=== PATIENT | male | born 1965 | race African-American/Black ===

== ENCOUNTER 2017-04-13 13:30 | Inpatient (IN) | payer OTHER ==
[2017-04-13 15:15] VITALS: BMI 25.0
--- NOTE | 2017-04-13 15:46 | HP ---
CIWA Score - CIWA Score Nausea/Vomitin Muscle Tremors: 3 Anxiety: 3 Agitation: 3 Paroxysmal Sweats: 2 Orientation: 0-Oriented Tacttile Disturbances: 2-Mild Itch/Numbness/Burn Auditory Disturbances: 2-Mild Harshness/Frighten Visual Disturbances: 2-Mild Sensitivity Headache: 2-Mild CIWA-Ar Total Score: 22 Admission ROS BHS - HPI Chief Complaint: I NEED HELP TO STOP DRINKING ALCOHOL,MARIJUANA,HEROIN,MMTP 80 MGS/DAY,LAST MEDICATED O04/11/17 HYPERTENSION DEPRESSION,PTSD LONGEST PERIOD OF SOBRIETY 8 YEARS Allergies/Adverse Reactions: Allergies Allergy/AdvReac Type Severity Reaction Status Date / Time pork derived (porcine) Allergy Severe Rash Verified 04/13/17 15:30 No Known Drug Allergies Allergy Verified 04/13/17 15:30 History of Present Illness: THIS 51 YEARS OLD MALE PATIENT WITH ALCOHOL,MARIJUANA,HEROIN DEPENDENCE,MNMTP 80 MGS/DAY FOR DETOX MENTIONED ABOVE Exam Limitations: No Limitations - Ebola screening Have you traveled outside of the country in the last 21 days: No Have you had contact with anyone from an Ebola affected area: No Have you been sick,other than usual withdrawal symptoms: No - Review of Systems Constitutional: Loss of Appetite, Malaise, Night Sweats, Changes in sleep, Weakness, Unintentional Wgt. Loss EENT: reports: No Symptoms Reported, Nose Congestion Respiratory: reports: No Symptoms reported Cardiac: reports: No Symptoms Reported GI: reports: Nausea, Poor Appetite, Vomiting, Abdominal cramping : reports: No Symptoms Reported Musculoskeletal: reports: Back Pain, Muscle Pain Integumentary: reports: Dryness Neuro: reports: Headache, Tremors Endocrine: reports: No Symptoms Reported Hematology: reports: No Symptoms Reported Psychiatric: reports: No Sypmtoms Reported, Mood/Affect Appropiate, Depressed, other (PTSD) Patient History - Patient Medical History Hx Anemia: No Hx Asthma: No Hx Chronic Obstructive Pulmonary Disease (COPD): No Hx Cancer: No Hx Cardiac Disorders: No Hx Congestive Heart Failure: No Hx Hypertension: Yes (non compliance) Hx Hypercholesterolemia: No Hx Pacemaker: No HX Cerebrovascular Accident: No Hx Seizures: No Hx Dementia: No Hx Diabetes: No Hx Gastrointestinal Disorders: No Hx Liver Disease: No Hx Genitourinary Disorders: No Hx Sexually Transmitted Disorders: No Hx Renal Disease (ESRD): No Hx Thyroid Disease: No Hx Human Immunodeficiency Virus (HIV): No (last 09/06 negative) Hx Hepatitis C: No Hx Depression: Yes (SEROQUEL & ZOLOFT) Hx Suicide Attempt: No Hx Bipolar Disorder: No Hx Schizophrenia: No Other Medical History: NO SUICIDAL,NO HOMICIDAL - Patient Surgical History Past Surgical History: No Hx Neurologic Surgery: No Hx Cataract Extraction: No Hx Cardiac Surgery: No Hx Lung Surgery: No Hx Breast Surgery: No Hx Breast Biopsy: No Hx Abdominal Surgery: No Hx Appendectomy: No Hx Cholecystectomy: No Hx Genitourinary Surgery: No Hx Section: No Hx Orthopedic Surgery: No Anesthesia Reaction: No - PPD History Previous Implant?: Yes Documented Results: Positive w/proof Implanted On Prior [facility] Admission?: Yes Date: 10/07/13 Results: 15 mm PPD to be Administered?: No - Smoking Cessation Smoking history: Current every day smoker Have you smoked in the past 12 months: Yes Aproximately how many cigarettes per day: 7 Cigars Per Day: 0 Hx Chewing Tobacco Use: Yes Initiated information on smoking cessation: Yes 'Breaking Loose' booklet given: 04/13/17 - Substance & Tx. History Hx Alcohol Use: Yes Hx Substance Use: Yes Substance Use Type: Alcohol, Cocaine, Heroin Hx Substance Use Treatment: Yes ([facility] 10/13/16 TO 10/18/16) - Substances Abused Alcohol Route: Oral Frequency: Daily Amount used: 2 and 1/2 pints vodka Age of first use: 14 Date of Last Use: 04/13/17 Heroin Route: Inhalation Frequency: Daily Amount used: 4 bags Age of first use: 29 Date of Last Use: 04/12/17 Marijuana/Hashish Route: Smoking Frequency: 1-2 times per week Amount used: 1 joint Age of first use: 15 Date of Last Use: 04/12/17 Family Disease History - Family Disease History Family Disease History: Other: Grandparent (alcohol), Father (ETOH DEPENDENT, ) Admission Physical Exam S - Vital Signs Vital Signs: Vital Signs - 24 hr 04/13/17 15:11 Temperature 96.8 F L Pulse Rate 77 Respiratory 18 Rate Blood Pressure 143/98 - Physical General Appearance: Yes: Moderate Distress, Tremorous, Irritable, Sweating, Anxious HEENTM: Yes: Normal ENT Inspection, GAGE, Pharynx Normal Respiratory: Yes: Lungs Clear, Normal Breath Sounds, No Respiratory Distress Neck: Yes: Within Normal Limits, Supple, Trachea in good position Breast: Yes: Within Normal Limits Cardiology: Yes: Within Normal Limits, Regular Rhythm, Regular Rate, S1, S2 Abdominal: Yes: Within Normal Limits, Normal Bowel Sounds, Non Tender, Flat, Soft Genitourinary: Yes: Within Normal Limits Back: Yes: Normal Inspection, Muscle Spasm Musculoskeletal: Yes: full range of Motion, Back pain, Muscle Pain Extremities: Yes: Tremors Neurological: Yes: geologic technician II-XII NML intact, Fully Oriented, Alert, Motor Strength 5/5 Integumentary: Yes: Dry Lymphatic: Yes: Within Normal Limits - Diagnostic (1) Alcohol dependence with uncomplicated withdrawal Current Visit: No Status: Acute (2) Cannabis dependence Current Visit: No Status: Acute (3) Heroin abuse Current Visit: No Status: Acute (4) Methadone maintenance therapy patient Current Visit: No Status: Acute (5) Nicotine dependence Current Visit: No Status: Acute Qualifiers: Nicotine product type: cigarettes Substance use status: uncomplicated Qualified Code(s): F17.210 - Nicotine dependence, cigarettes, uncomplicated (6) Positive PPD Current Visit: No Status: Acute (7) Weight loss Current Visit: Yes Status: Acute Cleared for Admission [facility] - Detox or Rehab [facility] Level of Care: Medically Managed Detox Regimen/Protocol: Librium [facility] Breath Alcohol Content Breath Alcohol Content: 0.038 Urine Drug Screen - Results Drug Screen Negative: No Urine Drug Screen Results: THC-Marijuana, OPI-Opiates, MTD-Methadone
[2017-04-13] MEDS ORDERED: MAGNESIUM CITRATE 300 ML BOTTLE PO PRN (16:05)
[2017-04-13] MEDS ORDERED: ACETAMINOPHEN 325 MG TABLET (FP) PO PRN (16:05)
[2017-04-13] MEDS ORDERED: chlordiazePOXIDE HCL 25 MG CAPSULE PO PRN (16:05)
[2017-04-13] MEDS ORDERED: guaiFENesin/D-METHORPHAN HB 10 ML UNIT-DOSE CUPS PO PRN (16:05)
[2017-04-13] MEDS ORDERED: IBUPROFEN 400 MG TABLET (FP) PO PRN (16:05)
[2017-04-13] MEDS ORDERED: LOPERAMIDE HCL 2 MG CAPSULE PO PRN (16:05)
[2017-04-13] MEDS ORDERED: MAGNESIUM HYDROX 2400MG/30ML ORAL SUSPENSION 30 ML CUP PO PRN (16:05)
[2017-04-13] MEDS ORDERED: P-EPHED 60MG/TRIPROLIDI 2.5MG TABLET PO PRN (16:05)
[2017-04-13] MEDS ORDERED: MENTHOL/PHENOL 1 EACH UD MM PRN (16:05)
[2017-04-13] MEDS ORDERED: hydrOXYzine PAMOATE 25 MG CAPSULE (FP) PO PRN (16:05)
[2017-04-13] MEDS ORDERED: chlordiazePOXIDE HCL 25 MG CAPSULE PO ONE (17:15)
[2017-04-13 21:28] LABS: URINE APPEARANCE CLEAR; URINE BILIRUBIN NEGATIVE (NEGATIVE); URINE BLOOD NEGATIVE (NEGATIVE); URINE COLOR LTYELLOW; URINE GLUCOSE (UA) NEGATIVE (NEGATIVE); URINE KETONE NEGATIVE (NEGATIVE); URINE LEUK ESTERASE NEGATIVE (NEGATIVE); URINE NITRITE NEGATIVE (NEGATIVE); URINE PROTEIN NEGATIVE (NEGATIVE); URINE UROBILINOGEN NEGATIVE E.U./dl (0.2-1.0)
[2017-04-13] MEDS: chlordiazePOXIDE HCL 25 MG CAPSULE PO SCH (22:28)
[2017-04-13] MEDS: THIAMINE HCL 100 MG TABLET (FP) PO SCH (22:28)
[2017-04-13] MEDS: cloNIDine HCL 0.1 MG TABLET PO SCH (22:28)
[2017-04-13] MEDS: diphenhydrAMINE HCL 50 MG CAPSULE PO PRN (22:28)
[2017-04-13] MEDS: NICOTINE 21 MG/24 HOURS TOPICAL PATCH TD SCH (22:31)
[2017-04-14] MEDS: chlordiazePOXIDE HCL 25 MG CAPSULE PO SCH ×4 (05:38→22:07)
[2017-04-14] MEDS: PRENATAL VITAMINS W/ FOLIC ACID TABLET (FP) PO SCH (09:22)
[2017-04-14] MEDS: HYDROCHLOROTHIAZIDE 12.5 MG CAPSULE (FP) PO SCH (09:22)
[2017-04-14] MEDS: LISINOPRIL 20 MG TABLET (FP) PO SCH (09:22)
[2017-04-14] MEDS: METHADONE HCL 40 MG DISPERSABLE TABLET PO SCH (09:22)
[2017-04-14] MEDS: cloNIDine HCL 0.1 MG TABLET PO SCH ×2 (09:22→22:06)
[2017-04-14] MEDS: NICOTINE 21 MG/24 HOURS TOPICAL PATCH TD SCH (09:23)
[2017-04-14 10:08] LABS: MCH 36.4 pg (25.7-33.7); MCHC 34.3 g/dl (32.0-35.9); MEAN CELL VOLUME 106.1 fl (80-96); MEAN PLT VOLUME 8.6 fl (7.5-11.1); PLATELET COUNT 157 K/MM3 (134-434); RDW 11.8 % (11.9-15.9); WHITE BLOOD COUNT 4.9 K/mm3 (4.0-10.0)
[2017-04-14 10:36] LABS: ALBUMIN 3.7 g/dl (3.4-5.0); ALK PHOS 87 U/L (45-117); ANION GAP 8 (8-16); CO2 31 mmol/L (21-32); COCKROFT - GAULT 75.59; CREATININE 1.2 mg/dL (0.7-1.3); GLUCOSE,RANDOM 121 mg/dL (74-106); SGOT/AST 32 U/L (15-37); SGPT/ALT 46 U/L (12-78); TOT PROT 6.7 g/dl (6.4-8.2)
--- NOTE | 2017-04-14 10:37 | CONSULT ---
[facility] Psychiatric Consult - Data Date of interview: 04/14/17 Admission source: [facility] Identifying data: This ios 51 years old male with history of no psychiatric hospitalizations intoxicated with: Alcohol, Cannabis, Opioids, Xanax Substance Abuse History: - Smoking Cessation. Smoking history: Current every day smoker. Have you smoked in the past 12 months: Yes. Aproximately how many cigarettes per day: 7. Cigars Per Day: 0. Hx Chewing Tobacco Use: Yes. Initiated information on smoking cessation: Yes. 'Breaking Loose' booklet given : 04/13/17. - Substance & Tx. History. Hx Alcohol Use: Yes. Hx Substance Use : Yes. Substance Use Type: Alcohol, Cocaine, Heroin. Hx Substance Use Treatment: Yes ([facility] 10/13/16 TO 10/18/16). - Substances Abused. Alcohol. Route: Oral. Frequency: Daily. Amount used: 2 and 1/2 pints vodka. Age of first use: 14. Date of Last Use: 04/13/17. Heroin. Route: Inhalation. Frequency: Daily. Amount used: 4 bags. Age of first use: 29. Date of Last Use : 04/12/17. Marijuana/Hashish. Route: Smoking. Frequency: 1-2 times per week. Amount used: 1 joint. Age of first use: 15. Date of Last Use: 04/12/17 Medical History: Weight b;oss, PPD+ hisotry, HIV, MMTP history Psychiatric History: Patient denies past psychiatric history Physical/Sexual Abuse/Trauma History: enies Additional Comment: [facility] Mental Status Exam - Mental Status Exam Alert and Oriented to: Person Cognitive Function: Fair Patient Appearance: Unkempt Mood: Sad Affect: Flat Patient Behavior: Sedated Speech Pattern: Delayed Voice Loudness: Mildly Soft/Quiet Thought Process: Circumstantial Thought Disorder: Being Controlled Hallucinations: Denies Suicidal Ideation: Denies Homicidal Ideation: Denies Insight/Judgement: Fair Sleep: Difficulty falling asleep Appetite: Weight loss Muscle strength/Tone: Mild Hypotonicity Gait/Station: Shuffling Additional Comments: Observation. [facility] Psychiatric Findings - Problem List ([place] 1, 2,3) (1) Weight loss Current Visit: Yes Status: Acute (2) Cannabis dependence Current Visit: No Status: Acute (3) Methadone maintenance therapy patient Current Visit: No Status: Acute (4) Nicotine dependence Current Visit: No Status: Acute Qualifiers: Nicotine product type: cigarettes Substance use status: uncomplicated Qualified Code(s): F17.210 - Nicotine dependence, cigarettes, uncomplicated (5) Opioid dependence on agonist therapy Current Visit: No Status: Acute (6) Opioid dependence with withdrawal Current Visit: No Status: Acute (7) Substance-induced sleep disorder Current Visit: No Status: Acute (8) Uncomplicated sedative, hypnotic or anxiolytic withdrawal Current Visit: No Status: Acute (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 Detox Unit Care [facility]
--- NOTE | 2017-04-14 11:43 | PN ---
[facility] CIWA - CIWA Score Nausea/Vomitin Muscle Tremors: 3 Anxiety: 3 Agitation: 3 Paroxysmal Sweats: 3 Orientation: 0-Oriented Tacttile Disturbances: 2-Mild Itch/Numbness/Burn Auditory Disturbances: 0-None Visual Disturbances: 0-None Headache: 0-None Present CIWA-Ar Total Score: 17 S Progress Note (SOAP) Subjective: interrupted sleep, sweats, diarrhea , rt knee pain Objective: 04/14/17 11:41 04/14/17 11:42 Vital Signs Temperature 98.2 F 04/14/17 10:39 Pulse Rate 75 04/14/17 10:39 Respiratory Rate 16 04/14/17 10:39 Blood Pressure 137/88 04/14/17 10:39 O2 Sat by Pulse Oximetry (%) Laboratory Tests 04/13/17 04/14/17 04/14/17 21:00 07:00 07:00 WBC 4.9 RBC 3.68 L Hgb 13.4 Hct 39.0 MCV 106.1 H MCHC 34.3 RDW 11.8 L D Plt Count 157 MPV 8.6 Sodium 139 Potassium 3.3 L Chloride 100 Carbon Dioxide 31 Anion Gap 8 BUN 12 Creatinine 1.2 D Creat Clearance w eGFR > 60 Random Glucose 121 H D Calcium 9.0 Total Bilirubin 1.0 AST 32 ALT 46 Alkaline Phosphatase 87 D Total Protein 6.7 Albumin 3.7 Urine Color Ltyellow Urine Appearance Clear Urine pH 5.0 Ur Specific [place] 1.020 Urine Protein Negative Urine Glucose (UA) Negative Urine Ketones Negative Urine Blood Negative Urine Nitrite Negative Urine Bilirubin Negative Urine Urobilinogen Negative Ur Leukocyte Esterase Negative pt aox3 in nad ambulating 04/14/17 12:01 04/14/17 12:01 Assessment: 04/14/17 11:41 wiythdrawal sx's rt knee pains 04/14/17 12:01 Plan: cont. detox increase fluids motrin prn imodium prn
--- NOTE | 2017-04-14 12:39 | EKG ---
Test Reason : Blood Pressure : / mmHG Vent. Rate : 051 BPM Atrial Rate : 051 BPM P-R Int : 174 ms QRS Dur : 082 ms QT Int : 456 ms P-R-T Axes : 006 044 013 degrees QTc Int : 420 ms SINUS BRADYCARDIA NONSPECIFIC T WAVE ABNORMALITY ABNORMAL ECG NO PREVIOUS ECGS AVAILABLE Confirmed by JULES REED, GERDA ([id number]) on 04/14/2017 12:38:56 PM Referred By: Confirmed By:GERDA VICENTE MD
[2017-04-14] MEDS: MAG HYDROX/AL HYDROX/SIMETH 30 ML UNIT-DOSE CUP PO PRN (20:00)
[2017-04-14] MEDS: THIAMINE HCL 100 MG TABLET (FP) PO SCH (22:06)
[2017-04-14] MEDS: diphenhydrAMINE HCL 50 MG CAPSULE PO PRN (22:07)
[2017-04-15] MEDS: METHADONE HCL 40 MG DISPERSABLE TABLET PO SCH (06:14)
[2017-04-15] MEDS: chlordiazePOXIDE HCL 25 MG CAPSULE PO SCH ×3 (06:15→17:40)
[2017-04-15] MEDS: cloNIDine HCL 0.1 MG TABLET PO SCH ×2 (11:05→22:36)
[2017-04-15] MEDS: LISINOPRIL 20 MG TABLET (FP) PO SCH (11:05)
[2017-04-15] MEDS: HYDROCHLOROTHIAZIDE 12.5 MG CAPSULE (FP) PO SCH (11:05)
[2017-04-15] MEDS: PRENATAL VITAMINS W/ FOLIC ACID TABLET (FP) PO SCH (11:05)
[2017-04-15] MEDS: CLOTRIMAZOLE/BETAMET DIPROP TOPICAL CREAM 45 GM TUBE TP SCH ×2 (11:06→22:45)
[2017-04-15] MEDS: NICOTINE 21 MG/24 HOURS TOPICAL PATCH TD SCH (11:06)
--- NOTE | 2017-04-15 11:55 | PN ---
S CIWA - CIWA Score Nausea/Vomitin-No Nausea/No Vomiting Muscle Tremors: 4-Moderate,w/Arms Extend Anxiety: 3 Agitation: 3 Paroxysmal Sweats: 3 Orientation: 0-Oriented Tacttile Disturbances: 0-None Auditory Disturbances: 0-None Visual Disturbances: 0-None Headache: 0-None Present CIWA-Ar Total Score: 13 S Progress Note (SOAP) Subjective: sweats interrupted sleep I want my libirum reduced so I can leave on Wednesday. Objective: 04/15/17 12:01 Vital Signs Temperature 97.2 F L 04/15/17 09:47 Pulse Rate 78 04/15/17 09:47 Respiratory Rate 16 04/15/17 09:47 Blood Pressure 122/80 04/15/17 09:47 O2 Sat by Pulse Oximetry (%) Laboratory Tests 04/13/17 04/14/17 04/14/17 21:00 07:00 07:00 WBC 4.9 RBC 3.68 L Hgb 13.4 Hct 39.0 MCV 106.1 H MCHC 34.3 RDW 11.8 L D Plt Count 157 MPV 8.6 Sodium 139 Potassium 3.3 L Chloride 100 Carbon Dioxide 31 Anion Gap 8 BUN 12 Creatinine 1.2 D Creat Clearance w eGFR > 60 Random Glucose 121 H D Calcium 9.0 Total Bilirubin 1.0 AST 32 ALT 46 Alkaline Phosphatase 87 D Total Protein 6.7 Albumin 3.7 Urine Color Ltyellow Urine Appearance Clear Urine pH 5.0 Ur Specific [place] 1.020 Urine Protein Negative Urine Glucose (UA) Negative Urine Ketones Negative Urine Blood Negative Urine Nitrite Negative Urine Bilirubin Negative Urine Urobilinogen Negative Ur Leukocyte Esterase Negative RPR Titer 04/14/17 07:00 WBC RBC Hgb Hct MCV MCHC RDW Plt Count MPV Sodium Potassium Chloride Carbon Dioxide Anion Gap BUN Creatinine Creat Clearance w eGFR Random Glucose Calcium Total Bilirubin AST ALT Alkaline Phosphatase Total Protein Albumin Urine Color Urine Appearance Urine pH Ur Specific [place] Urine Protein Urine Glucose (UA) Urine Ketones Urine Blood Urine Nitrite Urine Bilirubin Urine Urobilinogen Ur Leukocyte Esterase RPR Titer Nonreactive k-dur ordered awake/alert ambulating no acute distress Assessment: 04/15/17 12:04 withdrawal sx Plan: continue detox increase fluids librium reduced as per pt request so pt can leave on Wednesday
[2017-04-15] MEDS ORDERED: POTASSIUM CHLORIDE TABS 20 MEQ TABLET.ER (FP) PO ONE (12:03)
[2017-04-15] MEDS: diphenhydrAMINE HCL 50 MG CAPSULE PO PRN (22:36)
[2017-04-15] MEDS: chlordiazePOXIDE 5 MG CAPSULE PO SCH (22:36)
[2017-04-15] MEDS: THIAMINE HCL 100 MG TABLET (FP) PO SCH (22:37)
[2017-04-15] MEDS ORDERED: chlordiazePOXIDE 5 MG CAPSULE PO SCH (23:00)
[2017-04-16] MEDS: chlordiazePOXIDE 5 MG CAPSULE PO SCH (06:33)
[2017-04-16] MEDS: METHADONE HCL 40 MG DISPERSABLE TABLET PO SCH (06:33)
[2017-04-16] MEDS: MAG HYDROX/AL HYDROX/SIMETH 30 ML UNIT-DOSE CUP PO PRN ×2 (06:43→15:22)
[2017-04-16] MEDS: HYDROCHLOROTHIAZIDE 12.5 MG CAPSULE (FP) PO SCH (10:56)
[2017-04-16] MEDS: PRENATAL VITAMINS W/ FOLIC ACID TABLET (FP) PO SCH (10:57)
[2017-04-16] MEDS: cloNIDine HCL 0.1 MG TABLET PO SCH ×2 (10:57→23:05)
[2017-04-16] MEDS: LISINOPRIL 20 MG TABLET (FP) PO SCH (10:57)
[2017-04-16] MEDS: NICOTINE 21 MG/24 HOURS TOPICAL PATCH TD SCH (10:57)
[2017-04-16] MEDS: CLOTRIMAZOLE/BETAMET DIPROP TOPICAL CREAM 45 GM TUBE TP SCH ×2 (10:58→23:05)
[2017-04-16] MEDS: POTASSIUM CHLORIDE TABS 20 MEQ TABLET.ER (FP) PO SCH (10:59)
--- NOTE | 2017-04-16 12:26 | PN ---
BHS Progress Note (SOAP) Subjective: Interrupted sleep, Body aches. Objective: PT. A & O X 3, OBSERVED AMBULATING ON UNIT. 04/16/17 12:24 Vital Signs Temperature 97.7 F 04/16/17 10:00 Pulse Rate 85 04/16/17 10:00 Respiratory Rate 16 04/16/17 10:00 Blood Pressure 139/83 04/16/17 10:00 O2 Sat by Pulse Oximetry (%) Laboratory Tests 04/13/17 04/14/17 04/14/17 21:00 07:00 07:00 WBC 4.9 RBC 3.68 L Hgb 13.4 Hct 39.0 MCV 106.1 H MCHC 34.3 RDW 11.8 L D Plt Count 157 MPV 8.6 Sodium 139 Potassium 3.3 L Chloride 100 Carbon Dioxide 31 Anion Gap 8 BUN 12 Creatinine 1.2 D Creat Clearance w eGFR > 60 Random Glucose 121 H D Calcium 9.0 Total Bilirubin 1.0 AST 32 ALT 46 Alkaline Phosphatase 87 D Total Protein 6.7 Albumin 3.7 Urine Color Ltyellow Urine Appearance Clear Urine pH 5.0 Ur Specific [place] 1.020 Urine Protein Negative Urine Glucose (UA) Negative Urine Ketones Negative Urine Blood Negative Urine Nitrite Negative Urine Bilirubin Negative Urine Urobilinogen Negative Ur Leukocyte Esterase Negative RPR Titer 04/14/17 07:00 WBC RBC Hgb Hct MCV MCHC RDW Plt Count MPV Sodium Potassium Chloride Carbon Dioxide Anion Gap BUN Creatinine Creat Clearance w eGFR Random Glucose Calcium Total Bilirubin AST ALT Alkaline Phosphatase Total Protein Albumin Urine Color Urine Appearance Urine pH Ur Specific [place] Urine Protein Urine Glucose (UA) Urine Ketones Urine Blood Urine Nitrite Urine Bilirubin Urine Urobilinogen Ur Leukocyte Esterase RPR Titer Nonreactive LABS NOTED. Assessment: 04/16/17 12:25 WITHDRAWAL SYMPTOMS. Plan: CONTINUE DETOX.
[2017-04-16] MEDS ORDERED: chlordiazePOXIDE HCL 10 MG CAPSULE PO ONE (22:00)
[2017-04-16] MEDS ORDERED: chlordiazePOXIDE HCL 10 MG CAPSULE PO SCH ×2 (23:00)
[2017-04-16] MEDS: THIAMINE HCL 100 MG TABLET (FP) PO SCH (23:05)
[2017-04-16] MEDS: diphenhydrAMINE HCL 50 MG CAPSULE PO PRN (23:05)
[2017-04-17] MEDS: METHADONE HCL 40 MG DISPERSABLE TABLET PO SCH (06:08)
[2017-04-17 07:32] VITALS: BP 110/65; PULSE 81; TEMP 97.2
[2017-04-17] MEDS: PRENATAL VITAMINS W/ FOLIC ACID TABLET (FP) PO SCH (09:35)
[2017-04-17] MEDS: LISINOPRIL 20 MG TABLET (FP) PO SCH (09:35)
[2017-04-17] MEDS: CLOTRIMAZOLE/BETAMET DIPROP TOPICAL CREAM 45 GM TUBE TP SCH (09:35)
[2017-04-17] MEDS: POTASSIUM CHLORIDE TABS 20 MEQ TABLET.ER (FP) PO SCH (09:35)
[2017-04-17] MEDS: cloNIDine HCL 0.1 MG TABLET PO SCH (09:35)
[2017-04-17] MEDS: HYDROCHLOROTHIAZIDE 12.5 MG CAPSULE (FP) PO SCH (09:35)
[2017-04-17] MEDS: NICOTINE 21 MG/24 HOURS TOPICAL PATCH TD SCH (09:36)
[2017-04-17] MEDS ORDERED: chlordiazePOXIDE HCL 10 MG CAPSULE PO SCH (11:00)
--- NOTE | 2017-04-17 15:33 | DS ---
[facility] Detox Discharge Summary Admission Date: 04/13/17 Discharge Date: 04/17/17 - History Present History: Alcohol Dependence, Cannabis Dependence, Opioid Dependence, MMTP Additional Comments: ADVISED PATIENT TO FOLLOW-UP WITH SALES INSPECTOR AFTER DISCHARGE FROM DETOX FOR GENERAL MEDICAL ASSESSMENT. Pertinent Past History: HTN, MMTP, History of Positive PPD, Depression. - Physical Exam Results Vital Signs: Vital Signs Temperature 97.2 F L 04/17/17 07:31 Pulse Rate 81 04/17/17 07:31 Respiratory Rate 18 04/17/17 07:31 Blood Pressure 110/65 04/17/17 07:31 O2 Sat by Pulse Oximetry (%) Pertinent Admission Physical Exam Findings: WITHDRAWAL SYMPTOMS. Laboratory Tests 04/13/17 04/14/17 04/14/17 21:00 07:00 07:00 WBC 4.9 RBC 3.68 L Hgb 13.4 Hct 39.0 MCV 106.1 H MCHC 34.3 RDW 11.8 L D Plt Count 157 MPV 8.6 Sodium 139 Potassium 3.3 L Chloride 100 Carbon Dioxide 31 Anion Gap 8 BUN 12 Creatinine 1.2 D Creat Clearance w eGFR > 60 Random Glucose 121 H D Calcium 9.0 Total Bilirubin 1.0 AST 32 ALT 46 Alkaline Phosphatase 87 D Total Protein 6.7 Albumin 3.7 Urine Color Ltyellow Urine Appearance Clear Urine pH 5.0 Ur Specific [place] 1.020 Urine Protein Negative Urine Glucose (UA) Negative Urine Ketones Negative Urine Blood Negative Urine Nitrite Negative Urine Bilirubin Negative Urine Urobilinogen Negative Ur Leukocyte Esterase Negative RPR Titer 04/14/17 07:00 WBC RBC Hgb Hct MCV MCHC RDW Plt Count MPV Sodium Potassium Chloride Carbon Dioxide Anion Gap BUN Creatinine Creat Clearance w eGFR Random Glucose Calcium Total Bilirubin AST ALT Alkaline Phosphatase Total Protein Albumin Urine Color Urine Appearance Urine pH Ur Specific [place] Urine Protein Urine Glucose (UA) Urine Ketones Urine Blood Urine Nitrite Urine Bilirubin Urine Urobilinogen Ur Leukocyte Esterase RPR Titer Nonreactive LABS NOTED. - Treatment Hospital Course: Detox Protocol Followed, Detoxed Safely, Responded well, Discharged Condition Good Patient has Accepted a Rehab Referral to: PATIENT TO GO HOME AT THIS TIME; WILL PURSUE REHAB ADMISSION IN A FEW DAYS. - Medication Discharge Medications: Ambulatory Orders Clonidine HCl 0.3 mg PO DAILY PRN 10/13/16 Hydrochlorothiazide [Hctz -] 12.5 mg PO DAILY #30 cap 10/18/16 Lisinopril [Prinivil] 20 mg PO DAILY #30 tablet 10/18/16 - Diagnosis (1) Alcohol dependence with uncomplicated withdrawal Status: Acute (2) Cannabis dependence Status: Acute (3) Heroin abuse Status: Acute (4) Methadone maintenance therapy patient Status: Chronic (5) Nicotine dependence Status: Chronic Qualifiers: Nicotine product type: cigarettes Substance use status: uncomplicated Qualified Code(s): F17.210 - Nicotine dependence, cigarettes, uncomplicated (6) Opioid dependence on agonist therapy Status: Chronic (7) Positive PPD Status: Chronic (8) Substance-induced sleep disorder Status: Acute (9) Weight loss Status: Acute (10) Essential hypertension Status: Chronic (11) Drug-induced mood disorder Status: Suspected - AMA Did Patient Leave Against Medical Advice: No
== END 2017-04-17 09:42 | disposition home or self-care (01) | DRG 773 ==
LOC: YASAS 13:30 → Y6N 16:20
PROVIDERS: ADMIT Internal Medicine Addiction Medicine; ATTEND Internal Medicine Addiction Medicine
PROC: HZ2ZZZZ Detoxification Services for Substance Abuse Treatment (ICD-10-PCS; principal; 2017-04-13)
DX: F10.230 Alcohol dependence with withdrawal, uncomplicated (principal); F11.20 Opioid dependence, uncomplicated; F12.20 Cannabis dependence, uncomplicated; F17.210 Nicotine dependence, cigarettes, uncomplicated; F19.24 Other psychoactive substance dependence with psychoactive substance-induced mood disorder; F19.282 Other psychoactive substance dependence with psychoactive substance-induced sleep disorder; I10 Essential (primary) hypertension; M25.561 Pain in right knee; R76.11 Nonspecific reaction to tuberculin skin test without active tuberculosis; Z91.14 Patient's other noncompliance with medication regimen; Z87.898 Personal history of other specified conditions
CPT/HCPCS: 36415; 80053; 81003; 85027; 86593; 93005; 93010

== ENCOUNTER 2017-06-30 13:19 | Inpatient (IN) | payer OTHER ==
[2017-06-30 15:11] VITALS: BMI 23.5
--- NOTE | 2017-06-30 15:46 | HP ---
CIWA Score - CIWA Score Nausea/Vomitin Muscle Tremors: 3 Anxiety: 3 Agitation: 3 Paroxysmal Sweats: 2 Orientation: 0-Oriented Tacttile Disturbances: 2-Mild Itch/Numbness/Burn Auditory Disturbances: 2-Mild Harshness/Frighten Visual Disturbances: 2-Mild Sensitivity Headache: 2-Mild CIWA-Ar Total Score: 22 Admission ROS [facility] - HPI Chief Complaint: i need help to stop drinking alcohol Allergies/Adverse Reactions: Allergies Allergy/AdvReac Type Severity Reaction Status Date / Time pork derived (porcine) Allergy Severe Rash Verified 06/30/17 15:36 No Known Drug Allergies Allergy Verified 06/30/17 15:36 History of Present Illness: this 52 years old male with alcohol dependence,seeking detox,last treatment to 04/17/17 syncope alcohol related mmtp 80 mgs/day,last medicated today hypertension weight loss multiple admissions in detox longest period of sobriety 8 years Exam Limitations: No Limitations - Ebola screening Have you traveled outside of the country in the last 21 days: No Have you had contact with anyone from an Ebola affected area: No Have you been sick,other than usual withdrawal symptoms: No Do you have a fever: No - Review of Systems Constitutional: Loss of Appetite, Malaise, Night Sweats, Changes in sleep, Weakness, Unintentional Wgt. Loss EENT: reports: Nose Congestion Respiratory: reports: No Symptoms reported Cardiac: reports: Palpitations GI: reports: Diarrhea, Nausea, Indigestion, Abdominal cramping : reports: No Symptoms Reported Musculoskeletal: reports: Back Pain, Muscle Pain Integumentary: reports: Dryness Neuro: reports: Headache, Tremors Endocrine: reports: No Symptoms Reported Hematology: reports: No Symptoms Reported Psychiatric: reports: No Sypmtoms Reported, Judgement Intact, Mood/Affect Appropiate, Orientated x3 Patient History - Patient Medical History Hx Anemia: No Hx Asthma: No Hx Chronic Obstructive Pulmonary Disease (COPD): No Hx Cancer: No Hx Cardiac Disorders: No Hx Congestive Heart Failure: No Hx Hypertension: Yes (non compliance) Hx Hypercholesterolemia: No Hx Pacemaker: No HX Cerebrovascular Accident: No Hx Seizures: No Hx Dementia: No Hx Diabetes: No Hx Gastrointestinal Disorders: No Hx Liver Disease: No Hx Genitourinary Disorders: No Hx Sexually Transmitted Disorders: No Hx Renal Disease (ESRD): No Hx Thyroid Disease: No Hx Human Immunodeficiency Virus (HIV): No (last 04/07 negative) Hx Hepatitis C: No Hx Depression: Yes (SEROQUEL & ZOLOFT) Hx Suicide Attempt: No Hx Bipolar Disorder: No Hx Schizophrenia: No Other Medical History: no suicidal,no homicidal - Patient Surgical History Past Surgical History: No Hx Neurologic Surgery: No Hx Cataract Extraction: No Hx Cardiac Surgery: No Hx Lung Surgery: No Hx Breast Surgery: No Hx Breast Biopsy: No Hx Abdominal Surgery: No Hx Appendectomy: No Hx Cholecystectomy: No Hx Genitourinary Surgery: No Hx Section: No Hx Orthopedic Surgery: No Anesthesia Reaction: No - PPD History Previous Implant?: Yes Documented Results: Positive w/o proof Date: 10/07/13 Results: 15 mm PPD to be Administered?: No - Smoking Cessation Smoking history: Current every day smoker Have you smoked in the past 12 months: Yes Aproximately how many cigarettes per day: 7 Cigars Per Day: 0 Hx Chewing Tobacco Use: Yes Initiated information on smoking cessation: No 'Breaking Loose' booklet given: 06/30/17 - Substance & Tx. History Hx Alcohol Use: Yes Hx Substance Use: No Substance Use Type: Alcohol Hx Substance Use Treatment: Yes ([facility] 04/13/17 to 04/17/17) - Substances Abused Alcohol Route: Oral Frequency: Daily Amount used: vodka(1-2 pints) Age of first use: 15 Date of Last Use: 06/30/17 Family Disease History - Family Disease History Family Disease History: Other: Grandparent (alcohol), Father (ETOH DEPENDENT, ) Admission Physical Exam [facility] - Vital Signs Vital Signs: Vital Signs - 24 hr 06/30/17 15:08 Temperature 96.4 F L Pulse Rate 120 H Respiratory 20 Rate Blood Pressure 150/110 - Physical General Appearance: Yes: Moderate Distress, Alcohol on Breath, Tremorous, Irritable, Sweating, Anxious HEENTM: Yes: Normal ENT Inspection, GAGE, Pharynx Normal Respiratory: Yes: Lungs Clear, Normal Breath Sounds, No Respiratory Distress Neck: Yes: Within Normal Limits, Supple, Trachea in good position Breast: Yes: Within Normal Limits Cardiology: Yes: Tachycardia Abdominal: Yes: Normal Bowel Sounds, Non Tender, Soft Genitourinary: Yes: Within Normal Limits Back: Yes: Muscle Spasm Musculoskeletal: Yes: Back pain, Muscle Pain Extremities: Yes: Tremors Neurological: Yes: senior bioinformatics scientist II-XII NML intact, Fully Oriented, Alert, Motor Strength 5/5 Integumentary: Yes: Dry Lymphatic: Yes: Within Normal Limits - Diagnostic (1) Alcohol dependence with uncomplicated withdrawal Current Visit: Yes Status: Acute (2) Weight loss Current Visit: Yes Status: Acute (3) Essential hypertension Current Visit: No Status: Chronic (4) Methadone maintenance therapy patient Current Visit: Yes Status: Chronic (5) Nicotine dependence Current Visit: Yes Status: Acute Qualifiers: Nicotine product type: cigarettes Substance use status: in withdrawal Qualified Code(s): F17.213 - Nicotine dependence, cigarettes, with withdrawal (6) Positive PPD Current Visit: No Status: Chronic (7) PTSD (post-traumatic stress disorder) Current Visit: Yes Status: Acute Cleared for Admission [facility] - Detox or Rehab [facility] Level of Care: Medically Managed Detox Regimen/Protocol: Librium [facility] Breath Alcohol Content Breath Alcohol Content: 0.265 Urine Drug Screen - Results Drug Screen Negative: No Urine Drug Screen Results: MTD-Methadone
[2017-06-30] MEDS ORDERED: P-EPHED 60MG/TRIPROLIDI 2.5MG TABLET PO PRN (15:58)
[2017-06-30] MEDS ORDERED: MAGNESIUM CITRATE 300 ML BOTTLE PO PRN (15:58)
[2017-06-30] MEDS ORDERED: MENTHOL/PHENOL 1 EACH UD MM PRN (15:58)
[2017-06-30] MEDS ORDERED: ACETAMINOPHEN 325 MG TABLET (FP) PO PRN (15:58)
[2017-06-30] MEDS ORDERED: IBUPROFEN 400 MG TABLET (FP) PO PRN (15:58)
[2017-06-30] MEDS ORDERED: MAGNESIUM HYDROX 2400MG/30ML ORAL SUSPENSION 30 ML CUP PO PRN (15:58)
[2017-06-30] MEDS ORDERED: hydrOXYzine PAMOATE 25 MG CAPSULE (FP) PO PRN (15:58)
[2017-06-30] MEDS ORDERED: chlordiazePOXIDE HCL 25 MG CAPSULE PO ONE (15:58)
[2017-06-30] MEDS ORDERED: guaiFENesin/D-METHORPHAN HB 10 ML UNIT-DOSE CUPS PO PRN (15:58)
[2017-06-30] MEDS ORDERED: chlordiazePOXIDE HCL 25 MG CAPSULE PO PRN (15:58)
[2017-06-30] MEDS ORDERED: LOPERAMIDE HCL 2 MG CAPSULE PO PRN (15:58)
[2017-06-30] MEDS: chlordiazePOXIDE HCL 25 MG CAPSULE PO SCH ×2 (17:41→22:21)
[2017-06-30] MEDS: LISINOPRIL 20 MG TABLET (FP) PO SCH (17:46)
[2017-06-30] MEDS: NICOTINE 14 MG/24 HOURS TOPICAL PATCH TD SCH (17:46)
[2017-06-30] MEDS: HYDROCHLOROTHIAZIDE 12.5 MG CAPSULE (FP) PO SCH (17:46)
[2017-06-30 21:17] LABS: URINE APPEARANCE CLEAR; URINE BILIRUBIN NEGATIVE (NEGATIVE); URINE BLOOD 1+ (NEGATIVE); URINE COLOR DKYELLOW; URINE GLUCOSE (UA) NEGATIVE (NEGATIVE); URINE KETONE NEGATIVE (NEGATIVE); URINE LEUK ESTERASE NEGATIVE (NEGATIVE); URINE NITRITE NEGATIVE (NEGATIVE); URINE PROTEIN 1+ (NEGATIVE); URINE UROBILINOGEN NEGATIVE mg/dL (0.2-1.0)
[2017-06-30 21:42] LABS: URINE MUCUS MANY; URINE RBC 1 /hpf (0-3); URINE WBC 1 /hpf (3-5)
[2017-06-30] MEDS: THIAMINE HCL 100 MG TABLET (FP) PO SCH (22:21)
[2017-06-30] MEDS: diphenhydrAMINE HCL 50 MG CAPSULE PO PRN (22:22)
[2017-07-01] MEDS: chlordiazePOXIDE HCL 25 MG CAPSULE PO SCH ×4 (05:12→22:11)
[2017-07-01] MEDS: METHADONE HCL 40 MG DISPERSABLE TABLET PO SCH (09:17)
[2017-07-01 10:04] LABS: MCH 36.2 pg (25.7-33.7); MCHC 34.4 g/dl (32.0-35.9); MEAN PLT VOLUME 8.5 fl (7.5-11.1); PLATELET COUNT 113 K/MM3 (134-434); RDW 14.2 % (11.9-15.9); WHITE BLOOD COUNT 2.8 K/mm3 (4.0-10.0)
[2017-07-01 10:09] LABS: ALBUMIN 3.3 g/dl (3.4-5.0); ANION GAP 9 (8-16); CALCIUM 8.4 mg/dL (8.5-10.1); CO2 32 mmol/L (21-32); GLUCOSE,RANDOM 84 mg/dL (74-106); SGPT/ALT 198 U/L (12-78)
[2017-07-01 10:12] LABS: ALK PHOS 88 U/L (45-117); BILIRUBIN,TOTAL 0.8 mg/dL (0.2-1.0); CREATININE 1.1 mg/dL (0.7-1.3); TOT PROT 6.1 g/dl (6.4-8.2)
[2017-07-01] MEDS: NICOTINE 14 MG/24 HOURS TOPICAL PATCH TD SCH (10:12)
[2017-07-01] MEDS: PRENATAL VITAMINS W/ FOLIC ACID TABLET (FP) PO SCH (10:12)
[2017-07-01] MEDS: LISINOPRIL 20 MG TABLET (FP) PO SCH (10:12)
[2017-07-01] MEDS: HYDROCHLOROTHIAZIDE 12.5 MG CAPSULE (FP) PO SCH (10:12)
[2017-07-01 10:14] LABS: SGOT/AST 490 U/L (15-37)
--- NOTE | 2017-07-01 10:15 | PN ---
[facility] CIWA - CIWA Score Nausea/Vomitin-No Nausea/No Vomiting Muscle Tremors: 4-Moderate,w/Arms Extend Anxiety: 4-Mod. Anxious/Guarded Agitation: 4-Moderately Restless Paroxysmal Sweats: 1-Minimal Palms Moist Orientation: 0-Oriented Tacttile Disturbances: 3-Moderate Itch/Numb/Burn Auditory Disturbances: 0-None Visual Disturbances: 0-None Headache: 0-None Present CIWA-Ar Total Score: 16 S Progress Note (SOAP) Subjective: ANXIETY,TREMORS,SWEATS,FATIGUE. Objective: 07/01/17 10:14 Vital Signs Temperature 98.3 F 07/01/17 09:22 Pulse Rate 86 07/01/17 09:22 Respiratory Rate 18 07/01/17 09:22 Blood Pressure 134/90 07/01/17 09:22 O2 Sat by Pulse Oximetry (%) Laboratory Last Values WBC 2.8 K/mm3 (4.0-10.0) L D 07/01/17 07:00 RBC 3.57 M/mm3 (4.00-5.60) L 07/01/17 07:00 Hgb 12.9 GM/dL (11.7-16.9) 07/01/17 07:00 Hct 37.5 % (35.4-49) 07/01/17 07:00 MCV 105.0 fl (80-96) H 07/01/17 07:00 MCH 36.2 pg (25.7-33.7) H 07/01/17 07:00 MCHC 34.4 g/dl (32.0-35.9) 07/01/17 07:00 RDW 14.2 % (11.9-15.9) D 07/01/17 07:00 Plt Count 113 K/MM3 (134-434) L D 07/01/17 07:00 MPV 8.5 fl (7.5-11.1) 07/01/17 07:00 Urine Color Dkyellow 06/30/17 16:57 Urine Appearance Clear 06/30/17 16:57 Urine pH 5.0 (5.0-8.0) 06/30/17 16:57 Ur Specific [place] >= 1.030 (1.005-1.025) H 06/30/17 16:57 Urine Protein 1+ (NEGATIVE) H 06/30/17 16:57 Urine Glucose (UA) Negative (NEGATIVE) 06/30/17 16:57 Urine Ketones Negative (NEGATIVE) 06/30/17 16:57 Urine Blood 1+ (NEGATIVE) H 06/30/17 16:57 Urine Nitrite Negative (NEGATIVE) 06/30/17 16:57 Urine Bilirubin Negative (NEGATIVE) 06/30/17 16:57 Urine Urobilinogen Negative mg/dL (0.2-1.0) 06/30/17 16:57 Ur Leukocyte Esterase Negative (NEGATIVE) 06/30/17 16:57 Urine RBC 1 /hpf (0-3) 06/30/17 16:57 Urine WBC 1 /hpf (3-5) 06/30/17 16:57 Ur Epithelial Cells Rare /hpf (FEW) 06/30/17 16:57 Urine Mucus Many 06/30/17 16:57 OTHER LAB RESULTS PENDING Assessment: 07/01/17 10:14 WITHDRAWAL SX Plan: CONTINUE DETOX
--- NOTE | 2017-07-01 10:29 | CONSULT ---
[facility] Psychiatric Consult - Data Date of interview: 07/01/17 Admission source: [facility] Identifying data: This is 52 years old male with psychiatric hospitalization history, intoxicated with: Alcohol, Metrhafone, Nicotine and Cannabis Substance Abuse History: - Smoking Cessation. Smoking history: Current every day smoker. Have you smoked in the past 12 months: Yes. Aproximately how many cigarettes per day: 7. Cigars Per Day: 0. Hx Chewing Tobacco Use: Yes. Initiated information on smoking cessation: No. 'Breaking Loose' booklet given : 06/30/17. - Substance & Tx. History. Hx Alcohol Use: Yes. Hx Substance Use : No. Substance Use Type: Alcohol. Hx Substance Use Treatment: Yes ([facility] 04/13 to 04/17/17) Medical History: Hisotry of weight loss, HTN, PPD + history, Psychiatric History: Patient reportsm history of PTSD, Unclear psychiatric admission on about 4 years ago at [facility], reports no medications taking prior to admission Physical/Sexual Abuse/Trauma History: Denies Additional Comment: Observation. Detox Unit Care Protocol Mental Status Exam - Mental Status Exam Alert and Oriented to: Person Cognitive Function: Fair Patient Appearance: Unkempt Mood: Sad Affect: Flat Patient Behavior: Sedated Speech Pattern: Delayed Voice Loudness: Mildly Soft/Quiet Thought Process: Circumstantial Thought Disorder: Being Controlled Hallucinations: Denies Suicidal Ideation: Denies Homicidal Ideation: Denies Insight/Judgement: Fair Sleep: Difficulty falling asleep Appetite: Weight loss Muscle strength/Tone: Mild Hypotonicity Gait/Station: Shuffling Additional Comments: Observation. Detox Unit Care Protocol Psychiatric Findings - Problem List ([place] 1, 2,3) (1) Alcohol dependence with uncomplicated withdrawal Current Visit: Yes Status: Acute (2) Nicotine dependence Current Visit: Yes Status: Acute Qualifiers: Nicotine product type: cigarettes Substance use status: in withdrawal Qualified Code(s): F17.213 - Nicotine dependence, cigarettes, with withdrawal (3) PTSD (post-traumatic stress disorder) Current Visit: Yes Status: Acute (4) Methadone maintenance therapy patient Current Visit: Yes Status: Chronic (5) Cannabis dependence Current Visit: No Status: Acute (6) Heroin abuse Current Visit: No Status: Acute (7) Opioid dependence with withdrawal Current Visit: No Status: Acute (8) Sedative dependence Current Visit: No Status: Chronic (9) Drug-induced mood disorder Current Visit: No Status: Suspected - Initial Treatment Plan Initial Treatment Plan: Observation. Detox Unit Care Protocol
[2017-07-01] MEDS: MAG HYDROX/AL HYDROX/SIMETH 30 ML UNIT-DOSE CUP PO PRN ×2 (10:37→16:35)
[2017-07-01] MEDS: TOLNAFTATE 1% CREAM 15 GM TUBE TP SCH ×2 (11:15→22:22)
[2017-07-01 12:26] LABS: HIV 1 & 2 AB NEGATIVE; HIV 1 AGp24 NEGATIVE
--- NOTE | 2017-07-01 15:38 | EKG ---
Test Reason : Blood Pressure : / mmHG Vent. Rate : 076 BPM Atrial Rate : 076 BPM P-R Int : 152 ms QRS Dur : 090 ms QT Int : 414 ms P-R-T Axes : 045 033 064 degrees QTc Int : 465 ms NORMAL SINUS RHYTHM NORMAL ECG WHEN COMPARED WITH ECG OF 13-APR-2017 16:41, VENT. RATE HAS INCREASED BY 25 BPM NONSPECIFIC T WAVE ABNORMALITY NO LONGER EVIDENT IN ANTEROLATERAL LEADS Confirmed by GINI REED, NAKIA ([id number]) on 07/01/2017 3:38:04 PM Referred By: Confirmed By:NAKIA RUBALCAVA MD
[2017-07-01] MEDS: diphenhydrAMINE HCL 50 MG CAPSULE PO PRN (22:11)
[2017-07-01] MEDS: THIAMINE HCL 100 MG TABLET (FP) PO SCH (22:11)
[2017-07-02] MEDS: chlordiazePOXIDE HCL 25 MG CAPSULE PO SCH ×2 (05:30→10:15)
[2017-07-02] MEDS: METHADONE HCL 40 MG DISPERSABLE TABLET PO SCH (05:31)
--- NOTE | 2017-07-02 10:08 | PN ---
[facility] CIWA - CIWA Score Nausea/Vomitin-No Nausea/No Vomiting Muscle Tremors: 4-Moderate,w/Arms Extend Anxiety: 4-Mod. Anxious/Guarded Agitation: 4-Moderately Restless Paroxysmal Sweats: 1-Minimal Palms Moist Orientation: 0-Oriented Tacttile Disturbances: 3-Moderate Itch/Numb/Burn Auditory Disturbances: 0-None Visual Disturbances: 0-None Headache: 0-None Present CIWA-Ar Total Score: 16 S Progress Note (SOAP) Subjective: ANXIETY,SLIGHT TREMORS, IRRITABILITY. PT ALSO C/O RIGHT KNEE PAIN ITCHY RIGHT IN GROIN AREAS. Objective: 07/02/17 10:06 Vital Signs Temperature 98.1 F 07/02/17 06:08 Pulse Rate 87 07/02/17 06:08 Respiratory Rate 16 07/02/17 06:08 Blood Pressure 130/94 07/02/17 06:08 O2 Sat by Pulse Oximetry (%) Laboratory Last Values WBC 2.8 K/mm3 (4.0-10.0) L D 07/01/17 07:00 RBC 3.57 M/mm3 (4.00-5.60) L 07/01/17 07:00 Hgb 12.9 GM/dL (11.7-16.9) 07/01/17 07:00 Hct 37.5 % (35.4-49) 07/01/17 07:00 MCV 105.0 fl (80-96) H 07/01/17 07:00 MCH 36.2 pg (25.7-33.7) H 07/01/17 07:00 MCHC 34.4 g/dl (32.0-35.9) 07/01/17 07:00 RDW 14.2 % (11.9-15.9) D 07/01/17 07:00 Plt Count 113 K/MM3 (134-434) L D 07/01/17 07:00 MPV 8.5 fl (7.5-11.1) 07/01/17 07:00 Sodium 141 mmol/L (136-145) 07/01/17 07:00 Potassium 3.3 mmol/L (3.5-5.1) L 07/01/17 07:00 Chloride 100 mmol/L (98-107) 07/01/17 07:00 Carbon Dioxide 32 mmol/L (21-32) 07/01/17 07:00 Anion Gap 9 (8-16) 07/01/17 07:00 BUN 8 mg/dL (7-18) D 07/01/17 07:00 Creatinine 1.1 mg/dL (0.7-1.3) 07/01/17 07:00 Creat Clearance w eGFR > 60 (>60) 07/01/17 07:00 Random Glucose 84 mg/dL (74-106) D 07/01/17 07:00 Calcium 8.4 mg/dL (8.5-10.1) L 07/01/17 07:00 Total Bilirubin 0.8 mg/dL (0.2-1.0) 07/01/17 07:00 AST 490 U/L (15-37) H D 07/01/17 07:00 ALT 198 U/L (12-78) H D 07/01/17 07:00 Alkaline Phosphatase 88 U/L (45-117) 07/01/17 07:00 Total Protein 6.1 g/dl (6.4-8.2) L 07/01/17 07:00 Albumin 3.3 g/dl (3.4-5.0) L 07/01/17 07:00 Urine Color Dkyellow 06/30/17 16:57 Urine Appearance Clear 06/30/17 16:57 Urine pH 5.0 (5.0-8.0) 06/30/17 16:57 Ur Specific [place] >= 1.030 (1.005-1.025) H 06/30/17 16:57 Urine Protein 1+ (NEGATIVE) H 06/30/17 16:57 Urine Glucose (UA) Negative (NEGATIVE) 06/30/17 16:57 Urine Ketones Negative (NEGATIVE) 06/30/17 16:57 Urine Blood 1+ (NEGATIVE) H 06/30/17 16:57 Urine Nitrite Negative (NEGATIVE) 06/30/17 16:57 Urine Bilirubin Negative (NEGATIVE) 06/30/17 16:57 Urine Urobilinogen Negative mg/dL (0.2-1.0) 06/30/17 16:57 Ur Leukocyte Esterase Negative (NEGATIVE) 06/30/17 16:57 Urine RBC 1 /hpf (0-3) 06/30/17 16:57 Urine WBC 1 /hpf (3-5) 06/30/17 16:57 Ur Epithelial Cells Rare /hpf (FEW) 06/30/17 16:57 Urine Mucus Many 06/30/17 16:57 RPR Titer Nonreactive (NONREACTIVE) 07/01/17 07:00 HIV 1&2 Antibody Screen Negative 07/01/17 07:00 HIV P24 Antigen Negative 07/01/17 07:00 RIGHT KNEE EXAM:NO SWELLING OR REDNESS. PAIN ON ACTIVE ROM. Assessment: 07/02/17 10:07 WITHDRAWAL SX Plan: CONTINUE DETOX
[2017-07-02] MEDS: LISINOPRIL 20 MG TABLET (FP) PO SCH (10:14)
[2017-07-02] MEDS: HYDROCHLOROTHIAZIDE 12.5 MG CAPSULE (FP) PO SCH (10:14)
[2017-07-02] MEDS: PRENATAL VITAMINS W/ FOLIC ACID TABLET (FP) PO SCH (10:14)
[2017-07-02] MEDS: TOLNAFTATE 1% CREAM 15 GM TUBE TP SCH ×2 (10:15→22:09)
[2017-07-02] MEDS: NICOTINE 14 MG/24 HOURS TOPICAL PATCH TD SCH (10:15)
[2017-07-02] MEDS: NYSTATIN 100,000 UNIT/GM TOPICAL CREAM 15 GM TUBE TP SCH ×2 (13:07→22:08)
[2017-07-02] MEDS: CYCLOBENZAPRINE HCL 10 MG TABLET (FP) PO SCH ×2 (13:43→22:08)
[2017-07-02] MEDS: chlordiazePOXIDE 5 MG CAPSULE PO SCH ×2 (16:44→22:08)
[2017-07-02] MEDS ORDERED: POTASSIUM CHLORIDE ORAL LIQUID 20 MEQ/15 ML PO ONE (19:05)
[2017-07-02] MEDS: POTASSIUM CHLORIDE ORAL LIQUID 20 MEQ/15 ML PO SCH (22:08)
[2017-07-02] MEDS: THIAMINE HCL 100 MG TABLET (FP) PO SCH (22:08)
[2017-07-03] MEDS: METHADONE HCL 40 MG DISPERSABLE TABLET PO SCH (05:31)
[2017-07-03] MEDS: CYCLOBENZAPRINE HCL 10 MG TABLET (FP) PO SCH ×3 (05:31→22:16)
[2017-07-03] MEDS: chlordiazePOXIDE 5 MG CAPSULE PO SCH ×2 (05:31→10:11)
[2017-07-03] MEDS: POTASSIUM CHLORIDE ORAL LIQUID 20 MEQ/15 ML PO SCH (10:10)
[2017-07-03] MEDS: HYDROCHLOROTHIAZIDE 12.5 MG CAPSULE (FP) PO SCH (10:11)
[2017-07-03] MEDS: NICOTINE 14 MG/24 HOURS TOPICAL PATCH TD SCH (10:11)
[2017-07-03] MEDS: LISINOPRIL 20 MG TABLET (FP) PO SCH (10:11)
[2017-07-03] MEDS: NYSTATIN 100,000 UNIT/GM TOPICAL CREAM 15 GM TUBE TP SCH ×2 (10:11→22:16)
[2017-07-03] MEDS: PRENATAL VITAMINS W/ FOLIC ACID TABLET (FP) PO SCH (10:11)
[2017-07-03] MEDS: TOLNAFTATE 1% CREAM 15 GM TUBE TP SCH ×2 (10:12→22:16)
--- NOTE | 2017-07-03 12:41 | PN ---
[facility] Progress Note (SOAP) Subjective: Interrupted Sleep, Sweating, Body Aches. Objective: PT. A & O X 2 (DISORIENTED ABOUT DAY / DATE). PT. OBSERVED AMBULATING ON UNIT. NO ACUTE DISTRESS. PT. DENIES CHEST PAIN. 07/03/17 12:38 Vital Signs Temperature 97.2 F L 07/03/17 09:06 Pulse Rate 61 07/03/17 09:06 Respiratory Rate 18 07/03/17 09:06 Blood Pressure 146/86 07/03/17 09:06 O2 Sat by Pulse Oximetry (%) Laboratory Tests 06/30/17 07/01/17 07/01/17 16:57 07:00 07:00 WBC 2.8 L D RBC 3.57 L Hgb 12.9 Hct 37.5 MCV 105.0 H MCH 36.2 H MCHC 34.4 RDW 14.2 D Plt Count 113 L D MPV 8.5 Sodium Potassium Chloride Carbon Dioxide Anion Gap BUN Creatinine Creat Clearance w eGFR Random Glucose Calcium Total Bilirubin AST ALT Alkaline Phosphatase Total Protein Albumin Urine Color Dkyellow Urine Appearance Clear Urine pH 5.0 Ur Specific [place] >= 1.030 H Urine Protein 1+ H Urine Glucose (UA) Negative Urine Ketones Negative Urine Blood 1+ H Urine Nitrite Negative Urine Bilirubin Negative Urine Urobilinogen Negative Ur Leukocyte Esterase Negative Urine RBC 1 Urine WBC 1 Ur Epithelial Cells Rare Urine Mucus Many RPR Titer HIV 1&2 Antibody Screen Negative HIV P24 Antigen Negative 07/01/17 07/01/17 07:00 07:00 WBC RBC Hgb Hct MCV MCH MCHC RDW Plt Count MPV Sodium 141 Potassium 3.3 L Chloride 100 Carbon Dioxide 32 Anion Gap 9 BUN 8 D Creatinine 1.1 Creat Clearance w eGFR > 60 Random Glucose 84 D Calcium 8.4 L Total Bilirubin 0.8 AST 490 H D ALT 198 H D Alkaline Phosphatase 88 Total Protein 6.1 L Albumin 3.3 L Urine Color Urine Appearance Urine pH Ur Specific [place] Urine Protein Urine Glucose (UA) Urine Ketones Urine Blood Urine Nitrite Urine Bilirubin Urine Urobilinogen Ur Leukocyte Esterase Urine RBC Urine WBC Ur Epithelial Cells Urine Mucus RPR Titer Nonreactive HIV 1&2 Antibody Screen HIV P24 Antigen LABS NOTED. Assessment: 07/03/17 12:39 WITHDRAWAL SYMPTOMS. Plan: CONTINUE DETOX.
[2017-07-03] MEDS: chlordiazePOXIDE HCL 10 MG CAPSULE PO SCH ×2 (18:20→22:16)
[2017-07-03] MEDS: THIAMINE HCL 100 MG TABLET (FP) PO SCH (22:16)
[2017-07-04] MEDS: chlordiazePOXIDE HCL 10 MG CAPSULE PO SCH (05:51)
[2017-07-04] MEDS: CYCLOBENZAPRINE HCL 10 MG TABLET (FP) PO SCH (05:51)
[2017-07-04] MEDS: METHADONE HCL 40 MG DISPERSABLE TABLET PO SCH (05:51)
[2017-07-04 09:30] VITALS: BP 97/66; PULSE 85; TEMP 98
[2017-07-04] MEDS: LISINOPRIL 20 MG TABLET (FP) PO SCH (10:10)
[2017-07-04] MEDS: HYDROCHLOROTHIAZIDE 12.5 MG CAPSULE (FP) PO SCH (10:10)
[2017-07-04] MEDS: NICOTINE 14 MG/24 HOURS TOPICAL PATCH TD SCH (10:10)
[2017-07-04] MEDS: PRENATAL VITAMINS W/ FOLIC ACID TABLET (FP) PO SCH (10:10)
[2017-07-04] MEDS: NYSTATIN 100,000 UNIT/GM TOPICAL CREAM 15 GM TUBE TP SCH (10:13)
[2017-07-04] MEDS: TOLNAFTATE 1% CREAM 15 GM TUBE TP SCH (10:13)
[2017-07-04 10:45] LABS: ALBUMIN 3.5 g/dl (3.4-5.0); ALK PHOS 87 U/L (45-117); ANION GAP 9 (8-16); BILIRUBIN,TOTAL 0.7 mg/dL (0.2-1.0); CO2 30 mmol/L (21-32); CREATININE 1.1 mg/dL (0.7-1.3); GLUCOSE,RANDOM 113 mg/dL (74-106); SGOT/AST 142 U/L (15-37); TOT PROT 6.6 g/dl (6.4-8.2)
[2017-07-04 10:48] LABS: SGPT/ALT 178 U/L (12-78)
--- NOTE | 2017-07-04 12:08 | DS ---
[facility] Detox Discharge Summary Admission Date: 06/30/17 - History Present History: Alcohol Dependence, MMTP Pertinent Past History: HTN Positive PPD - Physical Exam Results Vital Signs: Vital Signs Temperature 98.0 F 07/04/17 09:29 Pulse Rate 85 07/04/17 09:29 Respiratory Rate 20 07/04/17 09:29 Blood Pressure 97/66 07/04/17 09:29 O2 Sat by Pulse Oximetry (%) Pertinent Admission Physical Exam Findings: Withdrawal symptoms Laboratory Tests 06/30/17 07/01/17 07/01/17 16:57 07:00 07:00 WBC 2.8 L D RBC 3.57 L Hgb 12.9 Hct 37.5 MCV 105.0 H MCH 36.2 H MCHC 34.4 RDW 14.2 D Plt Count 113 L D MPV 8.5 Sodium Potassium Chloride Carbon Dioxide Anion Gap BUN Creatinine Creat Clearance w eGFR Random Glucose Calcium Total Bilirubin AST ALT Alkaline Phosphatase Total Protein Albumin Urine Color Dkyellow Urine Appearance Clear Urine pH 5.0 Ur Specific [place] >= 1.030 H Urine Protein 1+ H Urine Glucose (UA) Negative Urine Ketones Negative Urine Blood 1+ H Urine Nitrite Negative Urine Bilirubin Negative Urine Urobilinogen Negative Ur Leukocyte Esterase Negative Urine RBC 1 Urine WBC 1 Ur Epithelial Cells Rare Urine Mucus Many RPR Titer HIV 1&2 Antibody Screen Negative HIV P24 Antigen Negative 07/01/17 07/01/17 07/04/17 07:00 07:00 09:00 WBC RBC Hgb Hct MCV MCH MCHC RDW Plt Count MPV Sodium 141 139 Potassium 3.3 L 3.8 Chloride 100 100 Carbon Dioxide 32 30 Anion Gap 9 9 BUN 8 D 11 D Creatinine 1.1 1.1 Creat Clearance w eGFR > 60 > 60 Random Glucose 84 D 113 H D Calcium 8.4 L 9.0 Total Bilirubin 0.8 0.7 AST 490 H D 142 H D ALT 198 H D 178 H Alkaline Phosphatase 88 87 Total Protein 6.1 L 6.6 Albumin 3.3 L 3.5 Urine Color Urine Appearance Urine pH Ur Specific [place] Urine Protein Urine Glucose (UA) Urine Ketones Urine Blood Urine Nitrite Urine Bilirubin Urine Urobilinogen Ur Leukocyte Esterase Urine RBC Urine WBC Ur Epithelial Cells Urine Mucus RPR Titer Nonreactive HIV 1&2 Antibody Screen HIV P24 Antigen Labs noted - Treatment Hospital Course: Detox Protocol Followed, Detoxed Safely, Responded well, Discharged Condition Good, Rehab Referral Accepted Patient has Accepted a Rehab Referral to: [facility] - Medication Discharge Medications: Ambulatory Orders Clonidine HCl 0.3 mg PO DAILY PRN 10/13/16 Hydrochlorothiazide [Hctz -] 12.5 mg PO DAILY #30 cap 10/18/16 Lisinopril [Prinivil] 20 mg PO DAILY #30 tablet 10/18/16 - Diagnosis (1) Alcohol dependence with uncomplicated withdrawal Status: Acute (2) Nicotine dependence Status: Chronic Qualifiers: Nicotine product type: cigarettes Substance use status: in withdrawal Qualified Code(s): F17.213 - Nicotine dependence, cigarettes, with withdrawal (3) Essential hypertension Status: Acute (4) Methadone maintenance therapy patient Status: Chronic (5) Positive PPD Status: Chronic (6) Depression Status: Chronic (7) Tinea pedis Status: Acute (8) Hypokalemia Status: Acute - AMA Did Patient Leave Against Medical Advice: No
== END 2017-07-04 10:55 | disposition other institution (70) | DRG 773 ==
LOC: YASAS 13:19 → Y3N 16:20
PROVIDERS: ADMIT Internal Medicine; ATTEND Internal Medicine
PROC: HZ2ZZZZ Detoxification Services for Substance Abuse Treatment (ICD-10-PCS; principal; 2017-06-30)
DX: F10.230 Alcohol dependence with withdrawal, uncomplicated (principal); F11.20 Opioid dependence, uncomplicated; F17.210 Nicotine dependence, cigarettes, uncomplicated; F32.9 Major depressive disorder, single episode, unspecified; F19.24 Other psychoactive substance dependence with psychoactive substance-induced mood disorder; F43.10 Post-traumatic stress disorder, unspecified; I10 Essential (primary) hypertension; R00.0 Tachycardia, unspecified; B35.3 Tinea pedis; E87.6 Hypokalemia; Z91.018 Allergy to other foods; Z87.898 Personal history of other specified conditions; Z91.14 Patient's other noncompliance with medication regimen
CPT/HCPCS: 36415; 71010-TC; 80053; 81003; 81015; 85027; 86593; 87389; 93005; 93010

== ENCOUNTER 2017-07-04 11:04 | Inpatient (IN) | payer OTHER ==
[2017-07-04 11:57] VITALS: BMI 25.7
[2017-07-04] MEDS ORDERED: guaiFENesin/D-METHORPHAN HB 10 ML UNIT-DOSE CUPS PO PRN (13:14)
[2017-07-04] MEDS ORDERED: diphenhydrAMINE HCL 50 MG CAPSULE PO PRN (13:14)
[2017-07-04] MEDS ORDERED: NICOTINE POLACRILEX 2 MG GUM BUC PRN (13:14)
[2017-07-04] MEDS ORDERED: MAG HYDROX/AL HYDROX/SIMETH 30 ML UNIT-DOSE CUP PO PRN (13:14)
[2017-07-04] MEDS ORDERED: ACETAMINOPHEN 325 MG TABLET (FP) PO PRN (13:14)
[2017-07-04] MEDS ORDERED: IBUPROFEN 400 MG TABLET (FP) PO PRN (13:14)
[2017-07-04] MEDS ORDERED: MAGNESIUM HYDROX 2400MG/30ML ORAL SUSPENSION 30 ML CUP PO PRN (13:14)
[2017-07-04] MEDS ORDERED: MENTHOL/PHENOL 1 EACH UD MM PRN (13:14)
[2017-07-04] MEDS ORDERED: P-EPHED 60MG/TRIPROLIDI 2.5MG TABLET PO PRN (13:14)
[2017-07-04] MEDS ORDERED: LOPERAMIDE HCL 2 MG CAPSULE PO PRN (13:14)
[2017-07-04] MEDS ORDERED: MAGNESIUM CITRATE 300 ML BOTTLE PO PRN (13:14)
--- NOTE | 2017-07-04 13:18 | HP ---
[facility] Rehab Assess/Revision - Admission History Ad[facility] to Rehab [facility]: [facility] Date of Admission to Rehab: 07/04/17 - Vital signs Vital Signs: Vital Signs Period Temp Pulse Resp BP Sys/Bee Pulse Ox Last 24 Hr 97.7 F-97.7 F 90-90 18-18 128-128/68-68 - Findings Detox History & Physical reviewed: Yes Concur with findings: Yes
[2017-07-04] MEDS: THIAMINE HCL 100 MG TABLET (FP) PO SCH (21:24)
[2017-07-04] MEDS: LACTULOSE 20 GM/30 ML UDC (FOR ORAL USE ONLY) PO SCH (21:25)
[2017-07-05] MEDS: METHADONE HCL 40 MG DISPERSABLE TABLET PO SCH (06:12)
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
[2017-07-05] MEDS: LACTULOSE 20 GM/30 ML UDC (FOR ORAL USE ONLY) PO SCH ×2 (10:40→21:16)
[2017-07-05] MEDS: LISINOPRIL 10 MG TABLET (FP) PO SCH (10:40)
[2017-07-05] MEDS: HYDROCHLOROTHIAZIDE 12.5 MG CAPSULE (FP) PO SCH (10:40)
[2017-07-05] MEDS: PRENATAL VITAMINS W/ FOLIC ACID TABLET (FP) PO SCH (10:40)
[2017-07-05] MEDS: NICOTINE 14 MG/24 HOURS TOPICAL PATCH TD SCH (10:41)
[2017-07-05 10:48] LABS: SGOT/AST 104 U/L (15-37); SGPT/ALT 155 U/L (12-78)
[2017-07-05] MEDS ORDERED: TRIMETHOBENZAMIDE HCL 200MG/2ML INJ IM PRN (14:46)
--- NOTE | 2017-07-05 14:48 | PN ---
[facility] Progress Note Note: nausea,vomiting,tigan 200 mgs im q 8hrs prn for nausea and vomiting
[2017-07-05] MEDS: traZODone HCL 100 MG TABLET (FP) PO SCH (21:16)
[2017-07-05] MEDS: THIAMINE HCL 100 MG TABLET (FP) PO SCH (21:17)
[2017-07-06] MEDS: METHADONE HCL 40 MG DISPERSABLE TABLET PO SCH (06:03)
[2017-07-06] MEDS: LACTULOSE 20 GM/30 ML UDC (FOR ORAL USE ONLY) PO SCH ×2 (10:29→21:32)
[2017-07-06] MEDS: NICOTINE 14 MG/24 HOURS TOPICAL PATCH TD SCH (10:29)
[2017-07-06] MEDS: PRENATAL VITAMINS W/ FOLIC ACID TABLET (FP) PO SCH (10:30)
[2017-07-06] MEDS: LISINOPRIL 10 MG TABLET (FP) PO SCH (10:30)
[2017-07-06] MEDS: HYDROCHLOROTHIAZIDE 12.5 MG CAPSULE (FP) PO SCH (10:30)
[2017-07-06] MEDS: THIAMINE HCL 100 MG TABLET (FP) PO SCH (21:32)
[2017-07-06] MEDS: traZODone HCL 100 MG TABLET (FP) PO SCH (21:33)
[2017-07-07] MEDS: METHADONE HCL 40 MG DISPERSABLE TABLET PO SCH (06:25)
[2017-07-07 06:59] VITALS: BP 115/87; PULSE 94; TEMP 98.4
--- NOTE | 2017-07-07 08:02 | PN ---
S Progress Note Note: Informed by nursing staff that patient wants to leave against medical advice and he added that he had no explanation to provide to anyone. He however requested script for Trazadone which was electronically transmitted to his pharmacy in [place], [place]
== END 2017-07-07 08:25 | disposition left against medical advice (07) | DRG 770 ==
LOC: YASAS 11:04 → Y3W 11:05
PROVIDERS: ADMIT Psychiatry & Neurology Psychiatry; ATTEND Psychiatry & Neurology Psychiatry
PROC: HZ42ZZZ Group Counseling for Substance Abuse Treatment, Cognitive-Behavioral (ICD-10-PCS; principal; 2017-07-04)
DX: F10.20 Alcohol dependence, uncomplicated (principal); F11.20 Opioid dependence, uncomplicated; F17.213 Nicotine dependence, cigarettes, with withdrawal; F43.10 Post-traumatic stress disorder, unspecified; F19.24 Other psychoactive substance dependence with psychoactive substance-induced mood disorder; F19.282 Other psychoactive substance dependence with psychoactive substance-induced sleep disorder; I10 Essential (primary) hypertension; B35.3 Tinea pedis; R76.11 Nonspecific reaction to tuberculin skin test without active tuberculosis; Z91.018 Allergy to other foods
CPT/HCPCS: 36415; 82140; 84450; 84460

== ENCOUNTER 2017-09-13 12:54 | Inpatient (IN) | payer OTHER ==
[2017-09-13 14:22] VITALS: BMI 22.7
--- NOTE | 2017-09-13 16:56 | HP ---
CIWA Score - CIWA Score Nausea/Vomitin-No Nausea/No Vomiting Muscle Tremors: 5 Anxiety: 5 Agitation: 3 Paroxysmal Sweats: 1-Minimal Palms Moist Orientation: 0-Oriented Tacttile Disturbances: 3-Moderate Itch/Numb/Burn Auditory Disturbances: 0-None Visual Disturbances: 0-None Headache: 0-None Present CIWA-Ar Total Score: 17 Admission ROS S - HPI Chief Complaint: DETOX TX FOR ALCOHOL DEPENDENCE Allergies/Adverse Reactions: Allergies Allergy/AdvReac Type Severity Reaction Status Date / Time pork derived (porcine) Allergy Severe Rash Verified 09/13/17 16:23 No Known Drug Allergies Allergy Verified 09/13/17 16:23 History of Present Illness: 52 Y/O AA/MALE WITH A HX OF ALCOHOL DEPENDENCE SEEKING DETOX TX. PT ON [facility] Exam Limitations: No Limitations - Ebola screening Have you traveled outside of the country in the last 21 days: No Have you had contact with anyone from an Ebola affected area: No Have you been sick,other than usual withdrawal symptoms: No Do you have a fever: No - Review of Systems Constitutional: Chills, Night Sweats, Changes in sleep EENT: reports: Tearing, Nose Congestion Respiratory: reports: No Symptoms reported Cardiac: reports: No Symptoms Reported GI: reports: Constipated, Diarrhea, Abdominal cramping : reports: No Symptoms Reported Musculoskeletal: reports: Back Pain, Joint Pain, Muscle Pain Integumentary: reports: No Symptoms Reported Neuro: reports: Tremors, Unsteady Gait Endocrine: reports: No Symptoms Reported Hematology: reports: No Symptoms Reported Psychiatric: reports: Orientated x3 Other Systems: Reviewed and Negative Patient History - Patient Medical History Hx Anemia: No Hx Asthma: No Hx Chronic Obstructive Pulmonary Disease (COPD): No Hx Cancer: No Hx Cardiac Disorders: No Hx Congestive Heart Failure: No Hx Hypertension: Yes (ON LISINOPRIL 20 MG DAILY AND HCTZ 12.5 MG DAILY) Hx Hypercholesterolemia: No Hx Pacemaker: No HX Cerebrovascular Accident: No Hx Seizures: No Hx Dementia: No Hx Diabetes: No Hx Gastrointestinal Disorders: No Hx Liver Disease: No Hx Genitourinary Disorders: No Hx Sexually Transmitted Disorders: No Hx Renal Disease (ESRD): No Hx Thyroid Disease: No Hx Human Immunodeficiency Virus (HIV): No (NEGATIVE HX) Hx Hepatitis C: No Hx Depression: No Hx Suicide Attempt: No Hx Bipolar Disorder: No Hx Schizophrenia: No - Patient Surgical History Past Surgical History: No Hx Neurologic Surgery: No Hx Cataract Extraction: No Hx Cardiac Surgery: No Hx Lung Surgery: No Hx Breast Surgery: No Hx Breast Biopsy: No Hx Abdominal Surgery: No Hx Appendectomy: No Hx Cholecystectomy: No Hx Genitourinary Surgery: No Hx Orthopedic Surgery: No Anesthesia Reaction: No - PPD History Previous Implant?: Yes Implanted On Prior [facility] Admission?: No Date: 10/07/13 Results: 15 mm PPD to be Administered?: No - Reproductive History Patient is a Female of Child Bearing Age (11 -55 yrs old): No (MALE) Patient : No (N/A) - Smoking Cessation Smoking history: Current every day smoker Have you smoked in the past 12 months: Yes Aproximately how many cigarettes per day: 7 Cigars Per Day: 0 Hx Chewing Tobacco Use: No Initiated information on smoking cessation: Yes 'Breaking Loose' booklet given: 09/13/17 - Substance & Tx. History Hx Alcohol Use: Yes (COGNAC/VODKA) Substance Use Type: Alcohol Hx Substance Use Treatment: Yes (LAST TX AT [facility] DETOX) - Substances Abused Alcohol Route: Oral Frequency: Daily Amount used: 4 pints cognac and vodka Age of first use: 14 Date of Last Use: 09/13/17 Family Disease History - Family Disease History Family Disease History: Other: Grandparent (alcohol), Father (ETOH DEPENDENT, ) Admission Physical Exam [facility] - Vital Signs Vital Signs: Vital Signs - 24 hr 09/13/17 14:20 Temperature 98.7 F Pulse Rate 100 H Respiratory 18 Rate Blood Pressure 150/100 - Physical General Appearance: Yes: Moderate Distress, Alcohol on Breath, Intoxicated, Irritable, Anxious HEENTM: Yes: EOMI, Normocephalic, GAGE, Pharynx Normal Respiratory: Yes: Chest Non-Tender, Lungs Clear, Normal Breath Sounds, No Respiratory Distress Neck: Yes: No masses,lesions,Nodules, Supple, Trachea in good position Breast: Yes: Breast Exam Deferred Cardiology: Yes: Regular Rhythm, Regular Rate, S1, S2 Abdominal: Yes: Normal Bowel Sounds, Non Tender, Flat, Soft Genitourinary: Yes: Other (N/C) Back: Yes: Within Normal Limits Musculoskeletal: Yes: full range of Motion, Gait Steady Extremities: Yes: Normal Range of Motion, Non-Tender Neurological: Yes: airways control specialist II-XII NML intact, Fully Oriented, Alert, Motor Strength 5/5, Normal Mood/Affect Integumentary: Yes: Dry, Warm Lymphatic: Yes: Within Normal Limits - Diagnostic (1) Alcohol dependence with uncomplicated withdrawal Current Visit: Yes Status: Acute (2) Essential hypertension Current Visit: Yes Status: Chronic (3) Methadone maintenance therapy patient Current Visit: Yes Status: Chronic (4) Nicotine dependence Current Visit: Yes Status: Acute Qualifiers: Nicotine product type: cigarettes Substance use status: in withdrawal Qualified Code(s): F17.213 - Nicotine dependence, cigarettes, with withdrawal; F17.213 - Nicotine dependence, cigarettes, with withdrawal Cleared for Admission [facility] - Detox or Rehab [facility] Level of Care: Medically Managed Detox Regimen/Protocol: Librium [facility] Breath Alcohol Content Breath Alcohol Content: 0.115 Urine Drug Screen - Results Drug Screen Negative: No Urine Drug Screen Results: MTD-Methadone
[2017-09-13] MEDS ORDERED: chlordiazePOXIDE HCL 25 MG CAPSULE PO PRN (17:09)
[2017-09-13] MEDS ORDERED: NICOTINE POLACRILEX 2 MG GUM BC PRN (17:09)
[2017-09-13] MEDS ORDERED: LOPERAMIDE HCL 2 MG CAPSULE PO PRN (17:09)
[2017-09-13] MEDS ORDERED: MAGNESIUM HYDROX 2400MG/30ML ORAL SUSPENSION 30 ML CUP PO PRN (17:09)
[2017-09-13] MEDS ORDERED: hydrOXYzine PAMOATE 25 MG CAPSULE (FP) PO PRN (17:09)
[2017-09-13] MEDS ORDERED: guaiFENesin/D-METHORPHAN HB 10 ML UNIT-DOSE CUPS PO PRN (17:09)
[2017-09-13] MEDS ORDERED: P-EPHED 60MG/TRIPROLIDI 2.5MG TABLET PO PRN (17:09)
[2017-09-13] MEDS ORDERED: MENTHOL/PHENOL 1 EACH UD MM PRN (17:09)
[2017-09-13] MEDS ORDERED: ACETAMINOPHEN 325 MG TABLET (FP) PO PRN (17:09)
[2017-09-13] MEDS ORDERED: IBUPROFEN 400 MG TABLET (FP) PO PRN (17:09)
[2017-09-13] MEDS ORDERED: MAG HYDROX/AL HYDROX/SIMETH 30 ML UNIT-DOSE CUP PO PRN (17:09)
[2017-09-13] MEDS ORDERED: MAGNESIUM CITRATE 300 ML BOTTLE PO PRN (17:09)
[2017-09-13] MEDS ORDERED: chlordiazePOXIDE HCL 25 MG CAPSULE PO ONE (19:00)
[2017-09-13] MEDS: NICOTINE 14 MG/24 HOURS TOPICAL PATCH TD SCH (19:39)
[2017-09-13] MEDS: LISINOPRIL 10 MG TABLET (FP) PO SCH (20:26)
[2017-09-13] MEDS: HYDROCHLOROTHIAZIDE 12.5 MG CAPSULE (FP) PO SCH (20:26)
[2017-09-13 22:07] LABS: URINE APPEARANCE SLCLOUDY; URINE BILIRUBIN NEGATIVE (NEGATIVE); URINE BLOOD NEGATIVE (NEGATIVE); URINE COLOR AMBER; URINE GLUCOSE (UA) NEGATIVE (NEGATIVE); URINE KETONE NEGATIVE (NEGATIVE); URINE NITRITE NEGATIVE (NEGATIVE); URINE UROBILINOGEN 4.0 E.U/dl mg/dL (0.2-1.0)
[2017-09-13 22:11] LABS: URINE PROTEIN 2+ (NEGATIVE)
[2017-09-13 22:15] LABS: URINE MUCUS RARE; URINE RBC 2 /hpf (0-3); URINE WBC 1 /hpf (3-5)
[2017-09-13] MEDS: diphenhydrAMINE HCL 50 MG CAPSULE PO PRN (22:16)
[2017-09-13] MEDS: chlordiazePOXIDE HCL 25 MG CAPSULE PO SCH (22:16)
[2017-09-13] MEDS: THIAMINE HCL 100 MG TABLET (FP) PO SCH (22:16)
[2017-09-14] MEDS: chlordiazePOXIDE HCL 25 MG CAPSULE PO SCH ×4 (05:46→23:04)
[2017-09-14] MEDS ORDERED: METHADONE HCL 40 MG DISPERSABLE TABLET PO ONE (09:05)
[2017-09-14 10:02] LABS: MCH 38.2 pg (25.7-33.7); MCHC 34.3 g/dl (32.0-35.9); MEAN CELL VOLUME 111.5 fl (80-96); MEAN PLT VOLUME 8.5 fl (7.5-11.1); PLATELET COUNT 95 K/MM3 (134-434); RDW 19.2 % (11.9-15.9); WHITE BLOOD COUNT 3.1 K/mm3 (4.0-10.0)
--- NOTE | 2017-09-14 10:10 | PN ---
S CIWA - CIWA Score Nausea/Vomitin-No Nausea/No Vomiting Muscle Tremors: 4-Moderate,w/Arms Extend Anxiety: 3 Agitation: 4-Moderately Restless Paroxysmal Sweats: 3 Orientation: 0-Oriented Tacttile Disturbances: 0-None Auditory Disturbances: 0-None Visual Disturbances: 0-None Headache: 0-None Present CIWA-Ar Total Score: 14 [facility] Progress Note (SOAP) Subjective: irritable sweats shakes back pain interrupted sleep Objective: 09/14/17 10:09 Vital Signs Temperature 96.4 F L 09/14/17 06:35 Pulse Rate 85 09/14/17 06:35 Respiratory Rate 18 09/14/17 06:35 Blood Pressure 142/87 09/14/17 06:35 O2 Sat by Pulse Oximetry (%) Laboratory Tests 09/13/17 09/14/17 21:56 07:00 WBC 3.1 L RBC 3.05 L Hgb 11.7 Hct 34.1 L MCV 111.5 H D MCH 38.2 H MCHC 34.3 RDW 19.2 H D Plt Count 95 L MPV 8.5 Urine Color Kori Urine Appearance Slcloudy Urine pH 5.0 Urine Protein 2+ H Urine Glucose (UA) Negative Urine Ketones Negative Urine Blood Negative Urine Nitrite Negative Urine Bilirubin Negative Urine Urobilinogen 4.0 e.u/dl Urine RBC 2 Urine WBC 1 Ur Epithelial Cells Rare Urine Mucus Rare labs pending aaox3 ambulating no acute distress Assessment: 09/14/17 10:09 withdrawal sx Plan: continue detox increase fluids motrin prn lidocaine patch daily labs pending
[2017-09-14] MEDS: LISINOPRIL 10 MG TABLET (FP) PO SCH (10:26)
[2017-09-14] MEDS: HYDROCHLOROTHIAZIDE 12.5 MG CAPSULE (FP) PO SCH (10:26)
[2017-09-14] MEDS: NICOTINE 14 MG/24 HOURS TOPICAL PATCH TD SCH (10:27)
[2017-09-14] MEDS: FLUOCINONIDE 0.05% CREAM (60 GM TUBE) TP SCH ×3 (10:27→23:30)
[2017-09-14 10:28] LABS: ALBUMIN 3.3 g/dl (3.4-5.0); ANION GAP 9 (8-16); CALCIUM 8.7 mg/dL (8.5-10.1); CO2 33 mmol/L (21-32); GLUCOSE,RANDOM 92 mg/dL (74-106)
[2017-09-14] MEDS: LIDOCAINE 5% TOPICAL PATCH TP SCH (10:28)
[2017-09-14] MEDS: PRENATAL VITAMINS W/ FOLIC ACID TABLET (FP) PO SCH (10:28)
[2017-09-14 10:31] LABS: ALK PHOS 80 U/L (45-117); BILIRUBIN,TOTAL 2.6 mg/dL (0.2-1.0); CREATININE 1.1 mg/dL (0.7-1.3); SGOT/AST 190 U/L (15-37); SGPT/ALT 87 U/L (12-78); TOT PROT 6.3 g/dl (6.4-8.2)
[2017-09-14 11:30] LABS: URINE LEUK ESTERASE Negative (NEGATIVE)
[2017-09-14] MEDS ORDERED: FLU VACCINE QUAD 60 MCG/0.5 ML (MDV 17-18) IM ONE (12:00)
[2017-09-14 12:27] LABS: HIV 1 & 2 AB NEGATIVE; HIV 1 AGp24 NEGATIVE
--- NOTE | 2017-09-14 20:30 | EKG ---
Test Reason : Blood Pressure : / mmHG Vent. Rate : 074 BPM Atrial Rate : 074 BPM P-R Int : 148 ms QRS Dur : 084 ms QT Int : 422 ms P-R-T Axes : 033 047 080 degrees QTc Int : 468 ms NORMAL SINUS RHYTHM T WAVE ABNORMALITY, CONSIDER ANTERIOR ISCHEMIA PROLONGED QT ABNORMAL ECG WHEN COMPARED WITH ECG OF 30-JUN-2017 16:43, T WAVE INVERSION NOW EVIDENT IN ANTERIOR LEADS REPEAT EKG IF CLINICALLY INDICATED Confirmed by CLARA KLEIN MD ([id number]) on 09/14/2017 8:30:05 PM Referred By: Confirmed By:CLARA KLEIN MD
[2017-09-14] MEDS: diphenhydrAMINE HCL 50 MG CAPSULE PO PRN (23:04)
[2017-09-14] MEDS: THIAMINE HCL 100 MG TABLET (FP) PO SCH (23:05)
[2017-09-14] MEDS: LIDOCAINE PATCH REMOVAL MC SCH (23:31)
[2017-09-15] MEDS: chlordiazePOXIDE HCL 25 MG CAPSULE PO SCH ×3 (05:48→22:31)
[2017-09-15] MEDS: METHADONE HCL 40 MG DISPERSABLE TABLET PO SCH (05:48)
--- NOTE | 2017-09-15 09:45 | PN ---
S CIWA - CIWA Score Nausea/Vomitin-No Nausea/No Vomiting Muscle Tremors: 4-Moderate,w/Arms Extend Anxiety: 3 Agitation: 4-Moderately Restless Paroxysmal Sweats: 3 Orientation: 0-Oriented Tacttile Disturbances: 0-None Auditory Disturbances: 0-None Visual Disturbances: 0-None Headache: 0-None Present CIWA-Ar Total Score: 14 B[facility] Progress Note (SOAP) Subjective: agitation sweats tired weak interrupted sleep Objective: 09/15/17 09:44 Vital Signs Temperature 97.9 F 09/15/17 06:43 Pulse Rate 92 H 09/15/17 06:43 Respiratory Rate 20 09/15/17 06:43 Blood Pressure 121/84 09/15/17 06:43 O2 Sat by Pulse Oximetry (%) Laboratory Tests 09/13/17 09/13/17 09/14/17 07:00 21:56 07:00 WBC 3.1 L RBC 3.05 L Hgb 11.7 Hct 34.1 L MCV 111.5 H D MCH 38.2 H MCHC 34.3 RDW 19.2 H D Plt Count 95 L MPV 8.5 Sodium Potassium Chloride Carbon Dioxide Anion Gap BUN Creatinine Creat Clearance w eGFR Random Glucose Calcium Total Bilirubin AST ALT Alkaline Phosphatase Total Protein Albumin Urine Color Kori Urine Appearance Slcloudy Urine pH 5.0 Ur Specific [place] 1.020 Urine Protein 2+ H Urine Glucose (UA) Negative Urine Ketones Negative Urine Blood Negative Urine Nitrite Negative Urine Bilirubin Negative Urine Urobilinogen 4.0 e.u/dl Ur Leukocyte Esterase Negative Urine RBC 2 Urine WBC 1 Ur Epithelial Cells Rare Urine Mucus Rare RPR Titer HIV 1&2 Antibody Screen Negative HIV P24 Antigen Negative 09/14/17 09/14/17 07:00 07:00 WBC RBC Hgb Hct MCV MCH MCHC RDW Plt Count MPV Sodium 142 Potassium 3.3 L Chloride 100 Carbon Dioxide 33 H Anion Gap 9 BUN 10 Creatinine 1.1 Creat Clearance w eGFR > 60 Random Glucose 92 Calcium 8.7 Total Bilirubin 2.6 H D AST 190 H D ALT 87 H D Alkaline Phosphatase 80 Total Protein 6.3 L Albumin 3.3 L Urine Color Urine Appearance Urine pH Ur Specific [place] Urine Protein Urine Glucose (UA) Urine Ketones Urine Blood Urine Nitrite Urine Bilirubin Urine Urobilinogen Ur Leukocyte Esterase Urine RBC Urine WBC Ur Epithelial Cells Urine Mucus RPR Titer Nonreactive HIV 1&2 Antibody Screen HIV P24 Antigen cbc,cmp,u/a repeated potassium 3.3; replenish with k-dur 40mcq x 4 days aaox3 ambulating no acute distress Assessment: 09/15/17 09:45 withdrawal sx Plan: continue detox increase fluids f/u pending labs
[2017-09-15] MEDS: PRENATAL VITAMINS W/ FOLIC ACID TABLET (FP) PO SCH (10:28)
[2017-09-15] MEDS: HYDROCHLOROTHIAZIDE 12.5 MG CAPSULE (FP) PO SCH (10:29)
[2017-09-15] MEDS: POTASSIUM CHLORIDE TABS 20 MEQ TABLET.ER (FP) PO SCH (10:29)
[2017-09-15] MEDS: LISINOPRIL 10 MG TABLET (FP) PO SCH (10:29)
[2017-09-15] MEDS: FLUOCINONIDE 0.05% CREAM (60 GM TUBE) TP SCH ×4 (10:30→22:34)
[2017-09-15] MEDS: NICOTINE 14 MG/24 HOURS TOPICAL PATCH TD SCH (10:31)
[2017-09-15] MEDS: LIDOCAINE 5% TOPICAL PATCH TP SCH (10:34)
[2017-09-15 17:33] LABS: URINE APPEARANCE SLCLOUDY; URINE BILIRUBIN NEGATIVE (NEGATIVE); URINE BLOOD NEGATIVE (NEGATIVE); URINE COLOR AMBER; URINE GLUCOSE (UA) NEGATIVE (NEGATIVE); URINE KETONE TRACE (NEGATIVE); URINE NITRITE NEGATIVE (NEGATIVE); URINE PROTEIN NEGATIVE (NEGATIVE)
[2017-09-15 19:52] LABS: URINE LEUK ESTERASE Negative (NEGATIVE)
[2017-09-15] MEDS: THIAMINE HCL 100 MG TABLET (FP) PO SCH (22:31)
[2017-09-15] MEDS: chlordiazePOXIDE 5 MG CAPSULE PO SCH (22:31)
[2017-09-15] MEDS: diphenhydrAMINE HCL 50 MG CAPSULE PO PRN (22:31)
[2017-09-15] MEDS: LIDOCAINE PATCH REMOVAL MC SCH (22:34)
[2017-09-16] MEDS: chlordiazePOXIDE 5 MG CAPSULE PO SCH ×3 (05:31→17:31)
[2017-09-16] MEDS: METHADONE HCL 40 MG DISPERSABLE TABLET PO SCH (05:32)
--- NOTE | 2017-09-16 09:38 | PN ---
BHS Progress Note (SOAP) Subjective: burning when i pee sweats irritable body aches Objective: 09/16/17 09:40 Vital Signs Temperature 97.5 F L 09/16/17 06:45 Pulse Rate 95 H 09/16/17 06:45 Respiratory Rate 20 09/16/17 06:45 Blood Pressure 125/75 09/16/17 06:45 O2 Sat by Pulse Oximetry (%) Laboratory Tests 09/13/17 09/13/17 09/14/17 07:00 21:56 07:00 WBC 3.1 L RBC 3.05 L Hgb 11.7 Hct 34.1 L MCV 111.5 H D MCH 38.2 H MCHC 34.3 RDW 19.2 H D Plt Count 95 L MPV 8.5 Sodium Potassium Chloride Carbon Dioxide Anion Gap BUN Creatinine Creat Clearance w eGFR Random Glucose Calcium Total Bilirubin AST ALT Alkaline Phosphatase Total Protein Albumin Urine Color Kori Urine Appearance Slcloudy Urine pH 5.0 Ur Specific [place] 1.020 Urine Protein 2+ H Urine Glucose (UA) Negative Urine Ketones Negative Urine Blood Negative Urine Nitrite Negative Urine Bilirubin Negative Urine Urobilinogen 4.0 e.u/dl Ur Leukocyte Esterase Negative Urine RBC 2 Urine WBC 1 Ur Epithelial Cells Rare Urine Mucus Rare RPR Titer HIV 1&2 Antibody Screen Negative HIV P24 Antigen Negative 09/14/17 09/14/17 09/15/17 07:00 07:00 13:20 WBC RBC Hgb Hct MCV MCH MCHC RDW Plt Count MPV Sodium 142 Potassium 3.3 L Chloride 100 Carbon Dioxide 33 H Anion Gap 9 BUN 10 Creatinine 1.1 Creat Clearance w eGFR > 60 Random Glucose 92 Calcium 8.7 Total Bilirubin 2.6 H D AST 190 H D ALT 87 H D Alkaline Phosphatase 80 Total Protein 6.3 L Albumin 3.3 L Urine Color Kori Urine Appearance Slcloudy Urine pH 5.0 Ur Specific [place] 1.015 Urine Protein Negative Urine Glucose (UA) Negative Urine Ketones Trace H Urine Blood Negative Urine Nitrite Negative Urine Bilirubin Negative Urine Urobilinogen 2.0 Ur Leukocyte Esterase Negative Urine RBC Urine WBC Ur Epithelial Cells Urine Mucus RPR Titer Nonreactive HIV 1&2 Antibody Screen HIV P24 Antigen repeat u/a cloudy; encourage increase water intake bactrim ds ordered aaox3 no acute distress ambulating Assessment: 09/16/17 09:41 withdrawal sx Plan: continue detox increase fluids abx ordered
[2017-09-16] MEDS: LISINOPRIL 10 MG TABLET (FP) PO SCH (10:10)
[2017-09-16] MEDS: POTASSIUM CHLORIDE TABS 20 MEQ TABLET.ER (FP) PO SCH (10:10)
[2017-09-16] MEDS: PRENATAL VITAMINS W/ FOLIC ACID TABLET (FP) PO SCH (10:11)
[2017-09-16] MEDS: NICOTINE 14 MG/24 HOURS TOPICAL PATCH TD SCH (10:11)
[2017-09-16] MEDS: HYDROCHLOROTHIAZIDE 12.5 MG CAPSULE (FP) PO SCH (10:11)
[2017-09-16] MEDS: LIDOCAINE 5% TOPICAL PATCH TP SCH (10:11)
[2017-09-16] MEDS: FLUOCINONIDE 0.05% CREAM (60 GM TUBE) TP SCH ×4 (10:12→22:35)
[2017-09-16] MEDS: SULFAMETHOXAZOLE/TRIMETHOPRIM 800MG/160MG D.S. TABLET PO SCH ×2 (10:14→22:36)
[2017-09-16] MEDS: chlordiazePOXIDE HCL 10 MG CAPSULE PO SCH (22:36)
[2017-09-16] MEDS: THIAMINE HCL 100 MG TABLET (FP) PO SCH (22:36)
[2017-09-16] MEDS: LIDOCAINE PATCH REMOVAL MC SCH (22:37)
[2017-09-16] MEDS: diphenhydrAMINE HCL 50 MG CAPSULE PO PRN (23:37)
[2017-09-17] MEDS: METHADONE HCL 40 MG DISPERSABLE TABLET PO SCH (05:24)
[2017-09-17] MEDS: chlordiazePOXIDE HCL 10 MG CAPSULE PO SCH (05:24)
[2017-09-17 06:42] VITALS: BP 121/79; PULSE 79; TEMP 97.7
[2017-09-17] MEDS: SULFAMETHOXAZOLE/TRIMETHOPRIM 800MG/160MG D.S. TABLET PO SCH (09:59)
[2017-09-17] MEDS: PRENATAL VITAMINS W/ FOLIC ACID TABLET (FP) PO SCH (09:59)
[2017-09-17] MEDS: HYDROCHLOROTHIAZIDE 12.5 MG CAPSULE (FP) PO SCH (10:00)
[2017-09-17] MEDS: LISINOPRIL 10 MG TABLET (FP) PO SCH (10:00)
[2017-09-17] MEDS: POTASSIUM CHLORIDE TABS 20 MEQ TABLET.ER (FP) PO SCH (10:00)
[2017-09-17 10:02] LABS: BASOPHIL 0.7 % (0-2.0); EOSINOPHIL 2.6 % (0-4.5); MCH 39.9 pg (25.7-33.7); MCHC 35.1 g/dl (32.0-35.9); MEAN CELL VOLUME 113.7 fl (80-96); MEAN PLT VOLUME 8.5 fl (7.5-11.1); NEUTROPHILS 53.1 % (42.8-82.8); PLATELET COUNT 123 K/MM3 (134-434); RDW 20.2 % (11.9-15.9); WHITE BLOOD COUNT 3.2 K/mm3 (4.0-10.0)
[2017-09-17] MEDS: LIDOCAINE 5% TOPICAL PATCH TP SCH (10:04)
[2017-09-17] MEDS: NICOTINE 14 MG/24 HOURS TOPICAL PATCH TD SCH (10:04)
[2017-09-17] MEDS: FLUOCINONIDE 0.05% CREAM (60 GM TUBE) TP SCH (10:04)
[2017-09-17 10:13] LABS: ALK PHOS 69 U/L (45-117); ANION GAP 6 (8-16); BILIRUBIN,TOTAL 0.5 mg/dL (0.2-1.0); CALCIUM 8.7 mg/dL (8.5-10.1); CO2 29 mmol/L (21-32); GLUCOSE,RANDOM 113 mg/dL (74-106); SGOT/AST 70 U/L (15-37); TOT PROT 5.8 g/dl (6.4-8.2)
[2017-09-17 10:18] LABS: SGPT/ALT 66 U/L (12-78)
--- NOTE | 2017-09-17 10:48 | DS ---
[facility] Detox Discharge Summary Admission Date: 09/13/17 - History Present History: Alcohol Dependence, Cannabis Dependence, MMTP - Physical Exam Results Vital Signs: Vital Signs Temperature 97.7 F 09/17/17 06:00 Pulse Rate 79 09/17/17 06:00 Respiratory Rate 18 09/17/17 06:00 Blood Pressure 121/79 09/17/17 06:00 O2 Sat by Pulse Oximetry (%) - Treatment Hospital Course: Detox Protocol Followed, Detoxed Safely, Responded well, Discharged Condition Good - Medication Discharge Medications: Ambulatory Orders Lisinopril [Prinivil] 20 mg PO DAILY #30 tablet 07/07/17 Hydrochlorothiazide [Hctz -] 12.5 mg PO DAILY 09/13/17 - Diagnosis (1) Cannabis dependence Status: Chronic (2) Essential hypertension Status: Chronic (3) Methadone maintenance therapy patient Status: Chronic (4) Nicotine dependence Status: Chronic Qualifiers: Nicotine product type: cigarettes Substance use status: uncomplicated Qualified Code(s): F17.210 - Nicotine dependence, cigarettes, uncomplicated; F17.210 - Nicotine dependence, cigarettes, uncomplicated (5) Anemia Status: Chronic Qualifiers: Anemia type: unspecified type Qualified Code(s): D64.9 - Anemia, unspecified; D64.9 - Anemia, unspecified - AMA Did Patient Leave Against Medical Advice: No
[2017-09-17 13:40] LABS: ANISOCYTOSIS 1+; HYPOCHROMIA 2+; STOMATOCYTE 3+
[2017-09-17 13:41] LABS: MACROCYTOSIS 2+
== END 2017-09-17 10:15 | disposition home or self-care (01) | DRG 773 ==
LOC: YASAS 12:54 → Y6N 18:31
PROVIDERS: ADMIT Internal Medicine; ATTEND Internal Medicine
PROC: HZ2ZZZZ Detoxification Services for Substance Abuse Treatment (ICD-10-PCS; principal; 2017-09-13)
DX: F10.230 Alcohol dependence with withdrawal, uncomplicated (principal); F11.20 Opioid dependence, uncomplicated; F17.210 Nicotine dependence, cigarettes, uncomplicated; I10 Essential (primary) hypertension; D64.9 Anemia, unspecified; Z91.018 Allergy to other foods
CPT/HCPCS: 36415; 80053; 81003; 81015; 85025; 85027; 86593; 87389; 93005; 93010

== ENCOUNTER 2018-02-05 12:58 | Inpatient (IN) | payer OTHER ==
--- NOTE | 2018-02-05 19:18 | HP ---
CIWA Score - CIWA Score Nausea/Vomitin Muscle Tremors: 3 Anxiety: 3 Agitation: 3 Paroxysmal Sweats: 2 Orientation: 0-Oriented Tacttile Disturbances: 2-Mild Itch/Numbness/Burn Auditory Disturbances: 2-Mild Harshness/Frighten Visual Disturbances: 1-Very Mild Sensitivity Headache: 2-Mild CIWA-Ar Total Score: 21 Admission ROS BHS - HPI Chief Complaint: I NEED HELP TO STOP DRINKING ALCOHOL,MMTP 90 MG/DAY Allergies/Adverse Reactions: Allergies Allergy/AdvReac Type Severity Reaction Status Date / Time pork derived (porcine) Allergy Severe Rash Verified 02/05/18 20:46 No Known Drug Allergies Allergy Verified 02/05/18 20:46 History of Present Illness: THIS 52 YEARS OLD BLACK MALE WITH ALCOHOL DEPENDENCE,SEEKING DETOX,WITHDRAWAL SYMPTOM,LAST DETOX 09/13/17 TO 09/17/17 SYNCOPE ALCOHOL RELATED NICOTINE DEPENDENCE PTSD ANXIETY,DEPRESSION LONGEST PERIOD OF SOBRIETY 8 YEARS MMTP 90 MGS/DAY,LAST MEDICATED TODAY,HAS BOTTLE TO TAKE HOME FOR 02/06/18 Exam Limitations: No Limitations - Ebola screening Have you traveled outside of the country in the last 21 days: No (N) Have you had contact with anyone from an Ebola affected area: No Do you have a fever: No - Review of Systems Constitutional: Malaise, Night Sweats, Weakness, Unintentional Wgt. Loss, Unexplained wgt Loss EENT: reports: Nose Congestion Respiratory: reports: No Symptoms reported Cardiac: reports: Palpitations GI: reports: Diarrhea, Nausea, Vomiting, Abdominal cramping : reports: No Symptoms Reported Musculoskeletal: reports: Back Pain, Muscle Pain Integumentary: reports: Dryness Neuro: reports: Headache, Tremors Endocrine: reports: No Symptoms Reported Hematology: reports: No Symptoms Reported Psychiatric: reports: No Sypmtoms Reported, Judgement Intact, Mood/Affect Appropiate, Orientated x3, Anxious, Depressed Patient History - Patient Medical History Hx Anemia: No Hx Asthma: No Hx Chronic Obstructive Pulmonary Disease (COPD): No Hx Cancer: No Hx Cardiac Disorders: No Hx Congestive Heart Failure: No Hx Hypertension: Yes (ON LISINOPRIL 20 MG DAILY AND HCTZ 12.5 MG DAILY) Hx Hypercholesterolemia: No Hx Pacemaker: No HX Cerebrovascular Accident: No Hx Seizures: No Hx Dementia: No Hx Diabetes: No Hx Gastrointestinal Disorders: No Hx Liver Disease: No Hx Genitourinary Disorders: No Hx Sexually Transmitted Disorders: No Hx Renal Disease (ESRD): No Hx Thyroid Disease: No Hx Human Immunodeficiency Virus (HIV): No (NEGATIVE HX LAST 09/07) Hx Hepatitis C: No Hx Depression: Yes (ANXIETY) Hx Suicide Attempt: No Hx Bipolar Disorder: No Hx Schizophrenia: No Other Medical History: NO SUICIDAL,NO HOMICIDAL, - Patient Surgical History Past Surgical History: No Hx Neurologic Surgery: No Hx Cataract Extraction: No Hx Cardiac Surgery: No Hx Lung Surgery: No Hx Breast Surgery: No Hx Breast Biopsy: No Hx Abdominal Surgery: No Hx Appendectomy: No Hx Cholecystectomy: No Hx Genitourinary Surgery: No Hx Section: No Hx Orthopedic Surgery: No Anesthesia Reaction: No - PPD History Documented Results: Positive w/o proof Date: 10/07/13 Results: 15 mm PPD to be Administered?: No - Smoking Cessation Smoking history: Current every day smoker Have you smoked in the past 12 months: Yes Aproximately how many cigarettes per day: 7 Cigars Per Day: 0 Hx Chewing Tobacco Use: No Initiated information on smoking cessation: Yes 'Breaking Loose' booklet given: 02/05/18 - Substance & Tx. History Hx Alcohol Use: Yes Hx Substance Use: No Substance Use Type: Alcohol Hx Substance Use Treatment: Yes ([facility] 09/13/17 TO 09/17/17) - Substances Abused Alcohol Route: Oral Frequency: Daily Amount used: 4 PINTS OF VODKA,COGNAC Age of first use: 14 Date of Last Use: 02/05/18 Family Disease History - Family Disease History Family Disease History: Other: Grandparent (alcohol), Father (ETOH DEPENDENT, ) Admission Physical Exam [facility] - Vital Signs Vital Signs: Vital Signs Temperature 98 F 02/06/18 06:28 Pulse Rate 75 02/06/18 06:28 Respiratory Rate 18 02/06/18 06:28 Blood Pressure 143/86 02/06/18 06:28 O2 Sat by Pulse Oximetry (%) - Physical General Appearance: Yes: Moderate Distress, Tremorous, Irritable, Sweating, Anxious HEENTM: Yes: Normal ENT Inspection, GAGE, Pharynx Normal Respiratory: Yes: Lungs Clear, Normal Breath Sounds, No Respiratory Distress Neck: Yes: Within Normal Limits, Supple, Trachea in good position Breast: Yes: Within Normal Limits Cardiology: Yes: Within Normal Limits, Regular Rhythm, Regular Rate, S1, S2 Abdominal: Yes: Within Normal Limits, Normal Bowel Sounds, Non Tender, Flat, Soft Genitourinary: Yes: Within Normal Limits Back: Yes: Within Normal Limits Musculoskeletal: Yes: full range of Motion, Back pain, Muscle Pain Extremities: Yes: Within Normal Limits, Normal Range of Motion, Tremors Neurological: Yes: carpentry foreman II-XII NML intact, Fully Oriented, Alert, Motor Strength 5/5 Integumentary: Yes: Dry, Other (TINEA PEDIS) Lymphatic: Yes: Within Normal Limits - Diagnostic (1) Alcohol dependence with uncomplicated withdrawal Current Visit: No Status: Chronic (2) PTSD (post-traumatic stress disorder) Current Visit: No Status: Acute (3) Tinea pedis Current Visit: No Status: Acute (4) Weight loss Current Visit: No Status: Acute (5) Essential hypertension Current Visit: No Status: Chronic (6) Nicotine dependence Current Visit: No Status: Chronic Qualifiers: Nicotine product type: cigarettes Substance use status: uncomplicated Qualified Code(s): F17.210 - Nicotine dependence, cigarettes, uncomplicated (7) Positive PPD Current Visit: No Status: Chronic (8) Insomnia secondary to depression with anxiety Current Visit: No Status: Chronic (9) Methadone maintenance therapy patient Current Visit: No Status: Chronic Cleared for Admission [facility] - Detox or Rehab [facility] Level of Care: Medically Managed Detox Regimen/Protocol: Librium S Breath Alcohol Content Breath Alcohol Content: 0.115
[2018-02-05] MEDS ORDERED: LOPERAMIDE HCL 2 MG CAPSULE PO PRN (19:34)
[2018-02-05] MEDS ORDERED: MAGNESIUM HYDROX 2400MG/30ML ORAL SUSPENSION 30 ML CUP PO PRN (19:34)
[2018-02-05] MEDS ORDERED: P-EPHED 60MG/TRIPROLIDI 2.5MG TABLET PO PRN (19:34)
[2018-02-05] MEDS ORDERED: IBUPROFEN 400 MG TABLET (FP) PO PRN (19:34)
[2018-02-05] MEDS ORDERED: guaiFENesin/D-METHORPHAN HB 10 ML UNIT-DOSE CUPS PO PRN (19:34)
[2018-02-05] MEDS ORDERED: MAGNESIUM CITRATE 300 ML BOTTLE PO PRN (19:34)
[2018-02-05] MEDS ORDERED: MAG HYDROX/AL HYDROX/SIMETH 30 ML UNIT-DOSE CUP PO PRN (19:34)
[2018-02-05] MEDS ORDERED: chlordiazePOXIDE HCL 25 MG CAPSULE PO PRN (19:34)
[2018-02-05] MEDS ORDERED: hydrOXYzine PAMOATE 50 MG CAPSULE (FP) PO PRN (19:34)
[2018-02-05] MEDS ORDERED: MENTHOL/PHENOL 1 EACH UD MM PRN (19:34)
[2018-02-05] MEDS ORDERED: ACETAMINOPHEN 325 MG TABLET (FP) PO PRN (19:34)
[2018-02-05] MEDS ORDERED: chlordiazePOXIDE HCL 25 MG CAPSULE PO ONE (19:34)
[2018-02-05] MEDS ORDERED: LISINOPRIL 10 MG TABLET (FP) PO ONE ×2 (20:00→23:45)
[2018-02-05 20:45] VITALS: BMI 24.3
[2018-02-05] MEDS: HYDROCHLOROTHIAZIDE 12.5 MG CAPSULE (FP) PO SCH (23:26)
[2018-02-05] MEDS: THIAMINE HCL 100 MG TABLET (FP) PO SCH (23:26)
[2018-02-05] MEDS: NICOTINE 21 MG/24 HOURS TOPICAL PATCH TD SCH (23:27)
[2018-02-05] MEDS: chlordiazePOXIDE HCL 25 MG CAPSULE PO SCH (23:30)
[2018-02-06] MEDS ORDERED: METHADONE HCL 10 MG TABLET ONE (04:14)
[2018-02-06] MEDS ORDERED: METHADONE HCL 40 MG DISPERSABLE TABLET ONE (04:15)
[2018-02-06] MEDS: chlordiazePOXIDE HCL 25 MG CAPSULE PO SCH ×4 (05:24→22:19)
[2018-02-06] MEDS ORDERED: METHADONE HCL 10 MG TABLET PO ONE (06:00)
[2018-02-06] MEDS ORDERED: METHADONE 80 MG, METHADONE 10 MG PO ONE (06:00)
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
[2018-02-06] MEDS: PRENATAL VITAMINS W/ FOLIC ACID TABLET (FP) PO SCH (10:28)
[2018-02-06] MEDS: LISINOPRIL 10 MG TABLET (FP) PO SCH (10:28)
[2018-02-06] MEDS: HYDROCHLOROTHIAZIDE 12.5 MG CAPSULE (FP) PO SCH (10:28)
[2018-02-06] MEDS: NICOTINE 21 MG/24 HOURS TOPICAL PATCH TD SCH (10:29)
[2018-02-06] MEDS: cloNIDine HCL 0.1 MG TABLET PO SCH (10:41)
[2018-02-06] MEDS: TOLNAFTATE 1% CREAM 15 GM TUBE TP SCH ×2 (10:41→22:19)
[2018-02-06] MEDS: SERTRALINE HCL 50 MG TABLET (FP) PO SCH (10:41)
[2018-02-06 10:48] LABS: HEMATOCRIT 35.2 % (35.4-49); HEMOGLOBIN 12.3 GM/dL (11.7-16.9); MCH 38.5 pg (25.7-33.7); MEAN CELL VOLUME 109.9 fl (80-96); PLATELET COUNT 87 K/MM3 (134-434); RDW 13.6 % (11.9-15.9); WHITE BLOOD COUNT 3.4 K/mm3 (4.0-10.0)
[2018-02-06 10:54] LABS: ADD RBC MORPHOLOGY YES
[2018-02-06 11:00] LABS: MACROCYTOSIS 2+
[2018-02-06 11:36] LABS: ALBUMIN 3.5 g/dl (3.4-5.0); ALK PHOS 84 U/L (45-117); ANION GAP 8 (8-16); BILIRUBIN,TOTAL 1.9 mg/dL (0.2-1.0); BLOOD UREA NITROGEN 17 mg/dL (7-18); CALCIUM 8.1 mg/dL (8.5-10.1); CHLORIDE 99 mmol/L (98-107); CO2 35 mmol/L (21-32); CREATININE 1.1 mg/dL (0.7-1.3); GLUCOSE,RANDOM 106 mg/dL (74-106); SGOT/AST 134 U/L (15-37); SGPT/ALT 49 U/L (12-78); SODIUM 142 mmol/L (136-145); TOT PROT 6.7 g/dl (6.4-8.2)
[2018-02-06 11:52] LABS: POTASSIUM 2.7 mmol/L (3.5-5.1)
[2018-02-06] MEDS ORDERED: FLU VACCINE QUAD 60 MCG/0.5 ML (MDV 17-18) IM ONE (12:00)
--- NOTE | 2018-02-06 13:51 | PN ---
[facility] CIWA - CIWA Score Nausea/Vomitin Muscle Tremors: 3 Anxiety: 3 Agitation: 3 Paroxysmal Sweats: 2 Orientation: 0-Oriented Tacttile Disturbances: 1-Very Mild Itch/Numbness Auditory Disturbances: 0-None Visual Disturbances: 0-None Headache: 0-None Present CIWA-Ar Total Score: 15 [facility] Progress Note (SOAP) Subjective: Tremor, sweating, interrupted sleep Objective: 02/06/18 13:49 Last Vital Signs Temp Pulse Resp BP Pulse Ox 98.7 F 84 20 148/101 02/06/18 09:39 02/06/18 12:30 02/06/18 12:30 02/06/18 09:39 Laboratory Tests 02/06/18 02/06/18 02/06/18 08:00 08:00 08:00 WBC 3.4 L RBC 3.20 L Hgb 12.3 Hct 35.2 L MCV 109.9 H MCH 38.5 H MCHC 35.0 RDW 13.6 D Plt Count 87 L D MPV 8.0 Macrocytosis 2+ Sodium 142 Potassium 2.7 L* D Chloride 99 Carbon Dioxide 35 H D Anion Gap 8 BUN 17 D Creatinine 1.1 Creat Clearance w eGFR > 60 Random Glucose 106 Calcium 8.1 L Total Bilirubin 1.9 H D AST 134 H D ALT 49 D Alkaline Phosphatase 84 D Total Protein 6.7 Albumin 3.5 RPR Titer Nonreactive HIV 1&2 Antibody Screen HIV P24 Antigen 02/06/18 08:00 WBC RBC Hgb Hct MCV MCH MCHC RDW Plt Count MPV Macrocytosis Sodium Potassium Chloride Carbon Dioxide Anion Gap BUN Creatinine Creat Clearance w eGFR Random Glucose Calcium Total Bilirubin AST ALT Alkaline Phosphatase Total Protein Albumin RPR Titer HIV 1&2 Antibody Screen Negative HIV P24 Antigen Negative Labs reviewed: noted with pancytopenia and K 2.7 Assessment: 02/06/18 13:51 Withdrawal symptoms Noted with pancytopenia and hypokalemia Plan: Continue detox Encouraged PO hydration (water) Pancytopenia: follow up with PCP for monitoring Hypokalemia: asymptomatic, start K Dur 40 meq PO x 2 doses (at least 4 hr apart ) then 20mg PO daily starting tomorrow, repeat serum K level on 02/08/18
[2018-02-06] MEDS ORDERED: POTASSIUM CHLORIDE ORAL LIQUID 20 MEQ/15 ML PO ONE ×2 (15:30→17:00)
[2018-02-06] MEDS: traZODone HCL 100 MG TABLET (FP) PO SCH (22:19)
[2018-02-06] MEDS: THIAMINE HCL 100 MG TABLET (FP) PO SCH (22:19)
[2018-02-06 22:51] LABS: URINE APPEARANCE CLEAR; URINE BILIRUBIN NEGATIVE (NEGATIVE); URINE BLOOD NEGATIVE (NEGATIVE); URINE COLOR AMBER; URINE GLUCOSE (UA) NEGATIVE (NEGATIVE); URINE KETONE NEGATIVE (NEGATIVE); URINE LEUK ESTERASE TRACE (NEGATIVE); URINE NITRITE NEGATIVE (NEGATIVE); URINE PROTEIN NEGATIVE (NEGATIVE); URINE UROBILINOGEN 4.0 E.U/dl mg/dL (0.2-1.0)
[2018-02-06 23:05] LABS: EPI CELLS RARE /HPF (FEW); URINE BACTERIA FEW /hpf (NONE SEEN); URINE HYALINE CAST 9 /lpf; URINE MUCUS MANY
--- NOTE | 2018-02-07 00:09 | EKG ---
Test Reason : Blood Pressure : / mmHG Vent. Rate : 082 BPM Atrial Rate : 082 BPM P-R Int : 150 ms QRS Dur : 086 ms QT Int : 404 ms P-R-T Axes : 039 048 063 degrees QTc Int : 472 ms NORMAL SINUS RHYTHM NORMAL ECG WHEN COMPARED WITH ECG OF 13-SEP-2017 18:43, T WAVE INVERSION NO LONGER EVIDENT IN ANTERIOR LEADS Confirmed by BLANCA LITTLEJOHN MD ([id number]) on 02/07/2018 12:08:50 AM Referred By: Confirmed By:BLANCA LITTLEJOHN MD
[2018-02-07] MEDS: chlordiazePOXIDE HCL 25 MG CAPSULE PO SCH ×3 (05:13→17:34)
[2018-02-07] MEDS ORDERED: METHADONE HCL 10 MG TABLET PO ONE (09:08)
[2018-02-07] MEDS ORDERED: METHADONE 80 MG, METHADONE 10 MG PO ONE (09:30)
[2018-02-07] MEDS: PRENATAL VITAMINS W/ FOLIC ACID TABLET (FP) PO SCH (10:35)
[2018-02-07] MEDS: SERTRALINE HCL 50 MG TABLET (FP) PO SCH (10:35)
[2018-02-07] MEDS: TOLNAFTATE 1% CREAM 15 GM TUBE TP SCH ×2 (10:35→22:28)
[2018-02-07] MEDS: LISINOPRIL 10 MG TABLET (FP) PO SCH (10:35)
[2018-02-07] MEDS: cloNIDine HCL 0.1 MG TABLET PO SCH (10:35)
[2018-02-07] MEDS ORDERED: METHADONE HCL 10 MG TABLET ONE (10:36)
[2018-02-07] MEDS ORDERED: METHADONE HCL 40 MG DISPERSABLE TABLET ONE (10:37)
[2018-02-07] MEDS: NICOTINE 21 MG/24 HOURS TOPICAL PATCH TD SCH (10:38)
[2018-02-07] MEDS: POTASSIUM CHLORIDE ORAL LIQUID 20 MEQ/15 ML PO SCH (10:38)
[2018-02-07] MEDS: HYDROCHLOROTHIAZIDE 12.5 MG CAPSULE (FP) PO SCH (10:39)
--- NOTE | 2018-02-07 11:41 | PN ---
[facility] CIWA - CIWA Score Nausea/Vomitin-No Nausea/No Vomiting Muscle Tremors: 4-Moderate,w/Arms Extend Anxiety: 5 Agitation: 4-Moderately Restless Paroxysmal Sweats: 1-Minimal Palms Moist Orientation: 0-Oriented Tacttile Disturbances: 3-Moderate Itch/Numb/Burn Auditory Disturbances: 0-None Visual Disturbances: 0-None Headache: 0-None Present CIWA-Ar Total Score: 17 S Progress Note (SOAP) Subjective: ANXIETY,IRRITABILITY,SLIGHT TREMORS,BACK PAIN. ALERT O X 3. OOB WITH STEADY GAIT. Objective: 02/07/18 11:40 Vital Signs Temperature 98.9 F 02/07/18 09:15 Pulse Rate 112 H 02/07/18 09:15 Respiratory Rate 20 02/07/18 09:15 Blood Pressure 116/77 02/07/18 09:15 O2 Sat by Pulse Oximetry (%) Laboratory Last Values WBC 3.4 K/mm3 (4.0-10.0) L 02/06/18 08:00 RBC 3.20 M/mm3 (4.00-5.60) L 02/06/18 08:00 Hgb 12.3 GM/dL (11.7-16.9) 02/06/18 08:00 Hct 35.2 % (35.4-49) L 02/06/18 08:00 MCV 109.9 fl (80-96) H 02/06/18 08:00 MCH 38.5 pg (25.7-33.7) H 02/06/18 08:00 MCHC 35.0 g/dl (32.0-35.9) 02/06/18 08:00 RDW 13.6 % (11.9-15.9) D 02/06/18 08:00 Plt Count 87 K/MM3 (134-434) L D 02/06/18 08:00 MPV 8.0 fl (7.5-11.1) 02/06/18 08:00 Macrocytosis 2+ 02/06/18 08:00 Sodium 142 mmol/L (136-145) 02/06/18 08:00 Potassium 2.7 mmol/L (3.5-5.1) L* D 02/06/18 08:00 Chloride 99 mmol/L (98-107) 02/06/18 08:00 Carbon Dioxide 35 mmol/L (21-32) H D 02/06/18 08:00 Anion Gap 8 (8-16) 02/06/18 08:00 BUN 17 mg/dL (7-18) D 02/06/18 08:00 Creatinine 1.1 mg/dL (0.7-1.3) 02/06/18 08:00 Creat Clearance w eGFR > 60 (>60) 02/06/18 08:00 Random Glucose 106 mg/dL (74-106) 02/06/18 08:00 Calcium 8.1 mg/dL (8.5-10.1) L 02/06/18 08:00 Total Bilirubin 1.9 mg/dL (0.2-1.0) H D 02/06/18 08:00 AST 134 U/L (15-37) H D 02/06/18 08:00 ALT 49 U/L (12-78) D 02/06/18 08:00 Alkaline Phosphatase 84 U/L (45-117) D 02/06/18 08:00 Total Protein 6.7 g/dl (6.4-8.2) 02/06/18 08:00 Albumin 3.5 g/dl (3.4-5.0) 02/06/18 08:00 Urine Color Kori 02/06/18 18:35 Urine Appearance Clear 02/06/18 18:35 Urine pH 5.0 (5.0-8.0) 02/06/18 18:35 Ur Specific [place] 1.025 (1.001-1.035) 02/06/18 18:35 Urine Protein Negative (NEGATIVE) 02/06/18 18:35 Urine Glucose (UA) Negative (NEGATIVE) 02/06/18 18:35 Urine Ketones Negative (NEGATIVE) 02/06/18 18:35 Urine Blood Negative (NEGATIVE) 02/06/18 18:35 Urine Nitrite Negative (NEGATIVE) 02/06/18 18:35 Urine Bilirubin Negative (NEGATIVE) 02/06/18 18:35 Urine Urobilinogen 4.0 e.u/dl mg/dL (0.2-1.0) 02/06/18 18:35 Ur Leukocyte Esterase Trace (NEGATIVE) 02/06/18 18:35 Urine WBC (Auto) 1 /hpf (3-5) 02/06/18 18:35 Urine RBC (Auto) 4 /hpf (0-3) 02/06/18 18:35 Ur Epithelial Cells Rare /HPF (FEW) 02/06/18 18:35 Urine Bacteria Few /hpf (NONE SEEN) 02/06/18 18:35 Hyaline Casts 9 /lpf 02/06/18 18:35 Urine Mucus Many 02/06/18 18:35 RPR Titer Nonreactive (NONREACTIVE) 02/06/18 08:00 HIV 1&2 Antibody Screen Negative 02/06/18 08:00 HIV P24 Antigen Negative 02/06/18 08:00 Assessment: 02/07/18 11:40 WITHDRAWAL SX Plan: CONTINUE DETOX INCREASE PO FLUIDS
[2018-02-07] MEDS: FERROUS SO4 325 MG TABLET (FP) PO SCH (13:07)
[2018-02-07] MEDS: traZODone HCL 100 MG TABLET (FP) PO SCH (22:28)
[2018-02-07] MEDS: chlordiazePOXIDE 5 MG CAPSULE PO SCH (22:28)
[2018-02-07] MEDS: THIAMINE HCL 100 MG TABLET (FP) PO SCH (22:28)
[2018-02-08] MEDS ORDERED: METHADONE HCL 10 MG TABLET ONE (05:26)
[2018-02-08] MEDS ORDERED: METHADONE HCL 40 MG DISPERSABLE TABLET ONE (05:26)
[2018-02-08] MEDS: chlordiazePOXIDE 5 MG CAPSULE PO SCH (05:46)
[2018-02-08] MEDS ORDERED: METHADONE 80 MG, METHADONE 10 MG PO SCH (06:00)
[2018-02-08] MEDS ORDERED: METHADONE HCL 10 MG TABLET PO SCH (06:00)
[2018-02-08] MEDS: FERROUS SO4 325 MG TABLET (FP) PO SCH (07:52)
[2018-02-08 09:20] VITALS: BP 127/82; PULSE 91; TEMP 97.8
--- NOTE | 2018-02-08 09:22 | PN ---
[facility] Progress Note (SOAP) Subjective: PT IS ALERT O X 3. STATES HE IS READY TO GO TO REHAB TODAY. NO TREMORS NOTED. Objective: 02/08/18 09:18 Laboratory Last Values WBC 3.4 K/mm3 (4.0-10.0) L 02/06/18 08:00 RBC 3.20 M/mm3 (4.00-5.60) L 02/06/18 08:00 Hgb 12.3 GM/dL (11.7-16.9) 02/06/18 08:00 Hct 35.2 % (35.4-49) L 02/06/18 08:00 MCV 109.9 fl (80-96) H 02/06/18 08:00 MCH 38.5 pg (25.7-33.7) H 02/06/18 08:00 MCHC 35.0 g/dl (32.0-35.9) 02/06/18 08:00 RDW 13.6 % (11.9-15.9) D 02/06/18 08:00 Plt Count 87 K/MM3 (134-434) L D 02/06/18 08:00 MPV 8.0 fl (7.5-11.1) 02/06/18 08:00 Macrocytosis 2+ 02/06/18 08:00 Sodium 142 mmol/L (136-145) 02/06/18 08:00 Potassium 2.7 mmol/L (3.5-5.1) L* D 02/06/18 08:00 Chloride 99 mmol/L (98-107) 02/06/18 08:00 Carbon Dioxide 35 mmol/L (21-32) H D 02/06/18 08:00 Anion Gap 8 (8-16) 02/06/18 08:00 BUN 17 mg/dL (7-18) D 02/06/18 08:00 Creatinine 1.1 mg/dL (0.7-1.3) 02/06/18 08:00 Creat Clearance w eGFR > 60 (>60) 02/06/18 08:00 Random Glucose 106 mg/dL (74-106) 02/06/18 08:00 Calcium 8.1 mg/dL (8.5-10.1) L 02/06/18 08:00 Total Bilirubin 1.9 mg/dL (0.2-1.0) H D 02/06/18 08:00 AST 134 U/L (15-37) H D 02/06/18 08:00 ALT 49 U/L (12-78) D 02/06/18 08:00 Alkaline Phosphatase 84 U/L (45-117) D 02/06/18 08:00 Total Protein 6.7 g/dl (6.4-8.2) 02/06/18 08:00 Albumin 3.5 g/dl (3.4-5.0) 02/06/18 08:00 Urine Color [place] 02/06/18 18:35 Urine Appearance Clear 02/06/18 18:35 Urine pH 5.0 (5.0-8.0) 02/06/18 18:35 Ur Specific [place] 1.025 (1.001-1.035) 02/06/18 18:35 Urine Protein Negative (NEGATIVE) 02/06/18 18:35 Urine Glucose (UA) Negative (NEGATIVE) 02/06/18 18:35 Urine Ketones Negative (NEGATIVE) 02/06/18 18:35 Urine Blood Negative (NEGATIVE) 02/06/18 18:35 Urine Nitrite Negative (NEGATIVE) 02/06/18 18:35 Urine Bilirubin Negative (NEGATIVE) 02/06/18 18:35 Urine Urobilinogen 4.0 e.u/dl mg/dL (0.2-1.0) 02/06/18 18:35 Ur Leukocyte Esterase Trace (NEGATIVE) 02/06/18 18:35 Urine WBC (Auto) 1 /hpf (3-5) 02/06/18 18:35 Urine RBC (Auto) 4 /hpf (0-3) 02/06/18 18:35 Ur Epithelial Cells Rare /HPF (FEW) 02/06/18 18:35 Urine Bacteria Few /hpf (NONE SEEN) 02/06/18 18:35 Hyaline Casts 9 /lpf 02/06/18 18:35 Urine Mucus Many 02/06/18 18:35 RPR Titer Nonreactive (NONREACTIVE) 02/06/18 08:00 Hep C Ab Diagnostic <0.1 s/co ratio (0.0-0.9) 02/06/18 08:00 HIV 1&2 Antibody Screen Negative 02/06/18 08:00 HIV P24 Antigen Negative 02/06/18 08:00 REPEAT LABS DONE AND RESULT PENDING. PT IS GOING TO [facility]. Assessment: 02/08/18 09:20 NAD Plan: PT MAY GO TO REHAB TODAY, F/U WITH THE REPEAT RESULTS DONE TODAY
--- NOTE | 2018-02-08 09:23 | DS ---
[facility] Detox Discharge Summary Admission Date: 02/05/18 Discharge Date: 02/08/18 - History Present History: Alcohol Dependence Additional Comments: DETOX COMPLETED. ALERT O X 3. NAD. REFERRED TO REHAB TODAY. Pertinent Past History: SEE DX BELOW - Physical Exam Results Vital Signs: Vital Signs Temperature 97.8 F 02/08/18 09:19 Pulse Rate 91 H 02/08/18 09:19 Respiratory Rate 20 02/08/18 09:19 Blood Pressure 127/82 02/08/18 09:19 O2 Sat by Pulse Oximetry (%) Pertinent Admission Physical Exam Findings: WITHDRAWAL SX Laboratory Last Values WBC 3.5 K/mm3 (4.0-10.0) L 02/08/18 07:00 RBC 3.04 M/mm3 (4.00-5.60) L 02/08/18 07:00 Hgb 11.8 GM/dL (11.7-16.9) 02/08/18 07:00 Hct 34.5 % (35.4-49) L 02/08/18 07:00 MCV 113.7 fl (80-96) H 02/08/18 07:00 MCH 38.8 pg (25.7-33.7) H 02/08/18 07:00 MCHC 34.2 g/dl (32.0-35.9) 02/08/18 07:00 RDW 14.5 % (11.9-15.9) 02/08/18 07:00 Plt Count 88 K/MM3 (134-434) L 02/08/18 07:00 MPV 9.0 fl (7.5-11.1) D 02/08/18 07:00 Macrocytosis 2+ 02/06/18 08:00 Sodium 142 mmol/L (136-145) 02/08/18 07:00 Potassium 3.5 mmol/L (3.5-5.1) D 02/08/18 07:00 Chloride 103 mmol/L (98-107) 02/08/18 07:00 Carbon Dioxide 36 mmol/L (21-32) H 02/08/18 07:00 Anion Gap 3 (8-16) L 02/08/18 07:00 BUN 15 mg/dL (7-18) 02/08/18 07:00 Creatinine 1.1 mg/dL (0.7-1.3) 02/08/18 07:00 Creat Clearance w eGFR > 60 (>60) 02/08/18 07:00 Random Glucose 98 mg/dL (74-106) 02/08/18 07:00 Calcium 8.6 mg/dL (8.5-10.1) 02/08/18 07:00 Total Bilirubin 0.7 mg/dL (0.2-1.0) D 02/08/18 07:00 AST 100 U/L (15-37) H D 02/08/18 07:00 ALT 55 U/L (12-78) 02/08/18 07:00 Alkaline Phosphatase 73 U/L (45-117) 02/08/18 07:00 Total Protein 6.1 g/dl (6.4-8.2) L 02/08/18 07:00 Albumin 3.2 g/dl (3.4-5.0) L 02/08/18 07:00 Urine Color Kori 02/06/18 18:35 Urine Appearance Clear 02/06/18 18:35 Urine pH 5.0 (5.0-8.0) 02/06/18 18:35 Ur Specific [place] 1.025 (1.001-1.035) 02/06/18 18:35 Urine Protein Negative (NEGATIVE) 02/06/18 18:35 Urine Glucose (UA) Negative (NEGATIVE) 02/06/18 18:35 Urine Ketones Negative (NEGATIVE) 02/06/18 18:35 Urine Blood Negative (NEGATIVE) 02/06/18 18:35 Urine Nitrite Negative (NEGATIVE) 02/06/18 18:35 Urine Bilirubin Negative (NEGATIVE) 02/06/18 18:35 Urine Urobilinogen 4.0 e.u/dl mg/dL (0.2-1.0) 02/06/18 18:35 Ur Leukocyte Esterase Trace (NEGATIVE) 02/06/18 18:35 Urine WBC (Auto) 1 /hpf (3-5) 02/06/18 18:35 Urine RBC (Auto) 4 /hpf (0-3) 02/06/18 18:35 Ur Epithelial Cells Rare /HPF (FEW) 02/06/18 18:35 Urine Bacteria Few /hpf (NONE SEEN) 02/06/18 18:35 Hyaline Casts 9 /lpf 02/06/18 18:35 Urine Mucus Many 03/18/18 18:35 RPR Titer Nonreactive (NONREACTIVE) 02/06/18 08:00 Hep C Ab Diagnostic <0.1 s/co ratio (0.0-0.9) 02/06/18 08:00 HIV 1&2 Antibody Screen Negative 02/06/18 08:00 HIV P24 Antigen Negative 02/06/18 08:00 K+ 3.5 IMPROVED FROM 2.7 - Treatment Hospital Course: Detox Protocol Followed, Detoxed Safely, Responded well, Discharged Condition Good, Rehab Referral Accepted Patient has Accepted a Rehab Referral to: [facility] [address] [place] [address] - Medication Discharge Medications: Ambulatory Orders Hydrochlorothiazide [Hctz -] 12.5 mg PO DAILY #30 mg 09/17/17 Clonidine HCl [Clonidine HCl ER] 0.1 mg PO DAILY 02/05/18 Sertraline HCl [Zoloft -] 50 mg PO DAILY #30 tablet 02/06/18 traZODone HCL [Desyrel -] 100 mg PO HS #30 tablet 02/06/18 Lisinopril [Prinivil] 20 mg PO DAILY 02/08/18 - Diagnosis (1) Tinea pedis Status: Acute Qualifiers: Laterality: bilateral Qualified Code(s): B35.3 - Tinea pedis (2) Essential hypertension Status: Chronic (3) Nicotine dependence Status: Acute Qualifiers: Nicotine product type: cigarettes Substance use status: in withdrawal Qualified Code(s): F17.213 - Nicotine dependence, cigarettes, with withdrawal (4) Alcohol dependence with uncomplicated withdrawal Status: Acute (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
[2018-02-08] MEDS: TOLNAFTATE 1% CREAM 15 GM TUBE TP SCH (10:17)
[2018-02-08] MEDS: SERTRALINE HCL 50 MG TABLET (FP) PO SCH (10:17)
[2018-02-08] MEDS: POTASSIUM CHLORIDE ORAL LIQUID 20 MEQ/15 ML PO SCH (10:17)
[2018-02-08] MEDS: HYDROCHLOROTHIAZIDE 12.5 MG CAPSULE (FP) PO SCH (10:17)
[2018-02-08] MEDS: cloNIDine HCL 0.1 MG TABLET PO SCH (10:17)
[2018-02-08] MEDS: PRENATAL VITAMINS W/ FOLIC ACID TABLET (FP) PO SCH (10:17)
[2018-02-08] MEDS: NICOTINE 21 MG/24 HOURS TOPICAL PATCH TD SCH (10:18)
[2018-02-08] MEDS: LISINOPRIL 10 MG TABLET (FP) PO SCH (10:20)
[2018-02-08 10:23] LABS: HEMATOCRIT 34.5 % (35.4-49); HEMOGLOBIN 11.8 GM/dL (11.7-16.9); MCH 38.8 pg (25.7-33.7); MCHC 34.2 g/dl (32.0-35.9); MEAN CELL VOLUME 113.7 fl (80-96); PLATELET COUNT 88 K/MM3 (134-434); RBC 3.04 M/mm3 (4.00-5.60); RDW 14.5 % (11.9-15.9); WHITE BLOOD COUNT 3.5 K/mm3 (4.0-10.0)
[2018-02-08 10:24] LABS: ALBUMIN 3.2 g/dl (3.4-5.0); ANION GAP 3 (8-16); BLOOD UREA NITROGEN 15 mg/dL (7-18); CALCIUM 8.6 mg/dL (8.5-10.1); CHLORIDE 103 mmol/L (98-107); CO2 36 mmol/L (21-32); GLUCOSE,RANDOM 98 mg/dL (74-106); POTASSIUM 3.5 mmol/L (3.5-5.1); SODIUM 142 mmol/L (136-145)
[2018-02-08 10:41] LABS: ALK PHOS 73 U/L (45-117); BILIRUBIN,TOTAL 0.7 mg/dL (0.2-1.0); CREATININE 1.1 mg/dL (0.7-1.3); SGOT/AST 100 U/L (15-37); SGPT/ALT 55 U/L (12-78); TOT PROT 6.1 g/dl (6.4-8.2)
[2018-02-08] MEDS ORDERED: chlordiazePOXIDE HCL 10 MG CAPSULE PO SCH ×2 (11:00→23:00)
== END 2018-02-08 12:33 | disposition home or self-care (01) | DRG 773 ==
LOC: YASAS 12:58 → Y3N 19:21
PROVIDERS: ADMIT Internal Medicine; ATTEND Internal Medicine
PROC: HZ2ZZZZ Detoxification Services for Substance Abuse Treatment (ICD-10-PCS; principal; 2018-02-05)
DX: F11.20 Opioid dependence, uncomplicated (principal); F10.230 Alcohol dependence with withdrawal, uncomplicated; F17.213 Nicotine dependence, cigarettes, with withdrawal; F19.282 Other psychoactive substance dependence with psychoactive substance-induced sleep disorder; F19.24 Other psychoactive substance dependence with psychoactive substance-induced mood disorder; I10 Essential (primary) hypertension; E87.6 Hypokalemia; D61.818 Other pancytopenia; B35.3 Tinea pedis; D64.9 Anemia, unspecified; R63.4 Abnormal weight loss; Z68.24 Body mass index [BMI] 24.0-24.9, adult; R76.11 Nonspecific reaction to tuberculin skin test without active tuberculosis
CPT/HCPCS: 36415; 80053; 81003; 81015; 85027; 86593; 87389; 90688; 93005; 93010; J0735

== ENCOUNTER 2018-02-08 12:40 | Inpatient (IN) | payer OTHER ==
--- NOTE | 2018-02-08 15:00 | HP ---
[facility] Rehab Assess/Revision - Admission History Admitted to Rehab from: [facility] (COMPLETED DETOX TODAY) Date of Admission to Rehab: 02/08/18 - Vital signs Vital Signs: Vital Signs Period Temp Pulse Resp BP Sys/Bee Pulse Ox Last 24 Hr 98.0 F-98.0 F 86-86 18-18 129-129/65-65 - Findings Detox History & Physical reviewed: Yes Concur with findings: Yes Inpatient Rehab Admission - Initial Determination Are CD services needed?: Yes Free of communicable disease: Yes Not in need of hospitalization: Yes - Rehab Admission Criteria Patient is meeting Inpatient Rehab admission criteria:: Yes
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
[2018-02-08] MEDS ORDERED: guaiFENesin/D-METHORPHAN HB 10 ML UNIT-DOSE CUPS PO PRN (15:01)
[2018-02-08] MEDS ORDERED: LOPERAMIDE HCL 2 MG CAPSULE PO PRN (15:01)
[2018-02-08] MEDS ORDERED: P-EPHED 60MG/TRIPROLIDI 2.5MG TABLET PO PRN (15:01)
[2018-02-08] MEDS ORDERED: MENTHOL/PHENOL 1 EACH UD MM PRN (15:01)
[2018-02-08] MEDS ORDERED: hydrOXYzine PAMOATE 50 MG CAPSULE (FP) PO PRN (15:01)
[2018-02-08] MEDS ORDERED: NICOTINE POLACRILEX 2 MG GUM BUC PRN (15:01)
[2018-02-08] MEDS ORDERED: MAG HYDROX/AL HYDROX/SIMETH 30 ML UNIT-DOSE CUP PO PRN (15:01)
[2018-02-08] MEDS ORDERED: ACETAMINOPHEN 325 MG TABLET (FP) PO PRN (15:01)
[2018-02-08] MEDS ORDERED: MAGNESIUM HYDROX 2400MG/30ML ORAL SUSPENSION 30 ML CUP PO PRN (15:01)
[2018-02-08] MEDS ORDERED: MAGNESIUM CITRATE 300 ML BOTTLE PO PRN (15:01)
[2018-02-08] MEDS ORDERED: IBUPROFEN 400 MG TABLET (FP) PO PRN (15:01)
[2018-02-08] MEDS: NICOTINE 14 MG/24 HOURS TOPICAL PATCH TD SCH (18:22)
[2018-02-08] MEDS: MELATONIN 5 MG TABLETS PO SCH (21:32)
[2018-02-08] MEDS: THIAMINE HCL 100 MG TABLET (FP) PO SCH (21:32)
[2018-02-09] MEDS ORDERED: METHADONE HCL 10 MG TABLET ONE (05:59)
[2018-02-09] MEDS ORDERED: METHADONE HCL 40 MG DISPERSABLE TABLET ONE (05:59)
[2018-02-09] MEDS ORDERED: METHADONE HCL 10 MG TABLET PO SCH (06:00)
[2018-02-09] MEDS: METHADONE 80 MG, METHADONE 10 MG PO SCH (06:25)
[2018-02-09] MEDS ORDERED: HYDROCHLOROTHIAZIDE 12.5 MG CAPSULE (FP) PO SCH (10:00)
[2018-02-09] MEDS: PRENATAL VITAMINS W/ FOLIC ACID TABLET (FP) PO SCH (10:56)
[2018-02-09] MEDS: LISINOPRIL 20 MG TABLET (FP) PO SCH (10:56)
[2018-02-09] MEDS: SERTRALINE HCL 50 MG TABLET (FP) PO SCH (10:56)
[2018-02-09] MEDS: HYDROCHLOROTHIAZIDE 12.5 MG CAPSULE (FP) PO SCH (10:57)
[2018-02-09] MEDS: NICOTINE 14 MG/24 HOURS TOPICAL PATCH TD SCH (10:58)
[2018-02-09] MEDS: THIAMINE HCL 100 MG TABLET (FP) PO SCH (21:31)
[2018-02-09] MEDS: MELATONIN 5 MG TABLETS PO SCH (21:31)
[2018-02-09] MEDS ORDERED: traZODone HCL 100 MG TABLET (FP) PO SCH (22:00)
[2018-02-10] MEDS ORDERED: METHADONE HCL 10 MG TABLET ONE (03:23)
[2018-02-10] MEDS ORDERED: METHADONE HCL 40 MG DISPERSABLE TABLET ONE (03:24)
[2018-02-10] MEDS: METHADONE 80 MG, METHADONE 10 MG PO SCH (06:13)
[2018-02-10 06:50] VITALS: BP 144/73; PULSE 77; TEMP 98.3
[2018-02-10] MEDS: LISINOPRIL 20 MG TABLET (FP) PO SCH (10:46)
[2018-02-10] MEDS: PRENATAL VITAMINS W/ FOLIC ACID TABLET (FP) PO SCH (10:46)
[2018-02-10] MEDS: SERTRALINE HCL 50 MG TABLET (FP) PO SCH (10:46)
[2018-02-10] MEDS: NICOTINE 14 MG/24 HOURS TOPICAL PATCH TD SCH (10:46)
[2018-02-10] MEDS: HYDROCHLOROTHIAZIDE 12.5 MG CAPSULE (FP) PO SCH (10:46)
--- NOTE | 2018-02-10 11:54 | PN ---
Psychiatric Progress Note Vital Signs: Vital Signs Period Temp Pulse Resp BP Sys/Bee Pulse Ox Last 24 Hr 98.3 F 77 18-18 144/73 Date of Session: 02/10/18 Chief Complaint:: "Leaving AMA" HPI: Patient is a52 year old male with history of alcohol dependence comorbid PTSD, on [facility]. ROS: WNL Current Medications: Active Medications Generic Name Dose Route Start Last Admin Trade Name Freq PRN Reason Stop Dose Admin Al Hydroxide/Mg Hydroxide 30 ml 02/08/18 15:01 Mylanta Oral Suspension - PO Q6H PRN DYSPEPSIA Eucalyptus/Menthol/Phenol/Sorbitol 1 each 02/08/18 15:01 Cepastat Lozenge - MM Q4H PRN SORE THROAT Guaifenesin 10 ml 02/08/18 15:01 Robitussin Dm - PO Q6H PRN COUGH Hydrochlorothiazide 12.5 mg 02/09/18 10:00 02/10/18 10:46 Hctz - PO 12.5 mg DAILY NALDO Administration Hydroxyzine Pamoate 50 mg 02/08/18 15:01 Vistaril - PO Q4H PRN AGITATION Ibuprofen 400 mg 02/08/18 15:01 Motrin - PO Q6H PRN Pain Level 4-6 Lisinopril 20 mg 02/09/18 10:00 02/10/18 10:46 Prinivil PO 20 mg DAILY NALDO Administration Loperamide HCl 4 mg 02/08/18 15:01 Imodium - PO Q6H PRN DIARRHEA Magnesium Citrate 300 ml 02/08/18 15:01 Citroma - PO Q48H PRN CONSTIPATION Magnesium Hydroxide 30 ml 02/08/18 15:01 Milk Of Magnesia - PO DAILY PRN CONSTIPATION Melatonin 5 mg 02/08/18 22:00 02/09/18 21:31 Melatonin PO 5 mg HS NALDO Administration Methadone HCl 80 mg/ Methadone 90 mg 02/09/18 06:00 02/10/18 06:13 HCl 10 mg PO 90 mg DAILY@0600 NALDO Administration Nicotine 14 mg 02/08/18 16:45 02/10/18 10:46 Nicoderm Patch - TD Not Given DAILY NALDO Nicotine Polacrilex 2 mg 02/08/18 15:01 Nicorette Gum - BUC Q2H PRN NICOTINE REPLACEMENT RX Multivit/Folic Acid/Iron 1 tab 02/09/18 10:00 02/10/18 10:46 Vitamins (Sjr) - PO 1 tab DAILY NALDO Administration Pseudoephedrine/Triprolidine 1 combo 02/08/18 15:01 Actifed - PO TID PRN NASAL CONGESTION Sertraline HCl 50 mg 02/09/18 10:00 02/10/18 10:46 Zoloft - PO 50 mg DAILY NALDO Administration Thiamine HCl 100 mg 02/08/18 22:00 02/09/18 21:31 Vitamin B1 - PO 100 mg HS NALDO Administration Trazodone HCl 100 mg 02/09/18 22:00 02/09/18 21:31 Desyrel - PO 100 mg HS NALDO Administration Current Side Effect: No Lab tests ordered: No Lab tests reviewed: Yes Provider note:: The patient reports that he wants to leave against medical advice, met with the patient to explore reasons for not completing treatment, he reported that he does "not like this place, this people, I am going to the [facility]", patient was encouraged to stay in treatment , but adamant to leave, script for Trazodone and Zoloft wereelectronically transmitted to [facility]. Stable for AMA. Total face to face time:: 15 Mental Status Exam - Mental Status Exam Alert and Oriented to: Time, Place, Person Cognitive Function: Good Patient Appearance: Well Groomed Affect: Appropriate, Mood Congruent Patient Behavior: Appropriate, Cooperative Speech Pattern: Clear, Appropriate Voice Loudness: Normal Thought Process: Intact, Goal Oriented Thought Disorder: Not Present Hallucinations: Denies Suicidal Ideation: Denies Homicidal Ideation: Denies Insight/Judgement: Fair Sleep: Fair Appetite: Fair Muscle strength/Tone: Normal Gait/Station: Normal Psychiatric Treatment Plan - Problem List (1) Nicotine dependence Current Visit: No Qualifiers: Nicotine product type: cigarettes Substance use status: in withdrawal Qualified Code(s): F17.213 - Nicotine dependence, cigarettes, with withdrawal (2) Opioid dependence on agonist therapy Current Visit: No (3) PTSD (post-traumatic stress disorder) Current Visit: No (4) Alcohol dependence Current Visit: No
== END 2018-02-10 11:20 | disposition left against medical advice (07) | DRG 770 ==
LOC: YASAS 12:40 → Y5N 12:41
PROVIDERS: ADMIT Psychiatry & Neurology Psychiatry; ATTEND Psychiatry & Neurology Psychiatry
PROC: HZ42ZZZ Group Counseling for Substance Abuse Treatment, Cognitive-Behavioral (ICD-10-PCS; principal; 2018-02-08)
DX: F11.20 Opioid dependence, uncomplicated (principal); F10.20 Alcohol dependence, uncomplicated; F17.210 Nicotine dependence, cigarettes, uncomplicated; F43.10 Post-traumatic stress disorder, unspecified

== ENCOUNTER 2018-03-15 11:12 | Inpatient (IN) | payer OTHER ==
[2018-03-15 11:36] VITALS: BMI 21.6
--- NOTE | 2018-03-15 13:45 | HP ---
CIWA Score - CIWA Score Nausea/Vomitin Muscle Tremors: 3 Anxiety: 3 Agitation: 3 Paroxysmal Sweats: 1-Minimal Palms Moist Orientation: 0-Oriented Tacttile Disturbances: 2-Mild Itch/Numbness/Burn Auditory Disturbances: 2-Mild Harshness/Frighten Visual Disturbances: 1-Very Mild Sensitivity Headache: 2-Mild CIWA-Ar Total Score: 20 Admission ROS BHS - HPI Chief Complaint: i am for detox from alcohol and klonopin Allergies/Adverse Reactions: Allergies Allergy/AdvReac Type Severity Reaction Status Date / Time No Known Drug Allergies Allergy Verified 03/15/18 12:53 History of Present Illness: this 52 years old male with alcohol and klonopin dependence,seeking detox,on [facility]tp 90 mgs.day,last medicated 03/14/18 hypertension non compliance weight loss nicotine dependence ptsd,anxiety,depression longest period of sobriety 8 years Exam Limitations: No Limitations - Ebola screening Have you traveled outside of the country in the last 21 days: No Have you had contact with anyone from an Ebola affected area: No Have you been sick,other than usual withdrawal symptoms: No Do you have a fever: No - Review of Systems Constitutional: Chills, Loss of Appetite, Malaise, Night Sweats, Changes in sleep, Weakness, Unintentional Wgt. Loss EENT: reports: Nose Congestion Respiratory: reports: No Symptoms reported Cardiac: reports: No Symptoms Reported GI: reports: Diarrhea, Nausea, Vomiting, Abdominal cramping : reports: No Symptoms Reported Musculoskeletal: reports: Back Pain, Muscle Pain Integumentary: reports: Dryness Neuro: reports: Headache, Tremors Endocrine: reports: No Symptoms Reported Hematology: reports: No Symptoms Reported Psychiatric: reports: No Sypmtoms Reported, Judgement Intact, Mood/Affect Appropiate, Orientated x3, Anxious, Depressed Patient History - Patient Medical History Hx Anemia: No Hx Asthma: No Hx Chronic Obstructive Pulmonary Disease (COPD): No Hx Cancer: No Hx Cardiac Disorders: No Hx Congestive Heart Failure: No Hx Hypertension: Yes (ON MED) Hx Hypercholesterolemia: No Hx Pacemaker: No HX Cerebrovascular Accident: No Hx Seizures: No Hx Dementia: No Hx Diabetes: No Hx Gastrointestinal Disorders: No Hx Liver Disease: No Hx Genitourinary Disorders: No Hx Sexually Transmitted Disorders: No Hx Renal Disease (ESRD): No Hx Thyroid Disease: No Hx Human Immunodeficiency Virus (HIV): No (NEGATIVE HX LAST 09/07) Hx Hepatitis C: No Hx Depression: Yes Hx Suicide Attempt: No Hx Bipolar Disorder: No Hx Schizophrenia: No Other Medical History: no suicidal,no homicidal - Patient Surgical History Past Surgical History: No Hx Neurologic Surgery: No Hx Cataract Extraction: No Hx Cardiac Surgery: No Hx Lung Surgery: No Hx Breast Surgery: No Hx Breast Biopsy: No Hx Abdominal Surgery: No Hx Appendectomy: No Hx Cholecystectomy: No Hx Genitourinary Surgery: No Hx Section: No Hx Orthopedic Surgery: No Anesthesia Reaction: No - PPD History Previous Implant?: Yes Documented Results: Positive w/proof Date: 10/07/13 Results: 15MM PPD to be Administered?: No - Reproductive History Patient : No - Smoking Cessation Smoking history: Current every day smoker Have you smoked in the past 12 months: Yes Aproximately how many cigarettes per day: 8 Cigars Per Day: 0 Hx Chewing Tobacco Use: No Initiated information on smoking cessation: Yes 'Breaking Loose' booklet given: 03/16/18 - Substance & Tx. History Hx Alcohol Use: Yes Hx Substance Use: Yes Substance Use Type: Alcohol, Tranquilizers Hx Substance Use Treatment: Yes ([facility] 02/05/18 to 02/08/18,rehab 02/08/18 to ) - Substances Abused Alcohol Route: Oral Frequency: Daily Amount used: 4 [place] Age of first use: 15 Date of Last Use: 03/15/18 Benzodiazepine (Klonopin) Route: Oral Frequency: Daily Amount used: 2 mgs Age of first use: 28 Date of Last Use: 03/13/18 Family Disease History - Family Disease History Family Disease History: Other: Grandparent (alcohol), Father (ETOH DEPENDENT, ) Admission Physical Exam BHS - Vital Signs Vital Signs: Vital Signs - 24 hr 03/15/18 11:34 Temperature 96.4 F L Pulse Rate 91 H Respiratory 18 Rate Blood Pressure 164/121 - Physical General Appearance: Yes: Moderate Distress, Tremorous, Irritable, Sweating, Anxious HEENTM: Yes: GAGE, Pharynx Normal Respiratory: Yes: Lungs Clear, Normal Breath Sounds, No Respiratory Distress Neck: Yes: Within Normal Limits, Supple, Trachea in good position Breast: Yes: Within Normal Limits Cardiology: Yes: Within Normal Limits, Regular Rhythm, Regular Rate, S1, S2 Abdominal: Yes: Normal Bowel Sounds, Non Tender, Flat, Soft, Pulsatile Mass Genitourinary: Yes: Within Normal Limits Back: Yes: Within Normal Limits, Normal Inspection, Muscle Spasm Musculoskeletal: Yes: full range of Motion, Back pain, Muscle Pain Extremities: Yes: Within Normal Limits, Normal Range of Motion, Tremors Neurological: Yes: teachers aide II-XII NML intact, Fully Oriented, Alert, Motor Strength 5/5 Integumentary: Yes: Dry Lymphatic: Yes: Within Normal Limits - Diagnostic (1) Alcohol dependence with uncomplicated withdrawal Current Visit: Yes Status: Acute (2) Uncomplicated sedative, hypnotic or anxiolytic withdrawal Current Visit: Yes Status: Acute (3) Essential hypertension Current Visit: No Status: Chronic (4) Methadone maintenance therapy patient Current Visit: Yes Status: Chronic (5) Weight loss Current Visit: No Status: Acute Cleared for Admission [facility] - Detox or Rehab [facility] Level of Care: Medically Managed Detox Regimen/Protocol: Librium [facility] Breath Alcohol Content Breath Alcohol Content: 0.094 Urine Drug Screen - Results Drug Screen Negative: No Urine Drug Screen Results: BZO-Benzodiazepines, MTD-Methadone
[2018-03-15] MEDS ORDERED: MAG HYDROX/AL HYDROX/SIMETH 30 ML UNIT-DOSE CUP PO PRN (13:55)
[2018-03-15] MEDS ORDERED: MAGNESIUM HYDROX 2400MG/30ML ORAL SUSPENSION 30 ML CUP PO PRN (13:55)
[2018-03-15] MEDS ORDERED: IBUPROFEN 400 MG TABLET (FP) PO PRN (13:55)
[2018-03-15] MEDS ORDERED: hydrOXYzine PAMOATE 50 MG CAPSULE (FP) PO PRN (13:55)
[2018-03-15] MEDS ORDERED: guaiFENesin/D-METHORPHAN HB 10 ML UNIT-DOSE CUPS PO PRN (13:55)
[2018-03-15] MEDS ORDERED: MENTHOL/PHENOL 1 EACH UD MM PRN (13:55)
[2018-03-15] MEDS ORDERED: MAGNESIUM CITRATE 300 ML BOTTLE PO PRN (13:55)
[2018-03-15] MEDS ORDERED: ACETAMINOPHEN 325 MG TABLET (FP) PO PRN (13:55)
[2018-03-15] MEDS ORDERED: LOPERAMIDE HCL 2 MG CAPSULE PO PRN (13:55)
[2018-03-15] MEDS ORDERED: chlordiazePOXIDE HCL 25 MG CAPSULE PO PRN (13:55)
[2018-03-15] MEDS ORDERED: P-EPHED 60MG/TRIPROLIDI 2.5MG TABLET PO PRN (13:55)
[2018-03-15] MEDS ORDERED: METHADONE HCL 10 MG TABLET PO SCH (14:15)
[2018-03-15] MEDS ORDERED: chlordiazePOXIDE HCL 25 MG CAPSULE PO ONE (14:15)
[2018-03-15] MEDS ORDERED: METHADONE HCL 10 MG TABLET ONE ×2 (15:41→16:10)
[2018-03-15] MEDS ORDERED: METHADONE HCL 40 MG DISPERSABLE TABLET ONE ×2 (15:41→16:09)
[2018-03-15] MEDS: LISINOPRIL 20 MG TABLET (FP) PO SCH (16:22)
[2018-03-15] MEDS: HYDROCHLOROTHIAZIDE 12.5 MG CAPSULE (FP) PO SCH (16:22)
[2018-03-15] MEDS: METHADONE 80 MG, METHADONE 10 MG PO SCH (16:23)
[2018-03-15] MEDS: NICOTINE 21 MG/24 HOURS TOPICAL PATCH TD SCH (16:23)
--- NOTE | 2018-03-15 16:24 | EKG ---
Test Reason : Blood Pressure : / mmHG Vent. Rate : 062 BPM Atrial Rate : 062 BPM P-R Int : 154 ms QRS Dur : 084 ms QT Int : 406 ms P-R-T Axes : 061 039 053 degrees QTc Int : 412 ms NORMAL SINUS RHYTHM VOLTAGE CRITERIA FOR LEFT VENTRICULAR HYPERTROPHY ABNORMAL ECG WHEN COMPARED WITH ECG OF 05-FEB-2018 22:41, ST ELEVATION HAS REPLACED ST DEPRESSION IN ANTERIOR LEADS NONSPECIFIC T WAVE ABNORMALITY NO LONGER EVIDENT IN ANTEROLATERAL LEADS QT HAS SHORTENED Confirmed by MD SUZY, LEONID ([id number]) on 03/15/2018 4:24:28 PM Referred By: Confirmed By:LEONID ALMONTE MD
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
[2018-03-15] MEDS: chlordiazePOXIDE HCL 25 MG CAPSULE PO SCH ×2 (18:03→22:57)
[2018-03-15 18:56] LABS: URINE APPEARANCE CLEAR; URINE BILIRUBIN NEGATIVE (<2.0 mg/dL); URINE BLOOD NEGATIVE (NEGATIVE); URINE COLOR YELLOW; URINE GLUCOSE (UA) NEGATIVE (NEGATIVE); URINE KETONE NEGATIVE (NEGATIVE); URINE LEUK ESTERASE NEGATIVE (NEGATIVE); URINE NITRITE NEGATIVE (NEGATIVE); URINE PROTEIN 2+ (NEGATIVE); URINE UROBILINOGEN NEGATIVE mg/dL (0.2-1.0)
[2018-03-15 19:02] LABS: URINE MUCUS RARE
[2018-03-15] MEDS: traZODone HCL 50 MG TABLET (FP) PO SCH (22:56)
[2018-03-15] MEDS: THIAMINE HCL 100 MG TABLET (FP) PO SCH (22:56)
[2018-03-16] MEDS ORDERED: METHADONE HCL 40 MG DISPERSABLE TABLET ONE (05:49)
[2018-03-16] MEDS ORDERED: METHADONE HCL 10 MG TABLET ONE (05:50)
[2018-03-16] MEDS: chlordiazePOXIDE HCL 25 MG CAPSULE PO SCH ×4 (06:04→22:40)
[2018-03-16] MEDS: METHADONE 80 MG, METHADONE 10 MG PO SCH (06:05)
[2018-03-16 10:14] LABS: HEMATOCRIT 38.7 % (35.4-49); HEMOGLOBIN 13.3 GM/dL (11.7-16.9); MCH 38.2 pg (25.7-33.7); MCHC 34.4 g/dl (32.0-35.9); PLATELET COUNT 148 K/MM3 (134-434); RBC 3.49 M/mm3 (4.00-5.60); RDW 15.9 % (11.9-15.9)
[2018-03-16 10:30] LABS: ALBUMIN 4.1 g/dl (3.4-5.0); ANION GAP 9 (8-16); BLOOD UREA NITROGEN 6 mg/dL (7-18); CALCIUM 8.7 mg/dL (8.5-10.1); CHLORIDE 104 mmol/L (98-107); CO2 30 mmol/L (21-32); CREATININE 1.1 mg/dL (0.7-1.3); GLUCOSE,RANDOM 115 mg/dL (74-106); POTASSIUM 3.2 mmol/L (3.5-5.1); SGOT/AST 83 U/L (15-37); SGPT/ALT 44 U/L (12-78); SODIUM 143 mmol/L (136-145)
[2018-03-16 10:32] LABS: ALK PHOS 84 U/L (45-117); BILIRUBIN,TOTAL 1.4 mg/dL (0.2-1.0); TOT PROT 7.7 g/dl (6.4-8.2)
[2018-03-16] MEDS: PRENATAL VITAMINS W/ FOLIC ACID TABLET (FP) PO SCH (10:46)
[2018-03-16] MEDS: HYDROCHLOROTHIAZIDE 12.5 MG CAPSULE (FP) PO SCH (10:46)
[2018-03-16] MEDS: LISINOPRIL 20 MG TABLET (FP) PO SCH (10:46)
[2018-03-16] MEDS: SERTRALINE HCL 50 MG TABLET (FP) PO SCH (10:46)
[2018-03-16] MEDS: NICOTINE 21 MG/24 HOURS TOPICAL PATCH TD SCH (10:48)
--- NOTE | 2018-03-16 13:47 | PN ---
S CIWA - CIWA Score Nausea/Vomitin-Mild Nausea/No Vomiting Muscle Tremors: 4-Moderate,w/Arms Extend Anxiety: 4-Mod. Anxious/Guarded Agitation: 4-Moderately Restless Paroxysmal Sweats: 1-Minimal Palms Moist Orientation: 0-Oriented Tacttile Disturbances: 1-Very Mild Itch/Numbness Auditory Disturbances: 0-None Visual Disturbances: 0-None Headache: 0-None Present CIWA-Ar Total Score: 15 BHS Progress Note (SOAP) Subjective: sweat tremor anxiety restlessness gi distress Objective: 03/16/18 13:45 Vital Signs Temperature 98.2 F 03/16/18 10:27 Pulse Rate 81 03/16/18 10:27 Respiratory Rate 18 03/16/18 10:27 Blood Pressure 142/91 03/16/18 10:27 O2 Sat by Pulse Oximetry (%) Laboratory Last Values WBC 5.0 K/mm3 (4.0-10.0) D 03/16/18 06:00 RBC 3.49 M/mm3 (4.00-5.60) L 03/16/18 06:00 Hgb 13.3 GM/dL (11.7-16.9) D 03/16/18 06:00 Hct 38.7 % (35.4-49) 03/16/18 06:00 MCV 111.0 fl (80-96) H 03/16/18 06:00 MCH 38.2 pg (25.7-33.7) H 03/16/18 06:00 MCHC 34.4 g/dl (32.0-35.9) 03/16/18 06:00 RDW 15.9 % (11.9-15.9) 03/16/18 06:00 Plt Count 148 K/MM3 (134-434) D 03/16/18 06:00 MPV 9.0 fl (7.5-11.1) 03/16/18 06:00 Sodium 143 mmol/L (136-145) 03/16/18 06:00 Potassium 3.2 mmol/L (3.5-5.1) L 03/16/18 06:00 Chloride 104 mmol/L (98-107) 03/16/18 06:00 Carbon Dioxide 30 mmol/L (21-32) 03/16/18 06:00 Anion Gap 9 (8-16) 03/16/18 06:00 BUN 6 mg/dL (7-18) L D 03/16/18 06:00 Creatinine 1.1 mg/dL (0.7-1.3) 03/16/18 06:00 Creat Clearance w eGFR > 60 (>60) 03/16/18 06:00 Random Glucose 115 mg/dL (74-106) H 03/16/18 06:00 Calcium 8.7 mg/dL (8.5-10.1) 03/16/18 06:00 Total Bilirubin 1.4 mg/dL (0.2-1.0) H D 03/16/18 06:00 AST 83 U/L (15-37) H 03/16/18 06:00 ALT 44 U/L (12-78) 03/16/18 06:00 Alkaline Phosphatase 84 U/L (45-117) 03/16/18 06:00 Total Protein 7.7 g/dl (6.4-8.2) D 03/16/18 06:00 Albumin 4.1 g/dl (3.4-5.0) D 03/16/18 06:00 Urine Color Yellow 03/15/18 18:00 Urine Appearance Clear 03/15/18 18:00 Urine pH 8.0 (5.0-8.0) D 03/15/18 18:00 Ur Specific [place] 1.015 (1.001-1.035) 03/15/18 18:00 Urine Protein 2+ (NEGATIVE) H 03/15/18 18:00 Urine Glucose (UA) Negative (NEGATIVE) 03/15/18 18:00 Urine Ketones Negative (NEGATIVE) 03/15/18 18:00 Urine Blood Negative (NEGATIVE) 03/15/18 18:00 Urine Nitrite Negative (NEGATIVE) 03/15/18 18:00 Urine Bilirubin Negative (<2.0 mg/dL) 03/15/18 18:00 Urine Urobilinogen Negative mg/dL (0.2-1.0) 03/15/18 18:00 Ur Leukocyte Esterase Negative (NEGATIVE) 03/15/18 18:00 Urine WBC (Auto) <1 /hpf (3-5) 03/15/18 18:00 Urine RBC (Auto) 2 /hpf (0-3) 03/15/18 18:00 Urine Mucus Rare 03/15/18 18:00 RPR Titer Nonreactive (NONREACTIVE) 03/16/18 06:00 lab noted K+ supplement Assessment: 03/16/18 13:46 withdrawal sx low K+ Plan: continue detox K+ 20meq bid
[2018-03-16] MEDS: POTASSIUM CHLORIDE ORAL LIQUID 20 MEQ/15 ML PO SCH ×2 (14:49→22:39)
[2018-03-16] MEDS ORDERED: chlordiazePOXIDE HCL 25 MG CAPSULE PO ONE (15:00)
[2018-03-16] MEDS: traZODone HCL 50 MG TABLET (FP) PO SCH (22:40)
[2018-03-16] MEDS: THIAMINE HCL 100 MG TABLET (FP) PO SCH (22:40)
[2018-03-16] MEDS: MELATONIN 5 MG TABLETS PO PRN (22:40)
[2018-03-17] MEDS ORDERED: METHADONE HCL 10 MG TABLET ONE (05:19)
[2018-03-17] MEDS ORDERED: METHADONE HCL 40 MG DISPERSABLE TABLET ONE (05:19)
[2018-03-17] MEDS: METHADONE 80 MG, METHADONE 10 MG PO SCH (05:49)
[2018-03-17] MEDS: chlordiazePOXIDE HCL 25 MG CAPSULE PO SCH ×2 (05:49→10:24)
[2018-03-17] MEDS: POTASSIUM CHLORIDE ORAL LIQUID 20 MEQ/15 ML PO SCH ×2 (10:24→22:32)
[2018-03-17] MEDS: NICOTINE 21 MG/24 HOURS TOPICAL PATCH TD SCH (10:24)
[2018-03-17] MEDS: SERTRALINE HCL 50 MG TABLET (FP) PO SCH (10:24)
[2018-03-17] MEDS: LISINOPRIL 20 MG TABLET (FP) PO SCH (10:24)
[2018-03-17] MEDS: HYDROCHLOROTHIAZIDE 12.5 MG CAPSULE (FP) PO SCH (10:24)
[2018-03-17] MEDS: PRENATAL VITAMINS W/ FOLIC ACID TABLET (FP) PO SCH (10:24)
--- NOTE | 2018-03-17 10:45 | PN ---
S CIWA - CIWA Score Nausea/Vomitin-Mild Nausea/No Vomiting Muscle Tremors: 3 Anxiety: 4-Mod. Anxious/Guarded Agitation: 3 Paroxysmal Sweats: 1-Minimal Palms Moist Orientation: 0-Oriented Tacttile Disturbances: 1-Very Mild Itch/Numbness Auditory Disturbances: 0-None Visual Disturbances: 0-None Headache: 0-None Present CIWA-Ar Total Score: 13 BHS Progress Note (SOAP) Subjective: tremor sweat hot and cold anxiety restlessness trouble sleeping at night Objective: 03/17/18 10:44 Vital Signs Temperature 97.7 F 03/17/18 10:10 Pulse Rate 80 03/17/18 10:10 Respiratory Rate 16 03/17/18 10:10 Blood Pressure 138/102 03/17/18 10:10 O2 Sat by Pulse Oximetry (%) Laboratory Last Values WBC 5.0 K/mm3 (4.0-10.0) D 03/16/18 06:00 RBC 3.49 M/mm3 (4.00-5.60) L 03/16/18 06:00 Hgb 13.3 GM/dL (11.7-16.9) D 03/16/18 06:00 Hct 38.7 % (35.4-49) 03/16/18 06:00 MCV 111.0 fl (80-96) H 03/16/18 06:00 MCH 38.2 pg (25.7-33.7) H 03/16/18 06:00 MCHC 34.4 g/dl (32.0-35.9) 03/16/18 06:00 RDW 15.9 % (11.9-15.9) 03/16/18 06:00 Plt Count 148 K/MM3 (134-434) D 03/16/18 06:00 MPV 9.0 fl (7.5-11.1) 03/16/18 06:00 Sodium 143 mmol/L (136-145) 03/16/18 06:00 Potassium 3.2 mmol/L (3.5-5.1) L 03/16/18 06:00 Chloride 104 mmol/L (98-107) 03/16/18 06:00 Carbon Dioxide 30 mmol/L (21-32) 03/16/18 06:00 Anion Gap 9 (8-16) 03/16/18 06:00 BUN 6 mg/dL (7-18) L D 03/16/18 06:00 Creatinine 1.1 mg/dL (0.7-1.3) 03/16/18 06:00 Creat Clearance w eGFR > 60 (>60) 03/16/18 06:00 Random Glucose 115 mg/dL (74-106) H 03/16/18 06:00 Calcium 8.7 mg/dL (8.5-10.1) 03/16/18 06:00 Total Bilirubin 1.4 mg/dL (0.2-1.0) H D 03/16/18 06:00 AST 83 U/L (15-37) H 03/16/18 06:00 ALT 44 U/L (12-78) 03/16/18 06:00 Alkaline Phosphatase 84 U/L (45-117) 03/16/18 06:00 Total Protein 7.7 g/dl (6.4-8.2) D 03/16/18 06:00 Albumin 4.1 g/dl (3.4-5.0) D 03/16/18 06:00 Urine Color Yellow 03/15/18 18:00 Urine Appearance Clear 03/15/18 18:00 Urine pH 8.0 (5.0-8.0) D 03/15/18 18:00 Ur Specific [place] 1.015 (1.001-1.035) 03/15/18 18:00 Urine Protein 2+ (NEGATIVE) H 03/15/18 18:00 Urine Glucose (UA) Negative (NEGATIVE) 03/15/18 18:00 Urine Ketones Negative (NEGATIVE) 03/15/18 18:00 Urine Blood Negative (NEGATIVE) 03/15/18 18:00 Urine Nitrite Negative (NEGATIVE) 03/15/18 18:00 Urine Bilirubin Negative (<2.0 mg/dL) 03/15/18 18:00 Urine Urobilinogen Negative mg/dL (0.2-1.0) 03/15/18 18:00 Ur Leukocyte Esterase Negative (NEGATIVE) 03/15/18 18:00 Urine WBC (Auto) <1 /hpf (3-5) 03/15/18 18:00 Urine RBC (Auto) 2 /hpf (0-3) 03/15/18 18:00 Urine Mucus Rare 03/15/18 18:00 RPR Titer Nonreactive (NONREACTIVE) 03/16/18 06:00 lab noted 03/17/18 10:45 continue K+ Assessment: 03/17/18 10:45 withdrawal sx Plan: continue detox repeat K+
[2018-03-17] MEDS: chlordiazePOXIDE 5 MG CAPSULE PO SCH ×2 (17:26→22:32)
[2018-03-17] MEDS: THIAMINE HCL 100 MG TABLET (FP) PO SCH (22:33)
[2018-03-17] MEDS: MELATONIN 5 MG TABLETS PO PRN (22:33)
[2018-03-17] MEDS: traZODone HCL 50 MG TABLET (FP) PO SCH (22:33)
[2018-03-18] MEDS ORDERED: METHADONE HCL 10 MG TABLET ONE (04:10)
[2018-03-18] MEDS ORDERED: METHADONE HCL 40 MG DISPERSABLE TABLET ONE (04:10)
[2018-03-18] MEDS: METHADONE 80 MG, METHADONE 10 MG PO SCH (05:21)
[2018-03-18] MEDS: chlordiazePOXIDE 5 MG CAPSULE PO SCH ×2 (05:21→10:49)
--- NOTE | 2018-03-18 10:06 | PN ---
BHS Progress Note (SOAP) Subjective: nausea, sweaats, interrupetd sleep, c/o severe r sided chest pain after a fall 2 weeks ago, no SOB, pain when breathing Objective: 03/18/18 10:04 Vital Signs - 8 hr 03/18/18 03/18/18 03:30 06:00 Temperature 97.9 F Pulse Rate 78 Respiratory 18 18 Rate Blood Pressure 137/79 Laboratory Tests 03/15/18 03/16/18 03/16/18 18:00 06:00 06:00 WBC 5.0 D RBC 3.49 L Hgb 13.3 D Hct 38.7 MCV 111.0 H MCH 38.2 H MCHC 34.4 RDW 15.9 Plt Count 148 D MPV 9.0 Sodium 143 Potassium 3.2 L Chloride 104 Carbon Dioxide 30 Anion Gap 9 BUN 6 L D Creatinine 1.1 Creat Clearance w eGFR > 60 Random Glucose 115 H Calcium 8.7 Total Bilirubin 1.4 H D AST 83 H ALT 44 Alkaline Phosphatase 84 Total Protein 7.7 D Albumin 4.1 D Urine Color Yellow Urine Appearance Clear Urine pH 8.0 D Ur Specific [place] 1.015 Urine Protein 2+ H Urine Glucose (UA) Negative Urine Ketones Negative Urine Blood Negative Urine Nitrite Negative Urine Bilirubin Negative Urine Urobilinogen Negative Ur Leukocyte Esterase Negative Urine WBC (Auto) <1 Urine RBC (Auto) 2 Urine Mucus Rare RPR Titer 03/16/18 06:00 WBC RBC Hgb Hct MCV MCH MCHC RDW Plt Count MPV Sodium Potassium Chloride Carbon Dioxide Anion Gap BUN Creatinine Creat Clearance w eGFR Random Glucose Calcium Total Bilirubin AST ALT Alkaline Phosphatase Total Protein Albumin Urine Color Urine Appearance Urine pH Ur Specific [place] Urine Protein Urine Glucose (UA) Urine Ketones Urine Blood Urine Nitrite Urine Bilirubin Urine Urobilinogen Ur Leukocyte Esterase Urine WBC (Auto) Urine RBC (Auto) Urine Mucus RPR Titer Nonreactive 03/18/18 10:05 tender palpation right anterior chest wall, chest clear, all areas Assessment: 03/18/18 10:05 withdrawal sx - cont detoc, hypokalemia, k supplemented, antiinflammotry medications for traumatic pin of chest wal s/p fall
[2018-03-18] MEDS ORDERED: PANTOPRAZOLE 40 MG TABLET (FP) PO SCH (10:15)
[2018-03-18] MEDS: PRENATAL VITAMINS W/ FOLIC ACID TABLET (FP) PO SCH (10:49)
[2018-03-18] MEDS: HYDROCHLOROTHIAZIDE 12.5 MG CAPSULE (FP) PO SCH (10:49)
[2018-03-18] MEDS: POTASSIUM CHLORIDE ORAL LIQUID 20 MEQ/15 ML PO SCH ×2 (10:49→22:21)
[2018-03-18] MEDS: LISINOPRIL 20 MG TABLET (FP) PO SCH (10:50)
[2018-03-18] MEDS: NICOTINE 21 MG/24 HOURS TOPICAL PATCH TD SCH (10:50)
[2018-03-18] MEDS: SERTRALINE HCL 50 MG TABLET (FP) PO SCH (10:50)
[2018-03-18] MEDS: NAPROXEN 500 MG TABLET (FP) PO SCH ×2 (12:23→22:21)
[2018-03-18] MEDS: CYCLOBENZAPRINE HCL 5 MG TABLET PO SCH ×2 (15:18→22:21)
[2018-03-18] MEDS: chlordiazePOXIDE HCL 10 MG CAPSULE PO SCH ×2 (16:32→22:21)
[2018-03-18] MEDS: THIAMINE HCL 100 MG TABLET (FP) PO SCH (22:21)
[2018-03-18] MEDS: traZODone HCL 50 MG TABLET (FP) PO SCH (22:21)
[2018-03-19] MEDS ORDERED: METHADONE HCL 40 MG DISPERSABLE TABLET ONE (05:20)
[2018-03-19] MEDS ORDERED: METHADONE HCL 10 MG TABLET ONE (05:20)
[2018-03-19] MEDS: chlordiazePOXIDE HCL 10 MG CAPSULE PO SCH (05:34)
[2018-03-19] MEDS ORDERED: METHADONE HCL 10 MG TABLET PO SCH (06:00)
[2018-03-19] MEDS ORDERED: METHADONE 80 MG, METHADONE 10 MG PO SCH (06:00)
[2018-03-19 06:25] VITALS: BP 136/91; PULSE 78; TEMP 97.4
[2018-03-19] MEDS: CYCLOBENZAPRINE HCL 5 MG TABLET PO SCH (07:37)
--- NOTE | 2018-03-19 08:24 | PN ---
S Progress Note (SOAP) Subjective: ALERT,NO COMPLAINT Objective: 03/19/18 08:23 Vital Signs Temperature 97.4 F L 03/19/18 06:24 Pulse Rate 78 03/19/18 06:24 Respiratory Rate 18 03/19/18 06:24 Blood Pressure 136/91 03/19/18 06:24 O2 Sat by Pulse Oximetry (%) Assessment: 03/19/18 08:23 DETOX COMPLETED.NO WITHDRAWAL SYMPTOM Plan: DISCHARGE TODAY,FOLLOW UP WITH AFTER CARE PROGRAM ARRANGEMENT
--- NOTE | 2018-03-19 08:34 | DS ---
[facility] Detox Discharge Summary Admission Date: 03/15/18 Discharge Date: 03/19/18 - History Present History: Alcohol Dependence, [facility] Additional Comments: FOLLOW UP WITH AFTER CARE PROGRAM ARRANGEMENT Pertinent Past History: HYPERTENSION - Physical Exam Results Vital Signs: Vital Signs Temperature 97.4 F L 03/19/18 06:24 Pulse Rate 78 03/19/18 06:24 Respiratory Rate 18 03/19/18 06:24 Blood Pressure 136/91 03/19/18 06:24 O2 Sat by Pulse Oximetry (%) Pertinent Admission Physical Exam Findings: WITHDRAWAL SIGNS AND SYMPTOM Vital Signs Temperature 97.4 F L 03/19/18 06:24 Pulse Rate 78 03/19/18 06:24 Respiratory Rate 18 03/19/18 06:24 Blood Pressure 136/91 03/19/18 06:24 O2 Sat by Pulse Oximetry (%) Laboratory Last Values WBC 5.0 K/mm3 (4.0-10.0) D 03/16/18 06:00 RBC 3.49 M/mm3 (4.00-5.60) L 03/16/18 06:00 Hgb 13.3 GM/dL (11.7-16.9) D 03/16/18 06:00 Hct 38.7 % (35.4-49) 03/16/18 06:00 MCV 111.0 fl (80-96) H 03/16/18 06:00 MCH 38.2 pg (25.7-33.7) H 03/16/18 06:00 MCHC 34.4 g/dl (32.0-35.9) 03/16/18 06:00 RDW 15.9 % (11.9-15.9) 03/16/18 06:00 Plt Count 148 K/MM3 (134-434) D 03/16/18 06:00 MPV 9.0 fl (7.5-11.1) 03/16/18 06:00 Sodium 143 mmol/L (136-145) 03/16/18 06:00 Potassium 3.4 mmol/L (3.5-5.1) L 03/18/18 07:30 Chloride 104 mmol/L (98-107) 03/16/18 06:00 Carbon Dioxide 30 mmol/L (21-32) 03/16/18 06:00 Anion Gap 9 (8-16) 03/16/18 06:00 BUN 6 mg/dL (7-18) L D 03/16/18 06:00 Creatinine 1.1 mg/dL (0.7-1.3) 03/16/18 06:00 Creat Clearance w eGFR > 60 (>60) 03/16/18 06:00 Random Glucose 115 mg/dL (74-106) H 03/16/18 06:00 Calcium 8.7 mg/dL (8.5-10.1) 03/16/18 06:00 Total Bilirubin 1.4 mg/dL (0.2-1.0) H D 03/16/18 06:00 AST 83 U/L (15-37) H 03/16/18 06:00 ALT 44 U/L (12-78) 03/16/18 06:00 Alkaline Phosphatase 84 U/L (45-117) 03/16/18 06:00 Total Protein 7.7 g/dl (6.4-8.2) D 03/16/18 06:00 Albumin 4.1 g/dl (3.4-5.0) D 03/16/18 06:00 Urine Color Yellow 03/15/18 18:00 Urine Appearance Clear 03/15/18 18:00 Urine pH 8.0 (5.0-8.0) D 03/15/18 18:00 Ur Specific [place] 1.015 (1.001-1.035) 03/15/18 18:00 Urine Protein 2+ (NEGATIVE) H 03/15/18 18:00 Urine Glucose (UA) Negative (NEGATIVE) 03/15/18 18:00 Urine Ketones Negative (NEGATIVE) 03/15/18 18:00 Urine Blood Negative (NEGATIVE) 03/15/18 18:00 Urine Nitrite Negative (NEGATIVE) 03/15/18 18:00 Urine Bilirubin Negative (<2.0 mg/dL) 03/15/18 18:00 Urine Urobilinogen Negative mg/dL (0.2-1.0) 03/15/18 18:00 Ur Leukocyte Esterase Negative (NEGATIVE) 03/15/18 18:00 Urine WBC (Auto) <1 /hpf (3-5) 03/15/18 18:00 Urine RBC (Auto) 2 /hpf (0-3) 03/15/18 18:00 Urine Mucus Rare 03/15/18 18:00 RPR Titer Nonreactive (NONREACTIVE) 03/16/18 06:00 - Treatment Hospital Course: Detox Protocol Followed, Detoxed Safely, Responded well, Discharged Condition Good Patient has Accepted a Rehab Referral to: DECLINED - Medication Discharge Medications: Ambulatory Orders Methadone [Dolophine -] 90 mg PO DAILY@0600 tablet MDD 90 02/10/18 Sertraline HCl [Zoloft -] 50 mg PO DAILY #30 tablet 02/10/18 Hydrochlorothiazide [Hctz -] 12.5 mg PO DAILY #30 mg 03/18/18 Lisinopril [Prinivil] 20 mg PO DAILY #30 tablet 03/18/18 Sertraline HCl [Zoloft -] 50 mg PO DAILY #30 tablet 03/18/18 traZODone HCL [Desyrel -] 50 mg PO HS #30 tablet 03/18/18 Pantoprazole Sodium [Protonix -] 40 mg PO DAILY #15 tablet.ec 03/19/18 Potassium Chloride [Potassium Chloride Oral Liquid] 20 meq PO BID 5 Days #10 cup 03/19/18 - Diagnosis (1) Alcohol dependence with uncomplicated withdrawal Current Visit: Yes Status: Acute (2) Uncomplicated sedative, hypnotic or anxiolytic withdrawal Current Visit: Yes Status: Acute (3) Essential hypertension Current Visit: No Status: Chronic (4) Methadone maintenance therapy patient Current Visit: Yes Status: Deleted (5) Weight loss Current Visit: No Status: Acute (6) Hypokalemia Current Visit: Yes Status: Acute - AMA Did Patient Leave Against Medical Advice: No
== END 2018-03-19 08:27 | disposition home or self-care (01) | DRG 773 ==
LOC: YASAS 11:12 → Y6N 13:53
PROVIDERS: ADMIT Internal Medicine; ATTEND Internal Medicine
PROC: HZ2ZZZZ Detoxification Services for Substance Abuse Treatment (ICD-10-PCS; principal; 2018-03-15)
DX: F10.230 Alcohol dependence with withdrawal, uncomplicated (principal); F11.20 Opioid dependence, uncomplicated; F13.230 Sedative, hypnotic or anxiolytic dependence with withdrawal, uncomplicated; F17.213 Nicotine dependence, cigarettes, with withdrawal; F43.10 Post-traumatic stress disorder, unspecified; F19.24 Other psychoactive substance dependence with psychoactive substance-induced mood disorder; I10 Essential (primary) hypertension; E87.6 Hypokalemia; R76.11 Nonspecific reaction to tuberculin skin test without active tuberculosis; Z87.898 Personal history of other specified conditions
CPT/HCPCS: 36415; 80053; 81003; 81015; 84132; 85027; 86593; 93005; 93010

== ENCOUNTER 2018-04-29 12:05 | Inpatient (IN) | payer OTHER ==
[2018-04-29 12:49] VITALS: BMI 21.7
--- NOTE | 2018-04-29 14:11 | HP ---
CIWA Score - CIWA Score Nausea/Vomitin Muscle Tremors: 2 Anxiety: 4-Mod. Anxious/Guarded Agitation: 2 Paroxysmal Sweats: 3 Orientation: 0-Oriented Tacttile Disturbances: 3-Moderate Itch/Numb/Burn Auditory Disturbances: 0-None Visual Disturbances: 0-None Headache: 0-None Present CIWA-Ar Total Score: 19 Admission ROS BHS - HPI Chief Complaint: "I need to get my life together and to stop drinking." Patient is here to Detox form Alcohol. Allergies/Adverse Reactions: Allergies Allergy/AdvReac Type Severity Reaction Status Date / Time No Known Drug Allergies Allergy Verified 04/29/18 13:27 History of Present Illness: Patient is a 52 YO male here to Detox from Alcohol. Patient has had several previous Detox admissions at [facility] (Last: 08/2017). Longest period of sobriety in recent years: approx. 8 years 1999 - 2007. Patient is a client at [facility] (Daily dose 90 mg; Last Day medicated: 04/28/2018, Verified. Exam Limitations: No Limitations - Ebola screening Have you traveled outside of the country in the last 21 days: No (N) Have you had contact with anyone from an Ebola affected area: No Have you been sick,other than usual withdrawal symptoms: No Do you have a fever: No - Review of Systems Constitutional: Chills, Diaphoresis, Fever, Loss of Appetite, Malaise, Night Sweats, Changes in sleep, Unintentional Wgt. Loss (Lost approx. 60 lbs. over last 3 months.) EENT: reports: No Symptoms Reported Respiratory: reports: No Symptoms reported Cardiac: reports: Palpitations GI: reports: Constipated, Nausea, Poor Appetite, Vomiting : reports: Frequency Musculoskeletal: reports: No Symptoms Reported Integumentary: reports: No Symptoms Reported Neuro: reports: Tremors Endocrine: reports: No Symptoms Reported Hematology: reports: No Symptoms Reported Psychiatric: reports: Judgement Intact, Mood/Affect Appropiate, Orientated x3, Anxious, Depressed (Takes Zoloft (has not taken for last approx. 2 months).) Other Systems: Reviewed and Negative Patient History - Patient Medical History Hx Anemia: No Hx Asthma: No Hx Chronic Obstructive Pulmonary Disease (COPD): No Hx Cancer: No Hx Cardiac Disorders: No Hx Congestive Heart Failure: No Hx Hypertension: Yes (ON MED NON COMPLIANT (last tooks meds. sapprox. 2 months ago).) Hx Hypercholesterolemia: No Hx Pacemaker: No HX Cerebrovascular Accident: No Hx Seizures: No Hx Dementia: No Hx Diabetes: No Hx Gastrointestinal Disorders: No Hx Liver Disease: No Hx Genitourinary Disorders: No Hx Sexually Transmitted Disorders: No Hx Renal Disease (ESRD): No Hx Thyroid Disease: No Hx Human Immunodeficiency Virus (HIV): No (NEGATIVE HX LAST 09/07) Hx Hepatitis C: No (NEGATIVE HX LAST 09/07) Hx Depression: Yes (Takes Zoloft (has not taken for last 2 months).) Hx Suicide Attempt: No (PATIENT DENIES CURRENT SI / HI.) Hx Bipolar Disorder: No Hx Schizophrenia: Yes Other Medical History: PTSD. - Patient Surgical History Past Surgical History: No Hx Neurologic Surgery: No Hx Cataract Extraction: No Hx Cardiac Surgery: No Hx Lung Surgery: No Hx Breast Surgery: No Hx Breast Biopsy: No Hx Abdominal Surgery: No Hx Appendectomy: No Hx Cholecystectomy: No Hx Genitourinary Surgery: No Hx Section: No Hx Orthopedic Surgery: No Other Surgical History: DENIES. Anesthesia Reaction: No - PPD History Previous Implant?: Yes Documented Results: Positive w/proof Implanted On Prior [facility] Admission?: Yes Date: 10/07/13 (CXR (06/2017): NEGATIVE FOR ACUTE PATHOLOGY.) Results: 15MM PPD to be Administered?: No - Reproductive History Patient is a Female of Child Bearing Age (11 -55 yrs old): No (PATIENT IS MALE.) Patient : No - Smoking Cessation Smoking history: Current every day smoker Have you smoked in the past 12 months: Yes Aproximately how many cigarettes per day: 8 Cigars Per Day: 0 Hx Chewing Tobacco Use: No Initiated information on smoking cessation: Yes 'Breaking Loose' booklet given: 04/29/18 (GIVEN ON PATCH.) - Substance & Tx. History Hx Alcohol Use: Yes Hx Substance Use: Yes Substance Use Type: Alcohol Hx Substance Use Treatment: Yes (Previous dEtox admissions at [facility] (Last: 2016).) - Substances Abused Alcohol Frequency: Daily Amount used: 2 PINT- Juan Carlos Age of first use: 14 Date of Last Use: 04/29/18 Family Disease History - Family Disease History Family Disease History: Heart Disease: Grandparent (alcohol; HTN.), Mother (HTN. ), Other: Grandparent, Father (ETOH DEPENDENT,) Admission Physical Exam [facility] - Vital Signs Vital Signs: Vital Signs - 24 hr 04/29/18 12:47 Temperature 99.1 F Pulse Rate 73 Respiratory 18 Rate Blood Pressure 168/106 - Physical General Appearance: Yes: No Apparent Distress, Nourished, Appropriately Dressed , Tremorous, Anxious HEENTM: Yes: Hearing grossly Normal, Normocephalic, Normal Voice, GAGE, Pharynx Normal Respiratory: Yes: Chest Non-Tender, Lungs Clear, No Respiratory Distress, No Accessory Muscle Use Neck: Yes: No masses,lesions,Nodules, Supple, Trachea in good position Breast: Yes: Breast Exam Deferred Cardiology: Yes: Regular Rhythm, Regular Rate, S1, S2 Abdominal: Yes: Normal Bowel Sounds, Non Tender, Flat, Soft Genitourinary: Yes: Within Normal Limits Back: Yes: Normal Inspection Musculoskeletal: Yes: full range of Motion, Gait Steady Extremities: Yes: Normal Capillary Refill, Normal Range of Motion, Non-Tender, Tremors Neurological: Yes: Fully Oriented, Alert, Normal Mood/Affect, Normal Response Integumentary: Yes: Normal Color, Dry, Warm Lymphatic: Yes: Within Normal Limits - Diagnostic (1) History of positive PPD Current Visit: Yes Status: Chronic (2) Alcohol dependence with uncomplicated withdrawal Current Visit: Yes Status: Acute (3) Nicotine dependence Current Visit: Yes Status: Chronic Qualifiers: Nicotine product type: cigarettes Substance use status: uncomplicated Qualified Code(s): F17.210 - Nicotine dependence, cigarettes, uncomplicated (4) Weight loss Current Visit: Yes Status: Acute (5) Essential hypertension Current Visit: Yes Status: Chronic (6) History of depression Current Visit: Yes Status: Suspected (7) History of posttraumatic stress disorder (PTSD) Current Visit: Yes Status: Suspected (8) Methadone maintenance therapy patient Current Visit: Yes Status: Chronic (9) Opioid dependence on agonist therapy Current Visit: Yes Status: Chronic Cleared for Admission [facility] - Detox or Rehab [facility] Level of Care: Medically Managed Detox Regimen/Protocol: Valium (PATIENT REQUESTS.) [facility] Breath Alcohol Content Breath Alcohol Content: 0.182 Urine Drug Screen - Results Drug Screen Negative: No Urine Drug Screen Results: BZO-Benzodiazepines, MTD-Methadone
[2018-04-29] MEDS ORDERED: NICOTINE POLACRILEX 2 MG GUM BUC PRN (14:30)
[2018-04-29] MEDS ORDERED: LOPERAMIDE HCL 2 MG CAPSULE PO PRN (14:30)
[2018-04-29] MEDS ORDERED: MAG HYDROX/AL HYDROX/SIMETH 30 ML UNIT-DOSE CUP PO PRN (14:30)
[2018-04-29] MEDS ORDERED: guaiFENesin/D-METHORPHAN HB 10 ML UNIT-DOSE CUPS PO PRN (14:30)
[2018-04-29] MEDS ORDERED: ACETAMINOPHEN 325 MG TABLET (FP) PO PRN (14:30)
[2018-04-29] MEDS ORDERED: MENTHOL/PHENOL 1 EACH UD MM PRN (14:30)
[2018-04-29] MEDS ORDERED: P-EPHED 60MG/TRIPROLIDI 2.5MG TABLET PO PRN (14:30)
[2018-04-29] MEDS ORDERED: IBUPROFEN 400 MG TABLET (FP) PO PRN (14:30)
[2018-04-29] MEDS ORDERED: MAGNESIUM CITRATE 300 ML BOTTLE PO PRN (14:30)
[2018-04-29] MEDS ORDERED: MAGNESIUM HYDROX 2400MG/30ML ORAL SUSPENSION 30 ML CUP PO PRN (14:30)
[2018-04-29] MEDS ORDERED: COLLOIDAL OATMEAL 1 BAR EACH TP PRN (14:50)
[2018-04-29] MEDS ORDERED: diazePAM 5 MG TABLET PO ONE (15:00)
[2018-04-29] MEDS ORDERED: METHADONE HCL 10 MG TABLET PO SCH (15:00)
[2018-04-29] MEDS: LISINOPRIL 10 MG TABLET (FP) PO SCH (16:35)
[2018-04-29] MEDS: HYDROCHLOROTHIAZIDE 12.5 MG CAPSULE (FP) PO SCH (16:35)
[2018-04-29] MEDS: NICOTINE 14 MG/24 HOURS TOPICAL PATCH TD SCH (16:35)
[2018-04-29] MEDS ORDERED: METHADONE HCL 40 MG DISPERSABLE TABLET ONE (16:38)
[2018-04-29] MEDS: METHADONE 80 MG, METHADONE 10 MG PO SCH (16:38)
[2018-04-29] MEDS ORDERED: METHADONE HCL 10 MG TABLET ONE (16:38)
[2018-04-29 17:49] LABS: URINE APPEARANCE CLEAR; URINE BILIRUBIN NEGATIVE (<2.0 mg/dL); URINE BLOOD NEGATIVE (NEGATIVE); URINE COLOR LTYELLOW; URINE GLUCOSE (UA) NEGATIVE (NEGATIVE); URINE KETONE NEGATIVE (NEGATIVE); URINE LEUK ESTERASE NEGATIVE (NEGATIVE); URINE NITRITE NEGATIVE (NEGATIVE); URINE PROTEIN NEGATIVE (NEGATIVE); URINE UROBILINOGEN NEGATIVE mg/dL (0.2-1.0)
[2018-04-29] MEDS: THIAMINE HCL 100 MG TABLET (FP) PO SCH (22:15)
[2018-04-29] MEDS: diazePAM 5 MG TABLET PO SCH (22:15)
[2018-04-29] MEDS: MELATONIN 5 MG TABLETS PO PRN (22:15)
[2018-04-29] MEDS: AMMONIUM LACTATE 12% LOTION 225 GM BOTTLE TP SCH (22:15)
[2018-04-30] MEDS: diazePAM 5 MG TABLET PO PRN ×2 (03:38→17:35)
[2018-04-30] MEDS ORDERED: METHADONE HCL 10 MG TABLET ONE (04:27)
[2018-04-30] MEDS ORDERED: METHADONE HCL 40 MG DISPERSABLE TABLET ONE (04:28)
[2018-04-30] MEDS: METHADONE 80 MG, METHADONE 10 MG PO SCH (05:40)
[2018-04-30] MEDS: diazePAM 5 MG TABLET PO SCH ×3 (05:40→22:13)
[2018-04-30] MEDS: AMMONIUM LACTATE 12% LOTION 225 GM BOTTLE TP SCH ×2 (09:12→22:14)
[2018-04-30] MEDS: NICOTINE 14 MG/24 HOURS TOPICAL PATCH TD SCH (09:12)
[2018-04-30] MEDS: HYDROCHLOROTHIAZIDE 12.5 MG CAPSULE (FP) PO SCH (09:12)
[2018-04-30] MEDS: PRENATAL VITAMINS W/ FOLIC ACID TABLET (FP) PO SCH (09:12)
[2018-04-30] MEDS: LISINOPRIL 10 MG TABLET (FP) PO SCH (09:12)
[2018-04-30 10:52] LABS: HEMATOCRIT 36.3 % (35.4-49); HEMOGLOBIN 12.7 GM/dL (11.7-16.9); MCH 37.6 pg (25.7-33.7); MCHC 34.9 g/dl (32.0-35.9); MEAN CELL VOLUME 107.8 fl (80-96); MEAN PLT VOLUME 8.2 fl (7.5-11.1); PLATELET COUNT 138 K/MM3 (134-434); RBC 3.36 M/mm3 (4.00-5.60); RDW 16.4 % (11.9-15.9); WHITE BLOOD COUNT 3.4 K/mm3 (4.0-10.0)
[2018-04-30 11:14] LABS: CHLORIDE 100 mmol/L (98-107); POTASSIUM 3.4 mmol/L (3.5-5.1); SODIUM 142 mmol/L (136-145)
[2018-04-30 11:30] LABS: ALBUMIN 3.8 g/dl (3.4-5.0); ALK PHOS 71 U/L (45-117); ANION GAP 7 (8-16); BILIRUBIN,TOTAL 1.1 mg/dL (0.2-1.0); BLOOD UREA NITROGEN 13 mg/dL (7-18); CALCIUM 9.2 mg/dL (8.5-10.1); CO2 35 mmol/L (21-32); GLUCOSE,RANDOM 116 mg/dL (74-106); SGOT/AST 89 U/L (15-37); SGPT/ALT 44 U/L (12-78)
[2018-04-30] MEDS ORDERED: cloNIDine HCL 0.1 MG TABLET PO ONE (12:00)
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
--- NOTE | 2018-04-30 14:50 | EKG ---
Test Reason : Blood Pressure : / mmHG Vent. Rate : 071 BPM Atrial Rate : 071 BPM P-R Int : 162 ms QRS Dur : 082 ms QT Int : 404 ms P-R-T Axes : 049 032 055 degrees QTc Int : 439 ms NORMAL SINUS RHYTHM POSSIBLE LEFT ATRIAL ENLARGEMENT NONSPECIFIC T WAVE ABNORMALITY ABNORMAL ECG WHEN COMPARED WITH ECG OF 15-MAR-2018 15:40, NON-SPECIFIC CHANGE IN ST SEGMENT IN INFERIOR LEADS ST NO LONGER ELEVATED IN ANTERIOR LEADS T WAVE INVERSION NOW EVIDENT IN ANTERIOR LEADS Confirmed by MD Guevara, Nir ([id number]) on 04/30/2018 2:50:34 PM Referred By: Confirmed By:Nir Waterman MD
--- NOTE | 2018-04-30 16:58 | PN ---
[facility] CIWA - CIWA Score Nausea/Vomitin-No Nausea/No Vomiting Muscle Tremors: 3 Anxiety: 4-Mod. Anxious/Guarded Agitation: 2 Paroxysmal Sweats: 3 Orientation: 0-Oriented Tacttile Disturbances: 2-Mild Itch/Numbness/Burn Auditory Disturbances: 0-None Visual Disturbances: 2-Mild Sensitivity Headache: 0-None Present CIWA-Ar Total Score: 16 S Progress Note (SOAP) Subjective: Interrupted Sleep, Tremors, Fatigue, Sweating. Objective: PATIENT A & O X 3, OBSERVED AMBULATING ON UNIT. NO ACUTE DISTRESS. PATIENT DENIES CHEST PAIN. 04/30/18 16:54 Vital Signs Temperature 97.4 F L 04/30/18 13:58 Pulse Rate 76 04/30/18 16:00 Respiratory Rate 20 04/30/18 16:00 Blood Pressure 147/100 04/30/18 13:58 O2 Sat by Pulse Oximetry (%) Laboratory Tests 04/29/18 04/30/18 04/30/18 17:20 07:55 07:55 WBC 3.4 L D RBC 3.36 L Hgb 12.7 Hct 36.3 MCV 107.8 H MCH 37.6 H MCHC 34.9 RDW 16.4 H Plt Count 138 MPV 8.2 Sodium Potassium Chloride Carbon Dioxide Anion Gap BUN Creatinine Creat Clearance w eGFR Random Glucose Calcium Total Bilirubin AST ALT Alkaline Phosphatase Total Protein Albumin Urine Color Ltyellow Urine Appearance Clear Urine pH 7.0 Ur Specific [place] 1.010 Urine Protein Negative Urine Glucose (UA) Negative Urine Ketones Negative Urine Blood Negative Urine Nitrite Negative Urine Bilirubin Negative Urine Urobilinogen Negative Ur Leukocyte Esterase Negative RPR Titer HIV 1&2 Antibody Screen Negative HIV P24 Antigen Negative 04/30/18 04/30/18 07:55 07:55 WBC RBC Hgb Hct MCV MCH MCHC RDW Plt Count MPV Sodium 142 Potassium 3.4 L Chloride 100 Carbon Dioxide 35 H Anion Gap 7 L BUN 13 D Creatinine 1.0 Creat Clearance w eGFR > 60 Random Glucose 116 H Calcium 9.2 Total Bilirubin 1.1 H D AST 89 H ALT 44 Alkaline Phosphatase 71 Total Protein 7.0 Albumin 3.8 Urine Color Urine Appearance Urine pH Ur Specific [place] Urine Protein Urine Glucose (UA) Urine Ketones Urine Blood Urine Nitrite Urine Bilirubin Urine Urobilinogen Ur Leukocyte Esterase RPR Titer Nonreactive HIV 1&2 Antibody Screen HIV P24 Antigen LABS NOTED. HCV AB RESULT PENDING. 04/30/18 16:58 Assessment: 04/30/18 16:55 WITHDRAWAL SYMPTOMS. HYPERTENSION. HYPOKALEMIA. 04/30/18 16:56 Plan: CONTINUE DETOX. CLONIDINE, 0.2 MG X 1, FOLLOWED BY 0.1 MG PO BID FOR PERSISTENTLY ELEVATED BP. K-DUR, 20 MEQ PO BID.
[2018-04-30] MEDS: POTASSIUM CHLORIDE TABS 20 MEQ TABLET.ER (FP) PO SCH (17:34)
[2018-04-30] MEDS: THIAMINE HCL 100 MG TABLET (FP) PO SCH (22:13)
[2018-04-30] MEDS: cloNIDine HCL 0.1 MG TABLET PO SCH (22:14)
[2018-04-30] MEDS: MELATONIN 5 MG TABLETS PO PRN (22:15)
[2018-05-01] MEDS ORDERED: METHADONE HCL 10 MG TABLET ONE (04:47)
[2018-05-01] MEDS ORDERED: METHADONE HCL 40 MG DISPERSABLE TABLET ONE (04:47)
[2018-05-01] MEDS: METHADONE 80 MG, METHADONE 10 MG PO SCH (05:19)
[2018-05-01] MEDS: cloNIDine HCL 0.1 MG TABLET PO SCH ×2 (09:50→22:23)
[2018-05-01] MEDS: HYDROCHLOROTHIAZIDE 12.5 MG CAPSULE (FP) PO SCH (09:50)
[2018-05-01] MEDS: LISINOPRIL 10 MG TABLET (FP) PO SCH (09:50)
[2018-05-01] MEDS: POTASSIUM CHLORIDE TABS 20 MEQ TABLET.ER (FP) PO SCH (09:50)
[2018-05-01] MEDS: diazePAM 5 MG TABLET PO SCH ×2 (09:50→22:24)
[2018-05-01] MEDS: NICOTINE 14 MG/24 HOURS TOPICAL PATCH TD SCH (09:51)
[2018-05-01] MEDS: PRENATAL VITAMINS W/ FOLIC ACID TABLET (FP) PO SCH (09:51)
--- NOTE | 2018-05-01 09:56 | PN ---
[facility] Progress Note Note: NURSE KAREN REPORTS TO MAMMOGRAPHY TECHNICIAN THAT PT C/O BLOOD IN TOILET BOWL WITH CLOTS EARLY THIS MORNING. ON SPEAKING TO PATIENT HE STATES THAT HE HAD TWO EPISODES OF BLOODY URINE LAST NIGHT AND THIS MORNING. PT DENIES CHILLS,FEVER BUT REPORTS TINGLING AND PAIN ON URINATION. HE STATES HE DID NOT BRING ATTENTION TO STAFF ABOUT THE EARLIER EPISODE LAST NIGHT TILL IT HAPPENED AGAIN LATER. PT REPORTS HE HAD SIMILAR EPISODE A LONG SARABJIT AGO ONCE AND NEVER EXPLORED IT FURTHER WITH HIS PRIMARY CARE DOCTOR. PT HAS PRIMARY CARE AT [facility] [place], [place]. Vital Signs 05/01/18 05/01/18 06:15 09:53 Temperature 96.8 F L 98.2 F Pulse Rate 59 L 82 Respiratory 18 20 Rate Blood Pressure 152/92 128/93 Laboratory Tests 04/29/18 04/30/18 04/30/18 17:20 07:55 07:55 WBC RBC Hgb Hct MCV MCH MCHC RDW Plt Count MPV Sodium Potassium Chloride Carbon Dioxide Anion Gap BUN Creatinine Creat Clearance w eGFR Random Glucose Calcium Total Bilirubin AST ALT Alkaline Phosphatase Total Protein Albumin Urine Color Ltyellow Urine Appearance Clear Urine pH 7.0 Ur Specific [place] 1.010 Urine Protein Negative Urine Glucose (UA) Negative Urine Ketones Negative Urine Blood Negative Urine Nitrite Negative Urine Bilirubin Negative Urine Urobilinogen Negative Ur Leukocyte Esterase Negative RPR Titer Hep C Ab Diagnostic 0.2 Liver Fibrosis Interp HIV 1&2 Antibody Screen Negative HIV P24 Antigen Negative 04/30/18 04/30/18 04/30/18 07:55 07:55 07:55 WBC 3.4 L D RBC 3.36 L Hgb 12.7 Hct 36.3 MCV 107.8 H MCH 37.6 H MCHC 34.9 RDW 16.4 H Plt Count 138 MPV 8.2 Sodium 142 Potassium 3.4 L Chloride 100 Carbon Dioxide 35 H Anion Gap 7 L BUN 13 D Creatinine 1.0 Creat Clearance w eGFR > 60 Random Glucose 116 H Calcium 9.2 Total Bilirubin 1.1 H D AST 89 H ALT 44 Alkaline Phosphatase 71 Total Protein 7.0 Albumin 3.8 Urine Color Urine Appearance Urine pH Ur Specific [place] Urine Protein Urine Glucose (UA) Urine Ketones Urine Blood Urine Nitrite Urine Bilirubin Urine Urobilinogen Ur Leukocyte Esterase RPR Titer Nonreactive Hep C Ab Diagnostic Liver Fibrosis Interp HIV 1&2 Antibody Screen HIV P24 Antigen PLAN:TRANSFER TO [facility] FOR FURTHER EVALUATION AND POSSIBLE TREATMENT. SPOKE TO DR. RAYGOZA AT THE [facility]. PT MAY RETURN TO [facility] TO CONTINUE DETOX AFTER MEDICALLY CLEARED.
[2018-05-01] MEDS: AMMONIUM LACTATE 12% LOTION 225 GM BOTTLE TP SCH ×2 (10:20→22:24)
--- NOTE | 2018-05-01 13:13 | PN ---
[facility] CIWA - CIWA Score Nausea/Vomitin-No Nausea/No Vomiting Muscle Tremors: 4-Moderate,w/Arms Extend Anxiety: 4-Mod. Anxious/Guarded Agitation: 4-Moderately Restless Paroxysmal Sweats: 2 Orientation: 0-Oriented Tacttile Disturbances: 3-Moderate Itch/Numb/Burn Auditory Disturbances: 0-None Visual Disturbances: 0-None Headache: 0-None Present CIWA-Ar Total Score: 17 S Progress Note (SOAP) Subjective: ANXIETY,SWEATS,TREMORS. TRANSFERRED TO ER THIS MORNING DUE TO RENEE HEMATUREA, PAIN AND TINGLING ON URINATION. ALERT O X 3. Objective: 05/01/18 13:09 Vital Signs 05/01/18 05/01/18 06:15 09:53 Temperature 96.8 F L 98.2 F Pulse Rate 59 L 82 Respiratory 18 20 Rate Blood Pressure 152/92 128/93 Laboratory Tests 04/29/18 04/30/18 04/30/18 17:20 07:55 07:55 WBC RBC Hgb Hct MCV MCH MCHC RDW Plt Count MPV Sodium Potassium Chloride Carbon Dioxide Anion Gap BUN Creatinine Creat Clearance w eGFR Random Glucose Calcium Total Bilirubin AST ALT Alkaline Phosphatase Total Protein Albumin Urine Color Ltyellow Urine Appearance Clear Urine pH 7.0 Ur Specific [place] 1.010 Urine Protein Negative Urine Glucose (UA) Negative Urine Ketones Negative Urine Blood Negative Urine Nitrite Negative Urine Bilirubin Negative Urine Urobilinogen Negative Ur Leukocyte Esterase Negative RPR Titer Hep C Ab Diagnostic 0.2 Liver Fibrosis Interp HIV 1&2 Antibody Screen Negative HIV P24 Antigen Negative 04/30/18 04/30/18 04/30/18 07:55 07:55 07:55 WBC 3.4 L D RBC 3.36 L Hgb 12.7 Hct 36.3 MCV 107.8 H MCH 37.6 H MCHC 34.9 RDW 16.4 H Plt Count 138 MPV 8.2 Sodium 142 Potassium 3.4 L Chloride 100 Carbon Dioxide 35 H Anion Gap 7 L BUN 13 D Creatinine 1.0 Creat Clearance w eGFR > 60 Random Glucose 116 H Calcium 9.2 Total Bilirubin 1.1 H D AST 89 H ALT 44 Alkaline Phosphatase 71 Total Protein 7.0 Albumin 3.8 Urine Color Urine Appearance Urine pH Ur Specific [place] Urine Protein Urine Glucose (UA) Urine Ketones Urine Blood Urine Nitrite Urine Bilirubin Urine Urobilinogen Ur Leukocyte Esterase RPR Titer Nonreactive Hep C Ab Diagnostic Liver Fibrosis Interp HIV 1&2 Antibody Screen HIV P24 Antigen ADMISSION UA ABOVE WAS WNL. NO REPEAT UA PRIOR TO ER VISIT. Assessment: 05/01/18 13:10 WITHDRAWAL SX HEMATURIA R/O UTI OR OTHER PATHOLOGY Plan: CONTINUE DETOX TRANSFERRED TO [facility] MAY RETURN TO [facility] IF CLEARED OTHERWISE PT WILL COMPLETE DETOX PER CONSULT WHILE ON MEDICAL STABILIZATION AT [facility].
--- NOTE | 2018-05-01 17:04 | PN ---
[facility] Progress Note Note: patient medically clear from er at [facility] to return for detox,advise bactrim ds 1 tab po bid for 14 days,flomax 0.mg po daily, to d/c k supplement while on bactrim,ofloxacin 300 mgs po bod for 10 days not formularity close monitoring levaquin 500 mgs po daily for 10 days
[2018-05-01] MEDS: diazePAM 5 MG TABLET PO PRN (17:51)
[2018-05-01] MEDS: SULFAMETHOXAZOLE/TRIMETHOPRIM 800MG/160MG D.S. TABLET PO SCH (22:23)
[2018-05-01] MEDS: THIAMINE HCL 100 MG TABLET (FP) PO SCH (22:23)
[2018-05-01] MEDS: MELATONIN 5 MG TABLETS PO PRN (22:24)
[2018-05-02] MEDS ORDERED: METHADONE HCL 10 MG TABLET ONE (04:56)
[2018-05-02] MEDS ORDERED: METHADONE HCL 40 MG DISPERSABLE TABLET ONE (04:56)
[2018-05-02] MEDS: METHADONE 80 MG, METHADONE 10 MG PO SCH (05:20)
[2018-05-02] MEDS ORDERED: TAMSULOSIN HCL 0.4 MG CAP.ER.24H (FP) PO SCH (08:30)
--- NOTE | 2018-05-02 09:06 | EKG ---
Test Reason : Blood Pressure : / mmHG Vent. Rate : 068 BPM Atrial Rate : 068 BPM P-R Int : 156 ms QRS Dur : 084 ms QT Int : 458 ms P-R-T Axes : 044 023 057 degrees QTc Int : 487 ms NORMAL SINUS RHYTHM POSSIBLE LEFT ATRIAL ENLARGEMENT ABNORMAL ECG WHEN COMPARED WITH ECG OF 29-APR-2018 15:57, QT HAS LENGTHENED Confirmed by BYRON HARMON MD ([id number]) on 05/02/2018 9:06:06 AM Referred By: Confirmed By:BYRON HARMON MD
[2018-05-02] MEDS: LISINOPRIL 10 MG TABLET (FP) PO SCH (10:40)
[2018-05-02] MEDS: diazePAM 5 MG TABLET PO SCH ×2 (10:41→22:13)
[2018-05-02] MEDS: SULFAMETHOXAZOLE/TRIMETHOPRIM 800MG/160MG D.S. TABLET PO SCH ×2 (10:41→22:12)
[2018-05-02] MEDS: cloNIDine HCL 0.1 MG TABLET PO SCH ×2 (10:42→22:13)
[2018-05-02] MEDS: PRENATAL VITAMINS W/ FOLIC ACID TABLET (FP) PO SCH (10:42)
[2018-05-02] MEDS: NICOTINE 14 MG/24 HOURS TOPICAL PATCH TD SCH (10:45)
[2018-05-02] MEDS: HYDROCHLOROTHIAZIDE 12.5 MG CAPSULE (FP) PO SCH (10:45)
[2018-05-02] MEDS: AMMONIUM LACTATE 12% LOTION 225 GM BOTTLE TP SCH ×2 (10:45→22:13)
--- NOTE | 2018-05-02 11:16 | PN ---
[facility] Progress Note (SOAP) Subjective: SLIGHT ANXIETY.DECREASED TREMORS. REPORTS SLIGHT TINGED URINE DURING THE NIGHT BUT SAYS HE DID NOT SHOW STAFF LAST NIGHT. DENIES ANY PAIN. PT WAS STATED ON OFLOXACIN, BACTRIM,FROM THE ER YESTERDAY. Objective: 05/02/18 11:15 Vital Signs 05/02/18 05/02/18 03:30 06:18 Temperature 98.7 F Pulse Rate 68 Respiratory 18 18 Rate Blood Pressure 113/75 Laboratory Tests 04/29/18 04/30/18 04/30/18 17:20 07:55 07:55 WBC RBC Hgb Hct MCV MCH MCHC RDW Plt Count MPV Sodium Potassium Chloride Carbon Dioxide Anion Gap BUN Creatinine Creat Clearance w eGFR Random Glucose Calcium Total Bilirubin AST ALT Alkaline Phosphatase Total Protein Albumin Urine Color Ltyellow Urine Appearance Clear Urine pH 7.0 Ur Specific [place] 1.010 Urine Protein Negative Urine Glucose (UA) Negative Urine Ketones Negative Urine Blood Negative Urine Nitrite Negative Urine Bilirubin Negative Urine Urobilinogen Negative Ur Leukocyte Esterase Negative RPR Titer Hep C Ab Diagnostic 0.2 Liver Fibrosis Interp HIV 1&2 Antibody Screen Negative HIV P24 Antigen Negative 04/30/18 04/30/18 04/30/18 07:55 07:55 07:55 WBC 3.4 L D RBC 3.36 L Hgb 12.7 Hct 36.3 MCV 107.8 H MCH 37.6 H MCHC 34.9 RDW 16.4 H Plt Count 138 MPV 8.2 Sodium 142 Potassium 3.4 L Chloride 100 Carbon Dioxide 35 H Anion Gap 7 L BUN 13 D Creatinine 1.0 Creat Clearance w eGFR > 60 Random Glucose 116 H Calcium 9.2 Total Bilirubin 1.1 H D AST 89 H ALT 44 Alkaline Phosphatase 71 Total Protein 7.0 Albumin 3.8 Urine Color Urine Appearance Urine pH Ur Specific [place] Urine Protein Urine Glucose (UA) Urine Ketones Urine Blood Urine Nitrite Urine Bilirubin Urine Urobilinogen Ur Leukocyte Esterase RPR Titer Nonreactive Hep C Ab Diagnostic Liver Fibrosis Interp HIV 1&2 Antibody Screen HIV P24 Antigen Assessment: 05/02/18 11:15 WITHDRAWAL SX Plan: CONTINUE DETOX
[2018-05-02 11:47] LABS: ANION GAP 8 (8-16); BLOOD UREA NITROGEN 15 mg/dL (7-18); CALCIUM 9.1 mg/dL (8.5-10.1); CHLORIDE 102 mmol/L (98-107); CO2 29 mmol/L (21-32); CREATININE 1.2 mg/dL (0.7-1.3); GLUCOSE,RANDOM 88 mg/dL (74-106); SODIUM 139 mmol/L (136-145)
[2018-05-02] MEDS ORDERED: traZODone HCL 50 MG TABLET (FP) PO SCH (22:00)
[2018-05-02] MEDS: THIAMINE HCL 100 MG TABLET (FP) PO SCH (22:13)
[2018-05-03] MEDS ORDERED: METHADONE HCL 40 MG DISPERSABLE TABLET ONE (03:46)
[2018-05-03] MEDS ORDERED: METHADONE HCL 10 MG TABLET ONE (03:46)
[2018-05-03] MEDS: METHADONE 80 MG, METHADONE 10 MG PO SCH (05:52)
[2018-05-03 09:18] VITALS: BP 131/87; PULSE 89; TEMP 97.3
[2018-05-03] MEDS ORDERED: SERTRALINE HCL 50 MG TABLET (FP) PO SCH (10:00)
[2018-05-03] MEDS ORDERED: diazePAM 5 MG TABLET PO SCH (10:00)
--- NOTE | 2018-05-03 10:33 | PN ---
[facility] Progress Note (SOAP) Subjective: DETOX COMPLETED. REPORTS URINE WITH LITTLE TING OF BLOOD BUT RESOLVING. ALERT O X 3. AMBULATING WITH STEADY GAIT NO TIREDNESS,DIZZINESS OR SOB. ENERGETIC AND READY FOR DISCHARGE. PT WAS REFERRED TO [facility] TODAY BUT HE DECLINED GOING TODAY STATING THAT HE HAS A COURT DATE ON Wednesday05/05/18 AND WILL FOLLOW UP ON HIS OWN THEREAFTER. PT HAS BEEN INSTRUCTED TO FOLLOW UP WITH HIS PRIMARY CARE AT [facility] ON [address] [place] [address] WITH THE DISCHARGE PACKET INFORMATION GIVEN TO HIM AT [facility] ER RE:HEMATURIA VISIT. PT STATES HE HAS ALL SPECIALTY CARE UNDER [address] AT [facility] PT WAS REMINDED TO GO THERE TODAY. PT WAS WENT HOME WITH FILLED RX MEDICATIONS-LEVAQUIN, BACTRIM AND FLOMAX TO CONTINUE AT HOME UNTIL FINISH COURSE OF TREATMENT. Objective: 05/03/18 10:33 Vital Signs 05/03/18 05/03/18 05/03/18 03:30 06:17 09:18 Temperature 97 F L 97.3 F L Pulse Rate 69 89 Respiratory 18 18 20 Rate Blood Pressure 113/71 131/87 Laboratory Tests 04/29/18 04/30/18 04/30/18 17:20 07:55 07:55 WBC RBC Hgb Hct MCV MCH MCHC RDW Plt Count MPV Sodium Potassium Chloride Carbon Dioxide Anion Gap BUN Creatinine Creat Clearance w eGFR Random Glucose Calcium Total Bilirubin AST ALT Alkaline Phosphatase Total Protein Albumin Urine Color Ltyellow Urine Appearance Clear Urine pH 7.0 Ur Specific [place] 1.010 Urine Protein Negative Urine Glucose (UA) Negative Urine Ketones Negative Urine Blood Negative Urine Nitrite Negative Urine Bilirubin Negative Urine Urobilinogen Negative Ur Leukocyte Esterase Negative RPR Titer Hep C Ab Diagnostic 0.2 Liver Fibrosis Interp HIV 1&2 Antibody Screen Negative HIV P24 Antigen Negative 04/30/18 04/30/18 04/30/18 07:55 07:55 07:55 WBC 3.4 L D RBC 3.36 L Hgb 12.7 Hct 36.3 MCV 107.8 H MCH 37.6 H MCHC 34.9 RDW 16.4 H Plt Count 138 MPV 8.2 Sodium 142 Potassium 3.4 L Chloride 100 Carbon Dioxide 35 H Anion Gap 7 L BUN 13 D Creatinine 1.0 Creat Clearance w eGFR > 60 Random Glucose 116 H Calcium 9.2 Total Bilirubin 1.1 H D AST 89 H ALT 44 Alkaline Phosphatase 71 Total Protein 7.0 Albumin 3.8 Urine Color Urine Appearance Urine pH Ur Specific [place] Urine Protein Urine Glucose (UA) Urine Ketones Urine Blood Urine Nitrite Urine Bilirubin Urine Urobilinogen Ur Leukocyte Esterase RPR Titer Nonreactive Hep C Ab Diagnostic Liver Fibrosis Interp HIV 1&2 Antibody Screen HIV P24 Antigen 05/02/18 07:00 WBC RBC Hgb Hct MCV MCH MCHC RDW Plt Count MPV Sodium 139 Potassium 4.0 Chloride 102 Carbon Dioxide 29 Anion Gap 8 BUN 15 Creatinine 1.2 Creat Clearance w eGFR Random Glucose 88 Calcium 9.1 Total Bilirubin AST ALT Alkaline Phosphatase Total Protein Albumin Urine Color Urine Appearance Urine pH Ur Specific [place] Urine Protein Urine Glucose (UA) Urine Ketones Urine Blood Urine Nitrite Urine Bilirubin Urine Urobilinogen Ur Leukocyte Esterase RPR Titer Hep C Ab Diagnostic Liver Fibrosis Interp HIV 1&2 Antibody Screen HIV P24 Antigen K+ CORRECTED TO 4.5 ON 05/01/18 Assessment: 05/03/18 10:35 MEDICALLY STABLE Plan: D/C PT TODAY F/U WITH PMD TODAY RE: MEDICAL MANAGEMENT F/U WITH [facility]
--- NOTE | 2018-05-03 10:43 | DS ---
[facility] Detox Discharge Summary Admission Date: 04/29/18 Discharge Date: 05/03/18 - History Present History: Alcohol Dependence Additional Comments: DETOX COMPLETED. ALERT O X 3. NAD. PT WANTS TO GO HOME TODAY STATING REASON TO ATTEND COURT APPOINTMENT ON 05/05/18 INSTEAD OF GOING TO [facility] TODAY. PT STATES HE WILL FOLLOW UP BY HIMSELF AFTER COURT DATE. PT HAS BEEN REMINDED TO FOLLOW UP WITH HIS PMD AT [facility] AT [address] [place] [address] FOR MEDICAL MANAGEMENT OF COMORBID CONDITIONS. RX FOR LEVAQUIN 500 MG PO DAILY #10, BACTRIM DS I TAB PO BID #28 AND TAMSULOSIN (FLOMAX)0.4 MG PO DAILY #10 FILLED AT [facility] AND GIVEN TO PATIENT ON DISCHARGE. Pertinent Past History: PLEASE SEE DX BELOW - Physical Exam Results Vital Signs: Vital Signs Temperature 97.3 F L 05/03/18 09:18 Pulse Rate 89 05/03/18 09:18 Respiratory Rate 20 05/03/18 09:18 Blood Pressure 131/87 05/03/18 09:18 O2 Sat by Pulse Oximetry (%) Pertinent Admission Physical Exam Findings: WITHDRAWAL SX Laboratory Tests 04/29/18 04/30/18 04/30/18 17:20 07:55 07:55 WBC RBC Hgb Hct MCV MCH MCHC RDW Plt Count MPV Sodium Potassium Chloride Carbon Dioxide Anion Gap BUN Creatinine Creat Clearance w eGFR Random Glucose Calcium Total Bilirubin AST ALT Alkaline Phosphatase Total Protein Albumin Urine Color Ltyellow Urine Appearance Clear Urine pH 7.0 Ur Specific [place] 1.010 Urine Protein Negative Urine Glucose (UA) Negative Urine Ketones Negative Urine Blood Negative Urine Nitrite Negative Urine Bilirubin Negative Urine Urobilinogen Negative Ur Leukocyte Esterase Negative RPR Titer Hep C Ab Diagnostic 0.2 Liver Fibrosis Interp HIV 1&2 Antibody Screen Negative HIV P24 Antigen Negative 04/30/18 04/30/18 04/30/18 07:55 07:55 07:55 WBC 3.4 L D RBC 3.36 L Hgb 12.7 Hct 36.3 MCV 107.8 H MCH 37.6 H MCHC 34.9 RDW 16.4 H Plt Count 138 MPV 8.2 Sodium 142 Potassium 3.4 L Chloride 100 Carbon Dioxide 35 H Anion Gap 7 L BUN 13 D Creatinine 1.0 Creat Clearance w eGFR > 60 Random Glucose 116 H Calcium 9.2 Total Bilirubin 1.1 H D AST 89 H ALT 44 Alkaline Phosphatase 71 Total Protein 7.0 Albumin 3.8 Urine Color Urine Appearance Urine pH Ur Specific [place] Urine Protein Urine Glucose (UA) Urine Ketones Urine Blood Urine Nitrite Urine Bilirubin Urine Urobilinogen Ur Leukocyte Esterase RPR Titer Nonreactive Hep C Ab Diagnostic Liver Fibrosis Interp HIV 1&2 Antibody Screen HIV P24 Antigen 05/02/18 07:00 WBC RBC Hgb Hct MCV MCH MCHC RDW Plt Count MPV Sodium 139 Potassium 4.0 Chloride 102 Carbon Dioxide 29 Anion Gap 8 BUN 15 Creatinine 1.2 Creat Clearance w eGFR Random Glucose 88 Calcium 9.1 Total Bilirubin AST ALT Alkaline Phosphatase Total Protein Albumin Urine Color Urine Appearance Urine pH Ur Specific [place] Urine Protein Urine Glucose (UA) Urine Ketones Urine Blood Urine Nitrite Urine Bilirubin Urine Urobilinogen Ur Leukocyte Esterase RPR Titer Hep C Ab Diagnostic Liver Fibrosis Interp HIV 1&2 Antibody Screen HIV P24 Antigen - Treatment Hospital Course: Detox Protocol Followed, Detoxed Safely, Responded well, Discharged Condition Good, Rehab Referral Accepted Patient has Accepted a Rehab Referral to: [facility] - Medication Discharge Medications: Ambulatory Orders Methadone [Dolophine -] 90 mg PO DAILY@0600 tablet MDD 90 02/10/18 Hydrochlorothiazide [Hctz -] 12.5 mg PO DAILY #30 mg 03/18/18 Clonidine HCl 0.1 mg PO BID 04/29/18 Lisinopril [Prinivil] 30 mg PO DAILY 04/29/18 Diazepam [Valium] 0 mg PO ASDIR 05/01/18 Multivitamins [Tab-A-Vit -] 1 tab PO DAILY 05/01/18 Sulfamethoxazole/Trimethoprim [Bactrim DS -] 1 tab PO BID #28 tablet 05/01/18 Tamsulosin HCl [Flomax -] 0.4 mg PO DAILY #10 capsule 05/01/18 Thiamine Mononitrate [Vitamin B-1] 100 mg PO DAILY 05/01/18 levoFLOXacin [Levaquin -] 500 mg PO DAILY #10 tablet 05/02/18 - Diagnosis (1) Alcohol dependence with uncomplicated withdrawal Current Visit: Yes Status: Acute (2) Hypokalemia Current Visit: Yes Status: Acute (3) Nicotine dependence Current Visit: Yes Status: Acute Qualifiers: Nicotine product type: cigarettes Substance use status: uncomplicated Qualified Code(s): F17.210 - Nicotine dependence, cigarettes, uncomplicated (4) Weight loss Current Visit: Yes Status: Acute (5) Essential hypertension Current Visit: Yes Status: Chronic (6) Methadone maintenance therapy patient Current Visit: Yes Status: Chronic (7) Hematuria Current Visit: Yes Status: Acute Qualifiers: (8) UTI (urinary tract infection) Current Visit: Yes Status: Acute Qualifiers: Urinary tract infection type: acute cystitis - AMA Did Patient Leave Against Medical Advice: No
== END 2018-05-03 09:39 | disposition home or self-care (01) | DRG 773 ==
LOC: YASAS 12:05 → Y3N 14:57
PROVIDERS: ADMIT Surgery; ATTEND Surgery
PROC: HZ2ZZZZ Detoxification Services for Substance Abuse Treatment (ICD-10-PCS; principal; 2018-04-29)
DX: F10.230 Alcohol dependence with withdrawal, uncomplicated (principal); F11.20 Opioid dependence, uncomplicated; F17.210 Nicotine dependence, cigarettes, uncomplicated; F19.24 Other psychoactive substance dependence with psychoactive substance-induced mood disorder; F43.10 Post-traumatic stress disorder, unspecified; E87.6 Hypokalemia; I10 Essential (primary) hypertension; N39.0 Urinary tract infection, site not specified; R31.9 Hematuria, unspecified; R76.11 Nonspecific reaction to tuberculin skin test without active tuberculosis; Z91.14 Patient's other noncompliance with medication regimen; Z87.898 Personal history of other specified conditions
CPT/HCPCS: 36415; 80048; 80053; 81003; 85027; 86593; 87389; 93005; 93010; J0735

== ENCOUNTER 2018-06-04 15:03 | Inpatient (IN) | payer OTHER ==
[2018-06-04 15:20] VITALS: BMI 21.6
--- NOTE | 2018-06-04 18:36 | HP ---
CIWA Score - CIWA Score Nausea/Vomitin Muscle Tremors: 3 Anxiety: 3 Agitation: 0-Normal Activity Paroxysmal Sweats: 3 Orientation: 1-Uncertain about Date Tacttile Disturbances: 0-None Auditory Disturbances: 0-None Visual Disturbances: 0-None Headache: 1-Very Mild CIWA-Ar Total Score: 14 Admission ROS BHS - HPI Chief Complaint: "I need help bad" Allergies/Adverse Reactions: Allergies Allergy/AdvReac Type Severity Reaction Status Date / Time No Known Drug Allergies Allergy Verified 06/04/18 15:55 History of Present Illness: Pt is a 53 y/o male who presents here requesting detox from alcohol. States his last drink was this morning. Pt is well known to this program, last visit was in April 2017, endorses an eight month period of sobriety s/p being in [facility]. Denies any hospital visit prior to coming today, states he is self -referred. Pt is [facility], is on 90mg methadone daily, states he got his dose today and has the bottle for tomorrow with him. Dose pending verification. Pt's urine is + for benzo's, he denies taking benzos nor being in the hosp, states "it might be from the last time I was here" (last visit was 04/29/18, and was sent to the ED 05/01/18) Pt is intoxicated, takes a long time to answer questions asked and is not a good historian often contradicting his answers. Denies previous nor current SI/HI. Hx - HTN, Alcoholism, PTSD, MMTP Exam Limitations: Intoxication - Ebola screening Have you traveled outside of the country in the last 21 days: No Have you had contact with anyone from an Ebola affected area: No Have you been sick,other than usual withdrawal symptoms: No Do you have a fever: No - Review of Systems Constitutional: Night Sweats, Changes in sleep, Unintentional Wgt. Loss EENT: reports: No Symptoms Reported Respiratory: reports: Shortness of Breath (sometimes) Cardiac: reports: Palpitations GI: reports: Constipated, Diarrhea, Vomiting : reports: Other (Prostate issues) Integumentary: reports: No Symptoms Reported Neuro: reports: No Symptoms reported Endocrine: reports: No Symptoms Reported Hematology: reports: No Symptoms Reported Psychiatric: reports: Depressed Other Systems: Reviewed and Negative Patient History - Patient Medical History Hx Anemia: No Hx Asthma: No Hx Chronic Obstructive Pulmonary Disease (COPD): No Hx Cancer: No Hx Cardiac Disorders: No Hx Congestive Heart Failure: No Hx Hypertension: Yes ( On lisinopril) Hx Hypercholesterolemia: No Hx Pacemaker: No HX Cerebrovascular Accident: No Hx Seizures: No Hx Dementia: No Hx Diabetes: No Hx Gastrointestinal Disorders: No Hx Liver Disease: No Hx Genitourinary Disorders: No Hx Sexually Transmitted Disorders: No Hx Renal Disease (ESRD): No Hx Thyroid Disease: No Hx Human Immunodeficiency Virus (HIV): No (NEGATIVE HX LAST 09/07) Hx Hepatitis C: No (NEGATIVE HX LAST 09/07) Hx Depression: Yes Hx Suicide Attempt: No (PATIENT DENIES CURRENT SI / HI.) Hx Bipolar Disorder: No Hx Schizophrenia: Yes - Patient Surgical History Past Surgical History: No Hx Neurologic Surgery: No Hx Cataract Extraction: No Hx Cardiac Surgery: No Hx Lung Surgery: No Hx Breast Surgery: No Hx Breast Biopsy: No Hx Abdominal Surgery: No Hx Appendectomy: No Hx Cholecystectomy: No Hx Genitourinary Surgery: No Hx Section: No Hx Orthopedic Surgery: No Other Surgical History: DENIES. Anesthesia Reaction: No - PPD History Previous Implant?: Yes Documented Results: Positive w/proof Date: 10/07/13 Results: 15MM PPD to be Administered?: No - Reproductive History Patient is a Female of Child Bearing Age (11 -55 yrs old): No - Smoking Cessation Smoking history: Current every day smoker Have you smoked in the past 12 months: Yes Aproximately how many cigarettes per day: 5 Cigars Per Day: 0 Hx Chewing Tobacco Use: No Initiated information on smoking cessation: Yes 'Breaking Loose' booklet given: 06/04/18 - Substance & Tx. History Hx Alcohol Use: Yes Substance Use Type: Alcohol Hx Substance Use Treatment: Yes ([facility]) - Substances Abused Alcohol Route: Oral Frequency: Daily Amount used: 2 PINTS of liquor Age of first use: 16 Date of Last Use: 06/04/18 Family Disease History - Family Disease History Family Disease History: Heart Disease: Grandparent (alcohol; HTN.), Mother (HTN. ), Other: Grandparent, Father (ETOH DEPENDENT,) Admission Physical Exam BHS - Vital Signs Vital Signs: Vital Signs - 24 hr 06/04/18 15:17 Temperature 96.4 F L Pulse Rate 110 H Respiratory 19 Rate Blood Pressure 152/112 - Physical General Appearance: Yes: Intoxicated HEENTM: Yes: Within Normal Limits Respiratory: Yes: Within Normal Limits, Lungs Clear, Normal Breath Sounds, No Accessory Muscle Use. No: Chest Non-Tender Neck: Yes: Within Normal Limits, Trachea in good position Breast: Yes: Breast Exam Deferred Cardiology: Yes: Regular Rhythm, Regular Rate Abdominal: Yes: Normal Bowel Sounds, Non Tender, Distended Genitourinary: Yes: Within Normal Limits Back: Yes: Normal Inspection Musculoskeletal: Yes: full range of Motion Extremities: Yes: Normal Capillary Refill Neurological: Yes: Alert Integumentary: Yes: Dry Lymphatic: Yes: Within Normal Limits - Diagnostic (1) Alcohol dependence with uncomplicated withdrawal Current Visit: No Status: Acute (2) Nicotine dependence Current Visit: No Status: Acute Qualifiers: Nicotine product type: cigarettes Substance use status: uncomplicated Qualified Code(s): F17.210 - Nicotine dependence, cigarettes, uncomplicated (3) Weight loss Current Visit: Yes Status: Chronic (4) Essential hypertension Current Visit: Yes Status: Chronic (5) History of positive PPD Current Visit: Yes Status: Chronic (6) Methadone maintenance therapy patient Current Visit: Yes Status: Chronic (7) History of depression Current Visit: Yes Status: Chronic (8) History of posttraumatic stress disorder (PTSD) Current Visit: Yes Status: Chronic Cleared for Admission [facility] - Detox or Rehab [facility] Level of Care: Medically Managed Detox Regimen/Protocol: Librium [facility] Breath Alcohol Content Breath Alcohol Content: 0.300 Urine Drug Screen - Results Drug Screen Negative: No Urine Drug Screen Results: BZO-Benzodiazepines, MTD-Methadone
[2018-06-04] MEDS ORDERED: NICOTINE POLACRILEX 2 MG GUM BC PRN (19:14)
[2018-06-04] MEDS ORDERED: MAG HYDROX/AL HYDROX/SIMETH 30 ML UNIT-DOSE CUP PO PRN (19:14)
[2018-06-04] MEDS ORDERED: MAGNESIUM CITRATE 300 ML BOTTLE PO PRN (19:14)
[2018-06-04] MEDS ORDERED: P-EPHED 60MG/TRIPROLIDI 2.5MG TABLET PO PRN (19:14)
[2018-06-04] MEDS ORDERED: guaiFENesin/D-METHORPHAN HB 10 ML UNIT-DOSE CUPS PO PRN (19:14)
[2018-06-04] MEDS ORDERED: hydrOXYzine PAMOATE 50 MG CAPSULE (FP) PO PRN (19:14)
[2018-06-04] MEDS ORDERED: MAGNESIUM HYDROX 2400MG/30ML ORAL SUSPENSION 30 ML CUP PO PRN (19:14)
[2018-06-04] MEDS ORDERED: MENTHOL/PHENOL 1 EACH UD MM PRN (19:14)
[2018-06-04] MEDS ORDERED: LOPERAMIDE HCL 2 MG CAPSULE PO PRN (19:14)
[2018-06-04] MEDS ORDERED: chlordiazePOXIDE HCL 25 MG CAPSULE PO PRN (19:14)
[2018-06-04] MEDS ORDERED: chlordiazePOXIDE HCL 25 MG CAPSULE PO ONE (19:45)
[2018-06-04] MEDS: TAMSULOSIN HCL 0.4 MG CAP.ER.24H (FP) PO SCH (19:48)
[2018-06-04] MEDS: NICOTINE 14 MG/24 HOURS TOPICAL PATCH TD SCH (19:49)
[2018-06-04] MEDS: ACETAMINOPHEN 325 MG TABLET (FP) PO PRN (19:50)
[2018-06-04] MEDS ORDERED: MELATONIN 5 MG TABLETS PO PRN (22:00)
[2018-06-04] MEDS: THIAMINE HCL 100 MG TABLET (FP) PO SCH (22:06)
[2018-06-04] MEDS: chlordiazePOXIDE HCL 25 MG CAPSULE PO SCH (22:06)
[2018-06-05] MEDS ORDERED: METHADONE HCL 40 MG DISPERSABLE TABLET ONE (04:08)
[2018-06-05] MEDS ORDERED: METHADONE HCL 10 MG TABLET ONE (04:08)
[2018-06-05] MEDS: chlordiazePOXIDE HCL 25 MG CAPSULE PO SCH ×4 (05:53→22:10)
[2018-06-05] MEDS ORDERED: METHADONE 80 MG, METHADONE 10 MG PO ONE (06:00)
[2018-06-05] MEDS ORDERED: METHADONE HCL 10 MG TABLET PO ONE (06:00)
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
[2018-06-05] MEDS: TAMSULOSIN HCL 0.4 MG CAP.ER.24H (FP) PO SCH (07:52)
[2018-06-05] MEDS ORDERED: cloNIDine HCL 0.1 MG TABLET PO ONE ×2 (09:31→10:00)
[2018-06-05 10:17] LABS: HEMATOCRIT 32.5 % (35.4-49); HEMOGLOBIN 11.4 GM/dL (11.7-16.9); MCH 37.2 pg (25.7-33.7); MCHC 35.3 g/dl (32.0-35.9); MEAN CELL VOLUME 105.5 fl (80-96); MEAN PLT VOLUME 7.7 fl (7.5-11.1); PLATELET COUNT 115 K/MM3 (134-434); RBC 3.08 M/mm3 (4.00-5.60); RDW 16.4 % (11.9-15.9); WHITE BLOOD COUNT 2.9 K/mm3 (4.0-10.0)
[2018-06-05 10:30] LABS: ALBUMIN 3.7 g/dl (3.4-5.0); ALK PHOS 92 U/L (45-117); ANION GAP 10 (8-16); BILIRUBIN,TOTAL 2.7 mg/dL (0.2-1.0); BLOOD UREA NITROGEN 11 mg/dL (7-18); CALCIUM 8.4 mg/dL (8.5-10.1); CHLORIDE 101 mmol/L (98-107); CO2 31 mmol/L (21-32); CREATININE 1.1 mg/dL (0.7-1.3); GLUCOSE,RANDOM 119 mg/dL (74-106); POTASSIUM 3.1 mmol/L (3.5-5.1); SGOT/AST 217 U/L (15-37); SGPT/ALT 73 U/L (12-78); SODIUM 142 mmol/L (136-145)
[2018-06-05] MEDS: HYDROCHLOROTHIAZIDE 12.5 MG CAPSULE (FP) PO SCH (10:34)
[2018-06-05] MEDS: LISINOPRIL 20 MG TABLET (FP) PO SCH (10:34)
[2018-06-05] MEDS: PRENATAL VITAMINS W/ FOLIC ACID TABLET (FP) PO SCH (10:35)
[2018-06-05] MEDS: NICOTINE 14 MG/24 HOURS TOPICAL PATCH TD SCH (10:35)
[2018-06-05] MEDS: ACETAMINOPHEN 325 MG TABLET (FP) PO PRN (10:59)
--- NOTE | 2018-06-05 12:07 | PN ---
[facility] CIWA - CIWA Score Nausea/Vomitin-Mild Nausea/No Vomiting Muscle Tremors: 2 Anxiety: 2 Agitation: 3 Paroxysmal Sweats: 3 Orientation: 0-Oriented Tacttile Disturbances: 1-Very Mild Itch/Numbness Auditory Disturbances: 0-None Visual Disturbances: 1-Very Mild Sensitivity Headache: 0-None Present CIWA-Ar Total Score: 13 S Progress Note (SOAP) Subjective: chills, sweats, interrupted sleep Objective: 06/05/18 12:06 Vital Signs Temperature 97.2 F L 06/05/18 09:21 Pulse Rate 102 H 06/05/18 11:30 Respiratory Rate 18 06/05/18 11:30 Blood Pressure 162/103 06/05/18 09:21 O2 Sat by Pulse Oximetry (%) Laboratory Last Values WBC 2.9 K/mm3 (4.0-10.0) L 06/05/18 07:20 RBC 3.08 M/mm3 (4.00-5.60) L 06/05/18 07:20 Hgb 11.4 GM/dL (11.7-16.9) L 06/05/18 07:20 Hct 32.5 % (35.4-49) L D 06/05/18 07:20 MCV 105.5 fl (80-96) H 06/05/18 07:20 MCH 37.2 pg (25.7-33.7) H 06/05/18 07:20 MCHC 35.3 g/dl (32.0-35.9) 06/05/18 07:20 RDW 16.4 % (11.9-15.9) H 06/05/18 07:20 Plt Count 115 K/MM3 (134-434) L 06/05/18 07:20 MPV 7.7 fl (7.5-11.1) 06/05/18 07:20 Sodium 142 mmol/L (136-145) 06/05/18 07:20 Potassium 3.1 mmol/L (3.5-5.1) L D 06/05/18 07:20 Chloride 101 mmol/L (98-107) 06/05/18 07:20 Carbon Dioxide 31 mmol/L (21-32) 06/05/18 07:20 Anion Gap 10 (8-16) 06/05/18 07:20 BUN 11 mg/dL (7-18) 06/05/18 07:20 Creatinine 1.1 mg/dL (0.7-1.3) 06/05/18 07:20 Creat Clearance w eGFR > 60 (>60) 06/05/18 07:20 Random Glucose 119 mg/dL (74-106) H D 06/05/18 07:20 Calcium 8.4 mg/dL (8.5-10.1) L 06/05/18 07:20 Total Bilirubin 2.7 mg/dL (0.2-1.0) H 06/05/18 07:20 AST 217 U/L (15-37) H D 06/05/18 07:20 ALT 73 U/L (12-78) 06/05/18 07:20 Alkaline Phosphatase 92 U/L (45-117) 06/05/18 07:20 Total Protein 7.0 g/dl (6.4-8.2) 06/05/18 07:20 Albumin 3.7 g/dl (3.4-5.0) 06/05/18 07:20 RPR Titer Nonreactive (NONREACTIVE) 06/05/18 07:20 Assessment: 06/05/18 12:07 withdrawal sx Plan: elevated BP : one time dose clonidine 0.1mg repeat CBC increase fluids continue to monitor
[2018-06-05] MEDS: POTASSIUM CHLORIDE TABS 20 MEQ TABLET.ER (FP) PO SCH (14:18)
--- NOTE | 2018-06-05 14:18 | EKG ---
Test Reason : Blood Pressure : / mmHG Vent. Rate : 094 BPM Atrial Rate : 094 BPM P-R Int : 150 ms QRS Dur : 088 ms QT Int : 382 ms P-R-T Axes : 069 052 052 degrees QTc Int : 477 ms NORMAL SINUS RHYTHM POSSIBLE LEFT ATRIAL ENLARGEMENT LEFT VENTRICULAR HYPERTROPHY ABNORMAL ECG WHEN COMPARED WITH ECG OF 30-APR-2018 09:00, T WAVE INVERSION NO LONGER EVIDENT IN ANTERIOR LEADS Confirmed by Elan Johnson ([id number]) on 06/05/2018 2:18:38 PM Referred By: Kira Zaldivar Confirmed By:Elan Johnson
[2018-06-05] MEDS: IBUPROFEN 400 MG TABLET (FP) PO PRN (14:53)
[2018-06-05] MEDS: traZODone HCL 50 MG TABLET (FP) PO SCH (22:10)
[2018-06-05] MEDS: THIAMINE HCL 100 MG TABLET (FP) PO SCH (22:10)
[2018-06-06] MEDS: chlordiazePOXIDE HCL 25 MG CAPSULE PO SCH ×3 (05:37→17:25)
[2018-06-06] MEDS: IBUPROFEN 400 MG TABLET (FP) PO PRN ×2 (08:52→14:51)
[2018-06-06] MEDS: TAMSULOSIN HCL 0.4 MG CAP.ER.24H (FP) PO SCH (08:52)
--- NOTE | 2018-06-06 10:07 | PN ---
S CIWA - CIWA Score Nausea/Vomitin Muscle Tremors: 3 Anxiety: 3 Agitation: 3 Paroxysmal Sweats: 3 Orientation: 0-Oriented Tacttile Disturbances: 0-None Auditory Disturbances: 0-None Visual Disturbances: 0-None Headache: 0-None Present CIWA-Ar Total Score: 14 S Progress Note (SOAP) Subjective: Palpitations Sweats shakes Objective: 06/06/18 10:03 A & O x 3 Ambulating steadily on unit No SOB, no guarding Vital Signs Temperature 99.9 F H 06/06/18 06:00 Pulse Rate 85 06/06/18 06:00 Respiratory Rate 18 06/06/18 06:26 Blood Pressure 111/73 06/06/18 06:00 O2 Sat by Pulse Oximetry (%) Laboratory Last Values WBC 2.9 K/mm3 (4.0-10.0) L 06/05/18 07:20 RBC 3.08 M/mm3 (4.00-5.60) L 06/05/18 07:20 Hgb 11.4 GM/dL (11.7-16.9) L 06/05/18 07:20 Hct 32.5 % (35.4-49) L D 06/05/18 07:20 MCV 105.5 fl (80-96) H 06/05/18 07:20 MCH 37.2 pg (25.7-33.7) H 06/05/18 07:20 MCHC 35.3 g/dl (32.0-35.9) 06/05/18 07:20 RDW 16.4 % (11.9-15.9) H 06/05/18 07:20 Plt Count 115 K/MM3 (134-434) L 06/05/18 07:20 MPV 7.7 fl (7.5-11.1) 06/05/18 07:20 Sodium 142 mmol/L (136-145) 06/05/18 07:20 Potassium 3.1 mmol/L (3.5-5.1) L D 06/05/18 07:20 Chloride 101 mmol/L (98-107) 06/05/18 07:20 Carbon Dioxide 31 mmol/L (21-32) 06/05/18 07:20 Anion Gap 10 (8-16) 06/05/18 07:20 BUN 11 mg/dL (7-18) 06/05/18 07:20 Creatinine 1.1 mg/dL (0.7-1.3) 06/05/18 07:20 Creat Clearance w eGFR > 60 (>60) 06/05/18 07:20 Random Glucose 119 mg/dL (74-106) H D 06/05/18 07:20 Calcium 8.4 mg/dL (8.5-10.1) L 06/05/18 07:20 Total Bilirubin 2.7 mg/dL (0.2-1.0) H 06/05/18 07:20 AST 217 U/L (15-37) H D 06/05/18 07:20 ALT 73 U/L (12-78) 06/05/18 07:20 Alkaline Phosphatase 92 U/L (45-117) 06/05/18 07:20 Total Protein 7.0 g/dl (6.4-8.2) 06/05/18 07:20 Albumin 3.7 g/dl (3.4-5.0) 06/05/18 07:20 RPR Titer Nonreactive (NONREACTIVE) 06/05/18 07:20 labs noted. Low K+ Assessment: 06/06/18 10:06 withdrawal sx Plan: continue detox Repeat EKG ASA ordered increase hydration
[2018-06-06] MEDS ORDERED: ASPIRIN 81 MG CHEWABLE TABLETS PO ONE (10:15)
[2018-06-06] MEDS ORDERED: METHADONE HCL 10 MG TABLET PO SCH (10:15)
[2018-06-06] MEDS ORDERED: METHADONE HCL 10 MG TABLET ONE (10:30)
[2018-06-06] MEDS ORDERED: METHADONE HCL 40 MG DISPERSABLE TABLET ONE (10:30)
[2018-06-06] MEDS: LISINOPRIL 20 MG TABLET (FP) PO SCH (10:38)
[2018-06-06] MEDS: HYDROCHLOROTHIAZIDE 12.5 MG CAPSULE (FP) PO SCH (10:38)
[2018-06-06] MEDS: METHADONE 80 MG, METHADONE 10 MG PO SCH (10:39)
[2018-06-06] MEDS: PRENATAL VITAMINS W/ FOLIC ACID TABLET (FP) PO SCH (10:39)
[2018-06-06] MEDS: POTASSIUM CHLORIDE TABS 20 MEQ TABLET.ER (FP) PO SCH (10:39)
[2018-06-06] MEDS: NICOTINE 14 MG/24 HOURS TOPICAL PATCH TD SCH (10:52)
[2018-06-06 15:06] LABS: URINE APPEARANCE CLEAR; URINE COLOR AMBER; URINE GLUCOSE (UA) NEGATIVE (NEGATIVE); URINE KETONE NEGATIVE (NEGATIVE); URINE LEUK ESTERASE NEGATIVE (NEGATIVE); URINE NITRITE NEGATIVE (NEGATIVE); URINE UROBILINOGEN 4.0 E.U/dl mg/dL (0.2-1.0)
[2018-06-06 15:08] LABS: URINE PROTEIN 1+ (NEGATIVE)
[2018-06-06 15:20] LABS: EPI CELLS RARE /HPF (FEW); URINE MUCUS MODERATE
--- NOTE | 2018-06-06 20:00 | PN ---
[facility] Progress Note Note: Called by nurse, earlier, regarding patients' B/P of 141/95 and HR: 101. patient Denies chest pain, SOB or neuro changes. Patient has an order for Lisionpril and HCTZ for am dosing. Nurse instructed to give present dose of Librium and recheck B/P and to notify provider for any increase. B/P and HR are now WNL. Vital Signs - 24 hr 06/05/18 06/05/18 06/06/18 20:00 21:06 00:30 Temperature 97.8 F Pulse Rate 83 93 H Respiratory 16 16 18 Rate Blood Pressure 130/90 06/06/18 06/06/18 06/06/18 03:30 06:00 06:26 Temperature 99.9 F H Pulse Rate 85 Respiratory 18 18 18 Rate Blood Pressure 111/73 06/06/18 06/06/18 06/06/18 10:45 14:23 17:24 Temperature 98.6 F 98.7 F 98.6 F Pulse Rate 112 H 100 H 101 H Respiratory 20 20 20 Rate Blood Pressure 120/82 136/87 141/95 06/06/18 18:42 Temperature Pulse Rate 84 Respiratory Rate Blood Pressure 119/80
[2018-06-06] MEDS: traZODone HCL 50 MG TABLET (FP) PO SCH (23:33)
[2018-06-06] MEDS: THIAMINE HCL 100 MG TABLET (FP) PO SCH (23:33)
[2018-06-06] MEDS: chlordiazePOXIDE 5 MG CAPSULE PO SCH (23:34)
[2018-06-07] MEDS ORDERED: METHADONE HCL 10 MG TABLET ONE (04:46)
[2018-06-07] MEDS ORDERED: METHADONE HCL 40 MG DISPERSABLE TABLET ONE (04:46)
[2018-06-07] MEDS: chlordiazePOXIDE 5 MG CAPSULE PO SCH ×3 (05:32→17:34)
[2018-06-07] MEDS: METHADONE 80 MG, METHADONE 10 MG PO SCH (05:32)
[2018-06-07] MEDS ORDERED: METHADONE HCL 10 MG TABLET PO SCH (06:00)
[2018-06-07] MEDS: TAMSULOSIN HCL 0.4 MG CAP.ER.24H (FP) PO SCH (09:10)
[2018-06-07] MEDS: PRENATAL VITAMINS W/ FOLIC ACID TABLET (FP) PO SCH (10:09)
[2018-06-07] MEDS: POTASSIUM CHLORIDE TABS 20 MEQ TABLET.ER (FP) PO SCH (10:10)
[2018-06-07] MEDS: LISINOPRIL 20 MG TABLET (FP) PO SCH (10:10)
[2018-06-07] MEDS: HYDROCHLOROTHIAZIDE 12.5 MG CAPSULE (FP) PO SCH (10:10)
[2018-06-07] MEDS: NICOTINE 14 MG/24 HOURS TOPICAL PATCH TD SCH (10:11)
[2018-06-07] MEDS: IBUPROFEN 400 MG TABLET (FP) PO PRN (10:56)
--- NOTE | 2018-06-07 11:32 | EKG ---
Test Reason : Blood Pressure : / mmHG Vent. Rate : 088 BPM Atrial Rate : 088 BPM P-R Int : 134 ms QRS Dur : 082 ms QT Int : 402 ms P-R-T Axes : 062 023 054 degrees QTc Int : 486 ms NORMAL SINUS RHYTHM POSSIBLE LEFT ATRIAL ENLARGEMENT T WAVE ABNORMALITY, CONSIDER ANTERIOR ISCHEMIA PROLONGED QT ABNORMAL ECG Confirmed by MD JOANN, SANTOS ([id number]) on 06/07/2018 11:32:41 AM Referred By: Kira Zaldivar Confirmed By:SANTOS DAVID MD
--- NOTE | 2018-06-07 13:41 | PN ---
[facility] Progress Note (SOAP) Subjective: Anxious, Interrupted Sleep. Objective: PATIENT REFUSED TO ANSWER QUESTIONS RELATING ORIENTATION STATUS (, DAY/DATE, AND CURRENT LOCATION). PATIENT OBSERVED AMBULATING ON UNIT UNASSISTED. NO ACUTE DISTRESS NOTED. 06/07/18 13:38 Vital Signs Temperature 97.7 F 06/07/18 13:29 Pulse Rate 94 H 06/07/18 13:29 Respiratory Rate 18 06/07/18 13:29 Blood Pressure 140/77 06/07/18 13:29 O2 Sat by Pulse Oximetry (%) Laboratory Tests 06/05/18 06/05/18 06/05/18 07:20 07:20 07:20 WBC 2.9 L RBC 3.08 L Hgb 11.4 L Hct 32.5 L D MCV 105.5 H MCH 37.2 H MCHC 35.3 RDW 16.4 H Plt Count 115 L MPV 7.7 Sodium 142 Potassium 3.1 L D Chloride 101 Carbon Dioxide 31 Anion Gap 10 BUN 11 Creatinine 1.1 Creat Clearance w eGFR > 60 Random Glucose 119 H D Calcium 8.4 L Total Bilirubin 2.7 H AST 217 H D ALT 73 Alkaline Phosphatase 92 Total Protein 7.0 Albumin 3.7 Urine Color Urine Appearance Urine pH Ur Specific [place] Urine Protein Urine Glucose (UA) Urine Ketones Urine Blood Urine Nitrite Urine Bilirubin Urine Urobilinogen Ur Leukocyte Esterase Urine WBC (Auto) Urine RBC (Auto) Ur Epithelial Cells Urine Mucus RPR Titer Nonreactive 06/06/18 08:40 WBC RBC Hgb Hct MCV MCH MCHC RDW Plt Count MPV Sodium Potassium Chloride Carbon Dioxide Anion Gap BUN Creatinine Creat Clearance w eGFR Random Glucose Calcium Total Bilirubin AST ALT Alkaline Phosphatase Total Protein Albumin Urine Color K[place] Urine Appearance Clear Urine pH 6.0 Ur Specific [place] 1.026 Urine Protein 1+ H Urine Glucose (UA) Negative Urine Ketones Negative Urine Blood Negative Urine Nitrite Negative Urine Bilirubin 2.0 Urine Urobilinogen 4.0 e.u/dl Ur Leukocyte Esterase Negative Urine WBC (Auto) 1 Urine RBC (Auto) <1 Ur Epithelial Cells Rare Urine Mucus Moderate RPR Titer LABS NOTED. Assessment: 06/07/18 13:39 WITHDRAWAL SYMPTOMS. LEUKOPENIA. MACROCYTIC ANEMIA. THROMBOCYTOPENIA. HYPOKALEMIA. 06/07/18 13:41 Plan: CONTINUE DETOX. INCREASE DAILY PO FLUID INTAKE. PATIENT REPORTS THAT HE FOUND BLOOD IN TOILET AFTER URINATING EARLIER TODAY. PATIENT REPORTS THAT A SIMILAR OCCURRENCE HAPPENED ONE TIME APPROX. FOUR MONTHS AGO BUT THAT IT HAS NOT HAPPENED SINCE THAT TIME UP UNTIL TODAY. PATIENT DENIES ANY UNUSUAL URINARY SYMPTOMS (BURNING, PAIN, FREQUENCY, URGENCY). PATIENT DENIES ANY DISCOMFORT IN GENITAL/SCROTAL AREA. PATIENT ADVISED TO FOLLOW-UP WITH GRADUATE INTERN AT .I. MEDICAL PRACTICE ([facility]) AFTER DISCHARGE FROM DETOX FOR FURTHER EVALUATION OF THIS MATTER. PATIENT ALSO ADVISED TO IMMEDIATELY NOTIFY MEDICAL/NURSING STAFF SHOULD SIMILAR OCCURRENCE HAPPEN AGAIN IN REMAINDER OF TIME WHILE ADMITTED FOR DETOX.
[2018-06-07] MEDS: chlordiazePOXIDE HCL 10 MG CAPSULE PO SCH (22:19)
[2018-06-07] MEDS: traZODone HCL 50 MG TABLET (FP) PO SCH (22:20)
[2018-06-07] MEDS: THIAMINE HCL 100 MG TABLET (FP) PO SCH (22:21)
[2018-06-08] MEDS ORDERED: METHADONE HCL 40 MG DISPERSABLE TABLET ONE ×2 (04:41→09:44)
[2018-06-08] MEDS ORDERED: METHADONE HCL 10 MG TABLET ONE ×2 (04:41→09:44)
[2018-06-08] MEDS: chlordiazePOXIDE HCL 10 MG CAPSULE PO SCH ×2 (06:52→10:53)
[2018-06-08] MEDS ORDERED: LISINOPRIL 10 MG TABLET (FP) PO SCH (08:35)
[2018-06-08] MEDS: POTASSIUM CHLORIDE TABS 20 MEQ TABLET.ER (FP) PO SCH (10:42)
[2018-06-08] MEDS: HYDROCHLOROTHIAZIDE 12.5 MG CAPSULE (FP) PO SCH (10:42)
[2018-06-08] MEDS: PRENATAL VITAMINS W/ FOLIC ACID TABLET (FP) PO SCH (10:42)
[2018-06-08] MEDS: METHADONE 80 MG, METHADONE 10 MG PO SCH (10:42)
[2018-06-08] MEDS: TAMSULOSIN HCL 0.4 MG CAP.ER.24H (FP) PO SCH (10:43)
[2018-06-08] MEDS: NICOTINE 14 MG/24 HOURS TOPICAL PATCH TD SCH (10:43)
[2018-06-08] MEDS: IBUPROFEN 400 MG TABLET (FP) PO PRN (10:45)
--- NOTE | 2018-06-08 12:07 | PN ---
[facility] Progress Note (SOAP) Subjective: Patient denies current Detox symptoms and reports that he feels well overall. Objective: PATIENT A & O X 3, OBSERVED AMBULATING ON UNIT. NO ACUTE DISTRESS. 06/08/18 12:04 Vital Signs Temperature 99.2 F 06/08/18 09:27 Pulse Rate 94 H 06/08/18 09:31 Respiratory Rate 20 06/08/18 09:31 Blood Pressure 160/105 06/08/18 09:31 O2 Sat by Pulse Oximetry (%) Laboratory Tests 06/05/18 06/05/18 06/05/18 07:20 07:20 07:20 WBC 2.9 L RBC 3.08 L Hgb 11.4 L Hct 32.5 L D MCV 105.5 H MCH 37.2 H MCHC 35.3 RDW 16.4 H Plt Count 115 L MPV 7.7 Sodium 142 Potassium 3.1 L D Chloride 101 Carbon Dioxide 31 Anion Gap 10 BUN 11 Creatinine 1.1 Creat Clearance w eGFR > 60 Random Glucose 119 H D Calcium 8.4 L Total Bilirubin 2.7 H AST 217 H D ALT 73 Alkaline Phosphatase 92 Total Protein 7.0 Albumin 3.7 Urine Color Urine Appearance Urine pH Ur Specific [place] Urine Protein Urine Glucose (UA) Urine Ketones Urine Blood Urine Nitrite Urine Bilirubin Urine Urobilinogen Ur Leukocyte Esterase Urine WBC (Auto) Urine RBC (Auto) Ur Epithelial Cells Urine Mucus RPR Titer Nonreactive 06/06/18 08:40 WBC RBC Hgb Hct MCV MCH MCHC RDW Plt Count MPV Sodium Potassium Chloride Carbon Dioxide Anion Gap BUN Creatinine Creat Clearance w eGFR Random Glucose Calcium Total Bilirubin AST ALT Alkaline Phosphatase Total Protein Albumin Urine Color [place]ori Urine Appearance Clear Urine pH 6.0 Ur Specific [place] 1.026 Urine Protein 1+ H Urine Glucose (UA) Negative Urine Ketones Negative Urine Blood Negative Urine Nitrite Negative Urine Bilirubin 2.0 Urine Urobilinogen 4.0 e.u/dl Ur Leukocyte Esterase Negative Urine WBC (Auto) 1 Urine RBC (Auto) <1 Ur Epithelial Cells Rare Urine Mucus Moderate RPR Titer LABS NOTED. Assessment: 06/08/18 12:05 COMPLETION OF DETOX REGIMEN. 06/08/18 12:05 Plan: PATIENT SCHEDULED FOR DISCHARGE FROM DETOX UNIT TODAY.
--- NOTE | 2018-06-08 12:12 | DS ---
[facility] Detox Discharge Summary Admission Date: 06/04/18 Discharge Date: 06/08/18 - History Present History: Alcohol Dependence, Opioid Dependence, MMTP Additional Comments: PATIENT GOING TO [facility] (Garrett GIORDANO) FOR AFTERCARE. PATIENT WAS DISCHARGED FROM DETOX UNIT TO BE TAKEN TO REHAB UNIT IN STABLE MEDICAL CONDITION. Pertinent Past History: HTN, MMTP, History of Depression, History of PTSD, Nicotine Dependence, Weight Loss, Pancytopenia, Hypokalemia, History of Positive PPD. - Physical Exam Results Vital Signs: Vital Signs Temperature 99.2 F 06/08/18 09:27 Pulse Rate 94 H 06/08/18 09:31 Respiratory Rate 20 06/08/18 09:31 Blood Pressure 160/105 06/08/18 09:31 O2 Sat by Pulse Oximetry (%) Pertinent Admission Physical Exam Findings: WITHDRAWAL SYMPTOMS. Laboratory Tests 06/05/18 06/05/18 06/05/18 07:20 07:20 07:20 WBC 2.9 L RBC 3.08 L Hgb 11.4 L Hct 32.5 L D MCV 105.5 H MCH 37.2 H MCHC 35.3 RDW 16.4 H Plt Count 115 L MPV 7.7 Sodium 142 Potassium 3.1 L D Chloride 101 Carbon Dioxide 31 Anion Gap 10 BUN 11 Creatinine 1.1 Creat Clearance w eGFR > 60 Random Glucose 119 H D Calcium 8.4 L Total Bilirubin 2.7 H AST 217 H D ALT 73 Alkaline Phosphatase 92 Total Protein 7.0 Albumin 3.7 Urine Color Urine Appearance Urine pH Ur Specific Jackson Urine Protein Urine Glucose (UA) Urine Ketones Urine Blood Urine Nitrite Urine Bilirubin Urine Urobilinogen Ur Leukocyte Esterase Urine WBC (Auto) Urine RBC (Auto) Ur Epithelial Cells Urine Mucus RPR Titer Nonreactive 06/06/18 08:40 WBC RBC Hgb Hct MCV MCH MCHC RDW Plt Count MPV Sodium Potassium Chloride Carbon Dioxide Anion Gap BUN Creatinine Creat Clearance w eGFR Random Glucose Calcium Total Bilirubin AST ALT Alkaline Phosphatase Total Protein Albumin Urine Color Kori Urine Appearance Clear Urine pH 6.0 Ur Specific Jackson 1.026 Urine Protein 1+ H Urine Glucose (UA) Negative Urine Ketones Negative Urine Blood Negative Urine Nitrite Negative Urine Bilirubin 2.0 Urine Urobilinogen 4.0 e.u/dl Ur Leukocyte Esterase Negative Urine WBC (Auto) 1 Urine RBC (Auto) <1 Ur Epithelial Cells Rare Urine Mucus Moderate RPR Titer LABS NOTED. - Treatment Hospital Course: Detox Protocol Followed, Detoxed Safely, Responded well, Discharged Condition Good, Rehab Referral Accepted Patient has Accepted a Rehab Referral to: [facility] (GIULIANA, N.Nathaniel.) . - Medication Discharge Medications: Ambulatory Orders Hydrochlorothiazide [Hctz -] 12.5 mg PO DAILY #30 mg 03/18/18 Lisinopril [Prinivil] 30 mg PO DAILY 04/29/18 Multivitamins [Tab-A-Vit -] 1 tab PO DAILY 05/01/18 Tamsulosin HCl [Flomax -] 0.4 mg PO DAILY #10 capsule 05/01/18 Thiamine Mononitrate [Vitamin B-1] 100 mg PO DAILY 05/01/18 traZODone HCL [Desyrel -] 50 mg PO HS #30 tablet 06/05/18 - Diagnosis (1) History of positive PPD Current Visit: Yes Status: Chronic (2) Methadone maintenance therapy patient Current Visit: Yes Status: Chronic (3) Weight loss Current Visit: Yes Status: Chronic (4) Alcohol dependence with uncomplicated withdrawal Current Visit: Yes Status: Acute (5) Nicotine dependence Current Visit: Yes Status: Chronic Qualifiers: Nicotine product type: cigarettes Substance use status: uncomplicated Qualified Code(s): F17.210 - Nicotine dependence, cigarettes, uncomplicated (6) History of posttraumatic stress disorder (PTSD) Current Visit: Yes Status: Chronic (7) History of depression Current Visit: Yes Status: Chronic (8) Essential hypertension Current Visit: Yes Status: Chronic (9) Hypokalemia Current Visit: Yes Status: Acute (10) MDD (major depressive disorder), recurrent episode, moderate Current Visit: Yes Status: Chronic (11) Substance induced mood disorder Current Visit: Yes Status: Acute (12) Substance-induced sleep disorder Current Visit: Yes Status: Acute (13) Opioid dependence on agonist therapy Current Visit: Yes Status: Chronic (14) PTSD (post-traumatic stress disorder) Current Visit: No Status: Chronic - AMA Did Patient Leave Against Medical Advice: No
[2018-06-08 13:54] VITALS: BP 141/97; PULSE 103; TEMP 98.7
== END 2018-06-08 15:06 | disposition other institution (70) | DRG 773 ==
LOC: YASAS 15:03 → Y3N 19:13
PROVIDERS: ADMIT Surgery; ATTEND Surgery
PROC: HZ2ZZZZ Detoxification Services for Substance Abuse Treatment (ICD-10-PCS; principal; 2018-06-04)
DX: F10.230 Alcohol dependence with withdrawal, uncomplicated (principal); F11.20 Opioid dependence, uncomplicated; F17.210 Nicotine dependence, cigarettes, uncomplicated; F33.1 Major depressive disorder, recurrent, moderate; F19.24 Other psychoactive substance dependence with psychoactive substance-induced mood disorder; F19.282 Other psychoactive substance dependence with psychoactive substance-induced sleep disorder; F43.10 Post-traumatic stress disorder, unspecified; D61.818 Other pancytopenia; I10 Essential (primary) hypertension; E87.6 Hypokalemia; R76.11 Nonspecific reaction to tuberculin skin test without active tuberculosis; R31.9 Hematuria, unspecified; R63.4 Abnormal weight loss; Z68.21 Body mass index [BMI] 21.0-21.9, adult
CPT/HCPCS: 36415; 80053; 81003; 81015; 85027; 86593; 93005; 93010; J0735

== ENCOUNTER 2019-01-28 11:44 | Inpatient (IN) | payer OTHER ==
[2019-01-28 13:37] VITALS: BMI 25.0
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
[2019-01-28] MEDS ORDERED: MAGNESIUM HYDROX 2400MG/30ML ORAL SUSPENSION 30 ML CUP PO PRN (14:19)
[2019-01-28] MEDS ORDERED: MAGNESIUM CITRATE 300 ML BOTTLE PO PRN (14:19)
[2019-01-28] MEDS ORDERED: ACETAMINOPHEN 325 MG TABLET (FP) PO PRN (14:19)
[2019-01-28] MEDS ORDERED: hydrOXYzine PAMOATE 25 MG CAPSULE (FP) PO PRN (14:19)
[2019-01-28] MEDS ORDERED: METHOCARBAMOL 500 MG TABLET PO PRN (14:19)
[2019-01-28] MEDS ORDERED: MELATONIN 5 MG TABLETS PO PRN (14:19)
[2019-01-28] MEDS ORDERED: chlordiazePOXIDE HCL 25 MG CAPSULE PO PRN (14:19)
[2019-01-28] MEDS ORDERED: MENTHOL/PHENOL 1 EACH UD MM PRN (14:19)
[2019-01-28] MEDS ORDERED: IBUPROFEN 400 MG TABLET (FP) PO PRN (14:19)
[2019-01-28] MEDS ORDERED: NICOTINE POLACRILEX 2 MG GUM BUC PRN (14:19)
[2019-01-28] MEDS ORDERED: MAG HYDROX/AL HYDROX/SIMETH 30 ML UNIT-DOSE CUP PO PRN (14:19)
[2019-01-28] MEDS ORDERED: BISMUTH SUBSALICYLATE 524 MG/30 ML UD PO PRN (14:19)
[2019-01-28] MEDS ORDERED: chlordiazePOXIDE HCL 25 MG CAPSULE PO ONE (16:30)
[2019-01-28] MEDS: TAMSULOSIN HCL 0.4 MG CAP PO SCH (17:29)
[2019-01-28] MEDS: chlordiazePOXIDE HCL 25 MG CAPSULE PO SCH ×2 (17:29→22:45)
[2019-01-28] MEDS: HYDROCHLOROTHIAZIDE 12.5 MG CAPSULE (FP) PO SCH (17:29)
[2019-01-28] MEDS: LISINOPRIL 10 MG TABLET (FP) PO SCH (17:29)
[2019-01-28] MEDS: THIAMINE HCL 100 MG TABLET (FP) PO SCH (22:45)
[2019-01-28] MEDS: TOLNAFTATE 1% CREAM 15 GM TUBE TP SCH (23:34)
[2019-01-29] MEDS ORDERED: METHADONE HCL 10 MG TABLET ONE (04:28)
[2019-01-29] MEDS ORDERED: METHADONE HCL 40 MG DISPERSABLE TABLET ONE (04:28)
[2019-01-29] MEDS: chlordiazePOXIDE HCL 25 MG CAPSULE PO SCH ×4 (05:57→22:02)
[2019-01-29] MEDS ORDERED: METHADONE 40 MG, METHADONE 10 MG PO ONE (06:00)
[2019-01-29] MEDS ORDERED: METHADONE HCL 10 MG TABLET (FOR DETOX USE ONLY) PO ONE (06:00)
[2019-01-29] MEDS: PRENATAL VITAMINS W/ FOLIC ACID TABLET (FP) PO SCH (10:25)
[2019-01-29] MEDS: HYDROCHLOROTHIAZIDE 12.5 MG CAPSULE (FP) PO SCH (10:25)
[2019-01-29] MEDS: TAMSULOSIN HCL 0.4 MG CAP PO SCH (10:25)
[2019-01-29] MEDS: TOLNAFTATE 1% CREAM 15 GM TUBE TP SCH ×2 (10:26→22:03)
[2019-01-29] MEDS: LISINOPRIL 10 MG TABLET (FP) PO SCH (10:26)
[2019-01-29 10:53] LABS: ALBUMIN 3.7 g/dl (3.4-5.0); ALK PHOS 80 U/L (45-117); ANION GAP 8 MMOL/L (8-16); BLOOD UREA NITROGEN 10 mg/dL (7-18); CALCIUM 8.8 mg/dL (8.5-10.1); CHLORIDE 108 mmol/L (98-107); CO2 27 mmol/L (21-32); CREATININE 1.2 mg/dL (0.55-1.3); GLUCOSE,RANDOM 110 mg/dL (74-106); SGOT/AST 284 U/L (15-37); SGPT/ALT 182 U/L (13-61); SODIUM 143 mmol/L (136-145)
[2019-01-29] MEDS ORDERED: diphenhydrAMINE HCL 25 MG CAPSULE (FP) PO ONE (11:31)
[2019-01-29 11:32] LABS: HEMATOCRIT 37.5 % (35.4-49); HEMOGLOBIN 13.3 GM/dL (11.7-16.9); MCH 36.9 pg (25.7-33.7); MCHC 35.5 g/dl (32.0-35.9); MEAN CELL VOLUME 104.1 fl (80-96); MEAN PLT VOLUME 9.4 fl (7.5-11.1); PLATELET COUNT 114 K/MM3 (134-434); RBC 3.61 M/mm3 (4.00-5.60); RDW 14.1 % (11.9-15.9); WHITE BLOOD COUNT 3.4 K/mm3 (4.0-10.0)
[2019-01-29] MEDS ORDERED: COLLOIDAL OATMEAL 1 BAR EACH TP PRN (11:34)
[2019-01-29] MEDS: NICOTINE 21 MG/24 HOURS TOPICAL PATCH TD SCH (13:14)
[2019-01-29] MEDS: HYDROCORTISONE 1% TOPICAL CREAM 30 GM TUBE TP SCH ×2 (13:14→22:02)
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
[2019-01-29] MEDS: SERTRALINE HCL 50 MG TABLET (FP) PO SCH (15:19)
[2019-01-29] MEDS ORDERED: LISINOPRIL 10 MG TABLET (FP) PO ONE (16:38)
--- NOTE | 2019-01-29 16:38 | PN ---
[facility] CIWA - CIWA Score Nausea/Vomitin Muscle Tremors: 4-Moderate,w/Arms Extend Anxiety: 4-Mod. Anxious/Guarded Agitation: 4-Moderately Restless Paroxysmal Sweats: 3 Orientation: 0-Oriented Tacttile Disturbances: 0-None Auditory Disturbances: 0-None Visual Disturbances: 0-None Headache: 0-None Present CIWA-Ar Total Score: 17 [facility] Progress Note (SOAP) Subjective: Back pain, headache (8/10), interrupted sleep; c/o itchy rash to lateral side of buttocks since last night and requesting benadryl for itching. Objective: 01/29/19 16:39 Last Vital Signs Temp Pulse Resp BP Pulse Ox 98.3 F 98 H 18 145/85 01/29/19 14:12 01/29/19 14:12 01/29/19 14:12 01/29/19 14:12 Elevated b/p 145/85 (has htn, on meds) PE: Skin: turgor good, no rash/redness noted on buttocks Laboratory Tests 01/29/19 01/29/19 08:00 08:00 WBC 3.4 L RBC 3.61 L Hgb 13.3 Hct 37.5 MCV 104.1 H MCH 36.9 H MCHC 35.5 RDW 14.1 D Plt Count 114 L MPV 9.4 Sodium 143 Potassium 3.0 L Chloride 108 H Carbon Dioxide 27 Anion Gap 8 BUN 10 Creatinine 1.2 Creat Clearance w eGFR > 60 Random Glucose 110 H Calcium 8.8 Total Bilirubin 1.0 AST 284 H ALT 182 H Alkaline Phosphatase 80 Total Protein 7.0 Albumin 3.7 Labs reviewed: plt 114, K 3.0, AST/ALT 284/182 Assessment: 01/29/19 16:41 Withdrawal symptoms Noted with thrombocytopenia, elevated LFTs (AST/ALT) and hypokalemia C/O itchy rash to buttocks Plan: Continue detox Encourage PO water intake Thrombocytopenia: most likely due to alcoholism, follow up with PCP for monitoring Elevated LFTs (AST/ALT): repeat AST/ALT Hypokalemia: K Dur 40 Meq PO x 2 doses then 10mg PO daily, repeat K level Pruritus: benadryl 50mg PO x 1 dose, hydrocortisone cream 1% bid to affected areas on buttocks
[2019-01-29] MEDS ORDERED: POTASSIUM CHLORIDE TABS 20 MEQ TABLET.ER (FP) PO ONE ×2 (16:48→22:00)
[2019-01-29] MEDS ORDERED: traZODone HCL 100 MG TABLET (FP) PO SCH (22:00)
[2019-01-29] MEDS ORDERED: traZODone HCL 50 MG TABLET (FP) PO SCH (22:00)
[2019-01-29] MEDS: THIAMINE HCL 100 MG TABLET (FP) PO SCH (22:03)
[2019-01-30] MEDS: chlordiazePOXIDE HCL 25 MG CAPSULE PO SCH ×2 (05:43→10:28)
[2019-01-30] MEDS ORDERED: METHADONE HCL 10 MG TABLET PO ONE (09:33)
[2019-01-30 09:36] VITALS: BP 138/91; PULSE 108; TEMP 98.4
[2019-01-30] MEDS ORDERED: POTASSIUM CHLORIDE TABS 20 MEQ TABLET.ER (FP) PO SCH (10:00)
[2019-01-30] MEDS ORDERED: METHADONE 40 MG, METHADONE 10 MG PO ONE (10:00)
[2019-01-30] MEDS ORDERED: LISINOPRIL 20 MG TABLET (FP) PO SCH (10:00)
[2019-01-30] MEDS ORDERED: POTASSIUM CHLORIDE TABS 10 MEQ TABLET.ER (FP) PO SCH (10:00)
[2019-01-30] MEDS ORDERED: METHADONE HCL 10 MG TABLET ONE (10:20)
[2019-01-30] MEDS ORDERED: METHADONE HCL 40 MG DISPERSABLE TABLET ONE (10:20)
[2019-01-30] MEDS: TAMSULOSIN HCL 0.4 MG CAP PO SCH (10:27)
[2019-01-30] MEDS: PRENATAL VITAMINS W/ FOLIC ACID TABLET (FP) PO SCH (10:28)
[2019-01-30] MEDS: HYDROCHLOROTHIAZIDE 12.5 MG CAPSULE (FP) PO SCH (10:28)
[2019-01-30] MEDS: SERTRALINE HCL 50 MG TABLET (FP) PO SCH (10:28)
[2019-01-30] MEDS: HYDROCORTISONE 1% TOPICAL CREAM 30 GM TUBE TP SCH (10:29)
[2019-01-30] MEDS: TOLNAFTATE 1% CREAM 15 GM TUBE TP SCH (10:29)
[2019-01-30] MEDS: NICOTINE 21 MG/24 HOURS TOPICAL PATCH TD SCH (10:30)
[2019-01-30 10:49] LABS: POTASSIUM 3.8 mmol/L (3.5-5.1)
--- NOTE | 2019-01-30 13:39 | PN ---
[facility] CIWA - CIWA Score Nausea/Vomitin-No Nausea/No Vomiting Muscle Tremors: None Anxiety: 4-Mod. Anxious/Guarded Agitation: 4-Moderately Restless Paroxysmal Sweats: No Perspiration Orientation: 0-Oriented Tacttile Disturbances: 2-Mild Itch/Numbness/Burn Auditory Disturbances: 2-Mild Harshness/Frighten Visual Disturbances: 0-None Headache: 0-None Present CIWA-Ar Total Score: 12 [facility] Progress Note (SOAP) Subjective: Body Aches, Anxious, Interrupted Sleep. Objective: PATIENT A & O X 3, OBSERVED AMBULATING ON UNIT. 01/30/19 13:34 Vital Signs Temperature 98.4 F 01/30/19 09:35 Pulse Rate 108 H 01/30/19 09:35 Respiratory Rate 18 01/30/19 09:35 Blood Pressure 138/91 01/30/19 09:35 O2 Sat by Pulse Oximetry (%) Laboratory Tests 01/29/19 01/29/19 01/29/19 08:00 08:00 08:00 WBC 3.4 L RBC 3.61 L Hgb 13.3 Hct 37.5 MCV 104.1 H MCH 36.9 H MCHC 35.5 RDW 14.1 D Plt Count 114 L MPV 9.4 Sodium 143 Potassium 3.0 L Chloride 108 H Carbon Dioxide 27 Anion Gap 8 BUN 10 Creatinine 1.2 Creat Clearance w eGFR > 60 Random Glucose 110 H Calcium 8.8 Total Bilirubin 1.0 AST 284 H ALT 182 H Alkaline Phosphatase 80 Total Protein 7.0 Albumin 3.7 RPR Titer Nonreactive 01/30/19 08:00 WBC RBC Hgb Hct MCV MCH MCHC RDW Plt Count MPV Sodium Potassium 3.8 Chloride Carbon Dioxide Anion Gap BUN Creatinine Creat Clearance w eGFR Random Glucose Calcium Total Bilirubin AST 114 H ALT 119 H Alkaline Phosphatase Total Protein Albumin RPR Titer LABS NOTED. PATIENT HAS HAD LOW WBC LEVELS AND ELEAVTED AST AND ALT LEVELS ON PREVIOUS ADMISSIONS. NOTE: PATIENT LEFT DETOX UNIT AGAINST MEDICAL ADVICE SHORTLY AFTER DAILY ROUNDS MEDICAL ASSESSMENT. RESULTS OF REPEAT K, AST, AND ALT LEVELS WERE NOT AVAILABLE AT TIME IN WHICH PATIENT LEFT DETOX UNIT AGAINST MEDICAL ADVICE. SEE FOLLOWING [facility] DETOX DISCHARGE SUMMARY. 01/30/19 13:36 Assessment: 01/30/19 13:35 WITHDRAWAL SYMPTOMS. LEUKOENIA. THROMBOCYTOPENIA. ELEVATED LIVER ENZYMES. 01/30/19 13:35 Plan: CONTINUE DETOX. INCREASE DAILY PO FLUID INTAKE.
--- NOTE | 2019-01-30 13:44 | DS ---
[facility] Detox Discharge Summary Admission Date: 01/28/19 Discharge Date: 01/30/19 - History Present History: Alcohol Dependence, Cocaine Dependence, Opioid Dependence, MMTP Additional Comments: PATIENT HAS PERSONAL ISSUE TO ATTEND TO AND DOES NOT WISH TO REMAIN TO COMPLETE DETOX REGIMEN. RISKS OF LEAVING DETOX UNIT AGAINST MEDICAL ADVICE AND PRIOR TO COMPLETION OF DETOX REGIMEN EXPLAINED TO PATIENT. PATIENT ADVISED TO GO IMMEDIATELY TO NEAREST ER SHOULD ANY INTOLERABLE DETOX SYMPTOMS DEVELOP AT ANY TIME. NOTE: PATIENT LEFT DETOX UNIT AGAINST MEDICAL ADVICE SHORTLY AFTER DAILY ROUNDS MEDICAL ASSESSMENT. RESULTS OF REPEAT K, AST, AND ALT LEVELS WERE NOT AVAILABLE AT TIME IN WHICH PATIENT LEFT DETOX UNIT AGAINST MEDICAL ADVICE. HOWEVER, PATIENT ADVISED TO FOLLOW-UP WITH [facility] WHEN POSSIBLE FOR GENERAL MEDICAL ASSESSMENT AND FOR ELEVATED LIVER ENZYMES AND FOR LOW WBC LEVEL NOTED WHILE ADMITTED DETOX. PATIENT VERBALIZED UNDERSTANDING OF ALL INFORMATION / RECOMMENDATIONS PRESENTED TO HIM PRIOR TO DEPARTURE FROM DETOX UNIT. COPIES OF ALL LAB RESULTS AVAILABLE AT TIME IN WHICH PATIENT ELECTED TO LEAVE DETOX UNIT AGAINST MEDICAL ADVICE GIVEN TO HIM AT THAT TIME. RESULT OF REPEAT K LEVEL LATER NOTED TO BE WITHIN NORMAL RANGE. PATIENT DECLINED OFFER OF MEDICATION PRESCRIPTION FOR HOME MEDICATION AT TIME OF LEAVING DETOX UNIT. PATIENT WAS AGITATED AT TIME IN WHICH HE LEFT DETOX UNIT, THUS MAKING COMMUNICATION WITH HIM PRIOR TO LEAVING DETOX UNIT SOMEWHAT DIFFICULT. Pertinent Past History: HTN, History Of Major Depressive Disorder, History Of P.T.S.D., M.M.T.P., Fungal Dermatitis, History Of Positive PPD, Nicotine Dependence, B.P.H., Hypokalemia, Elevated Liver Enzymes, Leukopenia. - Physical Exam Results Vital Signs: Vital Signs Temperature 98.4 F 01/30/19 09:35 Pulse Rate 108 H 01/30/19 09:35 Respiratory Rate 18 01/30/19 09:35 Blood Pressure 138/91 01/30/19 09:35 O2 Sat by Pulse Oximetry (%) Pertinent Admission Physical Exam Findings: WITHDRAWAL SYMPTOMS. Laboratory Tests 01/29/19 01/29/19 01/29/19 08:00 08:00 08:00 WBC 3.4 L RBC 3.61 L Hgb 13.3 Hct 37.5 MCV 104.1 H MCH 36.9 H MCHC 35.5 RDW 14.1 D Plt Count 114 L MPV 9.4 Sodium 143 Potassium 3.0 L Chloride 108 H Carbon Dioxide 27 Anion Gap 8 BUN 10 Creatinine 1.2 Creat Clearance w eGFR > 60 Random Glucose 110 H Calcium 8.8 Total Bilirubin 1.0 AST 284 H ALT 182 H Alkaline Phosphatase 80 Total Protein 7.0 Albumin 3.7 RPR Titer Nonreactive 01/30/19 08:00 WBC RBC Hgb Hct MCV MCH MCHC RDW Plt Count MPV Sodium Potassium 3.8 Chloride Carbon Dioxide Anion Gap BUN Creatinine Creat Clearance w eGFR Random Glucose Calcium Total Bilirubin AST 114 H ALT 119 H Alkaline Phosphatase Total Protein Albumin RPR Titer LABS NOTED. - Treatment Hospital Course: Detox Protocol Followed, Detoxed Safely - Medication Discharge Medications: Ambulatory Orders Multivitamins [Tab-A-Vit -] 1 tab PO DAILY 05/01/18 Sertraline HCl [Zoloft -] 50 mg PO DAILY 06/08/18 Hydrochlorothiazide [Hctz -] 12.5 mg PO DAILY 30 Days #30 mg 06/21/18 Lisinopril [Prinivil] 30 mg PO DAILY #30 tablet 06/21/18 Tamsulosin HCl [Flomax -] 0.4 mg PO DAILY 30 Days #10 capsule 06/21/18 traZODone HCL [Trazodone HCl] 100 mg PO HS #30 tablet 06/21/18 Clonidine HCl [Catapres] 0.3 mg PO DAILY 01/28/19 Methadone (Detox) [Dolophine -] 50 mg PO DAILY 01/28/19 - Diagnosis (1) Alcohol dependence with uncomplicated withdrawal Status: Acute (2) Cocaine dependence Status: Acute Qualifiers: Substance use status: uncomplicated Qualified Code(s): F14.20 - Cocaine dependence, uncomplicated (3) Elevated liver enzymes Status: Acute (4) Hypokalemia Status: Acute (5) Substance-induced sleep disorder Status: Acute (6) Tinea pedis Status: Acute Qualifiers: Laterality: bilateral Qualified Code(s): B35.3 - Tinea pedis (7) BPH (benign prostatic hyperplasia) Status: Chronic Qualifiers: Lower urinary tract symptom presence: unspecified whether lower urinary tract symptoms present Qualified Code(s): N40.0 - Benign prostatic hyperplasia without lower urinary tract symptoms (8) Essential hypertension Status: Chronic (9) Fungal dermatitis Status: Chronic (10) History of positive PPD Status: Chronic (11) History of posttraumatic stress disorder (PTSD) Status: Chronic (12) MDD (major depressive disorder), recurrent episode, moderate Status: Chronic (13) Methadone maintenance therapy patient Status: Chronic (14) Nicotine dependence Status: Chronic Qualifiers: Nicotine product type: cigarettes Substance use status: uncomplicated Qualified Code(s): F17.210 - Nicotine dependence, cigarettes, uncomplicated - AMA Did Patient Leave Against Medical Advice: Yes (PT. HAS PERSONAL ISSUE AND DOES NOT WISH TO COMPLETE DETOX REGIMEN.)
[2019-01-30] MEDS ORDERED: chlordiazePOXIDE HCL 10 MG CAPSULE PO SCH (17:00)
[2019-01-30] MEDS ORDERED: chlordiazePOXIDE HCL 10 MG CAPSULE PO PRN (17:00)
[2019-01-31] MEDS ORDERED: METHADONE HCL 40 MG DISPERSABLE TABLET PO SCH (06:00)
[2019-01-31] MEDS ORDERED: METHADONE 40 MG, METHADONE 10 MG PO SCH (06:00)
[2019-01-31] MEDS ORDERED: chlordiazePOXIDE HCL 10 MG CAPSULE PO SCH (17:00)
== END 2019-01-30 11:37 | disposition left against medical advice (07) | DRG 770 ==
LOC: YASAS 11:44 → Y6N 16:23
PROVIDERS: ADMIT Surgery; ATTEND Surgery
PROC: HZ2ZZZZ Detoxification Services for Substance Abuse Treatment (ICD-10-PCS; principal; 2019-01-28)
DX: F10.230 Alcohol dependence with withdrawal, uncomplicated (principal); F11.20 Opioid dependence, uncomplicated; F14.20 Cocaine dependence, uncomplicated; F17.210 Nicotine dependence, cigarettes, uncomplicated; F19.282 Other psychoactive substance dependence with psychoactive substance-induced sleep disorder; F33.1 Major depressive disorder, recurrent, moderate; I10 Essential (primary) hypertension; E87.6 Hypokalemia; R94.5 Abnormal results of liver function studies; N40.0 Benign prostatic hyperplasia without lower urinary tract symptoms; B36.9 Superficial mycosis, unspecified; D69.6 Thrombocytopenia, unspecified
CPT/HCPCS: 36415; 80053; 84132; 84450; 84460; 85027; 86593

== ENCOUNTER 2019-04-05 12:28 | Inpatient (IN) | payer OTHER ==
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
[2019-04-05] MEDS ORDERED: MENTHOL/PHENOL 1 EACH UD MM PRN (17:36)
[2019-04-05] MEDS ORDERED: MAGNESIUM HYDROX 2400MG/30ML ORAL SUSPENSION 30 ML CUP PO PRN (17:36)
[2019-04-05] MEDS ORDERED: DICYCLOMINE HCL 10 MG CAPSULE PO PRN (17:36)
[2019-04-05] MEDS ORDERED: guaiFENesin 200 MG/10 ML 10 ML UNIT-DOSE CUPS PO PRN (17:36)
[2019-04-05] MEDS ORDERED: ONDANSETRON *ODT* 4 MG TABLET SL PRN (17:36)
[2019-04-05] MEDS ORDERED: chlordiazePOXIDE HCL 25 MG CAPSULE PO PRN (17:36)
[2019-04-05] MEDS ORDERED: NICOTINE POLACRILEX 2 MG GUM BUC PRN (17:36)
[2019-04-05] MEDS ORDERED: METHOCARBAMOL 500 MG TABLET PO PRN (17:36)
[2019-04-05] MEDS ORDERED: MAGNESIUM CITRATE 300 ML BOTTLE PO PRN (17:36)
[2019-04-05] MEDS ORDERED: MAG HYDROX/AL HYDROX/SIMETH 30 ML UNIT-DOSE CUP PO PRN (17:36)
[2019-04-05] MEDS ORDERED: MELATONIN 5 MG TABLETS PO PRN (17:36)
[2019-04-05] MEDS ORDERED: P-EPHED 60MG/TRIPROLIDI 2.5MG TABLET PO PRN (17:36)
[2019-04-05] MEDS ORDERED: ACETAMINOPHEN 325 MG TABLET (FP) PO PRN ×2 (17:36)
[2019-04-05] MEDS ORDERED: IBUPROFEN 400 MG TABLET (FP) PO PRN ×2 (17:36)
[2019-04-05 18:09] VITALS: BMI 25.8
[2019-04-05] MEDS ORDERED: cloNIDine HCL 0.1 MG TABLET PO ONE (18:57)
[2019-04-05] MEDS: chlordiazePOXIDE HCL 25 MG CAPSULE PO SCH ×2 (19:23→22:22)
[2019-04-05] MEDS: THIAMINE HCL 100 MG TABLET (FP) PO SCH (22:22)
[2019-04-06] MEDS: BISMUTH SUBSALICYLATE 524 MG/30 ML UD PO PRN ×4 (00:32→22:18)
[2019-04-06] MEDS: chlordiazePOXIDE HCL 25 MG CAPSULE PO SCH ×4 (05:18→22:17)
[2019-04-06] MEDS ORDERED: METHADONE HCL 10 MG TABLET ONE (09:25)
[2019-04-06] MEDS ORDERED: METHADONE HCL 40 MG DISPERSABLE TABLET ONE (09:25)
[2019-04-06] MEDS: PRENATAL VITAMINS W/ FOLIC ACID TABLET (FP) PO SCH (09:39)
[2019-04-06] MEDS: HYDROCHLOROTHIAZIDE 12.5 MG CAPSULE (FP) PO SCH (09:39)
[2019-04-06] MEDS: LISINOPRIL 10 MG TABLET (FP) PO SCH (09:39)
[2019-04-06] MEDS: NICOTINE 14 MG/24 HOURS TOPICAL PATCH TD SCH (09:39)
--- NOTE | 2019-04-06 09:52 | PN ---
[facility] CIWA - CIWA Score Nausea/Vomitin-Mild Nausea/No Vomiting Muscle Tremors: 3 Anxiety: 3 Agitation: 2 Paroxysmal Sweats: 1-Minimal Palms Moist Orientation: 2-Disoriented Date<2 days Tacttile Disturbances: 0-None Auditory Disturbances: 0-None Visual Disturbances: 0-None Headache: 1-Very Mild CIWA-Ar Total Score: 13 [facility] Progress Note (SOAP) Subjective: feeling better today had methadone 60 mg and librium alcohol detox regimen ambulating on hallway social with peers long history of hypertension additional amlodipine 5 mg po bid clonidine 0.1 mg po prn Objective: 04/06/19 09:52 Vital Signs Temperature 98.1 F 04/06/19 09:40 Pulse Rate 103 H 04/06/19 09:40 Respiratory Rate 18 04/06/19 09:40 Blood Pressure 141/97 04/06/19 09:40 O2 Sat by Pulse Oximetry (%) Assessment: 04/06/19 09:56 alcohol withdrawal sx Plan: continue detox
[2019-04-06] MEDS ORDERED: cloNIDine HCL 0.1 MG TABLET PO PRN (09:55)
[2019-04-06] MEDS ORDERED: METHADONE HCL 10 MG TABLET PO ONE (10:00)
[2019-04-06] MEDS ORDERED: METHADONE 40 MG, METHADONE 20 MG PO ONE (10:00)
[2019-04-06 10:04] LABS: HEMOGLOBIN 11.2 GM/dL (11.7-16.9); MCH 39.4 pg (25.7-33.7); MCHC 35.1 g/dl (32.0-35.9); MEAN CELL VOLUME 112.1 fl (80-96); MEAN PLT VOLUME 8.3 fl (7.5-11.1); PLATELET COUNT 94 K/MM3 (134-434); RBC 2.86 M/mm3 (4.00-5.60); RDW 16.8 % (11.9-15.9); WHITE BLOOD COUNT 4.3 K/mm3 (4.0-10.0)
[2019-04-06 10:33] LABS: ALBUMIN 3.5 g/dl (3.4-5.0); BILIRUBIN,TOTAL 1.2 mg/dL (0.2-1); CALCIUM 8.5 mg/dL (8.5-10.1); CREATININE 1.3 mg/dL (0.55-1.3); TOT PROT 6.2 g/dl (6.4-8.2)
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
[2019-04-06] MEDS: SERTRALINE HCL 50 MG TABLET (FP) PO SCH (10:56)
[2019-04-06] MEDS: amLODIPine BESYLATE 5 MG TABLET (FP) PO SCH ×2 (10:56→22:15)
[2019-04-06] MEDS: BACITRACIN 0.9 GM PACKET TP SCH ×2 (10:57→22:14)
[2019-04-06 12:55] LABS: URINE APPEARANCE CLEAR; URINE BILIRUBIN NEGATIVE (NEGATIVE); URINE COLOR YELLOW; URINE GLUCOSE (UA) NEGATIVE (NEGATIVE); URINE KETONE TRACE (NEGATIVE); URINE LEUK ESTERASE NEGATIVE (NEGATIVE); URINE NITRITE NEGATIVE (NEGATIVE); URINE PROTEIN TRACE (NEGATIVE)
--- NOTE | 2019-04-06 14:31 | EKG ---
Test Reason : Blood Pressure : / mmHG Vent. Rate : 087 BPM Atrial Rate : 087 BPM P-R Int : 144 ms QRS Dur : 084 ms QT Int : 392 ms P-R-T Axes : 051 019 059 degrees QTc Int : 471 ms NORMAL SINUS RHYTHM POSSIBLE LEFT ATRIAL ENLARGEMENT NONSPECIFIC T WAVE ABNORMALITY PROLONGED QT ABNORMAL ECG WHEN COMPARED WITH ECG OF 06-JUN-2018 11:00, NO SIGNIFICANT CHANGE WAS FOUND Confirmed by GINI REED, NAKIA ([id number]) on 04/06/2019 2:30:50 PM Referred By: Confirmed By:NAKIA RUBALCAVA MD
[2019-04-06] MEDS: POTASSIUM CHLORIDE ORAL LIQUID 20 MEQ/15 ML PO SCH ×2 (17:03→20:00)
[2019-04-06] MEDS ORDERED: traZODone HCL 50 MG TABLET (FP) PO SCH (22:00)
[2019-04-06] MEDS: THIAMINE HCL 100 MG TABLET (FP) PO SCH (22:14)
[2019-04-06] MEDS: hydrOXYzine PAMOATE 25 MG CAPSULE (FP) PO PRN (22:48)
[2019-04-07] MEDS ORDERED: METHADONE HCL 10 MG TABLET ONE (04:07)
[2019-04-07] MEDS ORDERED: METHADONE HCL 40 MG DISPERSABLE TABLET ONE (04:08)
[2019-04-07] MEDS: chlordiazePOXIDE HCL 25 MG CAPSULE PO SCH ×2 (05:19→10:21)
[2019-04-07] MEDS ORDERED: METHADONE 40 MG, METHADONE 20 MG PO SCH (06:00)
[2019-04-07] MEDS ORDERED: METHADONE HCL 10 MG TABLET PO SCH (06:00)
[2019-04-07] MEDS: hydrOXYzine PAMOATE 25 MG CAPSULE (FP) PO PRN (09:41)
[2019-04-07] MEDS ORDERED: FOLIC ACID 1 MG TABLET (FP) PO SCH (10:00)
[2019-04-07] MEDS: SERTRALINE HCL 50 MG TABLET (FP) PO SCH (10:09)
[2019-04-07] MEDS: PRENATAL VITAMINS W/ FOLIC ACID TABLET (FP) PO SCH (10:09)
[2019-04-07] MEDS: BACITRACIN 0.9 GM PACKET TP SCH (10:09)
[2019-04-07] MEDS: NICOTINE 14 MG/24 HOURS TOPICAL PATCH TD SCH (10:09)
[2019-04-07] MEDS: amLODIPine BESYLATE 5 MG TABLET (FP) PO SCH (10:09)
[2019-04-07] MEDS: HYDROCHLOROTHIAZIDE 12.5 MG CAPSULE (FP) PO SCH (10:09)
[2019-04-07] MEDS: LISINOPRIL 10 MG TABLET (FP) PO SCH (10:09)
[2019-04-07] MEDS ORDERED: chlordiazePOXIDE HCL 10 MG CAPSULE PO ONE (15:00)
[2019-04-07] MEDS: BISMUTH SUBSALICYLATE 524 MG/30 ML UD PO PRN (16:57)
[2019-04-07] MEDS ORDERED: chlordiazePOXIDE HCL 10 MG CAPSULE PO PRN (17:00)
[2019-04-07] MEDS ORDERED: chlordiazePOXIDE HCL 10 MG CAPSULE PO SCH (17:00)
--- NOTE | 2019-04-07 17:03 | PN ---
S CIWA - CIWA Score Nausea/Vomitin-No Nausea/No Vomiting Muscle Tremors: None Anxiety: 2 Agitation: 1-Slight > Activity Paroxysmal Sweats: 2 Orientation: 0-Oriented Tacttile Disturbances: 2-Mild Itch/Numbness/Burn Auditory Disturbances: 0-None Visual Disturbances: 1-Very Mild Sensitivity Headache: 0-None Present CIWA-Ar Total Score: 8 [facility] Progress Note (SOAP) Subjective: Sweating, Itching, Interrupted sleep. Patient reports that Withdrawal / Detox symptoms have subsided considerably from the time in which he was admitted for Detox. Objective: PATIENT A & O X 3, OBSERVED AMBULATING ON UNIT UNASSISTED. IN NO ACUTE DISTRESS. 04/07/19 16:58 Vital Signs Temperature 97.7 F 04/07/19 09:25 Pulse Rate 101 H 04/07/19 09:25 Respiratory Rate 18 04/07/19 09:25 Blood Pressure 138/84 04/07/19 09:25 O2 Sat by Pulse Oximetry (%) Laboratory Tests 04/05/19 04/06/19 04/06/19 10:00 07:00 07:00 WBC 4.3 RBC 2.86 L Hgb 11.2 L Hct 32.0 L MCV 112.1 H D MCH 39.4 H MCHC 35.1 RDW 16.8 H Plt Count 94 L MPV 8.3 D Sodium 140 Potassium 3.0 L Chloride 101 Carbon Dioxide 30 Anion Gap 9 BUN 14 Creatinine 1.3 Est GFR (CKD-EPI)AfAm 72.71 Est GFR (CKD-EPI)NonAf 62.73 Random Glucose 93 Calcium 8.5 Total Bilirubin 1.2 H AST 91 H ALT 41 Alkaline Phosphatase 77 Total Protein 6.2 L Albumin 3.5 Urine Color Yellow Urine Appearance Clear Urine pH 6.0 Ur Specific [place] 1.031 Urine Protein Trace Urine Glucose (UA) Negative Urine Ketones Trace H Urine Blood Negative Urine Nitrite Negative Urine Bilirubin Negative Urine Urobilinogen 1.0 Ur Leukocyte Esterase Negative RPR Titer 04/06/19 04/07/19 07:00 07:00 WBC RBC Hgb Hct MCV MCH MCHC RDW Plt Count MPV Sodium Potassium 3.2 L Chloride Carbon Dioxide Anion Gap BUN Creatinine Est GFR (CKD-EPI)AfAm Est GFR (CKD-EPI)NonAf Random Glucose Calcium Total Bilirubin AST ALT Alkaline Phosphatase Total Protein Albumin Urine Color Urine Appearance Urine pH Ur Specific [place] Urine Protein Urine Glucose (UA) Urine Ketones Urine Blood Urine Nitrite Urine Bilirubin Urine Urobilinogen Ur Leukocyte Esterase RPR Titer Nonreactive LABS NOTED. RESULT OF REPEAT POTASSIUM LEVEL NOTED. PATIENT HAS BEEN ANEMIC AND HAS HAD LOW PLATELET AND POTASSIUM LEVELS ON PREVIOUS ADMISSIONS. 04/07/19 17:00 Assessment: 04/07/19 16:59 HYPOKALEMIA. ANEMIA. THROMBOCYTOPENIA. 04/07/19 17:01 Plan: SINCE PATIENT REPORTS THAT CURRENT WITHDRAWAL / DETOX SYMPTOMS ARE TOLERABLE AT THIS TIME AND THAT HE FEELS WELL OVERALL, AT PATIENTS REQUEST, HE WAS GRANTED AN EARLY DISCHARGE FROM DETOX UNIT TODAY SO THAT HE MAY PROCEED ON TO AFTERCARE PLAN OF [facility] ([place], [place]), BED IS CURRENTLY AVAILABLE FOR ADMISSION THERE. TREATMENT FOR HYPOKALEMIA WILL CONTINUE THERE.
--- NOTE | 2019-04-07 17:10 | DS ---
[facility] Detox Discharge Summary Admission Date: 04/05/19 Discharge Date: 04/07/19 - History Present History: Alcohol Dependence, Opioid Dependence, MMTP Additional Comments: PATIENT REPORTS THAT CURRENT WITHDRAWAL / DETOX SYMPTOMS ARE TOLERABLE AND THAT HE FEELS WELL OVERALL AT TIME OF DISCHARGE FROM DETOX UNIT. PATIENT GOING TO [facility] ([place] [facility]) FOR AFTERCARE. RESULTS OF CXR (DONE FOR HISTORY OF POSITIVE PPD) NOTED PRIOR TO TIME IN WHICH PATIENT LEFT DETOX UNIT: NO ACUTE PATHOLOGY NOTED). TREATMENT FOR HYPOAKLEMIA (NOTED WHILE PATIENT WAS ADMITTED FOR DETOX) WILL CONTINUE AT START OF ADMISSION FOR REHAB. PATIENT WILL RECEIVE MVI CONTAINNIG B VITAMINS AND IRON WHILE ADMITTED FOR REHAB. PATIENT WAS DISCHARGED FROM DETOX UNIT TO BE TAKEN OVER TO REHAB UNIT IN STABLE MEDICAL CONDITION Pertinent Past History: HTN, Depression, Anxiety, P.T.S.D., Anemia, Thrombocytopenia, M.M.T.P., Hypokalemia, Weight Loss,, Nicotine Dependence, History Of Positive PPD. - Physical Exam Results Vital Signs: Vital Signs Temperature 97.7 F 04/07/19 09:25 Pulse Rate 101 H 04/07/19 09:25 Respiratory Rate 18 04/07/19 09:25 Blood Pressure 138/84 04/07/19 09:25 O2 Sat by Pulse Oximetry (%) Pertinent Admission Physical Exam Findings: WITHDRAWAL SYMPTOMS. Laboratory Tests 04/05/19 04/06/19 04/06/19 10:00 07:00 07:00 WBC 4.3 RBC 2.86 L Hgb 11.2 L Hct 32.0 L MCV 112.1 H D MCH 39.4 H MCHC 35.1 RDW 16.8 H Plt Count 94 L MPV 8.3 D Sodium 140 Potassium 3.0 L Chloride 101 Carbon Dioxide 30 Anion Gap 9 BUN 14 Creatinine 1.3 Est GFR (CKD-EPI)AfAm 72.71 Est GFR (CKD-EPI)NonAf 62.73 Random Glucose 93 Calcium 8.5 Total Bilirubin 1.2 H AST 91 H ALT 41 Alkaline Phosphatase 77 Total Protein 6.2 L Albumin 3.5 Urine Color Yellow Urine Appearance Clear Urine pH 6.0 Ur Specific [place] 1.031 Urine Protein Trace Urine Glucose (UA) Negative Urine Ketones Trace H Urine Blood Negative Urine Nitrite Negative Urine Bilirubin Negative Urine Urobilinogen 1.0 Ur Leukocyte Esterase Negative RPR Titer 04/06/19 04/07/19 07:00 07:00 WBC RBC Hgb Hct MCV MCH MCHC RDW Plt Count MPV Sodium Potassium 3.2 L Chloride Carbon Dioxide Anion Gap BUN Creatinine Est GFR (CKD-EPI)AfAm Est GFR (CKD-EPI)NonAf Random Glucose Calcium Total Bilirubin AST ALT Alkaline Phosphatase Total Protein Albumin Urine Color Urine Appearance Urine pH Ur Specific [place] Urine Protein Urine Glucose (UA) Urine Ketones Urine Blood Urine Nitrite Urine Bilirubin Urine Urobilinogen Ur Leukocyte Esterase RPR Titer Nonreactive LABS NOTED. - Treatment Hospital Course: Detox Protocol Followed, Detoxed Safely, Responded well, Discharged Condition Good, Rehab Referral Accepted Patient has Accepted a Rehab Referral to: [facility] ([place], [place]). - Medication Discharge Medications: Ambulatory Orders Multivitamins [Tab-A-Vit -] 1 tab PO DAILY 05/01/18 Sertraline HCl [Zoloft -] 50 mg PO DAILY 06/08/18 Hydrochlorothiazide [Hctz -] 12.5 mg PO DAILY 30 Days #30 mg 06/21/18 Lisinopril [Prinivil] 30 mg PO DAILY #30 tablet 06/21/18 traZODone HCL [Trazodone HCl] 100 mg PO HS #30 tablet 06/21/18 Clonidine HCl [Catapres] 0.3 mg PO DAILY 01/28/19 Methadone (Detox) [Dolophine -] 60 mg PO DAILY 01/28/19 Folic Acid - 1 mg PO DAILY 04/05/19 - Diagnosis (1) Alcohol dependence with uncomplicated withdrawal Current Visit: Yes Status: Acute (2) Essential hypertension Current Visit: Yes Status: Chronic (3) History of positive PPD Current Visit: Yes Status: Chronic (4) History of posttraumatic stress disorder (PTSD) Current Visit: Yes Status: Chronic (5) Nicotine dependence Current Visit: Yes Status: Chronic Qualifiers: Nicotine product type: cigarettes Substance use status: uncomplicated Qualified Code(s): F17.210 - Nicotine dependence, cigarettes, uncomplicated (6) Opioid dependence on agonist therapy Current Visit: Yes Status: Chronic (7) Weight loss Current Visit: Yes Status: Chronic (8) Drug-induced mood disorder Current Visit: Yes Status: Suspected - AMA Did Patient Leave Against Medical Advice: No
[2019-04-08 07:32] VITALS: BP 183/118; PULSE 94; TEMP 98.5
[2019-04-08] MEDS ORDERED: chlordiazePOXIDE HCL 10 MG CAPSULE PO SCH (17:00)
== END 2019-04-07 17:20 | disposition other institution (70) | DRG 773 ==
LOC: YASAS 12:28 → Y3N 18:54
PROVIDERS: ADMIT Surgery; ATTEND Surgery
PROC: HZ2ZZZZ Detoxification Services for Substance Abuse Treatment (ICD-10-PCS; principal; 2019-04-05)
DX: F10.230 Alcohol dependence with withdrawal, uncomplicated (principal); F11.20 Opioid dependence, uncomplicated; F17.210 Nicotine dependence, cigarettes, uncomplicated; F19.24 Other psychoactive substance dependence with psychoactive substance-induced mood disorder; I10 Essential (primary) hypertension; R76.11 Nonspecific reaction to tuberculin skin test without active tuberculosis; R63.4 Abnormal weight loss; D64.9 Anemia, unspecified; D69.6 Thrombocytopenia, unspecified; E87.6 Hypokalemia; Z91.012 Allergy to eggs
CPT/HCPCS: 36415; 71046-TC-FY; 80053; 81003; 84132; 85027; 86593; 93005; 93010; J0735

== ENCOUNTER 2019-04-07 17:30 | Inpatient (IN) | payer OTHER ==
--- NOTE | 2019-04-07 17:16 | HP ---
[facility] Rehab Assess/Revision - Admission History Admitted to Rehab from: [facility] Date of Admission to Rehab: 04/07/2019 - Vital signs Vital Signs: NOTED; STABLE. - Findings Detox History & Physical reviewed: Yes Concur with findings: Yes Comments/Additional Findings: PATIENT'S MEDICAL / MEDICATION HISTORY REVIEWED PRIOR TO DISCHARGE FROM DETOX UNIT. TREATMENT FOR HYPOKALEMIA NOTED WHILE PATIENT WAS ADMITTED FOR DETOX WILL CONTINUE AT START OF REHAB ADMISSION, POTASSIUM KLEVEL TO BE RE-ASSESSED ON 04/10/2019. PATIENT WILL BE PRESCRIBED AN MVI CONTAINING B VITAMINS AND IRON WHILE HE IS ADMITTED FOR REHAB. PATIENT WAS DISCHARGED FROM DETOX UNIT TO BE TAKEN OVER TO REHAB UNIT IN STABLE MEDICAL CONDITION. Inpatient Rehab Admission - Rehab Decision to Admit Inpatient rehab admission?: Yes - Initial Determination Are CD services needed?: Yes Free of communicable disease: Yes Not in need of hospitalization: Yes - Rehab Admission Criteria Previous failed treatment: Yes Poor recovery environment: Yes Comorbidities: Yes Lacks judgement: Yes Patient is meeting Inpatient Rehab admission criteria:: Yes
[~2019-04-07 17:30] MED LIST: ACETAMINOPHEN 325 MG TABLET (FP) PO PRN; MAGNESIUM CITRATE 300 ML BOTTLE PO PRN; MAGNESIUM HYDROX 2400MG/30ML ORAL SUSPENSION 30 ML CUP PO PRN; MENTHOL/PHENOL 1 EACH UD MM PRN; NICOTINE POLACRILEX 2 MG GUM BUC PRN; P-EPHED 60MG/TRIPROLIDI 2.5MG TABLET PO PRN; guaiFENesin 200 MG/10 ML 10 ML UNIT-DOSE CUPS PO PRN
[2019-04-07] MEDS: POTASSIUM CHLORIDE TABS 20 MEQ TABLET.ER (FP) PO SCH (18:11)
[2019-04-07] MEDS: BACITRACIN 0.9 GM PACKET TP SCH (21:10)
[2019-04-07] MEDS: THIAMINE HCL 100 MG TABLET (FP) PO SCH (21:10)
[2019-04-07] MEDS: traZODone HCL 50 MG TABLET (FP) PO SCH (21:10)
[2019-04-07] MEDS: hydrOXYzine PAMOATE 25 MG CAPSULE (FP) PO PRN (21:12)
[2019-04-07] MEDS: MELATONIN 5 MG TABLETS PO PRN (21:12)
[2019-04-08] MEDS ORDERED: METHADONE HCL 10 MG TABLET ONE (05:31)
[2019-04-08] MEDS ORDERED: METHADONE HCL 40 MG DISPERSABLE TABLET ONE (05:31)
[2019-04-08] MEDS: METHADONE 40 MG, METHADONE 20 MG PO SCH (05:53)
[2019-04-08] MEDS ORDERED: METHADONE HCL 10 MG TABLET PO SCH (06:00)
[2019-04-08] MEDS: MAG HYDROX/AL HYDROX/SIMETH 30 ML UNIT-DOSE CUP PO PRN ×2 (08:45→16:34)
[2019-04-08] MEDS: POTASSIUM CHLORIDE TABS 20 MEQ TABLET.ER (FP) PO SCH ×2 (09:51→18:27)
[2019-04-08] MEDS: HYDROCHLOROTHIAZIDE 12.5 MG CAPSULE (FP) PO SCH (09:51)
[2019-04-08] MEDS: LISINOPRIL 10 MG TABLET (FP) PO SCH (09:51)
[2019-04-08] MEDS: NICOTINE 14 MG/24 HOURS TOPICAL PATCH TD SCH (09:51)
[2019-04-08] MEDS: PRENATAL VITAMINS W/ FOLIC ACID TABLET (FP) PO SCH (09:51)
[2019-04-08] MEDS: SERTRALINE HCL 50 MG TABLET (FP) PO SCH (09:51)
[2019-04-08] MEDS ORDERED: PT OWN MED DRAWER 7, Y5N ONE (09:53)
[2019-04-08] MEDS: BACITRACIN 0.9 GM PACKET TP SCH ×2 (09:54→21:49)
[2019-04-08] MEDS ORDERED: METHADONE HCL 10 MG TABLET (FOR DETOX USE ONLY) PO SCH (10:00)
[2019-04-08] MEDS ORDERED: FOLIC ACID 1 MG TABLET (FP) PO SCH (10:00)
[2019-04-08] MEDS ORDERED: LISINOPRIL 10 MG TABLET (FP) PO SCH (10:00)
[2019-04-08] MEDS: hydrOXYzine PAMOATE 25 MG CAPSULE (FP) PO PRN ×3 (10:15→21:48)
[2019-04-08] MEDS: THIAMINE HCL 100 MG TABLET (FP) PO SCH (21:48)
[2019-04-08] MEDS: traZODone HCL 50 MG TABLET (FP) PO SCH (21:48)
[2019-04-08] MEDS: MELATONIN 5 MG TABLETS PO PRN (21:48)
[2019-04-09] MEDS ORDERED: METHADONE HCL 40 MG DISPERSABLE TABLET ONE (03:20)
[2019-04-09] MEDS ORDERED: METHADONE HCL 10 MG TABLET ONE (03:20)
[2019-04-09] MEDS: METHADONE 40 MG, METHADONE 20 MG PO SCH (06:21)
[2019-04-09] MEDS: MAG HYDROX/AL HYDROX/SIMETH 30 ML UNIT-DOSE CUP PO PRN ×2 (06:23→15:54)
[2019-04-09] MEDS: BACITRACIN 0.9 GM PACKET TP SCH ×2 (09:51→22:03)
[2019-04-09] MEDS: HYDROCHLOROTHIAZIDE 12.5 MG CAPSULE (FP) PO SCH (09:51)
[2019-04-09] MEDS: SERTRALINE HCL 50 MG TABLET (FP) PO SCH (09:51)
[2019-04-09] MEDS: PRENATAL VITAMINS W/ FOLIC ACID TABLET (FP) PO SCH (09:51)
[2019-04-09] MEDS: LISINOPRIL 10 MG TABLET (FP) PO SCH (09:51)
[2019-04-09] MEDS: NICOTINE 14 MG/24 HOURS TOPICAL PATCH TD SCH (09:52)
[2019-04-09] MEDS: POTASSIUM CHLORIDE TABS 20 MEQ TABLET.ER (FP) PO SCH ×2 (09:52→22:02)
[2019-04-09] MEDS: hydrOXYzine PAMOATE 25 MG CAPSULE (FP) PO PRN (09:55)
[2019-04-09] MEDS: traZODone HCL 50 MG TABLET (FP) PO SCH (22:03)
[2019-04-09] MEDS: LOPERAMIDE HCL 2 MG CAPSULE PO PRN (22:05)
[2019-04-09] MEDS: TRIMETHOBENZAMIDE HCL 200MG/2ML INJ IM PRN (22:07)
[2019-04-09] MEDS: THIAMINE HCL 100 MG TABLET (FP) PO SCH (22:21)
[2019-04-10] MEDS ORDERED: METHADONE HCL 10 MG TABLET ONE (03:58)
[2019-04-10] MEDS ORDERED: METHADONE HCL 40 MG DISPERSABLE TABLET ONE (03:59)
[2019-04-10] MEDS: METHADONE 40 MG, METHADONE 20 MG PO SCH (06:07)
[2019-04-10] MEDS: LOPERAMIDE HCL 2 MG CAPSULE PO PRN ×3 (06:09→22:09)
[2019-04-10] MEDS ORDERED: PT OWN MED DRAWER 7, Y5N ONE (08:45)
[2019-04-10] MEDS: BACITRACIN 0.9 GM PACKET TP SCH (10:00)
[2019-04-10] MEDS: LISINOPRIL 10 MG TABLET (FP) PO SCH (10:00)
[2019-04-10] MEDS: SERTRALINE HCL 50 MG TABLET (FP) PO SCH (10:00)
[2019-04-10] MEDS: NICOTINE 14 MG/24 HOURS TOPICAL PATCH TD SCH (10:00)
[2019-04-10] MEDS: HYDROCHLOROTHIAZIDE 12.5 MG CAPSULE (FP) PO SCH (10:00)
[2019-04-10] MEDS: PRENATAL VITAMINS W/ FOLIC ACID TABLET (FP) PO SCH (10:00)
[2019-04-10] MEDS: hydrOXYzine PAMOATE 25 MG CAPSULE (FP) PO PRN (10:02)
[2019-04-10] MEDS ORDERED: SIMETHICONE 80 MG TAB.CHEW (FP) PO PRN (10:06)
[2019-04-10] MEDS: TRIMETHOBENZAMIDE HCL 200MG/2ML INJ IM PRN (12:10)
[2019-04-10 12:43] LABS: BASO % 0.2 % (0-2.0); EOS % 1.8 % (0-4.5); HEMATOCRIT 32.9 % (35.4-49); HEMOGLOBIN 11.1 GM/dL (11.7-16.9); LYMPH % 23.8 % (8-40); MCH 39.5 pg (25.7-33.7); MCHC 33.8 g/dl (32.0-35.9); MEAN CELL VOLUME 116.9 fl (80-96); MEAN PLT VOLUME 8.8 fl (7.5-11.1); MONO % 9.8 % (3.8-10.2); NEUT % 64.4 % (42.8-82.8); PLATELET COUNT 91 K/MM3 (134-434); RBC 2.82 M/mm3 (4.00-5.60); RDW 18.1 % (11.9-15.9); WHITE BLOOD COUNT 4.8 K/mm3 (4.0-10.0)
--- NOTE | 2019-04-10 13:00 | PN ---
[facility] Progress Note Note: PATIENT SEEN FOR C/O NAUSEA, INDIGESTION, AND VOMITING. PATIENT DENIES COUGH, CHEST PAIN, FEVER, DIARRHEA AND SOB. Laboratory Tests 04/10/19 04/10/19 08:20 08:20 WBC 4.8 RBC 2.82 L Hgb 11.1 L Hct 32.9 L MCV 116.9 H MCH 39.5 H MCHC 33.8 RDW 18.1 H Plt Count 91 L MPV 8.8 Absolute Neuts (auto) 3.1 Neutrophils % 64.4 Lymphocytes % 23.8 D Monocytes % 9.8 Eosinophils % 1.8 Basophils % 0.2 Nucleated RBC % 0 Potassium 4.3 Vital Signs Temperature 98.8 F 04/10/19 07:21 Pulse Rate 101 H 04/10/19 09:30 Respiratory Rate 18 04/10/19 09:30 Blood Pressure 123/69 04/10/19 09:30 O2 Sat by Pulse Oximetry (%) PE: ALERT AND ORIENTED X 3 SKIN WARM AND DRY +PERRLA, EOMS INTACT BL GI SOFT, BS+, NT, ND EXT FULL ROM, AMB AD SHEILA A/P: N/V INDIGESTION WILL START SIMETHICONE 80MG QID PRN CONTINUE TIGAN ORDERED AND IMMODIUM WILL REPEAT CBC ENCOURAGE ORAL FLUIDS CONTINUE TO MONITOR CLINICALLY
[2019-04-10 13:18] LABS: ANISOCYTOSIS 2+; MACROCYTOSIS 2+; OVALOCYTE 1+
[2019-04-10] MEDS: cloNIDine HCL 0.1 MG TABLET PO PRN (21:25)
[2019-04-10] MEDS: traZODone HCL 50 MG TABLET (FP) PO SCH (21:26)
[2019-04-10] MEDS: THIAMINE HCL 100 MG TABLET (FP) PO SCH (21:26)
[2019-04-11] MEDS ORDERED: METHADONE HCL 40 MG DISPERSABLE TABLET ONE (04:07)
[2019-04-11] MEDS ORDERED: METHADONE HCL 10 MG TABLET ONE (04:07)
[2019-04-11] MEDS ORDERED: BISMUTH SUBSALICYLATE 262 MG/15 ML BTL PO ONE (06:04)
[2019-04-11] MEDS: METHADONE 40 MG, METHADONE 20 MG PO SCH (06:15)
[2019-04-11] MEDS ORDERED: BISMUTH SUBSALICYLATE 262 MG/15 ML BTL PO SCH (10:00)
[2019-04-11] MEDS: PRENATAL VITAMINS W/ FOLIC ACID TABLET (FP) PO SCH (10:29)
[2019-04-11] MEDS: NICOTINE 14 MG/24 HOURS TOPICAL PATCH TD SCH (10:29)
[2019-04-11] MEDS: LISINOPRIL 10 MG TABLET (FP) PO SCH (10:29)
[2019-04-11] MEDS: HYDROCHLOROTHIAZIDE 12.5 MG CAPSULE (FP) PO SCH (10:29)
[2019-04-11] MEDS: SERTRALINE HCL 50 MG TABLET (FP) PO SCH (10:29)
[2019-04-11] MEDS: hydrOXYzine PAMOATE 25 MG CAPSULE (FP) PO PRN ×2 (10:33→21:25)
[2019-04-11 12:32] LABS: BASO % 0.1 % (0-2.0); EOS % 2.4 % (0-4.5); HEMATOCRIT 32.9 % (35.4-49); HEMOGLOBIN 11.2 GM/dL (11.7-16.9); MCH 39.7 pg (25.7-33.7); MCHC 34.1 g/dl (32.0-35.9); MEAN CELL VOLUME 116.2 fl (80-96); MEAN PLT VOLUME 8.3 fl (7.5-11.1); MONO % 10.5 % (3.8-10.2); PLATELET COUNT 101 K/MM3 (134-434); RBC 2.83 M/mm3 (4.00-5.60); RDW 17.9 % (11.9-15.9); WHITE BLOOD COUNT 3.7 K/mm3 (4.0-10.0)
[2019-04-11] MEDS: BISMUTH SUBSALICYLATE 262 MG/15 ML BTL PO PRN (17:18)
[2019-04-11] MEDS: MELATONIN 5 MG TABLETS PO PRN (21:21)
[2019-04-11] MEDS: THIAMINE HCL 100 MG TABLET (FP) PO SCH (21:21)
[2019-04-11] MEDS: traZODone HCL 50 MG TABLET (FP) PO SCH (21:22)
[2019-04-11] MEDS: cloNIDine HCL 0.1 MG TABLET PO PRN (21:24)
[2019-04-12] MEDS ORDERED: METHADONE HCL 40 MG DISPERSABLE TABLET ONE (05:10)
[2019-04-12] MEDS ORDERED: METHADONE HCL 10 MG TABLET ONE (05:10)
[2019-04-12] MEDS: METHADONE 40 MG, METHADONE 20 MG PO SCH (06:26)
[2019-04-12] MEDS: HYDROCHLOROTHIAZIDE 12.5 MG CAPSULE (FP) PO SCH (10:07)
[2019-04-12] MEDS: PRENATAL VITAMINS W/ FOLIC ACID TABLET (FP) PO SCH (10:07)
[2019-04-12] MEDS: LISINOPRIL 10 MG TABLET (FP) PO SCH (10:07)
[2019-04-12] MEDS: SERTRALINE HCL 50 MG TABLET (FP) PO SCH (10:07)
[2019-04-12] MEDS: NICOTINE 14 MG/24 HOURS TOPICAL PATCH TD SCH (10:07)
[2019-04-12] MEDS: BISMUTH SUBSALICYLATE 262 MG/15 ML BTL PO PRN ×2 (10:08→21:18)
[2019-04-12] MEDS: hydrOXYzine PAMOATE 25 MG CAPSULE (FP) PO PRN ×2 (10:08→21:17)
[2019-04-12] MEDS: traZODone HCL 50 MG TABLET (FP) PO SCH (21:17)
[2019-04-12] MEDS: THIAMINE HCL 100 MG TABLET (FP) PO SCH (21:17)
[2019-04-12] MEDS: MELATONIN 5 MG TABLETS PO PRN (21:17)
[2019-04-13] MEDS ORDERED: METHADONE HCL 10 MG TABLET ONE (03:04)
[2019-04-13] MEDS ORDERED: METHADONE HCL 40 MG DISPERSABLE TABLET ONE (03:04)
[2019-04-13] MEDS: METHADONE 40 MG, METHADONE 20 MG PO SCH (06:01)
[2019-04-13 07:02] VITALS: TEMP 98.4
[2019-04-13 10:03] VITALS: BP 133/84; PULSE 87
[2019-04-13] MEDS: LISINOPRIL 10 MG TABLET (FP) PO SCH (10:28)
[2019-04-13] MEDS: PRENATAL VITAMINS W/ FOLIC ACID TABLET (FP) PO SCH (10:28)
[2019-04-13] MEDS: HYDROCHLOROTHIAZIDE 12.5 MG CAPSULE (FP) PO SCH (10:28)
[2019-04-13] MEDS: NICOTINE 14 MG/24 HOURS TOPICAL PATCH TD SCH (10:29)
[2019-04-13] MEDS: SERTRALINE HCL 50 MG TABLET (FP) PO SCH (10:29)
[2019-04-13] MEDS: BISMUTH SUBSALICYLATE 262 MG/15 ML BTL PO PRN (10:31)
--- NOTE | 2019-04-13 11:29 | PN ---
[facility] Progress Note (SOAP) Subjective: PT DECLINED TO CONTINUE WITH REHAB FOR PERSONAL REASONS. PT REPORTS HE IS GOING BACK TO [facility] FOR CD AFTERCARE. PT WAS SEEN BY COUNSELOR, JESSE GUSMAN BEFORE EXITING. PT REPORTS HE GOES TO A CLINIC [address] IN [place], [place] FOR MEDICAL MANAGEMENT. REPORTS HE HAS OWN MEDS IN [employer] ROOM DOWNSTAIRS. ALERT O X 3. DENIES S/H/I. Objective: 04/13/19 11:28 Vital Signs 04/13/19 04/13/19 04/13/19 03:30 07:01 09:30 Temperature 98.4 F Pulse Rate 84 87 Respiratory 18 18 18 Rate Blood Pressure 127/79 133/84 Laboratory Tests 04/10/19 04/10/19 04/11/19 08:20 08:20 08:40 WBC 4.8 3.7 L RBC 2.82 L 2.83 L Hgb 11.1 L 11.2 L Hct 32.9 L 32.9 L MCV 116.9 H 116.2 H MCH 39.5 H 39.7 H MCHC 33.8 34.1 RDW 18.1 H 17.9 H Plt Count 91 L 101 L MPV 8.8 8.3 Absolute Neuts (auto) 3.1 2.2 Neutrophils % 64.4 60.0 Lymphocytes % 23.8 D 27.0 Monocytes % 9.8 10.5 H Eosinophils % 1.8 2.4 Basophils % 0.2 0.1 Nucleated RBC % 0 0 Anisocytosis 2+ Macrocytosis 2+ Ovalocytes 1+ Potassium 4.3 Assessment: 04/13/19 11:29 NAD Plan: PLAN:PT SIGNED OUT AMA PT INSTRUCTED TO FOLLOW UP WITH CD AFTERCARE RECOMMENDED AND MEDICAL MANAGEMENT WITHIN 1-2 WEEKS AFTER DISCHARGE.
[2019-04-14] MEDS ORDERED: METHADONE 40 MG, METHADONE 20 MG PO SCH (06:00)
== END 2019-04-13 11:00 | disposition left against medical advice (07) | DRG 770 ==
LOC: YASAS 17:30 → Y3W 17:31
PROVIDERS: ADMIT Neuromusculoskeletal Medicine & OMM; ATTEND Neuromusculoskeletal Medicine & OMM
PROC: HZ42ZZZ Group Counseling for Substance Abuse Treatment, Cognitive-Behavioral (ICD-10-PCS; principal; 2019-04-07)
DX: F10.230 Alcohol dependence with withdrawal, uncomplicated (principal); F11.20 Opioid dependence, uncomplicated; F17.210 Nicotine dependence, cigarettes, uncomplicated; F19.24 Other psychoactive substance dependence with psychoactive substance-induced mood disorder; I10 Essential (primary) hypertension; D69.6 Thrombocytopenia, unspecified; D64.9 Anemia, unspecified; R76.11 Nonspecific reaction to tuberculin skin test without active tuberculosis; Z91.012 Allergy to eggs
CPT/HCPCS: 36415; 84132; 85025; J0735

== ENCOUNTER 2019-05-14 10:47 | Inpatient (IN) | payer OTHER ==
[2019-05-14 12:38] VITALS: BMI 25.8
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
[2019-05-14] MEDS ORDERED: hydrOXYzine PAMOATE 25 MG CAPSULE (FP) PO PRN (14:48)
[2019-05-14] MEDS ORDERED: ACETAMINOPHEN 325 MG TABLET (FP) PO PRN ×2 (14:48)
[2019-05-14] MEDS ORDERED: MAG HYDROX/AL HYDROX/SIMETH 30 ML UNIT-DOSE CUP PO PRN (14:48)
[2019-05-14] MEDS ORDERED: MENTHOL/PHENOL 1 EACH UD MM PRN (14:48)
[2019-05-14] MEDS ORDERED: MELATONIN 5 MG TABLETS PO PRN (14:48)
[2019-05-14] MEDS ORDERED: chlordiazePOXIDE HCL 25 MG CAPSULE PO PRN (14:48)
[2019-05-14] MEDS ORDERED: IBUPROFEN 400 MG TABLET (FP) PO PRN (14:48)
[2019-05-14] MEDS ORDERED: METHOCARBAMOL 500 MG TABLET PO PRN (14:48)
[2019-05-14] MEDS ORDERED: MAGNESIUM HYDROX 2400MG/30ML ORAL SUSPENSION 30 ML CUP PO PRN (14:48)
[2019-05-14] MEDS ORDERED: MAGNESIUM CITRATE 300 ML BOTTLE PO PRN (14:48)
[2019-05-14] MEDS: chlordiazePOXIDE HCL 25 MG CAPSULE PO SCH ×2 (17:12→22:07)
[2019-05-14] MEDS: THIAMINE HCL 100 MG TABLET (FP) PO SCH (22:07)
[2019-05-14] MEDS: cloNIDine HCL 0.1 MG TABLET PO SCH (22:07)
[2019-05-15] MEDS: chlordiazePOXIDE HCL 25 MG CAPSULE PO SCH ×4 (05:41→22:02)
[2019-05-15] MEDS: BISMUTH SUBSALICYLATE 524 MG/30 ML UD PO PRN ×6 (07:20→20:42)
[2019-05-15] MEDS ORDERED: METHADONE HCL 10 MG TABLET PO SCH (07:30)
[2019-05-15] MEDS ORDERED: cloNIDine HCL 0.1 MG TABLET PO ONE (07:33)
--- NOTE | 2019-05-15 07:37 | PN ---
S Progress Note Note: Patient's blood pressure this morning was B/P 157/105 and B/P 157/97 respectively Vital Signs 05/15/19 05/15/19 05/15/19 00:30 06:08 06:30 Temperature 97.5 F L Pulse Rate 81 Respiratory 16 18 18 Rate Blood Pressure 157/105 H 05/15/19 07:24 Temperature Pulse Rate 85 Respiratory Rate Blood Pressure 157/97 Action: Clonidine 0.1mg tablet oral ordered
[2019-05-15] MEDS ORDERED: METHADONE HCL 10 MG TABLET ONE (07:59)
[2019-05-15] MEDS ORDERED: METHADONE HCL 40 MG DISPERSABLE TABLET ONE (07:59)
[2019-05-15] MEDS: METHADONE 40 MG, METHADONE 20 MG PO SCH (08:02)
[2019-05-15] MEDS ORDERED: LISINOPRIL 10 MG TABLET (FP) PO SCH (10:00)
[2019-05-15 10:18] LABS: HEMATOCRIT 30.6 % (35.4-49); HEMOGLOBIN 10.4 GM/dL (11.7-16.9); MCH 38.5 pg (25.7-33.7); MEAN CELL VOLUME 113.3 fl (80-96); MEAN PLT VOLUME 8.9 fl (7.5-11.1); PLATELET COUNT 191 K/MM3 (134-434); WHITE BLOOD COUNT 3.3 K/mm3 (4.0-10.0)
[2019-05-15] MEDS: PRENATAL VITAMINS W/ FOLIC ACID TABLET (FP) PO SCH (10:30)
[2019-05-15 10:31] LABS: ALBUMIN 3.5 g/dl (3.4-5.0); BILIRUBIN,TOTAL 1.7 mg/dL (0.2-1); BLOOD UREA NITROGEN 6.9 mg/dL (7-18); CALCIUM 8.6 mg/dL (8.5-10.1); POTASSIUM 3.7 mmol/L (3.5-5.1); TOT PROT 6.6 g/dl (6.4-8.2)
[2019-05-15] MEDS: HYDROCHLOROTHIAZIDE 12.5 MG CAPSULE (FP) PO SCH (10:31)
[2019-05-15] MEDS: cloNIDine HCL 0.1 MG TABLET PO SCH ×2 (10:34→22:03)
[2019-05-15] MEDS ORDERED: PROCHLORPERAZINE MALEATE 5 MG TABLET PO PRN (11:40)
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
[2019-05-15] MEDS: NICOTINE 21 MG/24 HOURS TOPICAL PATCH TD SCH (12:33)
--- NOTE | 2019-05-15 14:38 | PN ---
[facility] CIWA - CIWA Score Nausea/Vomitin Muscle Tremors: None Anxiety: 3 Agitation: 2 Paroxysmal Sweats: 2 Orientation: 0-Oriented Tacttile Disturbances: 2-Mild Itch/Numbness/Burn Auditory Disturbances: 0-None Visual Disturbances: 2-Mild Sensitivity Headache: 0-None Present CIWA-Ar Total Score: 14 [facility] Progress Note (SOAP) Subjective: Nausea, Anxious, Diarrhea. Objective: PATIENT A & O X 3, OBSERVED AMBULATING ON UNIT UNASSISTED. IN NO ACUTE DISTRESS. 05/15/19 14:35 Vital Signs Temperature 98.7 F 05/15/19 13:17 Pulse Rate 100 H 05/15/19 13:17 Respiratory Rate 18 05/15/19 13:17 Blood Pressure 132/93 05/15/19 13:17 O2 Sat by Pulse Oximetry (%) Laboratory Tests 05/15/19 05/15/19 05/15/19 07:00 07:00 07:00 WBC 3.3 L RBC 2.70 L Hgb 10.4 L Hct 30.6 L MCV 113.3 H MCH 38.5 H MCHC 34.0 RDW 18.0 H Plt Count 191 D MPV 8.9 Sodium 142 Potassium 3.7 Chloride 106 Carbon Dioxide 29 Anion Gap 7 L BUN 6.9 L Creatinine 1.0 Est GFR (CKD-EPI)AfAm 99.85 Est GFR (CKD-EPI)NonAf 86.15 Random Glucose 83 Calcium 8.6 Total Bilirubin 1.7 H AST 101 H ALT 78 H Alkaline Phosphatase 86 Total Protein 6.6 Albumin 3.5 RPR Titer Nonreactive HIV 1&2 Antibody Screen HIV P24 Antigen 05/15/19 07:00 WBC RBC Hgb Hct MCV MCH MCHC RDW Plt Count MPV Sodium Potassium Chloride Carbon Dioxide Anion Gap BUN Creatinine Est GFR (CKD-EPI)AfAm Est GFR (CKD-EPI)NonAf Random Glucose Calcium Total Bilirubin AST ALT Alkaline Phosphatase Total Protein Albumin RPR Titer HIV 1&2 Antibody Screen Negative HIV P24 Antigen Negative LABS NOTED. Assessment: 05/15/19 14:35 WITHDRAWAL SYMPTOMS. HYPERTENSION. ELEVATED AST LEVEL. 05/15/19 14:36 Plan: CONTINUE DETOX. INCREASE DAILY PO WATER INTAKE. PRN COMPAZINE PO FOR NAUSEA. PRN PEPTO-BISMOL PO FOR DIARRHEA. REPEAT AST LEVEL ON 03/19/2019 FOR ELEVATED ADMISSION LEVEL. INCREASE DAILY DOSE OF LISINOPRIL TO 40 MG PO DAILY FOR ELEVATED BLOOD PRESSURE DESPITE TREATMENT.
[2019-05-15] MEDS ORDERED: LISINOPRIL 10 MG TABLET (FP) PO ONE (14:55)
[2019-05-15 15:29] LABS: PH,URINE 6.5 (5.0-8.0); URINE APPEARANCE CLEAR; URINE BILIRUBIN NEGATIVE (NEGATIVE); URINE COLOR YELLOW; URINE GLUCOSE (UA) NEGATIVE (NEGATIVE); URINE KETONE NEGATIVE (NEGATIVE); URINE LEUK ESTERASE NEGATIVE (NEGATIVE); URINE NITRITE NEGATIVE (NEGATIVE); URINE PROTEIN NEGATIVE (NEGATIVE)
[2019-05-15] MEDS ORDERED: traZODone HCL 100 MG TABLET (FP) PO SCH (22:00)
[2019-05-15] MEDS: THIAMINE HCL 100 MG TABLET (FP) PO SCH (22:03)
[2019-05-16] MEDS ORDERED: METHADONE HCL 10 MG TABLET ONE (04:02)
[2019-05-16] MEDS ORDERED: METHADONE HCL 40 MG DISPERSABLE TABLET ONE (04:02)
[2019-05-16] MEDS: chlordiazePOXIDE HCL 25 MG CAPSULE PO SCH ×2 (05:35→10:19)
[2019-05-16] MEDS: METHADONE 40 MG, METHADONE 20 MG PO SCH (05:35)
[2019-05-16] MEDS: BISMUTH SUBSALICYLATE 524 MG/30 ML UD PO PRN (06:46)
[2019-05-16] MEDS ORDERED: LISINOPRIL 20 MG TABLET (FP) PO SCH (10:00)
[2019-05-16] MEDS ORDERED: FOLIC ACID 1 MG TABLET (FP) PO SCH (10:00)
[2019-05-16] MEDS ORDERED: SERTRALINE HCL 50 MG TABLET (FP) PO SCH (10:00)
[2019-05-16] MEDS: cloNIDine HCL 0.1 MG TABLET PO SCH (10:19)
[2019-05-16] MEDS: HYDROCHLOROTHIAZIDE 12.5 MG CAPSULE (FP) PO SCH (10:19)
[2019-05-16] MEDS: PRENATAL VITAMINS W/ FOLIC ACID TABLET (FP) PO SCH (10:19)
[2019-05-16] MEDS: NICOTINE 21 MG/24 HOURS TOPICAL PATCH TD SCH (10:19)
[2019-05-16 13:13] VITALS: BP 121/86; PULSE 86; TEMP 98.5
--- NOTE | 2019-05-16 14:30 | PN ---
S CIWA - CIWA Score Nausea/Vomitin Muscle Tremors: None Anxiety: 3 Agitation: 2 Paroxysmal Sweats: 2 Orientation: 0-Oriented Tacttile Disturbances: 1-Very Mild Itch/Numbness Auditory Disturbances: 1-Very Mild Visual Disturbances: 0-None Headache: 0-None Present CIWA-Ar Total Score: 11 S Progress Note (SOAP) Subjective: Nausea, Anxious, Restless. Objective: PATIENT A & O X 3, OBSERVED AMBULATING ON UNIT UNASSISTED. IN NO ACUTE DISTRESS. 05/16/19 14:31 Vital Signs Temperature 98.5 F 05/16/19 13:12 Pulse Rate 86 05/16/19 13:12 Respiratory Rate 18 05/16/19 13:12 Blood Pressure 121/86 05/16/19 13:12 O2 Sat by Pulse Oximetry (%) Laboratory Tests 05/15/19 05/15/19 05/15/19 07:00 07:00 07:00 WBC 3.3 L RBC 2.70 L Hgb 10.4 L Hct 30.6 L MCV 113.3 H MCH 38.5 H MCHC 34.0 RDW 18.0 H Plt Count 191 D MPV 8.9 Sodium 142 Potassium 3.7 Chloride 106 Carbon Dioxide 29 Anion Gap 7 L BUN 6.9 L Creatinine 1.0 Est GFR (CKD-EPI)AfAm 99.85 Est GFR (CKD-EPI)NonAf 86.15 Random Glucose 83 Calcium 8.6 Total Bilirubin 1.7 H AST 101 H ALT 78 H Alkaline Phosphatase 86 Total Protein 6.6 Albumin 3.5 Urine Color Urine Appearance Urine pH Ur Specific [place] Urine Protein Urine Glucose (UA) Urine Ketones Urine Blood Urine Nitrite Urine Bilirubin Urine Urobilinogen Ur Leukocyte Esterase RPR Titer Nonreactive HIV 1&2 Antibody Screen HIV P24 Antigen 05/15/19 05/15/19 07:00 13:25 WBC RBC Hgb Hct MCV MCH MCHC RDW Plt Count MPV Sodium Potassium Chloride Carbon Dioxide Anion Gap BUN Creatinine Est GFR (CKD-EPI)AfAm Est GFR (CKD-EPI)NonAf Random Glucose Calcium Total Bilirubin AST ALT Alkaline Phosphatase Total Protein Albumin Urine Color Yellow Urine Appearance Clear Urine pH 6.5 Ur Specific [place] 1.018 Urine Protein Negative Urine Glucose (UA) Negative Urine Ketones Negative Urine Blood Negative Urine Nitrite Negative Urine Bilirubin Negative Urine Urobilinogen 1.0 Ur Leukocyte Esterase Negative RPR Titer HIV 1&2 Antibody Screen Negative HIV P24 Antigen Negative LABS NOTED. Assessment: 05/16/19 14:32 WITHDRAWAL SYMPTOMS. LEUKOPENIA. ANEMIA. Plan: CONTINUE DETOX.
--- NOTE | 2019-05-16 14:37 | DS ---
[facility] Detox Discharge Summary Admission Date: 05/14/19 Discharge Date: 05/16/19 - History Present History: Alcohol Dependence, Opioid Dependence, MMTP Additional Comments: DESPITE EFFORTS BY ASSISTANT ACCOUNTING MANAGER AND BY NURSING STAFF TO ADDRESS PATIENT'S MEDICAL NEEDS / CONCERNS, PATIENT DOES NOT WISH TO REMAIN TO COMPLETE DETOX REGIMEN. RISKS OF LEAVING DETOX UNIT AGAINST MEDICAL ADVICE AND PRIOR TO COMPLETION OF DETOX REGIMEN EXPLAINED TO PATIENT. PATIENT ADVISED TO GO IMMEDIATELY TO NEAREST ER SHOULD ANY INTOLERABLE WITHDRAWAL / DETOX SYMPTOMS DEVELOP AT ANY TIME. PATIENT ALSO ADVISED TO FOLLOW-UP WITH FOREST FIREFIGHTER SOON POSSIBLE FOR GENERAL MEDICAL ASSESSMENT AND FOR ELEVATED LIVER ENZYMES AND BILIRUBIN LEVEL AND FOR ANEMIA AND LEUKOPENIA NOTED ON DETOX ADMISSION LABORATORY ASSESSMENT. PATIENT VERBALIZED UNDERSTANDING OF ALL INFORMATION / RECOMMENDATIONS PRESENTED TO HIM PRIOR TO DEPARTURE FROM DETOX UNIT. COPIES OF RESULTS OF ALL LABS DRAWN WHILE ADMITTED FOR DETOX GIVEN TO PATIENT AT TIME OF DISCHARGE FROM DETOX UNIT. PATIENT LEFT DETOX UNIT IN STABLE MEDICAL CONDITION. Pertinent Past History: HTN, Nicotine Dependence, Depression, M.M.T.P., Anemia, Leukopenia, Hyperbilirubinemia, Elevated Liver Enzymes (AST, ALT). - Physical Exam Results Vital Signs: Vital Signs Temperature 98.5 F 05/16/19 13:12 Pulse Rate 86 05/16/19 13:12 Respiratory Rate 18 05/16/19 13:12 Blood Pressure 121/86 05/16/19 13:12 O2 Sat by Pulse Oximetry (%) Pertinent Admission Physical Exam Findings: WITHDRAWAL SYMPTOMS. Laboratory Tests 05/15/19 05/15/19 05/15/19 07:00 07:00 07:00 WBC 3.3 L RBC 2.70 L Hgb 10.4 L Hct 30.6 L MCV 113.3 H MCH 38.5 H MCHC 34.0 RDW 18.0 H Plt Count 191 D MPV 8.9 Sodium 142 Potassium 3.7 Chloride 106 Carbon Dioxide 29 Anion Gap 7 L BUN 6.9 L Creatinine 1.0 Est GFR (CKD-EPI)AfAm 99.85 Est GFR (CKD-EPI)NonAf 86.15 Random Glucose 83 Calcium 8.6 Total Bilirubin 1.7 H AST 101 H ALT 78 H Alkaline Phosphatase 86 Total Protein 6.6 Albumin 3.5 Urine Color Urine Appearance Urine pH Ur Specific [place] Urine Protein Urine Glucose (UA) Urine Ketones Urine Blood Urine Nitrite Urine Bilirubin Urine Urobilinogen Ur Leukocyte Esterase RPR Titer Nonreactive HIV 1&2 Antibody Screen HIV P24 Antigen 05/15/19 05/15/19 07:00 13:25 WBC RBC Hgb Hct MCV MCH MCHC RDW Plt Count MPV Sodium Potassium Chloride Carbon Dioxide Anion Gap BUN Creatinine Est GFR (CKD-EPI)AfAm Est GFR (CKD-EPI)NonAf Random Glucose Calcium Total Bilirubin AST ALT Alkaline Phosphatase Total Protein Albumin Urine Color Yellow Urine Appearance Clear Urine pH 6.5 Ur Specific [place] 1.018 Urine Protein Negative Urine Glucose (UA) Negative Urine Ketones Negative Urine Blood Negative Urine Nitrite Negative Urine Bilirubin Negative Urine Urobilinogen 1.0 Ur Leukocyte Esterase Negative RPR Titer HIV 1&2 Antibody Screen Negative HIV P24 Antigen Negative LABS NOTED. - Treatment Hospital Course: Detox Protocol Followed, Detoxed Safely - Medication Discharge Medications: Ambulatory Orders Multivitamins [Tab-A-Vit -] 1 tab PO DAILY 05/01/18 Sertraline HCl [Zoloft -] 50 mg PO DAILY 06/08/18 Hydrochlorothiazide [Hctz -] 12.5 mg PO DAILY 30 Days #30 mg 06/21/18 Lisinopril [Prinivil] 30 mg PO DAILY #30 tablet 06/21/18 traZODone HCL [Trazodone HCl] 100 mg PO HS #30 tablet 06/21/18 Folic Acid - 1 mg PO DAILY 04/05/19 - Diagnosis (1) Alcohol dependence with uncomplicated withdrawal Status: Acute (2) Hypertension Status: Acute Qualifiers: Hypertension type: unspecified Qualified Code(s): I10 - Essential (primary ) hypertension (3) Methadone maintenance therapy patient Status: Acute (4) Anemia Status: Chronic Qualifiers: Anemia type: unspecified type Qualified Code(s): D64.9 - Anemia, unspecified (5) Nicotine dependence Status: Chronic Qualifiers: Nicotine product type: cigarettes Substance use status: uncomplicated Qualified Code(s): F17.210 - Nicotine dependence, cigarettes, uncomplicated (6) Hyperbilirubinemia Status: Acute (7) Elevated liver enzymes Status: Acute (8) Leukopenia Status: Acute Qualifiers: Leukopenia type: unspecified Qualified Code(s): D72.819 - Decreased white blood cell count, unspecified - AMA Did Patient Leave Against Medical Advice: Yes (PATIENT DID NOT WISH TO REMAIN TO COMPLETE DETOX REGIMEN.)
[2019-05-16] MEDS ORDERED: chlordiazePOXIDE HCL 10 MG CAPSULE PO PRN (17:00)
[2019-05-16] MEDS ORDERED: chlordiazePOXIDE HCL 10 MG CAPSULE PO SCH (17:00)
[2019-05-17] MEDS ORDERED: chlordiazePOXIDE HCL 10 MG CAPSULE PO SCH (17:00)
== END 2019-05-16 14:15 | disposition left against medical advice (07) | DRG 770 ==
LOC: YASAS 10:47 → Y3N 15:01
PROVIDERS: ADMIT Surgery; ATTEND Surgery
PROC: HZ2ZZZZ Detoxification Services for Substance Abuse Treatment (ICD-10-PCS; principal; 2019-05-14)
DX: F10.230 Alcohol dependence with withdrawal, uncomplicated (principal); F11.20 Opioid dependence, uncomplicated; F17.210 Nicotine dependence, cigarettes, uncomplicated; F33.1 Major depressive disorder, recurrent, moderate; F19.24 Other psychoactive substance dependence with psychoactive substance-induced mood disorder; I10 Essential (primary) hypertension; D72.819 Decreased white blood cell count, unspecified; E80.6 Other disorders of bilirubin metabolism; D64.9 Anemia, unspecified; R94.5 Abnormal results of liver function studies
CPT/HCPCS: 36415; 80053; 81003; 85027; 86593; 87389; J0735

== ENCOUNTER 2019-07-11 12:14 | Inpatient (IN) | payer OTHER ==
[2019-07-11 15:22] VITALS: BMI 25.8
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
[2019-07-11] MEDS ORDERED: MAGNESIUM CITRATE 300 ML BOTTLE PO PRN (16:35)
[2019-07-11] MEDS ORDERED: MAGNESIUM HYDROX 2400MG/30ML ORAL SUSPENSION 30 ML CUP PO PRN (16:35)
[2019-07-11] MEDS ORDERED: MAG HYDROX/AL HYDROX/SIMETH 30 ML UNIT-DOSE CUP PO PRN (16:35)
[2019-07-11] MEDS ORDERED: BISMUTH SUBSALICYLATE 524 MG/30 ML UD PO PRN (16:35)
[2019-07-11] MEDS ORDERED: ONDANSETRON *ODT* 4 MG TABLET SL PRN (16:35)
[2019-07-11] MEDS ORDERED: MENTHOL/PHENOL 1 EACH UD MM PRN (16:35)
[2019-07-11] MEDS ORDERED: MELATONIN 5 MG TABLETS PO PRN (16:35)
[2019-07-11] MEDS ORDERED: chlordiazePOXIDE HCL 25 MG CAPSULE PO PRN (16:35)
[2019-07-11] MEDS ORDERED: IBUPROFEN 400 MG TABLET (FP) PO PRN (16:35)
[2019-07-11] MEDS ORDERED: chlordiazePOXIDE HCL 25 MG CAPSULE PO ONE (16:35)
[2019-07-11] MEDS ORDERED: NICOTINE POLACRILEX 2 MG GUM BUC PRN (16:35)
[2019-07-11] MEDS ORDERED: METHOCARBAMOL 500 MG TABLET PO PRN (16:35)
[2019-07-11] MEDS ORDERED: ACETAMINOPHEN 325 MG TABLET (FP) PO PRN ×2 (16:35)
[2019-07-11] MEDS: chlordiazePOXIDE HCL 25 MG CAPSULE PO SCH ×2 (18:05→22:15)
[2019-07-11] MEDS: traZODone HCL 100 MG TABLET (FP) PO SCH (22:14)
[2019-07-11] MEDS: CYANOCOBALAMIN 1,000 MCG TABLET (FP) PO SCH (22:15)
[2019-07-11] MEDS: THIAMINE HCL 100 MG TABLET (FP) PO SCH (22:15)
[2019-07-12] MEDS: chlordiazePOXIDE HCL 25 MG CAPSULE PO SCH ×4 (05:25→22:12)
[2019-07-12] MEDS ORDERED: METHADONE 40 MG, METHADONE 30 MG PO ONE (09:30)
[2019-07-12] MEDS ORDERED: METHADONE HCL 10 MG TABLET ONE (09:51)
[2019-07-12] MEDS ORDERED: METHADONE HCL 40 MG DISPERSABLE TABLET ONE (09:52)
[2019-07-12] MEDS ORDERED: METHADONE HCL 10 MG TABLET PO ONE (10:00)
[2019-07-12] MEDS ORDERED: FOLIC ACID 1 MG TABLET (FP) PO SCH (10:00)
--- NOTE | 2019-07-12 10:09 | PN ---
[facility] CIWA - CIWA Score Nausea/Vomitin-Mild Nausea/No Vomiting Muscle Tremors: 4-Moderate,w/Arms Extend Anxiety: 2 Agitation: 3 Paroxysmal Sweats: 2 Orientation: 0-Oriented Tacttile Disturbances: 0-None Auditory Disturbances: 0-None Visual Disturbances: 0-None Headache: 0-None Present CIWA-Ar Total Score: 12 S Progress Note (SOAP) Subjective: 54 years old male admitted on 07/11/19 for acute alcohol withdrawal sx management received methadone 70 mg po today feeling better tolerate food and fluid well discuss aftercare with staff prefers [facility] Objective: 07/12/19 10:08 Vital Signs Temperature 98.3 F 07/12/19 09:32 Pulse Rate 81 07/12/19 09:32 Respiratory Rate 18 07/12/19 09:32 Blood Pressure 131/82 07/12/19 09:32 O2 Sat by Pulse Oximetry (%) 07/12/19 10:09 admission lab ordered on 07/12/19 Assessment: 07/12/19 10:09 alcohol withdrawal sx alert oriented x 3 07/12/19 10:10 S1S2 Regular Plan: continue libirum detox regimen
[2019-07-12] MEDS: HYDROCHLOROTHIAZIDE 12.5 MG CAPSULE (FP) PO SCH (10:23)
[2019-07-12] MEDS: LISINOPRIL 10 MG TABLET (FP) PO SCH (10:23)
[2019-07-12] MEDS: PRENATAL VITAMINS W/ FOLIC ACID TABLET (FP) PO SCH (10:23)
[2019-07-12] MEDS: CYANOCOBALAMIN 1,000 MCG TABLET (FP) PO SCH ×2 (10:23→22:12)
[2019-07-12] MEDS: NICOTINE 21 MG/24 HOURS TOPICAL PATCH TD SCH (10:23)
[2019-07-12] MEDS: hydrOXYzine PAMOATE 25 MG CAPSULE (FP) PO PRN ×2 (10:26→17:39)
[2019-07-12] MEDS: MINERAL OIL/PETROLAT/WATER TOPICAL CREAM 113 GM JAR TP SCH ×2 (13:49→22:12)
[2019-07-12 14:35] LABS: HEMATOCRIT 36.6 % (35.4-49); HEMOGLOBIN 12.5 GM/dL (11.7-16.9); MCH 37.7 pg (25.7-33.7); MCHC 34.3 g/dl (32.0-35.9); MEAN CELL VOLUME 110.1 fl (80-96); MEAN PLT VOLUME 9.1 fl (7.5-11.1); PLATELET COUNT 126 K/MM3 (134-434); RBC 3.32 M/mm3 (4.00-5.60); RDW 21.5 % (11.9-15.9); WHITE BLOOD COUNT 4.6 K/mm3 (4.0-10.0)
[2019-07-12 15:24] LABS: ALBUMIN 4.2 g/dl (3.4-5.0); BILIRUBIN,TOTAL 1.7 mg/dL (0.2-1); BLOOD UREA NITROGEN 4.7 mg/dL (7-18); CALCIUM 9.6 mg/dL (8.5-10.1); CREATININE 1.1 mg/dL (0.55-1.3); POTASSIUM 3.3 mmol/L (3.5-5.1); TOT PROT 7.6 g/dl (6.4-8.2)
[2019-07-12] MEDS: traZODone HCL 100 MG TABLET (FP) PO SCH (22:11)
[2019-07-12] MEDS: THIAMINE HCL 100 MG TABLET (FP) PO SCH (22:11)
[2019-07-13] MEDS ORDERED: METHADONE HCL 10 MG TABLET ONE (04:41)
[2019-07-13] MEDS ORDERED: METHADONE HCL 40 MG DISPERSABLE TABLET ONE (04:41)
[2019-07-13] MEDS: chlordiazePOXIDE HCL 25 MG CAPSULE PO SCH ×4 (05:42→22:29)
[2019-07-13] MEDS ORDERED: METHADONE HCL 40 MG DISPERSABLE TABLET PO SCH (06:00)
[2019-07-13] MEDS: MINERAL OIL/PETROLAT/WATER TOPICAL CREAM 113 GM JAR TP SCH ×3 (06:18→22:30)
[2019-07-13] MEDS: METHADONE 40 MG, METHADONE 30 MG PO SCH (06:43)
[2019-07-13] MEDS: HYDROCHLOROTHIAZIDE 12.5 MG CAPSULE (FP) PO SCH (10:36)
[2019-07-13] MEDS: CYANOCOBALAMIN 1,000 MCG TABLET (FP) PO SCH ×2 (10:36→22:29)
[2019-07-13] MEDS: PRENATAL VITAMINS W/ FOLIC ACID TABLET (FP) PO SCH (10:36)
[2019-07-13] MEDS: LISINOPRIL 10 MG TABLET (FP) PO SCH (10:36)
[2019-07-13] MEDS: NICOTINE 21 MG/24 HOURS TOPICAL PATCH TD SCH (10:37)
--- NOTE | 2019-07-13 10:57 | PN ---
[facility] CIWA - CIWA Score Nausea/Vomitin-Mild Nausea/No Vomiting Muscle Tremors: 2 Anxiety: 3 Agitation: 2 Paroxysmal Sweats: 2 Orientation: 0-Oriented Tacttile Disturbances: 1-Very Mild Itch/Numbness Auditory Disturbances: 0-None Visual Disturbances: 0-None Headache: 0-None Present CIWA-Ar Total Score: 11 S Progress Note (SOAP) Subjective: 54 years old male admitted on 07/11/19 for acute alcohol withdrawal sx management doing well with libirum detox regimen reporting long history of ventral hernia had regular bowel movement early today denies vomiting denies pain tolerate food and fluid well ambulating on hallway steady gait alert oriented x 3 social with peers in day room skin color mild protrude mid abdomen breathe ease and even + bowel sound x 4 soft non tender patient requests surgical intervention to fix the hernia encourage the patient follow up with surgeon upon discharged from detox Objective: 07/13/19 11:01 Vital Signs Temperature 97.9 F 07/13/19 09:32 Pulse Rate 83 07/13/19 09:32 Respiratory Rate 18 07/13/19 09:32 Blood Pressure 142/98 07/13/19 09:32 O2 Sat by Pulse Oximetry (%) Laboratory Last Values WBC 4.6 K/mm3 (4.0-10.0) 07/12/19 10:40 RBC 3.32 M/mm3 (4.00-5.60) L 07/12/19 10:40 Hgb 12.5 GM/dL (11.7-16.9) 07/12/19 10:40 Hct 36.6 % (35.4-49) D 07/12/19 10:40 MCV 110.1 fl (80-96) H 07/12/19 10:40 MCH 37.7 pg (25.7-33.7) H 07/12/19 10:40 MCHC 34.3 g/dl (32.0-35.9) 07/12/19 10:40 RDW 21.5 % (11.9-15.9) H 07/12/19 10:40 Plt Count 126 K/MM3 (134-434) L D 07/12/19 10:40 MPV 9.1 fl (7.5-11.1) 07/12/19 10:40 Sodium 144 mmol/L (136-145) 07/12/19 10:40 Potassium 3.3 mmol/L (3.5-5.1) L 07/12/19 10:40 Chloride 104 mmol/L (98-107) 07/12/19 10:40 Carbon Dioxide 31 mmol/L (21-32) 07/12/19 10:40 Anion Gap 8 MMOL/L (8-16) 07/12/19 10:40 BUN 4.7 mg/dL (7-18) L 07/12/19 10:40 Creatinine 1.1 mg/dL (0.55-1.3) 07/12/19 10:40 Est GFR (CKD-EPI)AfAm 88.36 07/12/19 10:40 Est GFR (CKD-EPI)NonAf 76.24 07/12/19 10:40 Random Glucose 119 mg/dL (74-106) H 07/12/19 10:40 Calcium 9.6 mg/dL (8.5-10.1) 07/12/19 10:40 Total Bilirubin 1.7 mg/dL (0.2-1) H 07/12/19 10:40 AST 149 U/L (15-37) H 07/12/19 10:40 ALT 86 U/L (13-61) H 07/12/19 10:40 Alkaline Phosphatase 90 U/L (45-117) 07/12/19 10:40 Total Protein 7.6 g/dl (6.4-8.2) 07/12/19 10:40 Albumin 4.2 g/dl (3.4-5.0) 07/12/19 10:40 lab noted low K+ ast elevation 07/13/19 11:15 fasting glucose Assessment: 07/13/19 11:15 alcohol withdrawal sx alert oriented x 3 steady gait coherent speech, tolerated food and fluid well no nausea 07/13/19 11:17 Plan: continue libirum detox regimen
[2019-07-13] MEDS: RANITIDINE HCL 150 MG TABLET (FP) PO SCH ×2 (12:56→22:29)
[2019-07-13] MEDS: POTASSIUM CHLORIDE TABS 20 MEQ TABLET.ER (FP) PO SCH ×2 (12:57→22:29)
[2019-07-13] MEDS: THIAMINE HCL 100 MG TABLET (FP) PO SCH (22:29)
[2019-07-13] MEDS: traZODone HCL 100 MG TABLET (FP) PO SCH (22:29)
[2019-07-13] MEDS: hydrOXYzine PAMOATE 25 MG CAPSULE (FP) PO PRN (22:33)
[2019-07-14] MEDS ORDERED: chlordiazePOXIDE HCL 10 MG CAPSULE PO PRN
[2019-07-14] MEDS ORDERED: METHADONE HCL 40 MG DISPERSABLE TABLET ONE (04:37)
[2019-07-14] MEDS ORDERED: METHADONE HCL 10 MG TABLET ONE (04:37)
[2019-07-14] MEDS: chlordiazePOXIDE HCL 10 MG CAPSULE PO SCH ×4 (05:44→22:43)
[2019-07-14] MEDS: METHADONE 40 MG, METHADONE 30 MG PO SCH (05:44)
[2019-07-14] MEDS: MINERAL OIL/PETROLAT/WATER TOPICAL CREAM 113 GM JAR TP SCH ×3 (06:23→22:44)
[2019-07-14] MEDS: POTASSIUM CHLORIDE TABS 20 MEQ TABLET.ER (FP) PO SCH ×2 (10:23→22:44)
[2019-07-14] MEDS: CYANOCOBALAMIN 1,000 MCG TABLET (FP) PO SCH ×2 (10:23→22:44)
[2019-07-14] MEDS: LISINOPRIL 10 MG TABLET (FP) PO SCH (10:23)
[2019-07-14] MEDS: HYDROCHLOROTHIAZIDE 12.5 MG CAPSULE (FP) PO SCH (10:23)
[2019-07-14] MEDS: RANITIDINE HCL 150 MG TABLET (FP) PO SCH ×2 (10:23→22:44)
[2019-07-14] MEDS: PRENATAL VITAMINS W/ FOLIC ACID TABLET (FP) PO SCH (10:23)
[2019-07-14] MEDS: NICOTINE 21 MG/24 HOURS TOPICAL PATCH TD SCH (10:24)
--- NOTE | 2019-07-14 17:12 | PN ---
[facility] CIWA - CIWA Score Nausea/Vomitin-No Nausea/No Vomiting Muscle Tremors: 3 Anxiety: 4-Mod. Anxious/Guarded Agitation: 3 Paroxysmal Sweats: 2 Orientation: 0-Oriented Tacttile Disturbances: 0-None Auditory Disturbances: 0-None Visual Disturbances: 0-None Headache: 0-None Present CIWA-Ar Total Score: 12 S Progress Note (SOAP) Subjective: Anxious, Tremors, Sweating. Objective: PATIENT PATIENT A & O X 3, OBSERVED AMBULATING ON UNIT UNASSISTED. IN NO ACUTE DISTRESS. 07/14/19 17:06 Vital Signs Temperature 98 F 07/14/19 13:15 Pulse Rate 92 H 07/14/19 13:15 Respiratory Rate 20 07/14/19 13:15 Blood Pressure 122/82 07/14/19 13:15 O2 Sat by Pulse Oximetry (%) Laboratory Tests 07/12/19 07/12/19 10:40 10:40 WBC 4.6 RBC 3.32 L Hgb 12.5 Hct 36.6 D MCV 110.1 H MCH 37.7 H MCHC 34.3 RDW 21.5 H Plt Count 126 L D MPV 9.1 Sodium 144 Potassium 3.3 L Chloride 104 Carbon Dioxide 31 Anion Gap 8 BUN 4.7 L Creatinine 1.1 Est GFR (CKD-EPI)AfAm 88.36 Est GFR (CKD-EPI)NonAf 76.24 Random Glucose 119 H Calcium 9.6 Total Bilirubin 1.7 H AST 149 H ALT 86 H Alkaline Phosphatase 90 Total Protein 7.6 Albumin 4.2 LABS NOTED. PATIENT HAS HAD ELEVATED AST, ALT, AND TOTAL BILIRUBIN LEVELS AND LOW PLATELET LEVELS ON PREVIOUS ADMISSIONS. 07/14/19 17:08 Assessment: 07/14/19 17:07 WITHDRAWAL SYMPTOMS. HYPOKALEMIA. EELVATED AST LEVEL. ELEVATED ALT LEVEL HYPERBILIRUBINEMIA. THREOMBOCYTOPENIA. 07/14/19 17:08 Plan: CONTINUE DETOX. INCREASE DAILY PO WATER INTAKE. CONTINUE K-DUR FOR LOW K LEVEL NOTED ON DETOX ADMISSION LABORATORY ASSESSMENT. REPEAT K LEVEL AND REPEAT AST LEVEL TO BE DRAWN TOMORROW AM. PATIENT AGAIN REQUESTS TREATMENT FOR ABDOMINAL HERNIA. 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 PATIENT AGAIN ADVISED TO CONSULT ACCOUNTANT MACHINE PROCESSING AFTER DISCHARGE FROM DETOX UNIT FOR FURTHER MEDICAL EVALUATION OF THIS CONDITION. PATIENT VERBALIZED UNDERSTANDING OF RECOMMENDATION.
[2019-07-14] MEDS: THIAMINE HCL 100 MG TABLET (FP) PO SCH (22:43)
[2019-07-14] MEDS: traZODone HCL 100 MG TABLET (FP) PO SCH (22:43)
[2019-07-15] MEDS ORDERED: METHADONE HCL 10 MG TABLET ONE (05:00)
[2019-07-15] MEDS ORDERED: METHADONE HCL 40 MG DISPERSABLE TABLET ONE (05:00)
[2019-07-15] MEDS ORDERED: chlordiazePOXIDE HCL 10 MG CAPSULE PO SCH (05:00)
[2019-07-15] MEDS: METHADONE 40 MG, METHADONE 30 MG PO SCH (05:27)
[2019-07-15] MEDS: MINERAL OIL/PETROLAT/WATER TOPICAL CREAM 113 GM JAR TP SCH (06:40)
[2019-07-15 09:27] VITALS: BP 147/97; PULSE 92; TEMP 97.3
[2019-07-15] MEDS: PRENATAL VITAMINS W/ FOLIC ACID TABLET (FP) PO SCH (11:06)
[2019-07-15] MEDS: RANITIDINE HCL 150 MG TABLET (FP) PO SCH (11:06)
[2019-07-15] MEDS: NICOTINE 21 MG/24 HOURS TOPICAL PATCH TD SCH (11:06)
[2019-07-15] MEDS: LISINOPRIL 10 MG TABLET (FP) PO SCH (11:06)
[2019-07-15] MEDS: POTASSIUM CHLORIDE TABS 20 MEQ TABLET.ER (FP) PO SCH (11:06)
[2019-07-15] MEDS: CYANOCOBALAMIN 1,000 MCG TABLET (FP) PO SCH (11:06)
[2019-07-15] MEDS: HYDROCHLOROTHIAZIDE 12.5 MG CAPSULE (FP) PO SCH (11:06)
[2019-07-15 11:08] LABS: POTASSIUM 3.6 mmol/L (3.5-5.1)
--- NOTE | 2019-07-15 16:24 | DS ---
[facility] Detox Discharge Summary Admission Date: 07/11/19 Discharge Date: 07/15/19 - History Present History: Alcohol Dependence, Cannabis Dependence, Opioid Dependence, MMTP Additional Comments: DESPITE EFFORTS BY ENGINE EMISSION TECHNICIAN AND BY NURSING STAFF TO ADDRESS PATIENT'S MEDICAL NEEDS / CONCERNS, PATIENT DOES NOT WISH TO REMAIN TO COMPLETE DETOX REGIMEN. RISKS OF LEAVING DETOX UNIT AGAINST MEDICAL ADVICE AND PRIOR TO COMPLETION OF DETOX REGIMEN EXPLAINED TO PATIENT. PATIENT ADVISED TO GO IMMEDIATELY TO NEAREST ER SHOULD ANY INTOLERABLE WITHDRAWAL / DETOX SYMPTOMS DEVELOP AT ANY TIME. PATIENT AGAIN ADVISED TO FOLLOW-UP SOON POSSIBLE WITH SHERIFFS OFFICER FOR FURTHER MEDICAL EVALUATION OF REPORTED ABDOMINAL HERNIA. PATIENT VERBALIZED UNDERSTANDING OF ALL INFORMATION / RECOMMENDATIONS PRESENTED TO HIM PRIOR TO DEPARTURE FROM DETOX UNIT. PATIENT DECLINED OFFER OF MEDICATION PRESCRIPTION FOR HOME MEDICATION AT TIME IN WHICH HE LEFT DETOX UNIT, NOTING THAT HE CURRENTLY HAS ADEQUATE SUPPLIES OF ALL PRESCRIBED HOME MEDICATIONS AT HOME. RESULTS OF REEPAT POTASSIUM AND AST LEVELS DRAWN EARLIER TODAY NOTED. ON REEPAT ASSESSMENT, POTASSIUM LEVEL NOTED TO BE WITHIN NORMAL RANGE AND SIGNIFICANT REDUCTION NOTED IN AST LEVEL. Pertinent Past History: HTN, History of Pancreatitis, Depression, M.M.T.P., Thrombocytopenia, Hypokalemia, Elevated AST Level, Elevated Alt Level, History Of Positive PPD, Hyperbilirubinemia. - Physical Exam Results Vital Signs: Vital Signs Temperature 97.3 F L 07/15/19 09:26 Pulse Rate 92 H 07/15/19 09:26 Respiratory Rate 20 07/15/19 09:26 Blood Pressure 147/97 07/15/19 09:26 O2 Sat by Pulse Oximetry (%) Pertinent Admission Physical Exam Findings: WITHDRAWAL SYMPTOMS. Laboratory Tests 07/12/19 07/12/19 07/15/19 10:40 10:40 08:00 WBC 4.6 RBC 3.32 L Hgb 12.5 Hct 36.6 D MCV 110.1 H MCH 37.7 H MCHC 34.3 RDW 21.5 H Plt Count 126 L D MPV 9.1 Sodium 144 Potassium 3.3 L 3.6 Chloride 104 Carbon Dioxide 31 Anion Gap 8 BUN 4.7 L Creatinine 1.1 Est GFR (CKD-EPI)AfAm 88.36 Est GFR (CKD-EPI)NonAf 76.24 Random Glucose 119 H Fasting Glucose Calcium 9.6 Total Bilirubin 1.7 H AST 149 H 69 H ALT 86 H Alkaline Phosphatase 90 Total Protein 7.6 Albumin 4.2 07/15/19 07/15/19 08:00 08:00 WBC RBC Hgb Hct MCV MCH MCHC RDW Plt Count MPV Sodium Potassium Chloride Carbon Dioxide Anion Gap BUN Creatinine Est GFR (CKD-EPI)AfAm Est GFR (CKD-EPI)NonAf Random Glucose Fasting Glucose 117 H Calcium Total Bilirubin AST Cancelled ALT Alkaline Phosphatase Total Protein Albumin LABS NOTED. - Medication Discharge Medications: Ambulatory Orders Multivitamins [Tab-A-Vit -] 1 tab PO DAILY 05/01/18 Sertraline HCl [Zoloft -] 50 mg PO BID 06/08/18 Hydrochlorothiazide [Hctz -] 12.5 mg PO DAILY 30 Days #30 mg 06/21/18 Lisinopril [Prinivil] 30 mg PO DAILY #30 tablet 06/21/18 traZODone HCL [Trazodone HCl] 100 mg PO HS #30 tablet 06/21/18 Folic Acid - 1 mg PO DAILY 04/05/19 Cyanocobalamin [Vitamin B12 -] 1,000 mcg PO BID 07/11/19 - Diagnosis (1) Hypertension Status: Acute Qualifiers: Hypertension type: unspecified Qualified Code(s): I10 - Essential (primary ) hypertension (2) Hypokalemia Status: Acute (3) Methadone maintenance therapy patient Status: Acute (4) History of positive PPD Status: Chronic (5) Methadone maintenance therapy patient Status: Chronic (6) Elevated liver enzymes Status: Acute (7) Hyperbilirubinemia Status: Acute (8) Cannabis dependence Status: Chronic (9) Alcohol dependence with uncomplicated withdrawal Status: Acute - AMA Did Patient Leave Against Medical Advice: Yes (PATIENT DID NOT WISH TO REMAIN TO COMPLETE DETOX REGIMEN.) [facility] CIWA - CIWA Score Nausea/Vomitin (Stomach Cramping.) Muscle Tremors: None Anxiety: 4-Mod. Anxious/Guarded Agitation: 4-Moderately Restless Paroxysmal Sweats: 2 Orientation: 0-Oriented Tacttile Disturbances: 0-None Auditory Disturbances: 0-None Visual Disturbances: 0-None Headache: 0-None Present CIWA-Ar Total Score: 12
[2019-07-16] MEDS ORDERED: chlordiazePOXIDE HCL 10 MG CAPSULE PO ONE (05:00)
== END 2019-07-15 12:31 | disposition left against medical advice (07) | DRG 770 ==
LOC: YASAS 12:14 → Y3N 16:59
PROVIDERS: ADMIT Surgery; ATTEND Surgery
PROC: HZ2ZZZZ Detoxification Services for Substance Abuse Treatment (ICD-10-PCS; principal; 2019-07-11)
DX: F10.230 Alcohol dependence with withdrawal, uncomplicated (principal); F11.20 Opioid dependence, uncomplicated; F12.10 Cannabis abuse, uncomplicated; F32.9 Major depressive disorder, single episode, unspecified; I10 Essential (primary) hypertension; E80.6 Other disorders of bilirubin metabolism; E87.6 Hypokalemia; D69.6 Thrombocytopenia, unspecified; R94.5 Abnormal results of liver function studies; R76.11 Nonspecific reaction to tuberculin skin test without active tuberculosis; Z87.19 Personal history of other diseases of the digestive system
CPT/HCPCS: 36415; 80053; 82947; 84132; 84450; 85027

== ENCOUNTER 2019-08-15 10:48 | Inpatient (IN) | payer OTHER ==
[2019-08-15 12:56] VITALS: BMI 26.2
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
[2019-08-15] MEDS ORDERED: METHOCARBAMOL 500 MG TABLET PO PRN (14:12)
[2019-08-15] MEDS ORDERED: MAGNESIUM HYDROX 2400MG/30ML ORAL SUSPENSION 30 ML CUP PO PRN (14:12)
[2019-08-15] MEDS ORDERED: BISMUTH SUBSALICYLATE 262 MG/15 ML BTL PO PRN (14:12)
[2019-08-15] MEDS ORDERED: MENTHOL/PHENOL 1 EACH UD MM PRN (14:12)
[2019-08-15] MEDS ORDERED: MAGNESIUM CITRATE 300 ML BOTTLE PO PRN (14:12)
[2019-08-15] MEDS ORDERED: ACETAMINOPHEN 325 MG TABLET (FP) PO PRN ×2 (14:12)
[2019-08-15] MEDS ORDERED: IBUPROFEN 400 MG TABLET (FP) PO PRN (14:12)
[2019-08-15] MEDS ORDERED: MAG HYDROX/AL HYDROX/SIMETH 30 ML UNIT-DOSE CUP PO PRN (14:12)
[2019-08-15] MEDS ORDERED: chlordiazePOXIDE HCL 25 MG CAPSULE PO PRN (14:12)
[2019-08-15] MEDS ORDERED: hydrOXYzine PAMOATE 25 MG CAPSULE (FP) PO PRN (14:12)
--- NOTE | 2019-08-15 14:24 | PN ---
Teaching Attending Note Name of Resident: Jesus Laurent ATTENDING PHYSICIAN STATEMENT I saw and evaluated the patient. I reviewed the resident's note and discussed the case with the resident. I agree with the resident's findings and plan as documented. SUBJECTIVE: this 54 years old male with alcohol dependence,withdrawal aymptom,seeking detox, mmtp 70/day,last medicated today OBJECTIVE: withdrwal signs and symptom ASSESSMENT AND PLAN: this patient need inpatient detox from alcohol,medically managed librium regimen ,advise rehab after detox
[2019-08-15] MEDS: chlordiazePOXIDE HCL 25 MG CAPSULE PO SCH ×2 (16:51→22:08)
[2019-08-15] MEDS ORDERED: LISINOPRIL 10 MG TABLET (FP) PO ONE (17:00)
[2019-08-15 17:05] LABS: HEMATOCRIT 38.4 % (35.4-49); MCH 36.6 pg (25.7-33.7); MEAN CELL VOLUME 107.7 fl (80-96); MEAN PLT VOLUME 8.7 fl (7.5-11.1); PLATELET COUNT 213 K/MM3 (134-434); RBC 3.56 M/mm3 (4.00-5.60); RDW 19.6 % (11.9-15.9); WHITE BLOOD COUNT 5.8 K/mm3 (4.0-10.0)
[2019-08-15 17:35] LABS: ALBUMIN 4.7 g/dl (3.4-5.0); BILIRUBIN,TOTAL 2.1 mg/dL (0.2-1); BLOOD UREA NITROGEN 5.8 mg/dL (7-18); CALCIUM 9.4 mg/dL (8.5-10.1); CREATININE 1.2 mg/dL (0.55-1.3); POTASSIUM 4.2 mmol/L (3.5-5.1); TOT PROT 8.2 g/dl (6.4-8.2)
[2019-08-15] MEDS: MELATONIN 5 MG TABLETS PO PRN (22:08)
[2019-08-15] MEDS: THIAMINE HCL 100 MG TABLET (FP) PO SCH (22:08)
[2019-08-16] MEDS ORDERED: METHADONE HCL 10 MG TABLET ONE (05:19)
[2019-08-16] MEDS ORDERED: METHADONE HCL 40 MG DISPERSABLE TABLET ONE (05:21)
[2019-08-16] MEDS ORDERED: METHADONE HCL 10 MG TABLET PO SCH (06:00)
[2019-08-16] MEDS: METHADONE 40 MG, METHADONE 30 MG PO SCH (06:03)
[2019-08-16] MEDS: chlordiazePOXIDE HCL 25 MG CAPSULE PO SCH ×2 (06:04→10:17)
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
[2019-08-16] MEDS: PRENATAL VITAMINS W/ FOLIC ACID TABLET (FP) PO SCH (09:40)
[2019-08-16] MEDS: LISINOPRIL 10 MG TABLET (FP) PO SCH (09:40)
[2019-08-16] MEDS: HYDROCHLOROTHIAZIDE 12.5 MG CAPSULE (FP) PO SCH (09:41)
[2019-08-16] MEDS: SERTRALINE HCL 50 MG TABLET (FP) PO SCH (09:41)
[2019-08-16] MEDS ORDERED: LISINOPRIL 10 MG TABLET (FP) PO SCH (10:00)
[2019-08-16] MEDS: NICOTINE 14 MG/24 HOURS TOPICAL PATCH TD SCH (10:17)
[2019-08-16] MEDS ORDERED: LORazepam 1 MG TABLET PO PRN (11:00)
--- NOTE | 2019-08-16 11:09 | PN ---
S CIWA - CIWA Score Nausea/Vomitin-Mild Nausea/No Vomiting Muscle Tremors: 2 Anxiety: 2 Agitation: 2 Paroxysmal Sweats: 1-Minimal Palms Moist Orientation: 0-Oriented Tacttile Disturbances: 1-Very Mild Itch/Numbness Auditory Disturbances: 0-None Visual Disturbances: 0-None Headache: 2-Mild CIWA-Ar Total Score: 11 S Progress Note (SOAP) Subjective: alert,irritable,anxious,interrupted sleep,tremor Objective: 08/16/19 11:05 Vital Signs Temperature 98.2 F 08/16/19 08:47 Pulse Rate 107 H 08/16/19 08:47 Respiratory Rate 18 08/16/19 08:47 Blood Pressure 160/101 H 08/16/19 08:47 O2 Sat by Pulse Oximetry (%) Laboratory Last Values WBC 5.8 K/mm3 (4.0-10.0) 08/15/19 14:40 RBC 3.56 M/mm3 (4.00-5.60) L 08/15/19 14:40 Hgb 13.0 GM/dL (11.7-16.9) 08/15/19 14:40 Hct 38.4 % (35.4-49) 08/15/19 14:40 MCV 107.7 fl (80-96) H 08/15/19 14:40 MCH 36.6 pg (25.7-33.7) H 08/15/19 14:40 MCHC 34.0 g/dl (32.0-35.9) 08/15/19 14:40 RDW 19.6 % (11.9-15.9) H 08/15/19 14:40 Plt Count 213 K/MM3 (134-434) D 08/15/19 14:40 MPV 8.7 fl (7.5-11.1) 08/15/19 14:40 Sodium 140 mmol/L (136-145) 08/15/19 14:40 Potassium 4.2 mmol/L (3.5-5.1) 08/15/19 14:40 Chloride 98 mmol/L (98-107) 08/15/19 14:40 Carbon Dioxide 29 mmol/L (21-32) 08/15/19 14:40 Anion Gap 13 MMOL/L (8-16) 08/15/19 14:40 BUN 5.8 mg/dL (7-18) L 08/15/19 14:40 Creatinine 1.2 mg/dL (0.55-1.3) 08/15/19 14:40 Est GFR (CKD-EPI)AfAm 79.53 08/15/19 14:40 Est GFR (CKD-EPI)NonAf 68.62 08/15/19 14:40 Random Glucose 99 mg/dL (74-106) 08/15/19 14:40 Calcium 9.4 mg/dL (8.5-10.1) 08/15/19 14:40 Total Bilirubin 2.1 mg/dL (0.2-1) H 08/15/19 14:40 AST 133 U/L (15-37) H 08/15/19 14:40 ALT 101 U/L (13-61) H 08/15/19 14:40 Alkaline Phosphatase 89 U/L (45-117) 08/15/19 14:40 Total Protein 8.2 g/dl (6.4-8.2) 08/15/19 14:40 Albumin 4.7 g/dl (3.4-5.0) 08/15/19 14:40 Assessment: 08/16/19 11:06 withdrawal symptom Plan: regimen changed to ativan instead of librium due to elevation of ast,alt, bilirubin,d/c tylenol,repeat cmp,inr in am
[2019-08-16] MEDS ORDERED: cloNIDine HCL 0.1 MG TABLET PO ONE (11:13)
[2019-08-16] MEDS: LORazepam 2 MG TABLET PO SCH ×2 (17:18→22:03)
[2019-08-16] MEDS: THIAMINE HCL 100 MG TABLET (FP) PO SCH (22:03)
[2019-08-16] MEDS: traZODone HCL 100 MG TABLET (FP) PO SCH (22:03)
[2019-08-17] MEDS ORDERED: chlordiazePOXIDE HCL 25 MG CAPSULE PO SCH (05:00)
[2019-08-17] MEDS ORDERED: METHADONE HCL 10 MG TABLET ONE (05:25)
[2019-08-17] MEDS ORDERED: METHADONE HCL 40 MG DISPERSABLE TABLET ONE (05:26)
[2019-08-17] MEDS: METHADONE 40 MG, METHADONE 30 MG PO SCH (06:13)
[2019-08-17] MEDS: LORazepam 2 MG TABLET PO SCH ×4 (06:13→22:28)
[2019-08-17 09:50] LABS: INR 1.22 (0.83-1.09); PROTHROMBIN TIME (PATIENT) 14.4 SEC (9.7-13.0)
[2019-08-17 10:02] LABS: ALBUMIN 3.9 g/dl (3.4-5.0); BILIRUBIN,TOTAL 0.9 mg/dL (0.2-1); CALCIUM 9.5 mg/dL (8.5-10.1); CREATININE 1.1 mg/dL (0.55-1.3); POTASSIUM 3.6 mmol/L (3.5-5.1); TOT PROT 7.3 g/dl (6.4-8.2)
[2019-08-17] MEDS: LISINOPRIL 10 MG TABLET (FP) PO SCH (10:03)
[2019-08-17] MEDS: SERTRALINE HCL 50 MG TABLET (FP) PO SCH (10:03)
[2019-08-17] MEDS: PRENATAL VITAMINS W/ FOLIC ACID TABLET (FP) PO SCH (10:04)
[2019-08-17] MEDS: NICOTINE 14 MG/24 HOURS TOPICAL PATCH TD SCH (10:04)
[2019-08-17] MEDS: HYDROCHLOROTHIAZIDE 12.5 MG CAPSULE (FP) PO SCH (10:04)
--- NOTE | 2019-08-17 12:38 | PN ---
S CIWA - CIWA Score Nausea/Vomitin-No Nausea/No Vomiting Muscle Tremors: 2 Anxiety: 2 Agitation: 2 Paroxysmal Sweats: No Perspiration Orientation: 0-Oriented Tacttile Disturbances: 1-Very Mild Itch/Numbness Auditory Disturbances: 0-None Visual Disturbances: 0-None Headache: 1-Very Mild CIWA-Ar Total Score: 8 [facility] Progress Note (SOAP) Subjective: alert,irritable,anxious,interrupted sleep,tremor Objective: 08/17/19 12:37 Vital Signs Temperature 97.7 F 08/17/19 09:28 Pulse Rate 99 H 08/17/19 09:28 Respiratory Rate 18 08/17/19 09:28 Blood Pressure 160/96 08/17/19 09:28 O2 Sat by Pulse Oximetry (%) 08/17/19 12:37 Laboratory Results - last 24 hr 08/15/19 08/15/19 08/17/19 14:40 14:40 08:00 PT with INR INR Sodium 144 Potassium 3.6 Chloride 103 Carbon Dioxide 32 Anion Gap 9 BUN 12.0 Creatinine 1.1 Est GFR (CKD-EPI)AfAm 88.36 Est GFR (CKD-EPI)NonAf 76.24 Random Glucose 128 H Calcium 9.5 Total Bilirubin 0.9 AST 97 H ALT 78 H Alkaline Phosphatase 87 Total Protein 7.3 Albumin 3.9 RPR Titer Nonreactive HIV 1&2 Antibody Screen Negative HIV P24 Antigen Negative 08/17/19 08:00 PT with INR 14.40 H INR 1.22 H Sodium Potassium Chloride Carbon Dioxide Anion Gap BUN Creatinine Est GFR (CKD-EPI)AfAm Est GFR (CKD-EPI)NonAf Random Glucose Calcium Total Bilirubin AST ALT Alkaline Phosphatase Total Protein Albumin RPR Titer HIV 1&2 Antibody Screen HIV P24 Antigen Assessment: 08/17/19 12:38 withdrawal symptom Plan: continue detox,ativan regimen
[2019-08-17] MEDS: THIAMINE HCL 100 MG TABLET (FP) PO SCH (22:28)
[2019-08-17] MEDS: traZODone HCL 100 MG TABLET (FP) PO SCH (22:28)
[2019-08-17] MEDS: MELATONIN 5 MG TABLETS PO PRN (22:28)
[2019-08-18] MEDS ORDERED: chlordiazePOXIDE HCL 10 MG CAPSULE PO PRN
[2019-08-18] MEDS ORDERED: METHADONE HCL 10 MG TABLET ONE (04:52)
[2019-08-18] MEDS ORDERED: METHADONE HCL 40 MG DISPERSABLE TABLET ONE (04:53)
[2019-08-18] MEDS ORDERED: chlordiazePOXIDE HCL 10 MG CAPSULE PO SCH (05:00)
[2019-08-18] MEDS: METHADONE 40 MG, METHADONE 30 MG PO SCH (07:04)
[2019-08-18] MEDS: LORazepam 1 MG TABLET PO SCH ×4 (07:04→21:59)
--- NOTE | 2019-08-18 09:46 | PN ---
[facility] CIWA - CIWA Score Nausea/Vomitin Muscle Tremors: 1-None Visible, but [place] Anxiety: 2 Agitation: 1-Slight > Activity Paroxysmal Sweats: 1-Minimal Palms Moist Orientation: 0-Oriented Tacttile Disturbances: 0-None Auditory Disturbances: 0-None Visual Disturbances: 1-Very Mild Sensitivity Headache: 1-Very Mild CIWA-Ar Total Score: 9 [facility] COWS - Scale Anxiety or Irritability: 1=Feels Anxious/Irritable [facility] Progress Note (SOAP) Subjective: c/o insomnia, chills, and diarrhea Objective: 08/18/19 11:47 Vital Signs Temperature 98.8 F 08/18/19 09:19 Pulse Rate 111 H 08/18/19 09:19 Respiratory Rate 20 08/18/19 09:19 Blood Pressure 136/85 08/18/19 09: O2 Sat by Pulse Oximetry (%) Laboratory Last Values WBC 5.8 K/mm3 (4.0-10.0) 08/15/19 14:40 RBC 3.56 M/mm3 (4.00-5.60) L 08/15/19 14:40 Hgb 13.0 GM/dL (11.7-16.9) 08/15/19 14:40 Hct 38.4 % (35.4-49) 08/15/19 14:40 MCV 107.7 fl (80-96) H 08/15/19 14:40 MCH 36.6 pg (25.7-33.7) H 08/15/19 14:40 MCHC 34.0 g/dl (32.0-35.9) 08/15/19 14:40 RDW 19.6 % (11.9-15.9) H 08/15/19 14:40 Plt Count 213 K/MM3 (134-434) D 08/15/19 14:40 MPV 8.7 fl (7.5-11.1) 08/15/19 14:40 PT with INR 14.40 SEC (9.7-13.0) H 08/17/19 08:00 INR 1.22 (0.83-1.09) H 08/17/19 08:00 Sodium 144 mmol/L (136-145) 08/17/19 08:00 Potassium 3.6 mmol/L (3.5-5.1) 08/17/19 08:00 Chloride 103 mmol/L (98-107) 08/17/19 08:00 Carbon Dioxide 32 mmol/L (21-32) 08/17/19 08:00 Anion Gap 9 MMOL/L (8-16) 08/17/19 08:00 BUN 12.0 mg/dL (7-18) 08/17/19 08:00 Creatinine 1.1 mg/dL (0.55-1.3) 08/17/19 08:00 Est GFR (CKD-EPI)AfAm 88.36 08/17/19 08:00 Est GFR (CKD-EPI)NonAf 76.24 08/17/19 08:00 Random Glucose 128 mg/dL (74-106) H 08/17/19 08:00 Calcium 9.5 mg/dL (8.5-10.1) 08/17/19 08:00 Total Bilirubin 0.9 mg/dL (0.2-1) 08/17/19 08:00 AST 97 U/L (15-37) H 08/17/19 08:00 ALT 78 U/L (13-61) H 08/17/19 08:00 Alkaline Phosphatase 87 U/L (45-117) 08/17/19 08:00 Total Protein 7.3 g/dl (6.4-8.2) 08/17/19 08:00 Albumin 3.9 g/dl (3.4-5.0) 08/17/19 08:00 RPR Titer Nonreactive (NONREACTIVE) 08/15/19 14:40 HIV 1&2 Antibody Screen Negative 08/15/19 14:40 HIV P24 Antigen Negative 08/15/19 14:40 Assessment: AOx3 no acute distress EENT WNL no adventitious breath sounds full ROM no gait abnormality Plan: repeat PT/INR continue detox wishes to go rehab after completing detox continue to monitor
[2019-08-18] MEDS: SERTRALINE HCL 50 MG TABLET (FP) PO SCH (10:30)
[2019-08-18] MEDS: LISINOPRIL 10 MG TABLET (FP) PO SCH (10:30)
[2019-08-18] MEDS: HYDROCHLOROTHIAZIDE 12.5 MG CAPSULE (FP) PO SCH (10:30)
[2019-08-18] MEDS: PRENATAL VITAMINS W/ FOLIC ACID TABLET (FP) PO SCH (10:30)
[2019-08-18] MEDS: NICOTINE 14 MG/24 HOURS TOPICAL PATCH TD SCH (10:31)
[2019-08-18] MEDS: THIAMINE HCL 100 MG TABLET (FP) PO SCH (21:52)
[2019-08-18] MEDS: traZODone HCL 100 MG TABLET (FP) PO SCH (21:52)
[2019-08-18] MEDS: MELATONIN 5 MG TABLETS PO PRN (21:59)
[2019-08-19] MEDS ORDERED: LORazepam 0.5 MG TABLET PO PRN
[2019-08-19] MEDS ORDERED: chlordiazePOXIDE HCL 10 MG CAPSULE PO SCH (05:00)
[2019-08-19] MEDS ORDERED: METHADONE HCL 10 MG TABLET ONE (05:03)
[2019-08-19] MEDS ORDERED: METHADONE HCL 40 MG DISPERSABLE TABLET ONE (05:05)
[2019-08-19] MEDS: METHADONE 40 MG, METHADONE 30 MG PO SCH (05:35)
[2019-08-19] MEDS: LORazepam 0.5 MG TABLET PO SCH ×4 (05:35→22:06)
[2019-08-19] MEDS: NICOTINE 14 MG/24 HOURS TOPICAL PATCH TD SCH (10:27)
[2019-08-19] MEDS: HYDROCHLOROTHIAZIDE 12.5 MG CAPSULE (FP) PO SCH (10:27)
[2019-08-19] MEDS: LISINOPRIL 10 MG TABLET (FP) PO SCH (10:27)
[2019-08-19] MEDS: PRENATAL VITAMINS W/ FOLIC ACID TABLET (FP) PO SCH (10:28)
[2019-08-19] MEDS: SERTRALINE HCL 50 MG TABLET (FP) PO SCH (10:28)
[2019-08-19 10:32] LABS: INR 1.12 (0.83-1.09); PROTHROMBIN TIME (PATIENT) 13.2 SEC (9.7-13.0)
--- NOTE | 2019-08-19 10:45 | PN ---
S CIWA - CIWA Score Nausea/Vomitin-No Nausea/No Vomiting Muscle Tremors: None Anxiety: 2 Agitation: 0-Normal Activity Paroxysmal Sweats: 2 Orientation: 0-Oriented Tacttile Disturbances: 0-None Auditory Disturbances: 0-None Visual Disturbances: 0-None Headache: 1-Very Mild CIWA-Ar Total Score: 5 [facility] Progress Note (SOAP) Subjective: c/o anxiety, mild headache, and sweats. Denies any history of easily bruising, bleeding disorder or clotting disorder. Objective: 08/19/19 10:41 Vital Signs 08/19/19 08/19/19 07:04 09:42 Temperature 97.7 F 98.4 F Pulse Rate 95 H 99 H Respiratory 18 18 Rate Blood Pressure 147/93 146/92 Lab Results WBC 5.8 K/mm3 (4.0-10.0) 08/15/19 14:40 RBC 3.56 M/mm3 (4.00-5.60) L 08/15/19 14:40 Hgb 13.0 GM/dL (11.7-16.9) 08/15/19 14:40 Hct 38.4 % (35.4-49) 08/15/19 14:40 MCV 107.7 fl (80-96) H 08/15/19 14:40 MCHC 34.0 g/dl (32.0-35.9) 08/15/19 14:40 RDW 19.6 % (11.9-15.9) H 08/15/19 14:40 Plt Count 213 K/MM3 (134-434) D 08/15/19 14:40 Sodium 144 mmol/L (136-145) 08/17/19 08:00 Potassium 3.6 mmol/L (3.5-5.1) 08/17/19 08:00 Chloride 103 mmol/L (98-107) 08/17/19 08:00 Carbon Dioxide 32 mmol/L (21-32) 08/17/19 08:00 Anion Gap 9 MMOL/L (8-16) 08/17/19 08:00 BUN 12.0 mg/dL (7-18) 08/17/19 08:00 Creatinine 1.1 mg/dL (0.55-1.3) 08/17/19 08:00 Random Glucose 128 mg/dL (74-106) H 08/17/19 08:00 Calcium 9.5 mg/dL (8.5-10.1) 08/17/19 08:00 INR 1.12 (0.83-1.09) H 08/19/19 07:40 Labs noted. INR is 1.12 and it is trending down. Assessment: 08/19/19 10:45 AOX3, in no acute respiratory distress. Full ROM, ambulating in the unit. Withdrawal symptoms. INR is trending down. Plan: continue detox. Repeat INR in AM.
[2019-08-19] MEDS: MELATONIN 5 MG TABLETS PO PRN (21:49)
[2019-08-19] MEDS: THIAMINE HCL 100 MG TABLET (FP) PO SCH (21:49)
[2019-08-19] MEDS: traZODone HCL 100 MG TABLET (FP) PO SCH (21:49)
[2019-08-20] MEDS ORDERED: METHADONE HCL 10 MG TABLET ONE (04:33)
[2019-08-20] MEDS ORDERED: METHADONE HCL 40 MG DISPERSABLE TABLET ONE (04:34)
[2019-08-20] MEDS ORDERED: LORazepam 0.5 MG TABLET PO ONE (05:00)
[2019-08-20] MEDS ORDERED: chlordiazePOXIDE HCL 10 MG CAPSULE PO ONE (05:00)
[2019-08-20] MEDS: METHADONE 40 MG, METHADONE 30 MG PO SCH (06:12)
[2019-08-20 10:02] VITALS: BP 141/85; PULSE 97; TEMP 97.3
[2019-08-20] MEDS: SERTRALINE HCL 50 MG TABLET (FP) PO SCH (10:10)
[2019-08-20] MEDS: PRENATAL VITAMINS W/ FOLIC ACID TABLET (FP) PO SCH (10:10)
[2019-08-20] MEDS: HYDROCHLOROTHIAZIDE 12.5 MG CAPSULE (FP) PO SCH (10:10)
[2019-08-20] MEDS: LISINOPRIL 10 MG TABLET (FP) PO SCH (10:10)
[2019-08-20] MEDS: NICOTINE 14 MG/24 HOURS TOPICAL PATCH TD SCH (10:12)
[2019-08-20 11:00] LABS: INR 1.16 (0.83-1.09); PROTHROMBIN TIME (PATIENT) 13.7 SEC (9.7-13.0)
--- NOTE | 2019-08-20 13:45 | DS ---
[facility] Detox Discharge Summary Admission Date: 08/15/19 Discharge Date: 08/20/19 - History Present History: Alcohol Dependence, Opioid Dependence, MMTP Additional Comments: Patient completed detox successfully and transferred to [facility]. Pertinent Past History: Opioid dependence on agonist Alcohol dependence HTN PTSD Nicotine dependence Depression - Physical Exam Results Vital Signs: Vital Signs Temperature 97.3 F L 08/20/19 10:01 Pulse Rate 97 H 08/20/19 10:01 Respiratory Rate 18 08/20/19 10:01 Blood Pressure 141/85 08/20/19 10:01 O2 Sat by Pulse Oximetry (%) Pertinent Admission Physical Exam Findings: Withdrawal sxs Laboratory Tests 08/15/19 08/15/19 08/15/19 14:40 14:40 14:40 WBC 5.8 RBC 3.56 L Hgb 13.0 Hct 38.4 MCV 107.7 H MCH 36.6 H MCHC 34.0 RDW 19.6 H Plt Count 213 D MPV 8.7 PT with INR INR Sodium 140 Potassium 4.2 Chloride 98 Carbon Dioxide 29 Anion Gap 13 BUN 5.8 L Creatinine 1.2 Est GFR (CKD-EPI)AfAm 79.53 Est GFR (CKD-EPI)NonAf 68.62 Random Glucose 99 Calcium 9.4 Total Bilirubin 2.1 H AST 133 H ALT 101 H Alkaline Phosphatase 89 Total Protein 8.2 Albumin 4.7 RPR Titer Nonreactive HIV 1&2 Antibody Screen HIV P24 Antigen 08/15/19 08/17/19 08/17/19 14:40 08:00 08:00 WBC RBC Hgb Hct MCV MCH MCHC RDW Plt Count MPV PT with INR 14.40 H INR 1.22 H Sodium 144 Potassium 3.6 Chloride 103 Carbon Dioxide 32 Anion Gap 9 BUN 12.0 Creatinine 1.1 Est GFR (CKD-EPI)AfAm 88.36 Est GFR (CKD-EPI)NonAf 76.24 Random Glucose 128 H Calcium 9.5 Total Bilirubin 0.9 AST 97 H ALT 78 H Alkaline Phosphatase 87 Total Protein 7.3 Albumin 3.9 RPR Titer HIV 1&2 Antibody Screen Negative HIV P24 Antigen Negative 08/19/19 08/20/19 07:40 07:30 WBC RBC Hgb Hct MCV MCH MCHC RDW Plt Count MPV PT with INR 13.20 H 13.70 H INR 1.12 H 1.16 H Sodium Potassium Chloride Carbon Dioxide Anion Gap BUN Creatinine Est GFR (CKD-EPI)AfAm Est GFR (CKD-EPI)NonAf Random Glucose Calcium Total Bilirubin AST ALT Alkaline Phosphatase Total Protein Albumin RPR Titer HIV 1&2 Antibody Screen HIV P24 Antigen Labs reviewed - Treatment Hospital Course: Detox Protocol Followed, Detoxed Safely, Responded well, Discharged Condition Good, Rehab Referral Accepted - Medication Discharge Medications: Ambulatory Orders Multivitamins [Tab-A-Vit -] 1 tab PO DAILY 05/01/18 Sertraline HCl [Zoloft -] 50 mg PO BID 06/08/18 Hydrochlorothiazide [Hctz -] 12.5 mg PO DAILY 30 Days #30 mg 06/21/18 Lisinopril [Prinivil] 30 mg PO DAILY #30 tablet 06/21/18 traZODone HCL [Trazodone HCl] 100 mg PO HS #30 tablet 06/21/18 Folic Acid - 1 mg PO DAILY 04/05/19 Cyanocobalamin [Vitamin B12 -] 1,000 mcg PO BID 07/11/19 - Diagnosis (1) Alcohol dependence with uncomplicated withdrawal Status: Acute (2) HTN (hypertension) Status: Chronic (3) History of depression Status: Chronic (4) History of posttraumatic stress disorder (PTSD) Status: Chronic (5) Nicotine dependence Status: Chronic (6) Opioid dependence on agonist therapy Status: Acute - AMA Did Patient Leave Against Medical Advice: No (Patient accepted admittance to [facility])
== END 2019-08-20 12:18 | disposition other institution (70) | DRG 773 ==
LOC: YASAS 10:48 → Y6N 14:41
PROVIDERS: ADMIT Surgery; ATTEND Surgery
PROC: HZ2ZZZZ Detoxification Services for Substance Abuse Treatment (ICD-10-PCS; principal; 2019-08-15)
DX: F10.230 Alcohol dependence with withdrawal, uncomplicated (principal); F10.282 Alcohol dependence with alcohol-induced sleep disorder; F11.23 Opioid dependence with withdrawal; F17.210 Nicotine dependence, cigarettes, uncomplicated; F33.1 Major depressive disorder, recurrent, moderate; F43.10 Post-traumatic stress disorder, unspecified; I10 Essential (primary) hypertension; Z91.011 Allergy to milk products; Z91.012 Allergy to eggs
CPT/HCPCS: 36415; 80053; 85027; 85610; 86593; 87389; J0735

== ENCOUNTER 2019-08-20 12:28 | Inpatient (IN) | payer OTHER ==
--- NOTE | 2019-08-20 13:27 | HP ---
[facility] Rehab Assess/Revision - Admission History Admitted to Rehab from: [facility] Date of Admission to Rehab: 08/20/19 - Vital signs Vital Signs: Vital Signs Period Temp Pulse Resp BP Sys/Bee Pulse Ox Last 24 Hr 98.1 F 89 18 131/85 - Findings Detox History & Physical reviewed: Yes Concur with findings: Yes Inpatient Rehab Admission - Rehab Decision to Admit Inpatient rehab admission?: Yes - Initial Determination Are CD services needed?: No Free of communicable disease: Yes Not in need of hospitalization: Yes - Rehab Admission Criteria Previous failed treatment: Yes Poor recovery environment: Yes Comorbidities: Yes Lacks judgement: Yes Patient is meeting Inpatient Rehab admission criteria:: Yes
[2019-08-20] MEDS ORDERED: LOPERAMIDE HCL 2 MG CAPSULE PO PRN (13:28)
[2019-08-20] MEDS ORDERED: MENTHOL/PHENOL 1 EACH UD MM PRN (13:28)
[2019-08-20] MEDS ORDERED: guaiFENesin 200 MG/10 ML 10 ML UNIT-DOSE CUPS PO PRN (13:28)
[2019-08-20] MEDS ORDERED: IBUPROFEN 400 MG TABLET (FP) PO PRN (13:28)
[2019-08-20] MEDS ORDERED: MAG HYDROX/AL HYDROX/SIMETH 30 ML UNIT-DOSE CUP PO PRN (13:28)
[2019-08-20] MEDS ORDERED: ACETAMINOPHEN 325 MG TABLET (FP) PO PRN (13:28)
[2019-08-20] MEDS ORDERED: P-EPHED 60MG/TRIPROLIDI 2.5MG TABLET PO PRN (13:28)
[2019-08-20] MEDS ORDERED: MAGNESIUM HYDROX 2400MG/30ML ORAL SUSPENSION 30 ML CUP PO PRN (13:28)
[2019-08-20] MEDS ORDERED: MAGNESIUM CITRATE 300 ML BOTTLE PO PRN (13:28)
[2019-08-20] MEDS ORDERED: FLU VACCINE QUAD 60 MCG/0.5 ML (MDV 19-20) IM ONE (14:10)
[2019-08-20] MEDS: THIAMINE HCL 100 MG TABLET (FP) PO SCH (21:20)
[2019-08-20] MEDS: traZODone HCL 100 MG TABLET (FP) PO SCH (21:21)
[2019-08-21] MEDS ORDERED: METHADONE HCL 10 MG TABLET PO SCH (06:00)
[2019-08-21] MEDS ORDERED: METHADONE HCL 10 MG TABLET ONE (06:11)
[2019-08-21] MEDS ORDERED: METHADONE HCL 40 MG DISPERSABLE TABLET ONE (06:11)
[2019-08-21] MEDS: METHADONE 40 MG, METHADONE 30 MG PO SCH (06:19)
[2019-08-21] MEDS: SERTRALINE HCL 50 MG TABLET (FP) PO SCH (09:52)
[2019-08-21] MEDS: PRENATAL VITAMINS W/ FOLIC ACID TABLET (FP) PO SCH (09:52)
[2019-08-21] MEDS: LISINOPRIL 10 MG TABLET (FP) PO SCH (09:52)
[2019-08-21] MEDS: HYDROCHLOROTHIAZIDE 12.5 MG CAPSULE (FP) PO SCH (09:52)
[2019-08-21] MEDS ORDERED: NICOTINE 14 MG/24 HOURS TOPICAL PATCH TD SCH (10:00)
[2019-08-21] MEDS: hydrOXYzine PAMOATE 25 MG CAPSULE (FP) PO PRN ×2 (15:51→21:30)
[2019-08-21] MEDS: THIAMINE HCL 100 MG TABLET (FP) PO SCH (21:29)
[2019-08-21] MEDS: traZODone HCL 100 MG TABLET (FP) PO SCH (21:29)
[2019-08-22] MEDS ORDERED: METHADONE HCL 10 MG TABLET ONE (05:57)
[2019-08-22] MEDS ORDERED: METHADONE HCL 40 MG DISPERSABLE TABLET ONE (05:57)
[2019-08-22] MEDS: METHADONE 40 MG, METHADONE 30 MG PO SCH (06:28)
[2019-08-22] MEDS: HYDROCHLOROTHIAZIDE 12.5 MG CAPSULE (FP) PO SCH (10:06)
[2019-08-22] MEDS: SERTRALINE HCL 50 MG TABLET (FP) PO SCH (10:06)
[2019-08-22] MEDS: PRENATAL VITAMINS W/ FOLIC ACID TABLET (FP) PO SCH (10:06)
[2019-08-22] MEDS: NICOTINE 21 MG/24 HOURS TOPICAL PATCH TD SCH (10:06)
[2019-08-22] MEDS: LISINOPRIL 10 MG TABLET (FP) PO SCH (10:06)
[2019-08-22] MEDS: hydrOXYzine PAMOATE 25 MG CAPSULE (FP) PO PRN (12:02)
[2019-08-22] MEDS ORDERED: PT OWN MED DRAWER 7, Y5N ONE (12:11)
[2019-08-22] MEDS: THIAMINE HCL 100 MG TABLET (FP) PO SCH (21:18)
[2019-08-22] MEDS: traZODone HCL 100 MG TABLET (FP) PO SCH (21:18)
[2019-08-23] MEDS ORDERED: METHADONE HCL 40 MG DISPERSABLE TABLET ONE (06:05)
[2019-08-23] MEDS ORDERED: METHADONE HCL 10 MG TABLET ONE (06:05)
[2019-08-23] MEDS: METHADONE 40 MG, METHADONE 30 MG PO SCH (06:23)
[2019-08-23] MEDS: HYDROCHLOROTHIAZIDE 12.5 MG CAPSULE (FP) PO SCH (10:00)
[2019-08-23] MEDS: PRENATAL VITAMINS W/ FOLIC ACID TABLET (FP) PO SCH (10:00)
[2019-08-23] MEDS: NICOTINE 21 MG/24 HOURS TOPICAL PATCH TD SCH (10:00)
[2019-08-23] MEDS: SERTRALINE HCL 50 MG TABLET (FP) PO SCH (10:00)
[2019-08-23] MEDS: LISINOPRIL 10 MG TABLET (FP) PO SCH (10:00)
--- NOTE | 2019-08-23 10:16 | PN ---
[facility] Progress Note Note: Pt requesting folic acid- pt states he takes this every day- ordered
[2019-08-23] MEDS: FOLIC ACID 1 MG TABLET (FP) PO SCH (10:46)
[2019-08-23] MEDS: hydrOXYzine PAMOATE 25 MG CAPSULE (FP) PO PRN (17:23)
[2019-08-23] MEDS: THIAMINE HCL 100 MG TABLET (FP) PO SCH (21:23)
[2019-08-23] MEDS: traZODone HCL 100 MG TABLET (FP) PO SCH (21:23)
[2019-08-24] MEDS ORDERED: METHADONE HCL 10 MG TABLET ONE (04:39)
[2019-08-24] MEDS ORDERED: METHADONE HCL 40 MG DISPERSABLE TABLET ONE (04:39)
[2019-08-24] MEDS: METHADONE 40 MG, METHADONE 30 MG PO SCH (07:00)
[2019-08-24] MEDS: NICOTINE 21 MG/24 HOURS TOPICAL PATCH TD SCH (09:58)
[2019-08-24] MEDS: FOLIC ACID 1 MG TABLET (FP) PO SCH (09:58)
[2019-08-24] MEDS: PRENATAL VITAMINS W/ FOLIC ACID TABLET (FP) PO SCH (09:58)
[2019-08-24] MEDS: HYDROCHLOROTHIAZIDE 12.5 MG CAPSULE (FP) PO SCH (09:58)
[2019-08-24] MEDS: SERTRALINE HCL 50 MG TABLET (FP) PO SCH (09:58)
[2019-08-24] MEDS: LISINOPRIL 10 MG TABLET (FP) PO SCH (09:58)
[2019-08-24] MEDS: hydrOXYzine PAMOATE 25 MG CAPSULE (FP) PO PRN (16:47)
[2019-08-24] MEDS: THIAMINE HCL 100 MG TABLET (FP) PO SCH (21:16)
[2019-08-24] MEDS: traZODone HCL 100 MG TABLET (FP) PO SCH (21:16)
[2019-08-24] MEDS: DOCUSATE SODIUM 100 MG CAPSULE (FP) PO PRN (21:18)
[2019-08-25] MEDS ORDERED: METHADONE HCL 10 MG TABLET ONE (05:59)
[2019-08-25] MEDS ORDERED: METHADONE HCL 40 MG DISPERSABLE TABLET ONE (06:00)
[2019-08-25] MEDS: METHADONE 40 MG, METHADONE 30 MG PO SCH (06:24)
[2019-08-25] MEDS: NICOTINE 21 MG/24 HOURS TOPICAL PATCH TD SCH (10:25)
[2019-08-25] MEDS: PRENATAL VITAMINS W/ FOLIC ACID TABLET (FP) PO SCH (10:25)
[2019-08-25] MEDS: LISINOPRIL 10 MG TABLET (FP) PO SCH (10:25)
[2019-08-25] MEDS: SERTRALINE HCL 50 MG TABLET (FP) PO SCH (10:25)
[2019-08-25] MEDS: HYDROCHLOROTHIAZIDE 12.5 MG CAPSULE (FP) PO SCH (10:25)
[2019-08-25] MEDS: FOLIC ACID 1 MG TABLET (FP) PO SCH (10:26)
[2019-08-25] MEDS: DOCUSATE SODIUM 100 MG CAPSULE (FP) PO PRN ×2 (10:27→21:25)
[2019-08-25] MEDS: traZODone HCL 100 MG TABLET (FP) PO SCH (21:24)
[2019-08-25] MEDS: THIAMINE HCL 100 MG TABLET (FP) PO SCH (21:24)
[2019-08-26] MEDS ORDERED: METHADONE HCL 40 MG DISPERSABLE TABLET ONE (02:48)
[2019-08-26] MEDS ORDERED: METHADONE HCL 10 MG TABLET ONE (02:48)
[2019-08-26] MEDS: METHADONE 40 MG, METHADONE 30 MG PO SCH (05:58)
[2019-08-26] MEDS ORDERED: PT OWN MED DRAWER 7, Y5N ONE (08:34)
[2019-08-26] MEDS: NICOTINE 21 MG/24 HOURS TOPICAL PATCH TD SCH (09:50)
[2019-08-26] MEDS: SERTRALINE HCL 50 MG TABLET (FP) PO SCH (09:50)
[2019-08-26] MEDS: FOLIC ACID 1 MG TABLET (FP) PO SCH (09:50)
[2019-08-26] MEDS: LISINOPRIL 10 MG TABLET (FP) PO SCH (09:50)
[2019-08-26] MEDS: PRENATAL VITAMINS W/ FOLIC ACID TABLET (FP) PO SCH (09:50)
[2019-08-26] MEDS: HYDROCHLOROTHIAZIDE 12.5 MG CAPSULE (FP) PO SCH (09:50)
[2019-08-26] MEDS: DOCUSATE SODIUM 100 MG CAPSULE (FP) PO PRN ×2 (09:51→21:12)
[2019-08-26] MEDS: traZODone HCL 100 MG TABLET (FP) PO SCH (21:11)
[2019-08-26] MEDS: THIAMINE HCL 100 MG TABLET (FP) PO SCH (21:11)
[2019-08-27] MEDS ORDERED: METHADONE HCL 10 MG TABLET ONE (05:57)
[2019-08-27] MEDS ORDERED: METHADONE HCL 40 MG DISPERSABLE TABLET ONE (05:57)
[2019-08-27] MEDS: METHADONE 40 MG, METHADONE 30 MG PO SCH (06:24)
[2019-08-27] MEDS: hydrOXYzine PAMOATE 25 MG CAPSULE (FP) PO PRN (08:32)
[2019-08-27] MEDS: NICOTINE 21 MG/24 HOURS TOPICAL PATCH TD SCH (09:38)
[2019-08-27] MEDS: SERTRALINE HCL 50 MG TABLET (FP) PO SCH (09:38)
[2019-08-27] MEDS: HYDROCHLOROTHIAZIDE 12.5 MG CAPSULE (FP) PO SCH (09:38)
[2019-08-27] MEDS: FOLIC ACID 1 MG TABLET (FP) PO SCH (09:38)
[2019-08-27] MEDS: PRENATAL VITAMINS W/ FOLIC ACID TABLET (FP) PO SCH (09:38)
[2019-08-27] MEDS: LISINOPRIL 10 MG TABLET (FP) PO SCH (09:38)
[2019-08-27] MEDS: DOCUSATE SODIUM 100 MG CAPSULE (FP) PO PRN ×2 (09:39→21:21)
[2019-08-27] MEDS: traZODone HCL 100 MG TABLET (FP) PO SCH (21:20)
[2019-08-27] MEDS: THIAMINE HCL 100 MG TABLET (FP) PO SCH (21:20)
[2019-08-28] MEDS ORDERED: METHADONE HCL 10 MG TABLET ONE (06:01)
[2019-08-28] MEDS ORDERED: METHADONE HCL 40 MG DISPERSABLE TABLET ONE (06:01)
[2019-08-28] MEDS: METHADONE 40 MG, METHADONE 30 MG PO SCH (06:05)
[2019-08-28] MEDS: HYDROCHLOROTHIAZIDE 12.5 MG CAPSULE (FP) PO SCH (10:18)
[2019-08-28] MEDS: FOLIC ACID 1 MG TABLET (FP) PO SCH (10:18)
[2019-08-28] MEDS: NICOTINE 14 MG/24 HOURS TOPICAL PATCH TD SCH (10:18)
[2019-08-28] MEDS: LISINOPRIL 10 MG TABLET (FP) PO SCH (10:18)
[2019-08-28] MEDS: SERTRALINE HCL 50 MG TABLET (FP) PO SCH (10:18)
[2019-08-28] MEDS: PRENATAL VITAMINS W/ FOLIC ACID TABLET (FP) PO SCH (10:19)
[2019-08-28] MEDS: DOCUSATE SODIUM 100 MG CAPSULE (FP) PO PRN ×2 (10:20→21:07)
[2019-08-28] MEDS: traZODone HCL 100 MG TABLET (FP) PO SCH (21:06)
[2019-08-28] MEDS: THIAMINE HCL 100 MG TABLET (FP) PO SCH (21:06)
[2019-08-29] MEDS ORDERED: METHADONE HCL 10 MG TABLET ONE (04:01)
[2019-08-29] MEDS ORDERED: METHADONE HCL 40 MG DISPERSABLE TABLET ONE (04:02)
[2019-08-29] MEDS: METHADONE 40 MG, METHADONE 30 MG PO SCH (06:02)
[2019-08-29] MEDS: LISINOPRIL 10 MG TABLET (FP) PO SCH (09:38)
[2019-08-29] MEDS: FOLIC ACID 1 MG TABLET (FP) PO SCH (09:38)
[2019-08-29] MEDS: HYDROCHLOROTHIAZIDE 12.5 MG CAPSULE (FP) PO SCH (09:38)
[2019-08-29] MEDS: NICOTINE 14 MG/24 HOURS TOPICAL PATCH TD SCH (09:38)
[2019-08-29] MEDS: PRENATAL VITAMINS W/ FOLIC ACID TABLET (FP) PO SCH (09:38)
[2019-08-29] MEDS: SERTRALINE HCL 50 MG TABLET (FP) PO SCH (09:38)
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
--- NOTE | 2019-08-29 15:09 | PN ---
[facility] Progress Note Note: Patient is scheduled for discharge tomorrow. Scripts for 30 days supply of medications(Zoloft 50 mg/day, Trazadone 100 mg/hs) will be electronically transmitted to [facility] at [address] [place] [id number]
[2019-08-29] MEDS: traZODone HCL 100 MG TABLET (FP) PO SCH (21:19)
[2019-08-29] MEDS: THIAMINE HCL 100 MG TABLET (FP) PO SCH (21:19)
[2019-08-29] MEDS: DOCUSATE SODIUM 100 MG CAPSULE (FP) PO PRN (21:20)
[2019-08-30] MEDS ORDERED: METHADONE HCL 40 MG DISPERSABLE TABLET ONE (05:56)
[2019-08-30] MEDS ORDERED: METHADONE HCL 10 MG TABLET ONE (05:56)
[2019-08-30] MEDS: METHADONE 40 MG, METHADONE 30 MG PO SCH (06:34)
[2019-08-30 06:58] VITALS: BP 130/85; PULSE 72; TEMP 97.9
[2019-08-30] MEDS: LISINOPRIL 10 MG TABLET (FP) PO SCH (10:03)
[2019-08-30] MEDS: FOLIC ACID 1 MG TABLET (FP) PO SCH (10:03)
[2019-08-30] MEDS: HYDROCHLOROTHIAZIDE 12.5 MG CAPSULE (FP) PO SCH (10:03)
[2019-08-30] MEDS: SERTRALINE HCL 50 MG TABLET (FP) PO SCH (10:04)
[2019-08-30] MEDS: NICOTINE 14 MG/24 HOURS TOPICAL PATCH TD SCH (10:04)
[2019-08-30] MEDS: DOCUSATE SODIUM 100 MG CAPSULE (FP) PO PRN (10:04)
[2019-08-30] MEDS: PRENATAL VITAMINS W/ FOLIC ACID TABLET (FP) PO SCH (10:04)
== END 2019-08-30 08:53 | disposition home or self-care (01) | DRG 772 ==
LOC: YASAS 12:28 → Y3W 12:29
PROVIDERS: ADMIT Neuromusculoskeletal Medicine & OMM; ATTEND Neuromusculoskeletal Medicine & OMM
PROC: HZ42ZZZ Group Counseling for Substance Abuse Treatment, Cognitive-Behavioral (ICD-10-PCS; principal; 2019-08-20)
DX: F10.20 Alcohol dependence, uncomplicated (principal); F11.20 Opioid dependence, uncomplicated; F12.20 Cannabis dependence, uncomplicated; F17.210 Nicotine dependence, cigarettes, uncomplicated; F33.1 Major depressive disorder, recurrent, moderate; I10 Essential (primary) hypertension; R01.1 Cardiac murmur, unspecified; G47.00 Insomnia, unspecified; Z91.011 Allergy to milk products; Z91.012 Allergy to eggs; Z91.018 Allergy to other foods
CPT/HCPCS: G0008; Q2036

== ENCOUNTER 2019-10-25 16:01 | Inpatient (IN) | payer OTHER ==
[2019-10-25 18:22] VITALS: BMI 28.0
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
[2019-10-25] MEDS ORDERED: MAGNESIUM HYDROX 2400MG/30ML ORAL SUSPENSION 30 ML CUP PO PRN (20:04)
[2019-10-25] MEDS ORDERED: hydrOXYzine PAMOATE 25 MG CAPSULE (FP) PO PRN (20:04)
[2019-10-25] MEDS ORDERED: ACETAMINOPHEN 325 MG TABLET (FP) PO PRN (20:04)
[2019-10-25] MEDS ORDERED: MENTHOL/PHENOL 1 EACH UD MM PRN (20:04)
[2019-10-25] MEDS ORDERED: IBUPROFEN 400 MG TABLET (FP) PO PRN (20:04)
[2019-10-25] MEDS ORDERED: MAGNESIUM CITRATE 300 ML BOTTLE PO PRN (20:04)
[2019-10-25] MEDS ORDERED: BISMUTH SUBSALICYLATE 524 MG/30 ML UD PO PRN (20:04)
[2019-10-25] MEDS ORDERED: METOPROLOL TARTRATE 25 MG TABLET (FP) PO ONE (20:07)
[2019-10-25] MEDS: diazePAM 5 MG TABLET PO SCH (21:01)
[2019-10-25] MEDS: MELATONIN 5 MG TABLETS PO PRN (21:01)
[2019-10-25] MEDS: THIAMINE HCL 100 MG TABLET (FP) PO SCH (21:01)
[2019-10-25] MEDS: ACETAMINOPHEN 325 MG TABLET (FP) PO PRN (21:02)
[2019-10-26] MEDS: diazePAM 5 MG TABLET PO SCH ×3 (05:37→21:28)
[2019-10-26] MEDS: diazePAM 5 MG TABLET PO PRN ×3 (07:47→17:27)
[2019-10-26] MEDS ORDERED: METHADONE HCL 10 MG TABLET PO ONE (08:49)
[2019-10-26] MEDS ORDERED: METHADONE 40 MG, METHADONE 30 MG PO ONE (09:10)
[2019-10-26] MEDS ORDERED: METHADONE HCL 10 MG TABLET ONE (09:13)
[2019-10-26] MEDS ORDERED: METHADONE HCL 40 MG DISPERSABLE TABLET ONE (09:13)
[2019-10-26 09:50] LABS: HEMATOCRIT 32.1 % (35.4-49); HEMOGLOBIN 10.9 GM/dL (11.7-16.9); MCHC 33.9 g/dl (32.0-35.9); MEAN CELL VOLUME 106.1 fl (80-96); MEAN PLT VOLUME 7.8 fl (7.5-11.1); PLATELET COUNT 126 K/MM3 (134-434); RBC 3.03 M/mm3 (4.00-5.60); RDW 19.4 % (11.9-15.9); WHITE BLOOD COUNT 2.7 K/mm3 (4.0-10.0)
[2019-10-26] MEDS: NICOTINE 7 MG/24 HOURS TOPICAL PATCH TD SCH (09:50)
[2019-10-26] MEDS: PRENATAL VITAMINS W/ FOLIC ACID TABLET (FP) PO SCH (09:50)
[2019-10-26] MEDS: MAG HYDROX/AL HYDROX/SIMETH 30 ML UNIT-DOSE CUP PO PRN ×2 (09:54→21:52)
[2019-10-26 10:24] LABS: ALBUMIN 3.3 g/dl (3.4-5.0); BILIRUBIN,TOTAL 0.9 mg/dL (0.2-1); CALCIUM 8.7 mg/dL (8.5-10.1); CREATININE 1.1 mg/dL (0.55-1.3); POTASSIUM 3.7 mmol/L (3.5-5.1); TOT PROT 6.4 g/dl (6.4-8.2)
--- NOTE | 2019-10-26 11:12 | PN ---
S CIWA - CIWA Score Nausea/Vomitin-No Nausea/No Vomiting Muscle Tremors: 3 Anxiety: 2 Agitation: 2 Paroxysmal Sweats: 2 Orientation: 0-Oriented Tacttile Disturbances: 0-None Auditory Disturbances: 0-None Visual Disturbances: 0-None Headache: 0-None Present CIWA-Ar Total Score: 9 BHS Progress Note (SOAP) Subjective: sweats diarrhea interrupted sleep I have bumps on my private penile area it garcia and itch Objective: 10/26/19 11:12 Vital Signs Temperature 97.7 F 10/26/19 09:35 Pulse Rate 78 10/26/19 09:35 Respiratory Rate 10/26/19 09:35 Blood Pressure 151/91 10/26/19 09:35 O2 Sat by Pulse Oximetry (%) Laboratory Tests 10/26/19 10/26/19 08:00 08:00 WBC 2.7 L RBC 3.03 L Hgb 10.9 L Hct 32.1 L D MCV 106.1 H MCH 36.0 H MCHC 33.9 RDW 19.4 H Plt Count 126 L D MPV 7.8 D Sodium 145 Potassium 3.7 Chloride 108 H Carbon Dioxide 30 Anion Gap 7 L BUN 14.0 Creatinine 1.1 Est GFR (CKD-EPI)AfAm 88.36 Est GFR (CKD-EPI)NonAf 76.24 Random Glucose 98 Calcium 8.7 Total Bilirubin 0.9 AST 55 H ALT 51 Alkaline Phosphatase 55 Total Protein 6.4 Albumin 3.3 L labs noted aaox3 ambulating no acute distress Assessment: 10/26/19 11:13 withdrawals noted assessed pt private area with Dr. Zaldivar. We noticed simran bumps to shaft of penile area. Pt c/o itch, pain and this occurred about a week ago. Pt states he never had a chance to see his PCP or go to hospital. Plan: continue detox increase fluids bacitracin oint ordered doxycycline antibiotic ordered
[2019-10-26] MEDS ORDERED: DOXYCYCLINE HYCLATE 100 MG TABLET PO ONE (11:15)
[2019-10-26] MEDS: BACITRACIN 15 GM TUBE TOPICAL OINTMENT TP SCH ×2 (15:43→22:24)
[2019-10-26] MEDS: DOXYCYCLINE HYCLATE 100 MG TABLET PO SCH (17:27)
[2019-10-26] MEDS: THIAMINE HCL 100 MG TABLET (FP) PO SCH (21:28)
[2019-10-26] MEDS: MELATONIN 5 MG TABLETS PO PRN (21:29)
[2019-10-27] MEDS ORDERED: METHADONE HCL 10 MG TABLET ONE (04:38)
[2019-10-27] MEDS ORDERED: METHADONE HCL 40 MG DISPERSABLE TABLET ONE (04:39)
[2019-10-27] MEDS: diazePAM 5 MG TABLET PO SCH ×2 (05:06→17:08)
[2019-10-27] MEDS: ACETAMINOPHEN 325 MG TABLET (FP) PO PRN (05:06)
[2019-10-27] MEDS: METHADONE 40 MG, METHADONE 30 MG PO SCH (05:06)
[2019-10-27] MEDS ORDERED: METHADONE HCL 40 MG DISPERSABLE TABLET PO SCH (06:00)
[2019-10-27] MEDS: MAG HYDROX/AL HYDROX/SIMETH 30 ML UNIT-DOSE CUP PO PRN ×2 (06:10→22:30)
--- NOTE | 2019-10-27 09:40 | PN ---
S CIWA - CIWA Score Nausea/Vomitin-No Nausea/No Vomiting Muscle Tremors: 2 Anxiety: 1-Mildly Anxious Agitation: 2 Paroxysmal Sweats: No Perspiration Orientation: 0-Oriented Tacttile Disturbances: 0-None Auditory Disturbances: 0-None Visual Disturbances: 0-None Headache: 0-None Present CIWA-Ar Total Score: 5 BHS Progress Note (SOAP) Subjective: feeling better little anxiety Objective: 10/27/19 09:39 Vital Signs Temperature 98.8 F 10/27/19 05:56 Pulse Rate 72 10/27/19 05:56 Respiratory Rate 18 10/27/19 05:56 Blood Pressure 146/79 10/27/19 05:56 O2 Sat by Pulse Oximetry (%) Laboratory Tests 10/26/19 10/26/19 08:00 08:00 WBC 2.7 L RBC 3.03 L Hgb 10.9 L Hct 32.1 L D MCV 106.1 H MCH 36.0 H MCHC 33.9 RDW 19.4 H Plt Count 126 L D MPV 7.8 D Sodium 145 Potassium 3.7 Chloride 108 H Carbon Dioxide 30 Anion Gap 7 L BUN 14.0 Creatinine 1.1 Est GFR (CKD-EPI)AfAm 88.36 Est GFR (CKD-EPI)NonAf 76.24 Random Glucose 98 Calcium 8.7 Total Bilirubin 0.9 AST 55 H ALT 51 Alkaline Phosphatase 55 Total Protein 6.4 Albumin 3.3 L repeat cbc ordered aaox3 ambulating no acute distress Assessment: 10/27/19 09:39 mild withdrawals Plan: continue detox d/c in am
[2019-10-27] MEDS: PRENATAL VITAMINS W/ FOLIC ACID TABLET (FP) PO SCH (10:07)
[2019-10-27] MEDS: NICOTINE 7 MG/24 HOURS TOPICAL PATCH TD SCH (10:08)
[2019-10-27] MEDS: BACITRACIN 15 GM TUBE TOPICAL OINTMENT TP SCH ×2 (10:08→22:27)
[2019-10-27] MEDS: DOXYCYCLINE HYCLATE 100 MG TABLET PO SCH ×2 (10:09→17:12)
[2019-10-27] MEDS: diazePAM 5 MG TABLET PO PRN ×2 (10:09→22:28)
[2019-10-27 15:04] LABS: BASO % 0.4 % (0-2.0); EOS % 1.6 % (0-4.5); HEMATOCRIT 31.5 % (35.4-49); HEMOGLOBIN 10.7 GM/dL (11.7-16.9); LYMPH % 33.5 % (8-40); MCH 36.3 pg (25.7-33.7); MCHC 33.9 g/dl (32.0-35.9); MEAN PLT VOLUME 8.2 fl (7.5-11.1); MONO % 9.1 % (3.8-10.2); NEUT % 55.4 % (42.8-82.8); PLATELET COUNT 133 K/MM3 (134-434); RBC 2.94 M/mm3 (4.00-5.60); WHITE BLOOD COUNT 3.5 K/mm3 (4.0-10.0)
[2019-10-27 15:37] LABS: ANISOCYTOSIS 1+; MACROCYTOSIS 1+; PLATELET ESTIMATE DECREASED
[2019-10-27] MEDS ORDERED: cloNIDine HCL 0.1 MG TABLET PO ONE (18:58)
[2019-10-27] MEDS: THIAMINE HCL 100 MG TABLET (FP) PO SCH (22:26)
[2019-10-28] MEDS ORDERED: METHADONE HCL 10 MG TABLET ONE (04:39)
[2019-10-28] MEDS ORDERED: METHADONE HCL 40 MG DISPERSABLE TABLET ONE (04:39)
[2019-10-28] MEDS: METHADONE 40 MG, METHADONE 30 MG PO SCH (05:40)
[2019-10-28] MEDS ORDERED: diazePAM 5 MG TABLET PO ONE (06:00)
[2019-10-28] MEDS: NICOTINE 7 MG/24 HOURS TOPICAL PATCH TD SCH (09:36)
[2019-10-28] MEDS: PRENATAL VITAMINS W/ FOLIC ACID TABLET (FP) PO SCH (09:36)
[2019-10-28] MEDS: BACITRACIN 15 GM TUBE TOPICAL OINTMENT TP SCH (09:36)
[2019-10-28] MEDS: DOXYCYCLINE HYCLATE 100 MG TABLET PO SCH (09:36)
[2019-10-28 09:37] VITALS: BP 140/98; PULSE 95; TEMP 98.2
[2019-10-28] MEDS: MAG HYDROX/AL HYDROX/SIMETH 30 ML UNIT-DOSE CUP PO PRN (09:38)
--- NOTE | 2019-10-28 18:09 | DS ---
[facility] Detox Discharge Summary Admission Date: 10/25/19 Discharge Date: 10/28/19 - History Present History: Alcohol Dependence, Cocaine Dependence, Opioid Dependence, MMTP Additional Comments: NO BEDS CURRENTLY AVAILABLE AT [facility] ([place], [place]), THUS , PATENT WILL CONTACT [facility] ADMISSIONS DEPARTMENT ON 2018 TO INQUIRE ABOUT BED AVAILABILITY AT THAT TIME. PATIENT ADVISED TO FOLLOW-UP WITH FRONT TENDER (DR. DARDEN) AFTER DISCHARGE FROM DETOX FOR FOR ANEMIA AND PANCYTOPENIA NOTED ON DETOX ADMISSION AND REPEAT LABORATORY ASSESSMENTS AND FOR GENITAL SKIN INFECTION NOTED WHILE ADMITTED FOR DETOX. COPIES OF RESULTS OF ALL LABS DRAWN WHILE ADMITTED FOR DETOX GIVEN TO PATIENT AT TIME OF DISCHARGE FROM DETOX UNIT. PRESCRIPTION FOR REMAINDER OF ANTIBIOTIC ( DOXYCYCLINE) SENT TO PATIENT'S PHARMACY ([place], [place]) FOR AFTERCARE. PATIENT ADVISED TO COMPLETE FULL COURSE OF ANTIBIOTIC. PATIENT VERBALIZED UNDERSTANDING OF ALL RECOMMENDATIONS PRESENTED TO HIM PRIOR TO DISCHARGE. PATIENT WAS DISCHARGED FROM DETOX UNIT IN LOIS MEDICAL CONDITION. Pertinent Past History: HTN, Pancytopenia, Elevated AST Level (both noted while admitted for Detox), MMTP, Nicotine Dependence. - Physical Exam Results Vital Signs: Vital Signs Temperature 98.2 F 10/28/19 09:36 Pulse Rate 95 H 10/28/19 09:36 Respiratory Rate 16 10/28/19 09:36 Blood Pressure 140/98 10/28/19 09:36 O2 Sat by Pulse Oximetry (%) Pertinent Admission Physical Exam Findings: WITHDRAWAL SYMPTOMS. Laboratory Tests 10/26/19 10/26/19 10/27/19 08:00 08:00 10:40 WBC 2.7 L 3.5 L RBC 3.03 L 2.94 L Hgb 10.9 L 10.7 L Hct 32.1 L D 31.5 L MCV 106.1 H 107.0 H MCH 36.0 H 36.3 H MCHC 33.9 33.9 RDW 19.4 H 19.0 H Plt Count 126 L D 133 L MPV 7.8 D 8.2 Absolute Neuts (auto) 1.9 Neutrophils % 55.4 Lymphocytes % 33.5 D Monocytes % 9.1 Eosinophils % 1.6 Basophils % 0.4 D Nucleated RBC % 0 Platelet Estimate Decreased Polychromasia 1+ Anisocytosis 1+ Macrocytosis 1+ Sodium 145 Potassium 3.7 Chloride 108 H Carbon Dioxide 30 Anion Gap 7 L BUN 14.0 Creatinine 1.1 Est GFR (CKD-EPI)AfAm 88.36 Est GFR (CKD-EPI)NonAf 76.24 Random Glucose 98 Calcium 8.7 Total Bilirubin 0.9 AST 55 H ALT 51 Alkaline Phosphatase 55 Total Protein 6.4 Albumin 3.3 L LABS NOTED. - Treatment Hospital Course: Detox Protocol Followed, Detoxed Safely, Responded well, Discharged Condition Good Patient has Accepted a Rehab Referral to: PATIENT WILL RETURN ON 10/30/19 TO APPLY FOR ADMISSION TO [facility]. - Medication Discharge Medications: Ambulatory Orders Multivitamins [Tab-A-Vit -] 1 tab PO DAILY 05/01/18 Cyanocobalamin [Vitamin B12 -] 1,000 mcg PO BID #14 tablet 08/29/19 Folic Acid - 1 mg PO DAILY #14 tablet 08/29/19 Lisinopril [Prinivil] 30 mg PO DAILY #30 tablet 08/29/19 Sertraline HCl [Zoloft -] 50 mg PO DAILY #30 tablet 08/29/19 traZODone HCL [Desyrel -] 50 mg PO HS 10/25/19 Doxycycline Hyclate 100 mg PO Q12H 7 Days #14 tablet 10/28/19 Hydrochlorothiazide [Hctz -] 25 mg PO DAILY #30 tablet 10/28/19 - Diagnosis (1) Alcohol intoxication Status: Acute Qualifiers: Complication of substance-induced condition: uncomplicated Qualified Code(s ): F10.920 - Alcohol use, unspecified with intoxication, uncomplicated (2) Cocaine abuse, episodic use Status: Acute (3) Opioid dependence on agonist therapy Status: Acute (4) Pancytopenia Status: Acute (5) Nicotine dependence Status: Chronic Qualifiers: Nicotine product type: cigarettes Substance use status: uncomplicated Qualified Code(s): F17.210 - Nicotine dependence, cigarettes, uncomplicated - AMA Did Patient Leave Against Medical Advice: No
== END 2019-10-28 09:00 | disposition home or self-care (01) | DRG 773 ==
LOC: YASAS 16:01 → Y6N 20:19
PROVIDERS: ADMIT Allergy & Immunology; ATTEND Allergy & Immunology
PROC: HZ2ZZZZ Detoxification Services for Substance Abuse Treatment (ICD-10-PCS; principal; 2019-10-25)
DX: F10.230 Alcohol dependence with withdrawal, uncomplicated (principal); F10.220 Alcohol dependence with intoxication, uncomplicated; F11.20 Opioid dependence, uncomplicated; F14.20 Cocaine dependence, uncomplicated; F17.210 Nicotine dependence, cigarettes, uncomplicated; I10 Essential (primary) hypertension; D61.818 Other pancytopenia; R74.0 Nonspecific elevation of levels of transaminase and lactic acid dehydrogenase [LDH]; L98.8 Other specified disorders of the skin and subcutaneous tissue; Z91.018 Allergy to other foods
CPT/HCPCS: 36415; 80053; 85025; 85027; J0735

== ENCOUNTER 2019-12-20 13:41 | Inpatient (IN) | payer OTHER ==
[2019-12-20 16:46] VITALS: BMI 26.2
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
[2019-12-20] MEDS ORDERED: ACETAMINOPHEN 325 MG TABLET (FP) PO PRN ×2 (18:50)
[2019-12-20] MEDS ORDERED: MAG HYDROX/AL HYDROX/SIMETH 30 ML UNIT-DOSE CUP PO PRN (18:50)
[2019-12-20] MEDS ORDERED: IBUPROFEN 400 MG TABLET (FP) PO PRN (18:50)
[2019-12-20] MEDS ORDERED: MAGNESIUM HYDROX 2400MG/30ML ORAL SUSPENSION 30 ML CUP PO PRN (18:50)
[2019-12-20] MEDS ORDERED: METOPROLOL TARTRATE 25 MG TABLET (FP) PO ONE (18:50)
[2019-12-20] MEDS ORDERED: MAGNESIUM CITRATE 300 ML BOTTLE PO PRN (18:50)
[2019-12-20] MEDS ORDERED: BISMUTH SUBSALICYLATE 524 MG/30 ML UD PO PRN (18:50)
[2019-12-20] MEDS ORDERED: MENTHOL/PHENOL 1 EACH UD MM PRN (18:50)
[2019-12-20] MEDS: chlordiazePOXIDE HCL 10 MG CAPSULE PO PRN (19:53)
[2019-12-20] MEDS: THIAMINE HCL 100 MG TABLET (FP) PO SCH (21:36)
[2019-12-20] MEDS: chlordiazePOXIDE HCL 25 MG CAPSULE PO SCH (21:36)
[2019-12-20] MEDS: MELATONIN 5 MG TABLETS PO PRN (21:36)
[2019-12-21] MEDS: chlordiazePOXIDE HCL 25 MG CAPSULE PO SCH ×3 (05:28→21:44)
[2019-12-21] MEDS: chlordiazePOXIDE HCL 10 MG CAPSULE PO PRN ×2 (08:08→19:10)
[2019-12-21] MEDS ORDERED: METHADONE HCL 10 MG TABLET PO ONE (09:20)
[2019-12-21] MEDS ORDERED: METHADONE 40 MG, METHADONE 30 MG PO ONE (09:30)
[2019-12-21] MEDS ORDERED: METHADONE HCL 10 MG TABLET ONE (09:41)
[2019-12-21] MEDS ORDERED: METHADONE HCL 40 MG DISPERSABLE TABLET ONE (09:41)
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
[2019-12-21 10:11] LABS: HEMATOCRIT 37.6 % (35.4-49); HEMOGLOBIN 12.8 GM/dL (11.7-16.9); MCH 39.2 pg (25.7-33.7); MEAN CELL VOLUME 115.3 fl (80-96); MEAN PLT VOLUME 8.8 fl (7.5-11.1); PLATELET COUNT 182 K/MM3 (134-434); RBC 3.26 M/mm3 (4.00-5.60); RDW 15.6 % (11.9-15.9); WHITE BLOOD COUNT 3.5 K/mm3 (4.0-10.0)
[2019-12-21] MEDS: PRENATAL VITAMINS W/ FOLIC ACID TABLET (FP) PO SCH (10:16)
[2019-12-21] MEDS: HYDROCHLOROTHIAZIDE 25 MG TABLET (FP) PO SCH (10:16)
[2019-12-21] MEDS: LISINOPRIL 10 MG TABLET (FP) PO SCH (10:17)
[2019-12-21] MEDS: SERTRALINE HCL 50 MG TABLET (FP) PO SCH (10:19)
[2019-12-21] MEDS: hydrOXYzine PAMOATE 25 MG CAPSULE (FP) PO PRN ×2 (10:19→19:10)
[2019-12-21 10:52] LABS: ALBUMIN 3.8 g/dl (3.4-5.0); BILIRUBIN,TOTAL 1.7 mg/dL (0.2-1); CALCIUM 9.8 mg/dL (8.5-10.1); CREATININE 1.1 mg/dL (0.55-1.3); POTASSIUM 4.1 mmol/L (3.5-5.1); TOT PROT 7.8 g/dl (6.4-8.2)
[2019-12-21] MEDS ORDERED: cloNIDine HCL 0.1 MG TABLET PO ONE (11:25)
[2019-12-21] MEDS: NICOTINE 21 MG/24 HOURS TOPICAL PATCH TD SCH (11:43)
[2019-12-21] MEDS ORDERED: NITROGLYCERIN SUBLINGUAL 1/150 0.4 MG TAB SL ONE (11:52)
--- NOTE | 2019-12-21 11:54 | PN ---
S CIWA - CIWA Score Nausea/Vomitin-No Nausea/No Vomiting Muscle Tremors: 4-Moderate,w/Arms Extend Anxiety: 4-Mod. Anxious/Guarded Agitation: 4-Moderately Restless Paroxysmal Sweats: 3 Orientation: 0-Oriented Tacttile Disturbances: 0-None Auditory Disturbances: 0-None Visual Disturbances: 0-None Headache: 0-None Present CIWA-Ar Total Score: 15 BHS Progress Note (SOAP) Subjective: shakes sweats interrupted sleep body aches Objective: 12/21/19 11:53 Vital Signs Temperature 98.1 F 12/21/19 09:43 Pulse Rate 66 12/21/19 09:43 Respiratory Rate 16 12/21/19 09:43 Blood Pressure 166/99 12/21/19 09:43 O2 Sat by Pulse Oximetry (%) Laboratory Tests 12/21/19 12/21/19 08:00 08:00 WBC 3.5 L RBC 3.26 L Hgb 12.8 Hct 37.6 D MCV 115.3 H D MCH 39.2 H MCHC 34.0 RDW 15.6 D Plt Count 182 D MPV 8.8 Sodium 143 Potassium 4.1 Chloride 103 Carbon Dioxide 30 Anion Gap 10 BUN 9.0 Creatinine 1.1 Est GFR (CKD-EPI)AfAm 88.36 Est GFR (CKD-EPI)NonAf 76.24 Random Glucose 122 H Calcium 9.8 Total Bilirubin 1.7 H AST 265 H ALT 195 H Alkaline Phosphatase 143 H Total Protein 7.8 Albumin 3.8 labs noted elevated liver enzymes; tylenol d/c aaox3 ambulating no acute distress Assessment: 12/21/19 11:54 withdrawals Plan: continue detox increase fluids
--- NOTE | 2019-12-21 11:58 | PN ---
[facility] Progress Note Note: RN called to say pt BP is 163-101 HR 67 BP repeated manually 161/100 HR 67 pt c/o chest pain, in the past when given clonidine BP decreases and chest pain goes away. EKG ordered; results show normal sinus rhythm possible left enlargement. when compared to his previous EKG no significant changes clonidine 0.1mg x one now clonidine 0.1mg bid with parameters nitroglycerin 0.4mg x one recheck BP in one hour. pt was advised if chest pain persist and BP maintains high he will be sent to [facility] ed for evaluation; pt in agreement.
[2019-12-21] MEDS ORDERED: NITROGLYCERIN SUBLINGUAL 1/150 0.4 MG TAB SL PRN (12:53)
--- NOTE | 2019-12-21 12:53 | PN ---
[facility] Progress Note Note: manual BP repeated; 150/93, HR 64 apical. pt states he feels much better, chest pain is gone after the medication ordered and given. will continue to monitor.
--- NOTE | 2019-12-21 14:40 | EKG ---
Test Reason : Blood Pressure : / mmHG Vent. Rate : 065 BPM Atrial Rate : 065 BPM P-R Int : 146 ms QRS Dur : 076 ms QT Int : 442 ms P-R-T Axes : -07 019 127 degrees QTc Int : 459 ms NORMAL SINUS RHYTHM NONSPECIFIC T WAVE ABNORMALITY ABNORMAL ECG WHEN COMPARED WITH ECG OF 05-APR-2019 18:22, NONSPECIFIC T WAVE ABNORMALITY, WORSE IN LATERAL LEADS Confirmed by GINI REED, NAKIA ([id number]) on 12/21/2019 2:39:58 PM Referred By: Confirmed By:NAKIA RUBALCAVA MD
--- NOTE | 2019-12-21 14:57 | PN ---
[facility] Progress Note Note: BP recheck at this time; RN states it is 137/85, HR 70. pt is feeling much better and is comfortable. continue to monitor.
[2019-12-21] MEDS: cloNIDine HCL 0.1 MG TABLET PO SCH (21:43)
[2019-12-21] MEDS: traZODone HCL 100 MG TABLET (FP) PO SCH (21:44)
[2019-12-21] MEDS: THIAMINE HCL 100 MG TABLET (FP) PO SCH (21:44)
[2019-12-21] MEDS: MELATONIN 5 MG TABLETS PO PRN (21:46)
[2019-12-21] MEDS ORDERED: traZODone HCL 100 MG TABLET (FP) PO SCH (22:00)
[2019-12-22] MEDS ORDERED: METHADONE HCL 40 MG DISPERSABLE TABLET ONE (04:29)
[2019-12-22] MEDS ORDERED: METHADONE HCL 10 MG TABLET ONE (04:29)
[2019-12-22] MEDS ORDERED: METHADONE HCL 40 MG DISPERSABLE TABLET PO SCH (06:00)
[2019-12-22] MEDS: chlordiazePOXIDE HCL 10 MG CAPSULE PO SCH ×3 (06:01→21:25)
[2019-12-22] MEDS: METHADONE 40 MG, METHADONE 30 MG PO SCH (06:01)
[2019-12-22] MEDS: IBUPROFEN 600 MG TABLET (FP) PO PRN (10:14)
[2019-12-22] MEDS: PRENATAL VITAMINS W/ FOLIC ACID TABLET (FP) PO SCH (10:16)
[2019-12-22] MEDS: hydrOXYzine PAMOATE 25 MG CAPSULE (FP) PO PRN (10:16)
[2019-12-22] MEDS: SERTRALINE HCL 50 MG TABLET (FP) PO SCH (10:16)
[2019-12-22] MEDS: NICOTINE 21 MG/24 HOURS TOPICAL PATCH TD SCH (10:16)
[2019-12-22] MEDS: LISINOPRIL 10 MG TABLET (FP) PO SCH (10:16)
[2019-12-22] MEDS: HYDROCHLOROTHIAZIDE 25 MG TABLET (FP) PO SCH (10:16)
[2019-12-22] MEDS ORDERED: SIMETHICONE 80 MG TAB.CHEW (FP) PO PRN (10:41)
[2019-12-22] MEDS: cloNIDine HCL 0.1 MG TABLET PO SCH ×2 (10:42→21:25)
[2019-12-22] MEDS: LIDOCAINE 5% TOPICAL PATCH TP SCH (11:45)
--- NOTE | 2019-12-22 13:42 | PN ---
S CIWA - CIWA Score Nausea/Vomitin-No Nausea/No Vomiting Muscle Tremors: 2 Anxiety: 1-Mildly Anxious Agitation: 2 Paroxysmal Sweats: 1-Minimal Palms Moist Orientation: 0-Oriented Tacttile Disturbances: 0-None Auditory Disturbances: 0-None Visual Disturbances: 0-None Headache: 0-None Present CIWA-Ar Total Score: 6 BHS Progress Note (SOAP) Subjective: abdomen discomfort my chest is feeling better Objective: 12/22/19 13:41 Vital Signs Temperature 98.1 F 12/22/19 10:03 Pulse Rate 78 12/22/19 10:03 Respiratory Rate 17 12/22/19 10:03 Blood Pressure 129/90 12/22/19 10:03 O2 Sat by Pulse Oximetry (%) Laboratory Tests 12/21/19 12/21/19 08:00 08:00 WBC 3.5 L RBC 3.26 L Hgb 12.8 Hct 37.6 D MCV 115.3 H D MCH 39.2 H MCHC 34.0 RDW 15.6 D Plt Count 182 D MPV 8.8 Sodium 143 Potassium 4.1 Chloride 103 Carbon Dioxide 30 Anion Gap 10 BUN 9.0 Creatinine 1.1 Est GFR (CKD-EPI)AfAm 88.36 Est GFR (CKD-EPI)NonAf 76.24 Random Glucose 122 H Calcium 9.8 Total Bilirubin 1.7 H AST 265 H ALT 195 H Alkaline Phosphatase 143 H Total Protein 7.8 Albumin 3.8 aaox3 ambulating no acute distress Assessment: 12/22/19 13:43 abdomen assessed, +BS noted, gas noted mild withdrawals Plan: abdominal x-ray ordered gas x prn lidocaine patch motrin 600mg prn d/c in am
[2019-12-22] MEDS: THIAMINE HCL 100 MG TABLET (FP) PO SCH (21:25)
[2019-12-22] MEDS: traZODone HCL 100 MG TABLET (FP) PO SCH (21:25)
[2019-12-22] MEDS ORDERED: LIDOCAINE PATCH REMOVAL MC SCH (22:00)
[2019-12-23] MEDS ORDERED: chlordiazePOXIDE HCL 10 MG CAPSULE PO ONE (05:00)
[2019-12-23] MEDS ORDERED: METHADONE HCL 40 MG DISPERSABLE TABLET ONE (06:18)
[2019-12-23] MEDS ORDERED: METHADONE HCL 10 MG TABLET ONE (06:18)
[2019-12-23] MEDS: METHADONE 40 MG, METHADONE 30 MG PO SCH (06:27)
[2019-12-23] MEDS: PRENATAL VITAMINS W/ FOLIC ACID TABLET (FP) PO SCH (10:49)
[2019-12-23] MEDS: HYDROCHLOROTHIAZIDE 25 MG TABLET (FP) PO SCH (10:49)
[2019-12-23] MEDS: LISINOPRIL 10 MG TABLET (FP) PO SCH (10:49)
[2019-12-23] MEDS: SERTRALINE HCL 50 MG TABLET (FP) PO SCH (10:49)
[2019-12-23] MEDS: cloNIDine HCL 0.1 MG TABLET PO SCH (10:49)
[2019-12-23] MEDS: NICOTINE 21 MG/24 HOURS TOPICAL PATCH TD SCH (10:50)
[2019-12-23] MEDS: LIDOCAINE 5% TOPICAL PATCH TP SCH (10:50)
[2019-12-23] MEDS: IBUPROFEN 600 MG TABLET (FP) PO PRN (10:51)
--- NOTE | 2019-12-23 11:23 | DS ---
[facility] Detox Discharge Summary Admission Date: 12/20/19 Discharge Date: 12/23/19 - History Present History: Alcohol Dependence, Cocaine Dependence, MMTP (Methadone 7o mg po daily, last dosed today on .) Additional Comments: Pt is a 54 y/o male with a hx of ANALI completed detox today and interested in going to rehab today. Pt met with counselor to plan for next level of care to rehab if bed available in rehab. Pertinent Past History: HTN Elevated Liver enzymes Ventral Hernia(Asymptomatic) PTSD Depression - Physical Exam Results Vital Signs: Vital Signs Temperature 97.7 F 12/23/19 09:45 Pulse Rate 91 H 12/23/19 09:45 Respiratory Rate 16 12/23/19 09:45 Blood Pressure 117/91 12/23/19 09:45 O2 Sat by Pulse Oximetry (%) alert o x 3 nad oob ambulating with steady gait. Pertinent Admission Physical Exam Findings: Laboratory Tests 12/21/19 12/21/19 08:00 08:00 WBC 3.5 L RBC 3.26 L Hgb 12.8 Hct 37.6 D MCV 115.3 H D MCH 39.2 H MCHC 34.0 RDW 15.6 D Plt Count 182 D MPV 8.8 Sodium 143 Potassium 4.1 Chloride 103 Carbon Dioxide 30 Anion Gap 10 BUN 9.0 Creatinine 1.1 Est GFR (CKD-EPI)AfAm 88.36 Est GFR (CKD-EPI)NonAf 76.24 Random Glucose 122 H Calcium 9.8 Total Bilirubin 1.7 H AST 265 H ALT 195 H Alkaline Phosphatase 143 H Total Protein 7.8 Albumin 3.8 - Treatment Hospital Course: Detox Protocol Followed, Detoxed Safely, Responded well, Discharged Condition Good, Rehab Referral Accepted Patient has Accepted a Rehab Referral to: [facility] - Medication Discharge Medications: Ambulatory Orders Multivitamins [Tab-A-Vit -] 1 tab PO DAILY 05/01/18 Cyanocobalamin [Vitamin B12 -] 1,000 mcg PO BID #14 tablet 08/29/19 Folic Acid - 1 mg PO DAILY #14 tablet 08/29/19 Lisinopril [Prinivil] 30 mg PO DAILY #30 tablet 08/29/19 Sertraline HCl [Zoloft -] 50 mg PO DAILY #30 tablet 08/29/19 traZODone HCL [Desyrel -] 50 mg PO HS 12/04/19 Hydrochlorothiazide [Hctz -] 25 mg PO DAILY #30 tablet 10/28/19 - Diagnosis (1) Alcohol dependence with uncomplicated withdrawal Current Visit: Yes Status: Chronic (2) Cocaine dependence Current Visit: Yes Status: Chronic Qualifiers: Substance use status: uncomplicated Qualified Code(s): F14.20 - Cocaine dependence, uncomplicated (3) Elevated liver enzymes Current Visit: Yes Status: Acute (4) Methadone maintenance therapy patient Current Visit: Yes Status: Chronic (5) Ventral hernia Current Visit: Yes Status: Chronic Qualifiers: Obstruction and gangrene presence: without obstruction or gangrene Qualified Code(s): K43.9 - Ventral hernia without obstruction or gangrene (6) HTN (hypertension) Current Visit: Yes Status: Chronic Qualifiers: Hypertension type: essential hypertension Qualified Code(s): I10 - Essential (primary) hypertension - AMA Did Patient Leave Against Medical Advice: No
[2019-12-23 13:50] VITALS: BP 129/66; PULSE 58; TEMP 97.1
== END 2019-12-23 13:34 | disposition other institution (70) | DRG 773 ==
LOC: YASAS 13:41 → Y6N 19:10
PROVIDERS: ADMIT Allergy & Immunology; ATTEND Allergy & Immunology
PROC: HZ2ZZZZ Detoxification Services for Substance Abuse Treatment (ICD-10-PCS; principal; 2019-12-20)
DX: F10.230 Alcohol dependence with withdrawal, uncomplicated (principal); F10.220 Alcohol dependence with intoxication, uncomplicated; F10.24 Alcohol dependence with alcohol-induced mood disorder; F10.282 Alcohol dependence with alcohol-induced sleep disorder; F11.20 Opioid dependence, uncomplicated; F14.20 Cocaine dependence, uncomplicated; F17.210 Nicotine dependence, cigarettes, uncomplicated; F33.1 Major depressive disorder, recurrent, moderate; F43.10 Post-traumatic stress disorder, unspecified; I10 Essential (primary) hypertension; R94.5 Abnormal results of liver function studies; K43.9 Ventral hernia without obstruction or gangrene; R07.89 Other chest pain; Z91.018 Allergy to other foods
CPT/HCPCS: 36415; 74018-TC-FY; 80053; 85027; 93005; 93010; J0735

== ENCOUNTER 2019-12-23 13:55 | Inpatient (IN) | payer OTHER ==
[2019-12-23] MEDS ORDERED: MENTHOL/PHENOL 1 EACH UD MM PRN (15:10)
[2019-12-23] MEDS ORDERED: ACETAMINOPHEN 325 MG TABLET (FP) PO PRN (15:10)
[2019-12-23] MEDS ORDERED: P-EPHED 60MG/TRIPROLIDI 2.5MG TABLET PO PRN (15:10)
[2019-12-23] MEDS ORDERED: MAG HYDROX/AL HYDROX/SIMETH 30 ML UNIT-DOSE CUP PO PRN (15:10)
[2019-12-23] MEDS ORDERED: MAGNESIUM HYDROX 2400MG/30ML ORAL SUSPENSION 30 ML CUP PO PRN (15:10)
[2019-12-23] MEDS ORDERED: LOPERAMIDE HCL 2 MG CAPSULE PO PRN (15:10)
[2019-12-23] MEDS ORDERED: guaiFENesin 200 MG/10 ML 10 ML UNIT-DOSE CUPS PO PRN (15:10)
[2019-12-23] MEDS ORDERED: MAGNESIUM CITRATE 300 ML BOTTLE PO PRN (15:10)
[2019-12-23] MEDS ORDERED: hydrOXYzine PAMOATE 25 MG CAPSULE (FP) PO PRN (15:10)
[2019-12-23] MEDS ORDERED: NITROGLYCERIN SUBLINGUAL 1/150 0.4 MG TAB SL PRN (15:15)
--- NOTE | 2019-12-23 15:17 | HP ---
[facility] Rehab Assess/Revision - Admission History Admitted to Rehab from: Y Date of Admission to Rehab: 12/23/19 - Findings Detox History & Physical reviewed: Yes Concur with findings: Yes Comments/Additional Findings: Pt is a 54 y/o male with a hx of ANALI-alcohol, cocaine Dep. on Methadone 70 mg po daily referred to rehab today. Last dose of Methadone 70 mg wastoday 12/23/19 on . PMHx:HTN, Ventral Hernia( Asymptomatic), Elevated Liver Enzymes. Psych Hx:PTSD, Depression. Note: Please To Repeat CBC and CMP while in Rehab. Last lab was 12/21/19 and abnormal. Inpatient Rehab Admission - Rehab Decision to Admit Inpatient rehab admission?: Yes - Initial Determination Are CD services needed?: Yes Free of communicable disease: Yes Not in need of hospitalization: Yes - Rehab Admission Criteria Previous failed treatment: Yes Poor recovery environment: Yes Comorbidities: Yes Lacks judgement: Yes Patient is meeting Inpatient Rehab admission criteria:: Yes
[2019-12-23] MEDS ORDERED: SIMETHICONE 80 MG TAB.CHEW (FP) PO PRN (16:07)
[2019-12-23] MEDS: MELATONIN 5 MG TABLETS PO PRN (21:40)
[2019-12-23] MEDS: THIAMINE HCL 100 MG TABLET (FP) PO SCH (21:40)
[2019-12-24] MEDS ORDERED: hydrOXYzine PAMOATE 25 MG CAPSULE (FP) PO PRN (05:29)
--- NOTE | 2019-12-24 05:35 | PN ---
S Progress Note Note: Reviewed detox orders and note from Psych and will continue MH meds. Will continue methadone. EKG reviewed and QT not prolonged.
[2019-12-24] MEDS ORDERED: METHADONE HCL 40 MG DISPERSABLE TABLET ONE (05:40)
[2019-12-24] MEDS ORDERED: METHADONE HCL 10 MG TABLET ONE (05:40)
[2019-12-24] MEDS ORDERED: METHADONE HCL 40 MG DISPERSABLE TABLET PO SCH (06:00)
[2019-12-24] MEDS: METHADONE 40 MG, METHADONE 30 MG PO SCH (06:04)
[2019-12-24] MEDS: PRENATAL VITAMINS W/ FOLIC ACID TABLET (FP) PO SCH (09:45)
[2019-12-24] MEDS: SERTRALINE HCL 50 MG TABLET (FP) PO SCH (09:45)
[2019-12-24] MEDS: HYDROCHLOROTHIAZIDE 25 MG TABLET (FP) PO SCH (09:45)
[2019-12-24] MEDS: LISINOPRIL 10 MG TABLET (FP) PO SCH (09:45)
[2019-12-24] MEDS: LIDOCAINE 5% TOPICAL PATCH TP SCH (09:47)
[2019-12-24] MEDS: IBUPROFEN 400 MG TABLET (FP) PO PRN (10:05)
[2019-12-24] MEDS: traZODone HCL 50 MG TABLET (FP) PO SCH (21:14)
[2019-12-24] MEDS: THIAMINE HCL 100 MG TABLET (FP) PO SCH (21:14)
[2019-12-24] MEDS: MELATONIN 5 MG TABLETS PO PRN (21:14)
[2019-12-24] MEDS: LIDOCAINE PATCH REMOVAL MC SCH (21:14)
[2019-12-25] MEDS ORDERED: METHADONE HCL 10 MG TABLET ONE (03:57)
[2019-12-25] MEDS ORDERED: METHADONE HCL 40 MG DISPERSABLE TABLET ONE (03:57)
[2019-12-25] MEDS: METHADONE 40 MG, METHADONE 30 MG PO SCH (06:51)
[2019-12-25] MEDS: IBUPROFEN 400 MG TABLET (FP) PO PRN (08:47)
[2019-12-25] MEDS: PRENATAL VITAMINS W/ FOLIC ACID TABLET (FP) PO SCH (10:11)
[2019-12-25] MEDS: HYDROCHLOROTHIAZIDE 25 MG TABLET (FP) PO SCH (10:12)
[2019-12-25] MEDS: LIDOCAINE 5% TOPICAL PATCH TP SCH (10:12)
[2019-12-25] MEDS: LISINOPRIL 10 MG TABLET (FP) PO SCH (10:12)
[2019-12-25] MEDS: SERTRALINE HCL 50 MG TABLET (FP) PO SCH (10:12)
[2019-12-25] MEDS: AMMONIUM LACTATE 12% LOTION 225 GM BOTTLE TP PRN (14:47)
--- NOTE | 2019-12-25 15:02 | CONSULT ---
Consultation: REQUESTING PROVIDER: Addiction medicine CONSULT REQUEST: We have been asked to medically evaluate this patient for Abdominal pain. HISTORY OF PRESENT ILLNESS: Pt is a 54 y/o M with PMH HTN, EtOH abuse, and anxiety/depression currently admitted to [facility] for detox/rehab (to be discharged on 01/20/2020) of EtOH who complains of abdominal pain. Pt states pain began suddenly when he was urinating approximately 1 month ago, extends from just under the sternum to just below the belly button, and is worse at night. Pain occurs reliably when getting up out of bed and is 8-9/10 when it occurs. Pain is alleviated by lying flat, and subsides when he is already upright. Around the same time as the pain , he noticed the appearance of a bulge in his belly in the same region as the location of his pain. He has never experienced these symptoms prior to 1 month ago. He admits to drinking moderately in the past, about 1-2 shots of liquor daily for many years (first drink at 15 years old). He states that around the holidays , he increased his alcohol intake dramatically, especially during the months of september and october of 2019 to what he calls binge drinking. He complains of some shortness of breath intermittently, which occur more often when lying down. When this occurs, he gets up and the shortness of breath resolves. He also describes swelling of the legs if he stands all day. States he sleeps with 2 pillows, which has not changed recently. He states he can walk 1.5 miles without stopping to rest. He notes that his legs become very swollen typically following a binge of alcohol. Irvin also complains of small pink dots on the head of his penis which appeared several months ago. He states he saw a solder technician who gave him some cream ( cannot recall the name) to put on them, which worked well. He states he was tested for herpes and was negative. He is sexually active with his only and does not use protection; he has been abstinent fro sex with his recently because he is worried that these lesions my represent an infection and does not want to pass it to her. Notably, he was tested here for syphilis and HIV and was negative. No burning on urination, blood in urine, discharge, smell. REVIEW OF SYSTEMS: CONSTITUTIONAL: Absent: fever, chills, diaphoresis, generalized weakness, malaise, loss of appetite, weight change HEENT: Absent: rhinorrhea, nasal congestion, throat pain, throat swelling, difficulty swallowing, mouth swelling, ear pain, eye pain, visual changes CARDIOVASCULAR: peripheral edema Absent: chest pain, syncope, palpitations, irregular heart rate, lightheadedness , RESPIRATORY: shortness of breath Absent: cough, dyspnea with exertion, orthopnea, wheezing, stridor, hemoptysis GASTROINTESTINAL: abdominal pain Absent: , abdominal distension, nausea, vomiting, diarrhea, constipation, melena , hematochezia GENITOURINARY: genital pain Absent: dysuria, frequency, urgency, hesitancy, hematuria, flank pain, MUSCULOSKELETAL: Absent: myalgia, arthralgia, joint swelling, back pain, neck pain SKIN: Absent: rash, itching, pallor HEMATOLOGIC/IMMUNOLOGIC: Absent: easy bleeding, easy bruising, lymphadenopathy, frequent infections ENDOCRINE: Absent: unexplained weight gain, unexplained weight loss, heat intolerance, cold intolerance NEUROLOGIC: Absent: headache, focal weakness or paresthesias, dizziness, unsteady gait, seizure, mental status changes, bladder or bowel incontinence PSYCHIATRIC: Absent: anxiety, depression, suicidal or homicidal ideation, hallucinations. PHYSICAL EXAMINATION Vital Signs - 24 hr 12/25/19 12/25/19 12/25/19 03:30 07:15 09:15 Temperature 98.6 F Pulse Rate 77 77 Respiratory 18 18 18 Rate Blood Pressure 146/93 142/96 Gen: NAD, AAOxe HEENT: NCAT, PERRL, EOMI, moist membranes, no pharyngeal erythema Neck: no LAD, no bruits Cardio: rrr, normal s1s2, no displaced PMI, No mrg noted Pulm: clear bilaterally Abd: soft, nondistended, large 20x5 cm ventral hernia easily reducible with palpable borders, hernia is tender to palpation with guarding, elicited with head raise or leg raise, no inguinal hernia Genital: R side of glans penis with 5-10 small eraser sized papules with erythematous bases, nonulcerated, painful. No testicular lesions. Ext: no edema Active Medications Generic Name Dose Route Start Last Admin Trade Name Freq PRN Reason Stop Dose Admin Acetaminophen 650 mg 12/23/19 15:10 12/23/19 17:13 Tylenol - PO 650 mg Q4H PRN Administration FEVER Al Hydroxide/Mg Hydroxide 30 ml 12/23/19 15:10 12/25/19 08:47 Mylanta Oral Suspension - PO 30 ml Q6H PRN Administration DYSPEPSIA Eucalyptus/Menthol/Phenol/Sorbitol 1 each 12/23/19 15:10 Cepastat Lozenge - MM Q4H PRN SORE THROAT Guaifenesin 10 ml 12/23/19 15:10 Robitussin - PO Q6H PRN COUGH Hydrochlorothiazide 25 mg 12/24/19 10:00 12/25/19 10:12 Hctz - PO 25 mg DAILY NALDO Administration Hydroxyzine Pamoate 25 mg 12/24/19 05:29 Vistaril - PO Q6H PRN AGITATION Ibuprofen 400 mg 12/23/19 15:10 12/25/19 08:47 Motrin - PO 400 mg Q6H PRN Administration Pain Level 4-6 Lactic Acid 1 applic 12/25/19 11:01 Lac-Hydrin 12 TP BID PRN DRY SKIN Lidocaine 1 patch 12/24/19 10:00 12/25/19 10:12 Lidoderm Patch - TP 1 patch DAILY [facility] Administration Lisinopril 30 mg 12/24/19 10:00 12/25/19 10:12 Prinivil PO 30 mg DAILY [facility] Administration Loperamide HCl 4 mg 12/23/19 15:10 Imodium - PO Q6H PRN DIARRHEA Magnesium Citrate 300 ml 12/23/19 15:10 Citroma - PO Q48H PRN CONSTIPATION Magnesium Hydroxide 30 ml 12/23/19 15:10 Milk Of Magnesia - PO DAILY PRN CONSTIPATION Melatonin 5 mg 12/23/19 22:00 12/24/19 21:14 Melatonin PO 5 mg HS PRN Administration INSOMNIA Methadone HCl 40 mg/ Methadone 70 mg 12/24/19 06:00 12/25/19 06:51 HCl 30 mg PO 70 mg DAILY@0600 [facility] Administration Miscellaneous 1 each 12/24/19 22:00 12/24/19 21:14 Lidoderm Patch Removal MC Not Given DAILY@0 [facility] Nitroglycerin 0.4 mg 12/23/19 15:15 Nitrostat - SL Q5M PRN FOR CHEST PAIN Multivit/Folic Acid/Iron 1 tab 12/24/19 10:00 12/25/19 10:11 Vitamins (Sjr) - PO 1 tab DAILY NALDO Administration Pseudoephedrine/Triprolidine 1 combo 12/23/19 15:10 Actifed - PO TID PRN NASAL CONGESTION Sertraline HCl 50 mg 12/24/19 10:00 12/25/19 10:12 Zoloft - PO 50 mg DAILY NALDO Administration Simethicone 80 mg 12/23/19 16:07 Mylicon - PO Q4H PRN GAS Thiamine HCl 100 mg 12/23/19 22:00 12/24/19 21:14 Vitamin B1 - PO 100 mg HS NALDO Administration Trazodone HCl 50 mg 12/24/19 22:00 12/24/19 21:14 Desyrel - PO 50 mg HS NALDO Administration ASSESSMENT/PLAN: Pt is a 54 y/o M with PMH HTN, EtOH abuse, and anxiety/depression currently admitted to [facility] for detox/rehab (to be discharged on 01/20/2020) of EtOH who complains of abdominal pain, shortness of breath, and genital lesions. Ventral hernia -painful, worse with maneuvers which increase intraabdominal pressure -palpable and reducible -should see a surgeon. Will provide office number for Dr. Jackson . Shortness of breath -pt describing intermittent symptoms of heart failure. Unclear relationship to heavy drinking. -? holiday heart syndrome vs alcoholic cardiomyopathy -would benefit from echo and cardiology evaluation -no signs or symptoms of overload/congestion/heart failure at this time. Pt is able to walk without dyspnea and can lay flat without discomfort at this time. -Counselled on EtOH abuse Genital lesions -? herpes simplex - should be retested. No vesicular lesions. -HSV PCR -May benefit from valacyclovir 500mg bid X 5 days Dispo: We will continue to follow the patient. Thank you for this consultative opportunity. <Alex Childs - Last Filed: 12/25/19 17:22> Consultation: REQUESTING PROVIDER: CONSULT REQUEST: We have been asked to medically evaluate this patient for ( specify). HISTORY OF PRESENT ILLNESS: REVIEW OF SYSTEMS: CONSTITUTIONAL: Absent: fever, chills, diaphoresis, generalized weakness, malaise, loss of appetite, weight change HEENT: Absent: rhinorrhea, nasal congestion, throat pain, throat swelling, difficulty swallowing, mouth swelling, ear pain, eye pain, visual changes CARDIOVASCULAR: Absent: chest pain, syncope, palpitations, irregular heart rate, lightheadedness , peripheral edema RESPIRATORY: Absent: cough, shortness of breath, dyspnea with exertion, orthopnea, wheezing, stridor, hemoptysis GASTROINTESTINAL: Absent: abdominal pain, abdominal distension, nausea, vomiting, diarrhea, constipation, melena, hematochezia GENITOURINARY: Absent: dysuria, frequency, urgency, hesitancy, hematuria, flank pain, genital pain MUSCULOSKELETAL: Absent: myalgia, arthralgia, joint swelling, back pain, neck pain SKIN: Absent: rash, itching, pallor HEMATOLOGIC/IMMUNOLOGIC: Absent: easy bleeding, easy bruising, lymphadenopathy, frequent infections ENDOCRINE: Absent: unexplained weight gain, unexplained weight loss, heat intolerance, cold intolerance NEUROLOGIC: Absent: headache, focal weakness or paresthesias, dizziness, unsteady gait, seizure, mental status changes, bladder or bowel incontinence PSYCHIATRIC: Absent: anxiety, depression, suicidal or homicidal ideation, hallucinations. PHYSICAL EXAMINATION Vital Signs - 24 hr 12/25/19 12/26/19 12/26/19 09:15 00:30 03:30 Temperature Pulse Rate 77 Respiratory 18 18 20 Rate Blood Pressure 142/96 12/26/19 06:56 Temperature 97.9 F Pulse Rate 79 Respiratory 18 Rate Blood Pressure 131/86 GENERAL: Awake, alert, and fully oriented, in no acute distress. HEAD: Normal with no signs of trauma. EYES: Pupils equal, round and reactive to light, extraocular movements intact, sclera anicteric, conjunctiva clear. No lid lag. EARS, NOSE, THROAT: Ears normal, nares patent, oropharynx clear without exudates. Moist mucous membranes. NECK: Normal range of motion, supple without lymphadenopathy, JVD, or masses. LUNGS: Breath sounds equal, clear to auscultation bilaterally. No wheezes, and no crackles. No accessory muscle use. HEART: Regular rate and rhythm, normal S1 and S2 without murmur, rub or gallop. ABDOMEN: Soft, nontender, not distended, normoactive bowel sounds, no guarding, no rebound, no masses. No hepatomegaly or splenomegaly. MUSCULOSKELETAL: Normal range of motion at all joints. No bony deformities or tenderness. No CVA tenderness. UPPER EXTREMITIES: 2+ pulses, warm, well-perfused. No cyanosis. No clubbing. Cap refill <2 seconds. No peripheral edema. LOWER EXTREMITIES: 2+ pulses, warm, well-perfused. No calf tenderness. No peripheral edema. NEUROLOGICAL: Cranial nerves II-XII intact. Normal speech. Normal gait. PSYCHIATRIC: Cooperative. Good eye contact. Appropriate mood and affect. SKIN: Warm, dry, normal turgor, no rashes or lesions noted. Active Medications Generic Name Dose Route Start Last Admin Trade Name Freq PRN Reason Stop Dose Admin Acetaminophen 650 mg 12/23/19 15:10 12/23/19 17:13 Tylenol - PO 650 mg Q4H PRN Administration FEVER Al Hydroxide/Mg Hydroxide 30 ml 12/23/19 15:10 12/25/19 08:47 Mylanta Oral Suspension - PO 30 ml Q6H PRN Administration DYSPEPSIA Eucalyptus/Menthol/Phenol/Sorbitol 1 each 12/23/19 15:10 Cepastat Lozenge - MM Q4H PRN SORE THROAT Guaifenesin 10 ml 12/23/19 15:10 Robitussin - PO Q6H PRN COUGH Hydrochlorothiazide 25 mg 12/24/19 10:00 12/25/19 10:12 Hctz - PO 25 mg DAILY [facility]ALDO Administration Hydroxyzine Pamoate 25 mg 12/24/19 05:29 Vistaril - PO Q6H PRN AGITATION Ibuprofen 400 mg 12/23/19 15:10 12/25/19 08:47 Motrin - PO 400 mg Q6H PRN Administration Pain Level 4-6 Lactic Acid 1 applic 12/25/19 11:01 12/25/19 14:47 Lac-Hydrin 12 TP 1 applic BID PRN Administration DRY SKIN Lidocaine 1 patch 12/24/19 10:00 12/25/19 10:12 Lidoderm Patch - TP 1 patch DAILY [facility] Administration Lisinopril 30 mg 12/24/19 10:00 12/25/19 10:12 Prinivil PO 30 mg DAILY [facility] Administration Loperamide HCl 4 mg 12/23/19 15:10 Imodium - PO Q6H PRN DIARRHEA Magnesium Citrate 300 ml 12/23/19 15:10 Citroma - PO Q48H PRN CONSTIPATION Magnesium Hydroxide 30 ml 12/23/19 15:10 Milk Of Magnesia - PO DAILY PRN CONSTIPATION Melatonin 5 mg 12/23/19 22:00 12/25/19 21:11 Melatonin PO 5 mg HS PRN Administration INSOMNIA Methadone HCl 40 mg/ Methadone 70 mg 12/24/19 06:00 12/26/19 05:49 HCl 30 mg PO 70 mg DAILY@0600 NALDO Administration Miscellaneous 1 each 12/24/19 22:00 12/25/19 21:12 Lidoderm Patch Removal MC 1 each DAILY@2200 NAL[facility] Administration Nitroglycerin 0.4 mg 12/23/19 15:15 Nitrostat - SL Q5M PRN FOR CHEST PAIN Multivit/Folic Acid/Iron 1 tab 12/24/19 10:00 12/25/19 10:11 Vitamins (Sjr) - PO 1 tab DAILY NALDO Administration Pseudoephedrine/Triprolidine 1 combo 12/23/19 15:10 Actifed - PO TID PRN NASAL CONGESTION Sertraline HCl 50 mg 12/24/19 10:00 12/25/19 10:12 Zoloft - PO 50 mg DAILY [facility]ALDO Administration Simethicone 80 mg 12/23/19 16:07 Mylicon - PO Q4H PRN GAS Thiamine HCl 100 mg 12/23/19 22:00 12/25/19 21:11 Vitamin B1 - PO 100 mg HS NALDO Administration Trazodone HCl 50 mg 12/24/19 22:00 12/25/19 21:11 Desyrel - PO 50 mg HS NALDO Administration ASSESSMENT/PLAN: Dispo: We will continue to follow the patient. Thank you for this consultative opportunity. <Gina Patton - Last Filed: 12/26/19 08:56> Visit type - Emergency Visit Emergency Visit: No - New Patient This patient is new to me today: Yes Date on this admission: 12/25/19 - Critical Care Critical Care patient: No <Alex Childs - Last Filed: 12/25/19 17:22> ATTENDING PHYSICIAN STATEMENT I saw and evaluated the patient. I reviewed the resident's note and discussed the case with the resident. I agree with the resident's findings and plan as documented. SUBJECTIVE: OBJECTIVE: ASSESSMENT AND PLAN: <Alex Childs - Last Filed: 12/25/19 17:22> ATTENDING PHYSICIAN STATEMENT I saw and evaluated the patient. I reviewed the resident's note and discussed the case with the resident. I agree with the resident's findings and plan as documented. SUBJECTIVE: OBJECTIVE: ASSESSMENT AND PLAN: <Gina Patton - Last Filed: 12/26/19 08:56>
[2019-12-25] MEDS: traZODone HCL 50 MG TABLET (FP) PO SCH (21:11)
[2019-12-25] MEDS: THIAMINE HCL 100 MG TABLET (FP) PO SCH (21:11)
[2019-12-25] MEDS: MELATONIN 5 MG TABLETS PO PRN (21:11)
[2019-12-25] MEDS: LIDOCAINE PATCH REMOVAL MC SCH (21:12)
[2019-12-26] MEDS ORDERED: METHADONE HCL 40 MG DISPERSABLE TABLET ONE (05:31)
[2019-12-26] MEDS ORDERED: METHADONE HCL 10 MG TABLET ONE (05:31)
[2019-12-26] MEDS: METHADONE 40 MG, METHADONE 30 MG PO SCH (05:49)
[2019-12-26 06:57] VITALS: TEMP 97.9
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
--- NOTE | 2019-12-26 08:58 | PN ---
Teaching Attending Note Name of Resident: Alex Childs ATTENDING PHYSICIAN STATEMENT I saw and evaluated the patient. I reviewed the resident's note and discussed the case with the resident. I agree with the resident's findings and plan as documented. SUBJECTIVE: OBJECTIVE: ASSESSMENT AND PLAN: 1. Will have pt evaluated by [facility] ED for ? of CHF, discussed with pt, he is in agreement.
[2019-12-26] MEDS: HYDROCHLOROTHIAZIDE 25 MG TABLET (FP) PO SCH (10:01)
[2019-12-26] MEDS: SERTRALINE HCL 50 MG TABLET (FP) PO SCH (10:01)
[2019-12-26] MEDS: LISINOPRIL 10 MG TABLET (FP) PO SCH (10:02)
[2019-12-26] MEDS: PRENATAL VITAMINS W/ FOLIC ACID TABLET (FP) PO SCH (10:02)
[2019-12-26] MEDS: LIDOCAINE 5% TOPICAL PATCH TP SCH (10:02)
--- NOTE | 2019-12-26 10:33 | PN ---
[facility] Progress Note Note: Case discussed with Dr. Niño at the [facility] ED. At this time, no need to refer to ED. Should pt develop any acute symptoms, then referral appropriate.
[2019-12-26] MEDS ORDERED: PT OWN MED DRAWER 7, Y5N ONE (16:51)
[2019-12-26] MEDS: AMMONIUM LACTATE 12% LOTION 225 GM BOTTLE TP PRN (16:52)
[2019-12-26] MEDS: LIDOCAINE PATCH REMOVAL MC SCH (21:08)
[2019-12-26] MEDS: traZODone HCL 50 MG TABLET (FP) PO SCH (21:08)
[2019-12-26] MEDS: MELATONIN 5 MG TABLETS PO PRN (21:08)
[2019-12-26] MEDS: THIAMINE HCL 100 MG TABLET (FP) PO SCH (21:08)
[2019-12-27] MEDS ORDERED: METHADONE HCL 10 MG TABLET ONE (05:22)
[2019-12-27] MEDS ORDERED: METHADONE HCL 40 MG DISPERSABLE TABLET ONE (05:22)
[2019-12-27] MEDS: METHADONE 40 MG, METHADONE 30 MG PO SCH (06:12)
[2019-12-27 07:02] VITALS: BP 152/92; PULSE 64
[2019-12-27] MEDS: LISINOPRIL 10 MG TABLET (FP) PO SCH (09:11)
[2019-12-27] MEDS: PRENATAL VITAMINS W/ FOLIC ACID TABLET (FP) PO SCH (09:11)
[2019-12-27] MEDS: LIDOCAINE 5% TOPICAL PATCH TP SCH (09:11)
[2019-12-27] MEDS: SERTRALINE HCL 50 MG TABLET (FP) PO SCH (09:11)
[2019-12-27] MEDS: HYDROCHLOROTHIAZIDE 25 MG TABLET (FP) PO SCH (09:11)
[2019-12-27] MEDS ORDERED: PT OWN MED DRAWER 7, Y5N ONE (09:18)
--- NOTE | 2019-12-27 09:26 | DS ---
[facility] Rehab Discharge Summary - [facility] Rehab Discharge Summary Admission Date: 12/23/19 Discharge Date: 12/27/19 - History Present History: Alcohol dependence, Cocaine dependence, MMTP (Methadone MAT) Pertinent Past History: pt here for etoh use, relapsed after d/c from this facility, 4 pints of randal daily; reports tremors if not drinking mmtp @ VIP 70 mg latest use today - Discharge Physical Exam Vital Signs: Vital Signs Temperature 97.9 F 12/27/19 07:02 Pulse Rate 64 12/27/19 07:02 Respiratory Rate 18 12/27/19 07:02 Blood Pressure 152/92 12/27/19 07:02 O2 Sat by Pulse Oximetry (%) Pertinent Admission Physical Exam Findings: Physical General Appearance: No apparent distress HEENTM: Normocephalic, Respiratory: Lungs Clear, Neck: Supple,Trachea in good position Cardiology: S1, S2 Abdominal: +BS, non-tender, ventral hernia palpated. Musculoskeletal: Gait Steady Extremities: full Range of Motion, Non-Tender - Treatment Discharge Condition: Outpatient referral accepted (Medically stable for discharge.Patient will return to [facility] for methadone MAT) Hospital Course: Patient attended groups,had 1:1 with his counselor, was seen by the psychiatric service. While in rehab, he diagnoses with a ventral hernia. He was counseled and educated about making an appointment with his PCP upon discharge. - Medication Discharge Medications: Ambulatory Orders Multivitamins [Tab-A-Vit -] 1 tab PO DAILY 05/01/18 Sertraline HCl [Zoloft -] 50 mg PO DAILY #30 tablet 08/29/19 traZODone HCL [Desyrel -] 50 mg PO HS 10/25/19 Cyanocobalamin [Vitamin B12 -] 1,000 mcg PO BID #14 tablet 12/27/19 Folic Acid - 1 mg PO DAILY #14 tablet 12/27/19 Hydrochlorothiazide [Hctz -] 25 mg PO DAILY #30 tablet 12/27/19 Lisinopril [Prinivil] 30 mg PO DAILY #30 tablet 12/27/19 - Medication-Assisted Treatment (MAT) Medication-Assisted Treatment (MAT): Yes MAT Follow-up Referral: [facility] for Methadone MAT - Discharge Instructions Diet, activity, other medical instructions: Diet: as tolerated Activity: as tolerated Other medical instructions: Please continue methadone MAT; please make an appointment with your PCP to evaluate ventral hernia. - Diagnosis (1) Alcohol dependence Current Visit: Yes Status: Chronic (2) Cocaine abuse, episodic use Current Visit: No Status: Chronic (3) Opioid dependence with withdrawal Current Visit: No Status: Chronic - Follow-up Referral Minutes to complete discharge: 20 - AMA Did Patient Leave Against Medical Advice: No Additional Comments: Prescriptions for his home medications were transmitted to his pharmacy.
== END 2019-12-27 09:57 | disposition home or self-care (01) | DRG 772 ==
LOC: YASAS 13:55 → Y3W 13:57
PROVIDERS: ADMIT Allergy & Immunology; ATTEND Allergy & Immunology
PROC: HZ42ZZZ Group Counseling for Substance Abuse Treatment, Cognitive-Behavioral (ICD-10-PCS; principal; 2019-12-23)
DX: F11.20 Opioid dependence, uncomplicated (principal); F10.280 Alcohol dependence with alcohol-induced anxiety disorder; F10.282 Alcohol dependence with alcohol-induced sleep disorder; F17.210 Nicotine dependence, cigarettes, uncomplicated; F43.10 Post-traumatic stress disorder, unspecified; F33.1 Major depressive disorder, recurrent, moderate; I10 Essential (primary) hypertension; R76.11 Nonspecific reaction to tuberculin skin test without active tuberculosis; K43.9 Ventral hernia without obstruction or gangrene; Z91.018 Allergy to other foods

== ENCOUNTER 2020-03-18 10:45 | Emergency (ER) | payer OTHER ==
[2020-03-18 11:15] VITALS: PULSE 84; BMI 25.7
[2020-03-18] MEDS ORDERED: MAG HYDROX/AL HYDROX/SIMETH 30 ML UNIT-DOSE CUP PO ONE (11:32)
[2020-03-18] MEDS ORDERED: ONDANSETRON 4 MG/2 ML VIAL IVPUSH ONE (11:32)
[2020-03-18] MEDS ORDERED: FAMOTIDINE 20 MG/50 ML IVPB 20 MG/50 ML MG IVPB ONE ×2 (11:32→11:50)
[2020-03-18] MEDS ORDERED: SODIUM CHLORIDE 0.9% 500 ML INFUS.BAG IV ONE (11:32)
[2020-03-18] MEDS ORDERED: ACETAMINOPHEN 1000 MG/100 ML VIAL (NON FORMULARY) IVPB ONE (11:32)
--- NOTE | 2020-03-18 11:34 | PDOC ---
History of Present Illness - General Chief Complaint: Cold Symptoms Stated Complaint: FEVER Time Seen by Provider: 03/18/20 11:25 - History of Present Illness Initial Comments: The pt is a 54M w/ a history of EtOH abuse currently admitted at [facility] for rehab who presents for evaluation of several days of malaise, fatigue, gen eralized abdominal pain with associated with NB diarrhea. The pt reports intermittent generalized, cramping, abd pain that is not exacerbated or alleviated by anything he can identify. Pt denies vomiting, chest pain, cough, trouble breathing, dysuria, hematuria. 03/18/20 11:52 Past History - Past Medical History Allergies/Adverse Reactions: Allergies Allergy/AdvReac Type Severity Reaction Status Date / Time No Known Drug Allergies Allergy Verified 12/20/19 18:12 tomato Allergy Verified 12/20/19 18:12 Home Medications: Ambulatory Orders Multivitamins [Tab-A-Vit -] 1 tab PO DAILY 05/01/18 RX: Sertraline HCl [Zoloft -] 50 mg PO DAILY #30 tablet 08/29/19 RX: traZODone HCL [Desyrel -] 50 mg PO HS 10/25/19 RX: Cyanocobalamin [Vitamin B12 -] 1,000 mcg PO BID #14 tablet 12/27/19 RX: Folic Acid - 1 mg PO DAILY #14 tablet 12/27/19 RX: Hydrochlorothiazide [Hctz -] 25 mg PO DAILY #30 tablet 12/27/19 RX: Lisinopril [Prinivil] 30 mg PO DAILY #30 tablet 12/27/19 Anemia: No Asthma: No Cancer: No Cardiac Disorders: No CVA: No COPD: No CHF: No Dementia: No Diabetes: No GI Disorders: No Disorders: No HTN: Yes Hypercholesterolemia: No Kidney Stones: No Liver Disease: No Seizures: No Thyroid Disease: No - Surgical History Abdominal Surgery: No Appendectomy: No Cardiac Surgery: No Cholecystectomy: No Lung Surgery: No Neurologic Surgery: No Orthopedic Surgery: No - Reproductive History Testicular Surgery: No - Immunization History Immunization Up to Date: Yes - Psycho Social/Smoking Cessation Hx Smoking History: Former smoker Have you smoked in the past 12 months: Yes Number of Cigarettes Smoked Daily: 0 Cigars Per Day: 0 Information on smoking cessation initiated: No 'Breaking Loose' booklet given: 03/12/20 Hx Alcohol Use: No Drug/Substance Use Hx: Yes Substance Use Type: Alcohol Hx Substance Use Treatment: Yes Review of Systems - Review of Systems Able to Perform ROS?: Yes Comments:: GENERAL/CONSTITUTIONAL: +Fevers, malaise. No weakness HEAD, EYES, EARS, NOSE AND THROAT: No change in vision. No change in hearing. No sore throat CARDIOVASCULAR: No chest pain or shortness of breath RESPIRATORY: Denies cough, hemoptysis GASTROINTESTINAL: Denies N/V; Endorses NB diarrhea GENITOURINARY: No dysuria, frequency, or change in urination MUSCULOSKELETAL: No joint or muscle swelling or pain. No neck or back pain SKIN: No rash NEUROLOGIC: No headache, vertigo, loss of consciousness, or change in strength/sensation ENDOCRINE: No increased thirst. No abnormal weight change ALLERGIC/IMMUNOLOGIC: No hives or skin allergy 03/18/20 11:55 Is the patient limited Nicaraguan proficient: No *Physical Exam - Vital Signs Last Vital Signs Temp Pulse Resp BP Pulse Ox 99.5 F 84 18 131/85 98 03/18/20 11:11 03/18/20 11:11 03/18/20 11:11 03/18/20 11:11 03/18/20 11:25 - Physical Exam GENERAL: Awake, alert, and oriented to person/place/time, in no acute distress HEAD: No signs of trauma, normocephalic, atraumatic EYES: PERRLA, EOMI, sclera anicteric, conjunctiva clear ENT: Hearing grossly normal, nares patent, oropharynx clear without exudates. Moist mucosa LUNGS: No distress, speaks in full sentences, clear to auscultation bilaterally HEART: Regular rate and rhythm, normal S1 and S2, no murmurs appreciated, peripheral pulses normal and equal bilaterally ABDOMEN: Soft, diffusely TTP that is maximal at umbilicus, no rebound or guarding, BS normal EXTREMITIES: Normal inspection, Normal range of motion, no edema. No clubbing or cyanosis NEUROLOGICAL: Cranial nerves II through XII grossly intact. Normal speech, normal gait, no focal sensorimotor deficits SKIN: Warm, Dry 03/18/20 11:56 ED Treatment Course - LABORATORY CBC & Chemistry Diagram: 03/18/20 11:00 03/18/20 11:00 - RADIOLOGY Radiograph Interpretation: CT/ABDOMEN & PELVIS CT WITH CONTR Evaluation of the lung bases demonstrates platelike atelectasis and mild groundglass opacification. Clinical correlation and follow-up is recommended. The liver is enlarged measuring 25.9 cm in craniocaudad dimension. It is hypodense in texture consistent with diffuse fatty infiltration. No mass lesions are identified within the liver. The gallbladder is slightly thickened with a trace amount of pericholecystic fl uid. There is also prominence of the CBD which measures approximately 1.5 cm. No obvious obstruction is identified. A follow-up gallbladder sonogram is recommended. The spleen, pancreas, adrenal glands and kidneys demonstrate no significant abnormalities. There is no evidence of intra-abdominal or retroperitoneal lymphadenopathy or fluid collections. There is no evidence of pneumoperitoneum, bowel obstruction or intra-abdominal abscess. There is no CT evidence of acute appendicitis or diverticulitis. Examination of the pelvis demonstrates no evidence of pelvic masses, fluid collections or lymphadenopathy. There is no evidence of acute bony pathology. IMPRESSION: 1. Bibasilar atelectasis with mild groundglass opacification. Clinical correlation and follow-up recommended. 2. Hepatomegaly with diffuse fatty infiltration of the liver. 3. Slightly thickened gallbladder with trace pericholecystic fluid and dilated CBD. Sonographic follow-up recommended please see above discussion. US/ABDOMEN US -LIMITED No definite gallbladder calculus is seen. Evaluation for very small calculi is somewhat limited on this exam due to a small amount of inspissated bile/sludge within the gallbladder lumen. There is diffuse gallbladder wall thickening and a small amount of pericholecystic fluid accumulation. No gallbladder overdistention is identified. The common bile duct is dilated with a 0.9 cm diameter. No gross intraductal calculus is identified within the limitations of transabdominal sonography. Within the pancreatic neck the main duct is slightly dilated with a 3.4 mm diameter. No gross pancreatic mass lesion is identified within the limitations of sonography. No free intraperitoneal fluid is noted. There is diffuse fatty infiltration of the liver with resultant hepatomegaly. No obvious mass lesion is seen. No right hydronephrosis is noted. The right kidney demonstrates no obvious so nographic pathology. Impression: No definite evidence of cholelithiasis allowing for partially obscuring inspissated bile/sludge within the gallbladder lumen. Mild diffuse gallbladder wall thickening is seen. There is also a small amount of pericholecystic fluid accumulation. These findings could be on the basis of acute cholecystitis versus secondary to systemic disease. Additional evaluation uti lizing a radionuclide HIDA scan may be considered. Common bile duct dilatation is noted with a 0.9 cm diameter. MRI/MRCP evaluation may be considered. There is slight nonspecific dilatation of the main pancreatic duct with a 3.4 mm diameter. Diffuse hepatic steatosis is seen with associated hepatomegaly. 03/18/20 16:47 Medical Decision Making - Medical Decision Making The pt is a 54M w/ a history of EtOH abuse currently admitted at [facility] for rehab who presents for evaluation of several days of malaise, fatigue, generalized abdominal pain with associated with NB diarrhea. Ddx: COVID/viral syndrome, pancreatitis, biliary dz, gastritis, not likely diverticulitis/nephrolithiasis POCUS w/o gallstones, no pericholecystic fluid, neg sono Clemons's Will send CMP, CBC, Lipase IVF, Zofran, Ofirmev ECG 03/18/20 11:57 ECG w/ NSR; HR 79; QTc 472; no axis deviation; no MARSHA 03/18/20 12:30 CT and US w/ pericholecysitc fluid, gallbladder wall thickening and mildly dilated CBD. Neg Clemons's. No acute change in LFTs. Findings likely 2/2 chronic illness Pt is afebrile, non-toxic appearing, and no leukocytosis Pt ambulating in ED with stable gait and tolerating PO Plan for D/C to [facility], call made to provider for sign out who stated they would call back 03/18/20 17:15 Plan for D/C to [facility] Sign out given to [facility] provider Pt has bed 323B 03/18/20 18:37 Discharge - Discharge Information Problems reviewed: Yes Clinical Impression/Diagnosis: Viral syndrome, Suspected COVID-19 virus infection Condition: Stable Disposition: HOME - Admission No - Follow up/Referral - Patient Discharge Instructions Patient Printed Discharge Instructions: [facility]-Coronavirus Instructions, R- [facility] COVID-19 Isolation Protocol - Post Discharge Activity
[2020-03-18] MEDS ORDERED: ACETAMINOPHEN INJECTION 100 ML IVPB ONE (11:49)
[2020-03-18] MEDS ORDERED: MAG HYDROX/AL HYDROX/SIMETH 30 ML UNIT-DOSE CUP ONE (11:49)
[2020-03-18] MEDS ORDERED: ONDANSETRON 4 MG/2 ML VIAL ONE (11:50)
--- NOTE | 2020-03-18 12:00 | PDOC ---
Attending Attestation - Resident Resident Name: Montrell Moncada - ED Attending Attestation I have performed the following: I have examined & evaluated the patient, The case was reviewed & discussed with the resident, I agree w/resident's findings & plan, Exceptions are as noted - HPI HPI: 03/18/20 11:52 54 M h/o etoh abuse, former heroin use on MMTP sent from detox for fever 100.5 today and abdominal pain a/w diarrhea. Patient denies n/v. Denies urinary complaints. Denies cough, CP and SOB. Denies headache. Denies blood in stool. - Physicial Exam PE: 03/18/20 11:54 General: well appearing, appears comfortable Abdomen: soft, diffusely tender but maximal at periumbilical region, negative kitchen's, negative mcburney's, no rebound, no guarding Neuro: awake, alert, speech fluent, face symmetric, no focal deficits - Medical Decision Making 03/18/20 11:55 54 yo M with fever 100.5 at detox, abd pain a/w diarrhea, found to have diffuse tenderness on exam with maximal in periumbilical region, bedside RUQ sono without any evidence of cholecystitis (no evidence of stones, ? trace pericholecystic fluid, negative sonographic kitchen), possible early viral syndrome such as COVID given patient currently resides in inpatient detox with known cases of COVID vs. pancreatitis vs. gastritis vs. colitis vs. diverticulitis vs. less likely appy given negative mcburney's although possible early appy as patient with periumbilical pain which only began today. Of note, patient tested for COVID at detox prior to arrival. Plan: -labs -EKG -IVF -zofran -pepcid -maalox -tylenol for pain -reassess This clinical encounter is taking place during a federal and state health care emergency attributable to the novel [place] Virus pandemic. The [place] of the Department of Health and Human Services has declared, pursuant to the Public Health Service Act 319F-3 (42 U.S.C. 247d-6d), that a covered persons activities related to medical countermeasures against COVID-19 will be immune from liability under Federal and State law. 03/18/20 17:02 Labs and imaging reviewed. Doubt acute choley, findings more liekly 2/2 systemic disease, likely COVID given patient exposure and b/l ground glass opacities seen on CT. Will d/c with return precautions, recommend quarantine at detox facility and PMD f/u. Heart Score/ECG Review - ECG Impressions Comment:: 03/18/20 13:29 NSR, rate 80, no ischemic changes Discharge - Discharge Information Problems reviewed: Yes Clinical Impression/Diagnosis: Viral syndrome, Suspected COVID-19 virus infection Condition: Stable - Follow up/Referral - Patient Discharge Instructions Patient Printed Discharge Instructions: [facility]-Coronavirus Instructions, [facility] COVID-19 Isolation Protocol - Post Discharge Activity
[2020-03-18 12:19] LABS: BASO % 0.3 % (0-2.0); EOS % 0.9 % (0-4.5); HEMATOCRIT 33.1 % (35.4-49); HEMOGLOBIN 11.3 GM/dL (11.7-16.9); LYMPH % 12.6 % (8-40); MCH 39.8 pg (25.7-33.7); MCHC 34.3 g/dl (32.0-35.9); MEAN CELL VOLUME 116.3 fl (80-96); MEAN PLT VOLUME 9.1 fl (7.5-11.1); MONO % 8.9 % (3.8-10.2); NEUT % 77.3 % (42.8-82.8); PLATELET COUNT 150 K/MM3 (134-434); RBC 2.85 M/mm3 (4.00-5.60); RDW 14.3 % (11.9-15.9); WHITE BLOOD COUNT 4.6 K/mm3 (4.0-10.0)
[2020-03-18 12:52] LABS: ALBUMIN 2.6 g/dl (3.4-5.0); BILIRUBIN,TOTAL 1.6 mg/dL (0.2-1); BLOOD UREA NITROGEN 19.3 mg/dL (7-18); CALCIUM 8.7 mg/dL (8.5-10.1); CREATININE 1.1 mg/dL (0.55-1.3); POTASSIUM 5.2 mmol/L (3.5-5.1); TOT PROT 6.6 g/dl (6.4-8.2)
[2020-03-18 13:29] LABS: ANISOCYTOSIS 2+; MACROCYTOSIS 2+; OVALOCYTE 1+; PLATELET ESTIMATE DECREASED
--- NOTE | 2020-03-18 14:53 | EKG ---
Test Reason : Blood Pressure : / mmHG Vent. Rate : 079 BPM Atrial Rate : 079 BPM P-R Int : 162 ms QRS Dur : 080 ms QT Int : 412 ms P-R-T Axes : 052 012 035 degrees QTc Int : 472 ms NORMAL SINUS RHYTHM NORMAL ECG WHEN COMPARED WITH ECG OF 21-DEC-2019 11:44, T WAVE VARIATION Confirmed by HARSH GIBSON MD ([id number]) on 03/18/2020 2:53:13 PM Referred By: Confirmed By:HARSH GIBSON MD
[2020-03-18 19:34] VITALS: BP 104/72; TEMP 98.9
== END 2020-03-18 19:30 | disposition home or self-care (01) ==
LOC: JER 10:45
PROC: 3E033GC Introduction of Other Therapeutic Substance into Peripheral Vein, Percutaneous Approach (ICD-10-PCS; principal; 2020-03-18)
DX: B34.9 Viral infection, unspecified (principal)
CPT/HCPCS: 36415; 74177-TC; 76705-TC; 80053; 83690; 85025; 93005; 93010; 96365; 96375; 99285-25; J0131; Q9967

== ENCOUNTER 2020-10-12 15:17 | Inpatient (IN) | payer OTHER ==
[2020-10-12 16:43] VITALS: BMI 26.3
[2020-10-12] MEDS ORDERED: MAGNESIUM HYDROX 2400MG/30ML ORAL SUSPENSION 30 ML CUP PO PRN (17:47)
[2020-10-12] MEDS ORDERED: BISMUTH SUBSALICYLATE 524 MG/30 ML UD PO PRN (17:47)
[2020-10-12] MEDS ORDERED: NICOTINE POLACRILEX 2 MG GUM BUC PRN (17:47)
[2020-10-12] MEDS ORDERED: ONDANSETRON *ODT* 4 MG TABLET SL PRN (17:47)
[2020-10-12] MEDS ORDERED: MENTHOL/PHENOL 1 EACH UD MM PRN (17:47)
[2020-10-12] MEDS ORDERED: IBUPROFEN 400 MG TABLET (FP) PO PRN (17:47)
[2020-10-12] MEDS ORDERED: chlordiazePOXIDE HCL 25 MG CAPSULE PO PRN (17:47)
[2020-10-12] MEDS ORDERED: MAGNESIUM CITRATE 300 ML BOTTLE PO PRN (17:47)
[2020-10-12] MEDS ORDERED: MAG HYDROX/AL HYDROX/SIMETH 30 ML UNIT-DOSE CUP PO PRN (17:47)
[2020-10-12] MEDS ORDERED: METHOCARBAMOL 500 MG TABLET PO PRN (17:47)
[2020-10-12] MEDS ORDERED: ACETAMINOPHEN 325 MG TABLET (FP) PO PRN ×2 (17:47)
[2020-10-12] MEDS ORDERED: METHADONE HCL 10 MG TABLET (FOR DETOX USE ONLY) PO ONE (19:00)
[2020-10-12] MEDS: hydrOXYzine PAMOATE 25 MG CAPSULE (FP) PO SCH ×2 (19:21→23:07)
[2020-10-12] MEDS: NICOTINE 21 MG/24 HOURS TOPICAL PATCH TD SCH (19:22)
[2020-10-12] MEDS: PRENATAL VITAMINS W/ FOLIC ACID TABLET (FP) PO SCH (19:27)
[2020-10-12] MEDS: GABAPENTIN 100 MG CAPSULE PO SCH (23:07)
[2020-10-12] MEDS: THIAMINE HCL 100 MG TABLET (FP) PO SCH (23:07)
[2020-10-12] MEDS: MELATONIN 5 MG TABLETS PO SCH (23:07)
[2020-10-12] MEDS: chlordiazePOXIDE HCL 25 MG CAPSULE PO SCH (23:08)
[2020-10-13] MEDS: hydrOXYzine PAMOATE 25 MG CAPSULE (FP) PO SCH ×5 (05:44→22:12)
[2020-10-13] MEDS: chlordiazePOXIDE HCL 25 MG CAPSULE PO SCH ×4 (05:44→22:12)
[2020-10-13] MEDS ORDERED: METHADONE HCL 10 MG TABLET (FOR DETOX USE ONLY) ONE (09:28)
[2020-10-13] MEDS ORDERED: METHADONE HCL 5 MG TABLET (FOR DETOX USE ONLY) ONE (09:28)
[2020-10-13] MEDS ORDERED: LISINOPRIL 10 MG TABLET PO SCH (10:00)
[2020-10-13] MEDS ORDERED: HYDROCHLOROTHIAZIDE 25 MG TABLET (FP) PO SCH (10:00)
[2020-10-13] MEDS ORDERED: METHADONE (DETOX) 20 MG, METHADONE (DETOX) 5 MG PO ONE (10:00)
[2020-10-13] MEDS: PRENATAL VITAMINS W/ FOLIC ACID TABLET (FP) PO SCH (10:15)
[2020-10-13] MEDS: GABAPENTIN 100 MG CAPSULE PO SCH ×2 (10:16→22:12)
[2020-10-13] MEDS: NICOTINE 21 MG/24 HOURS TOPICAL PATCH TD SCH (10:17)
[2020-10-13 12:27] LABS: HEMATOCRIT 30.4 % (35.4-49); HEMOGLOBIN 10.2 GM/dL (11.7-16.9); MCH 35.9 pg (25.7-33.7); MCHC 33.4 g/dl (32.0-35.9); MEAN CELL VOLUME 107.3 fl (80-96); MEAN PLT VOLUME 9.8 fl (7.5-11.1); PLATELET COUNT 82 K/MM3 (134-434); RBC 2.83 M/mm3 (4.00-5.60); WHITE BLOOD COUNT 4.9 K/mm3 (4.0-10.0)
[2020-10-13 12:50] LABS: POTASSIUM 3.4 mmol/L (3.5-5.1)
[2020-10-13 13:06] LABS: CALCIUM 8.2 mg/dL (8.5-10.1)
[2020-10-13 13:07] LABS: ALBUMIN 2.2 g/dl (3.4-5.0); BLOOD UREA NITROGEN 11.3 mg/dL (7-18)
[2020-10-13 13:10] LABS: CREATININE 1.1 mg/dL (0.55-1.3)
[2020-10-13 13:12] LABS: BILIRUBIN,TOTAL 2.2 mg/dL (0.2-1); TOT PROT 7.2 g/dl (6.4-8.2)
[2020-10-13 13:51] LABS: HIV INTERPRETATION NEGATIVE (NEGATIVE)
[2020-10-13] MEDS: THIAMINE HCL 100 MG TABLET (FP) PO SCH (22:12)
[2020-10-13] MEDS: MELATONIN 5 MG TABLETS PO SCH (22:12)
[2020-10-14] MEDS: hydrOXYzine PAMOATE 25 MG CAPSULE (FP) PO SCH ×5 (05:50→22:38)
[2020-10-14] MEDS: chlordiazePOXIDE HCL 25 MG CAPSULE PO SCH ×4 (05:50→22:38)
[2020-10-14] MEDS: cloNIDine HCL 0.1 MG TABLET PO PRN ×2 (06:57→17:34)
[2020-10-14] MEDS ORDERED: METHADONE HCL 10 MG TABLET (FOR DETOX USE ONLY) PO ONE (10:00)
[2020-10-14] MEDS: LISINOPRIL 10 MG TABLET PO SCH (10:21)
[2020-10-14] MEDS: PRENATAL VITAMINS W/ FOLIC ACID TABLET (FP) PO SCH (10:21)
[2020-10-14] MEDS: GABAPENTIN 100 MG CAPSULE PO SCH ×2 (10:21→22:38)
[2020-10-14] MEDS: HYDROCHLOROTHIAZIDE 25 MG TABLET (FP) PO SCH (10:21)
[2020-10-14] MEDS: NICOTINE 21 MG/24 HOURS TOPICAL PATCH TD SCH (10:22)
[2020-10-14] MEDS ORDERED: POTASSIUM CHLORIDE ORAL LIQUID 20 MEQ/15 ML PO ONE (14:30)
[2020-10-14] MEDS: MELATONIN 5 MG TABLETS PO SCH (22:38)
[2020-10-14] MEDS: THIAMINE HCL 100 MG TABLET (FP) PO SCH (22:38)
[2020-10-14] MEDS: POTASSIUM CHLORIDE ORAL LIQUID 20 MEQ/15 ML PO SCH (22:38)
[2020-10-15] MEDS ORDERED: chlordiazePOXIDE HCL 10 MG CAPSULE PO PRN
[2020-10-15] MEDS: chlordiazePOXIDE HCL 10 MG CAPSULE PO SCH ×4 (05:23→22:21)
[2020-10-15] MEDS: hydrOXYzine PAMOATE 25 MG CAPSULE (FP) PO SCH ×5 (05:23→22:21)
[2020-10-15] MEDS ORDERED: METHADONE HCL 10 MG TABLET (FOR DETOX USE ONLY) ONE (08:45)
[2020-10-15] MEDS ORDERED: METHADONE HCL 5 MG TABLET (FOR DETOX USE ONLY) ONE (08:45)
[2020-10-15] MEDS ORDERED: METHADONE (DETOX) 10 MG, METHADONE (DETOX) 5 MG PO ONE (10:00)
[2020-10-15] MEDS: PRENATAL VITAMINS W/ FOLIC ACID TABLET (FP) PO SCH (10:18)
[2020-10-15] MEDS: POTASSIUM CHLORIDE ORAL LIQUID 20 MEQ/15 ML PO SCH ×2 (10:19→22:21)
[2020-10-15] MEDS: LISINOPRIL 10 MG TABLET PO SCH (10:19)
[2020-10-15] MEDS: GABAPENTIN 100 MG CAPSULE PO SCH ×2 (10:19→22:21)
[2020-10-15] MEDS: HYDROCHLOROTHIAZIDE 25 MG TABLET (FP) PO SCH (10:19)
[2020-10-15] MEDS: NICOTINE 21 MG/24 HOURS TOPICAL PATCH TD SCH (10:20)
[2020-10-15 10:22] LABS: HEMATOCRIT 26.8 % (35.4-49); HEMOGLOBIN 9.1 GM/dL (11.7-16.9); MCH 36.3 pg (25.7-33.7); MCHC 33.9 g/dl (32.0-35.9); MEAN CELL VOLUME 106.9 fl (80-96); MEAN PLT VOLUME 9.9 fl (7.5-11.1); PLATELET COUNT 64 K/MM3 (134-434); RBC 2.51 M/mm3 (4.00-5.60); RDW 17.7 % (11.9-15.9); WHITE BLOOD COUNT 3.8 K/mm3 (4.0-10.0)
[2020-10-15] MEDS: FERROUS SO4 325 MG TABLET (FP) PO SCH ×2 (13:35→22:21)
[2020-10-15] MEDS ORDERED: traZODone HCL 50 MG TABLET (FP) PO SCH (22:00)
[2020-10-15] MEDS: CYANOCOBALAMIN 1,000 MCG TABLET (FP) PO SCH (22:21)
[2020-10-15] MEDS: THIAMINE HCL 100 MG TABLET (FP) PO SCH (22:21)
[2020-10-15] MEDS: MELATONIN 5 MG TABLETS PO SCH (23:12)
[2020-10-16] MEDS ORDERED: chlordiazePOXIDE HCL 10 MG CAPSULE PO SCH (05:00)
[2020-10-16] MEDS: hydrOXYzine PAMOATE 25 MG CAPSULE (FP) PO SCH ×3 (05:22→13:57)
[2020-10-16] MEDS ORDERED: SERTRALINE HCL 50 MG TABLET (FP) PO SCH (10:00)
[2020-10-16] MEDS ORDERED: METHADONE HCL 10 MG TABLET (FOR DETOX USE ONLY) PO ONE (10:00)
[2020-10-16] MEDS: PRENATAL VITAMINS W/ FOLIC ACID TABLET (FP) PO SCH (10:06)
[2020-10-16] MEDS: FERROUS SO4 325 MG TABLET (FP) PO SCH (10:06)
[2020-10-16] MEDS: GABAPENTIN 100 MG CAPSULE PO SCH (10:07)
[2020-10-16] MEDS: HYDROCHLOROTHIAZIDE 25 MG TABLET (FP) PO SCH (10:07)
[2020-10-16] MEDS: LISINOPRIL 10 MG TABLET PO SCH (10:07)
[2020-10-16] MEDS: CYANOCOBALAMIN 1,000 MCG TABLET (FP) PO SCH (10:07)
[2020-10-16] MEDS: NICOTINE 21 MG/24 HOURS TOPICAL PATCH TD SCH (10:08)
[2020-10-16 10:37] LABS: HEMATOCRIT 27.7 % (35.4-49); HEMOGLOBIN 9.1 GM/dL (11.7-16.9); MCH 35.3 pg (25.7-33.7); MCHC 32.8 g/dl (32.0-35.9); MEAN CELL VOLUME 107.8 fl (80-96); MEAN PLT VOLUME 9.7 fl (7.5-11.1); PLATELET COUNT 67 K/MM3 (134-434); RBC 2.57 M/mm3 (4.00-5.60); RDW 17.5 % (11.9-15.9); WHITE BLOOD COUNT 3.7 K/mm3 (4.0-10.0)
[2020-10-16 10:51] LABS: INR 1.73 (0.83-1.09)
[2020-10-16 13:30] VITALS: BP 131/87; PULSE 91; TEMP 98.2
[2020-10-17] MEDS ORDERED: chlordiazePOXIDE HCL 10 MG CAPSULE PO ONE (05:00)
[2020-10-17] MEDS ORDERED: METHADONE HCL 5 MG TABLET (FOR DETOX USE ONLY) PO ONE (06:00)
== END 2020-10-16 13:59 | disposition other institution (70) | DRG 773 ==
LOC: YASAS 15:17 → Y3N 18:24
PROVIDERS: ADMIT Allergy & Immunology; ATTEND Allergy & Immunology
PROC: HZ2ZZZZ Detoxification Services for Substance Abuse Treatment (ICD-10-PCS; principal; 2020-10-12)
DX: F11.23 Opioid dependence with withdrawal (principal); F10.230 Alcohol dependence with withdrawal, uncomplicated; F14.20 Cocaine dependence, uncomplicated; F17.210 Nicotine dependence, cigarettes, uncomplicated; F19.24 Other psychoactive substance dependence with psychoactive substance-induced mood disorder; F43.10 Post-traumatic stress disorder, unspecified; D69.6 Thrombocytopenia, unspecified; D64.9 Anemia, unspecified; G47.00 Insomnia, unspecified; I10 Essential (primary) hypertension; K70.31 Alcoholic cirrhosis of liver with ascites; K76.0 Fatty (change of) liver, not elsewhere classified; K42.9 Umbilical hernia without obstruction or gangrene; M54.5 Low back pain; R60.0 Localized edema; R76.11 Nonspecific reaction to tuberculin skin test without active tuberculosis
CPT/HCPCS: 36415; 71046-TC-FY; 80053; 84132; 85027; 85610; 86780; 87389; C9803; J0735; U0003

== ENCOUNTER 2020-10-16 14:12 | Inpatient (IN) | payer OTHER ==
[2020-10-16] MEDS ORDERED: P-EPHED 60MG/TRIPROLIDI 2.5MG TABLET PO PRN (16:55)
[2020-10-16] MEDS ORDERED: MAGNESIUM HYDROX 2400MG/30ML ORAL SUSPENSION 30 ML CUP PO PRN (16:55)
[2020-10-16] MEDS ORDERED: MAGNESIUM CITRATE 300 ML BOTTLE PO PRN (16:55)
[2020-10-16] MEDS ORDERED: IBUPROFEN 400 MG TABLET (FP) PO PRN (16:55)
[2020-10-16] MEDS ORDERED: LOPERAMIDE HCL 2 MG CAPSULE PO PRN (16:55)
[2020-10-16] MEDS ORDERED: MENTHOL/PHENOL 1 EACH UD MM PRN (16:55)
[2020-10-16] MEDS ORDERED: guaiFENesin 200 MG/10 ML 10 ML UNIT-DOSE CUPS PO PRN (16:55)
[2020-10-16] MEDS ORDERED: MAG HYDROX/AL HYDROX/SIMETH 30 ML UNIT-DOSE CUP PO PRN (16:55)
[2020-10-16] MEDS ORDERED: NICOTINE POLACRILEX 2 MG GUM BUC PRN (16:55)
[2020-10-16] MEDS: ACETAMINOPHEN 325 MG TABLET (FP) PO PRN (18:15)
[2020-10-16] MEDS: traZODone HCL 50 MG TABLET (FP) PO SCH (21:50)
[2020-10-16] MEDS: hydrOXYzine PAMOATE 25 MG CAPSULE (FP) PO PRN (21:50)
[2020-10-16] MEDS: GABAPENTIN 100 MG CAPSULE PO SCH (21:50)
[2020-10-16] MEDS: THIAMINE HCL 100 MG TABLET (FP) PO SCH (21:50)
[2020-10-16] MEDS: FERROUS SO4 325 MG TABLET (FP) PO SCH (21:50)
[2020-10-16] MEDS: MELATONIN 5 MG TABLETS PO SCH (21:50)
[2020-10-16] MEDS ORDERED: traZODone HCL 50 MG TABLET (FP) PO PRN (22:00)
[2020-10-17] MEDS: hydrOXYzine PAMOATE 25 MG CAPSULE (FP) PO PRN (06:11)
[2020-10-17] MEDS: LISINOPRIL 10 MG TABLET PO SCH (09:26)
[2020-10-17] MEDS: HYDROCHLOROTHIAZIDE 25 MG TABLET (FP) PO SCH (09:27)
[2020-10-17] MEDS: ACETAMINOPHEN 325 MG TABLET (FP) PO PRN (09:27)
[2020-10-17] MEDS: GABAPENTIN 100 MG CAPSULE PO SCH ×2 (09:27→22:08)
[2020-10-17] MEDS: FERROUS SO4 325 MG TABLET (FP) PO SCH ×2 (09:27→22:08)
[2020-10-17] MEDS: SERTRALINE HCL 50 MG TABLET (FP) PO SCH (09:29)
[2020-10-17] MEDS: PRENATAL VITAMINS W/ FOLIC ACID TABLET (FP) PO SCH (09:30)
[2020-10-17] MEDS: NICOTINE 21 MG/24 HOURS TOPICAL PATCH TD SCH (09:31)
[2020-10-17] MEDS: LIDOCAINE 5% TOPICAL PATCH TP SCH (12:13)
[2020-10-17] MEDS: CYCLOBENZAPRINE HCL 5 MG TABLET PO SCH ×2 (13:25→22:14)
[2020-10-17] MEDS: LACTULOSE 20 GM/30 ML UDC (FOR ORAL USE ONLY) PO SCH ×2 (13:25→22:07)
[2020-10-17] MEDS: traZODone HCL 50 MG TABLET (FP) PO SCH (22:08)
[2020-10-17] MEDS: THIAMINE HCL 100 MG TABLET (FP) PO SCH (22:08)
[2020-10-17] MEDS: MELATONIN 5 MG TABLETS PO SCH (22:14)
[2020-10-17] MEDS: LIDOCAINE PATCH REMOVAL MC SCH (22:15)
[2020-10-18] MEDS: LACTULOSE 20 GM/30 ML UDC (FOR ORAL USE ONLY) PO SCH ×3 (06:30→21:52)
[2020-10-18] MEDS: CYCLOBENZAPRINE HCL 5 MG TABLET PO SCH (06:56)
[2020-10-18] MEDS: LISINOPRIL 10 MG TABLET PO SCH (10:52)
[2020-10-18] MEDS: HYDROCHLOROTHIAZIDE 25 MG TABLET (FP) PO SCH (10:52)
[2020-10-18] MEDS: SERTRALINE HCL 50 MG TABLET (FP) PO SCH (11:00)
[2020-10-18] MEDS: PRENATAL VITAMINS W/ FOLIC ACID TABLET (FP) PO SCH (11:00)
[2020-10-18] MEDS: NICOTINE 21 MG/24 HOURS TOPICAL PATCH TD SCH (11:00)
[2020-10-18] MEDS: GABAPENTIN 100 MG CAPSULE PO SCH ×2 (11:00→21:53)
[2020-10-18] MEDS: LIDOCAINE 5% TOPICAL PATCH TP SCH (11:01)
[2020-10-18] MEDS: FERROUS SO4 325 MG TABLET (FP) PO SCH ×2 (11:01→21:52)
[2020-10-18] MEDS: THIAMINE HCL 100 MG TABLET (FP) PO SCH (21:51)
[2020-10-18] MEDS: MELATONIN 5 MG TABLETS PO SCH (21:51)
[2020-10-18] MEDS: LIDOCAINE PATCH REMOVAL MC SCH (21:53)
[2020-10-18] MEDS: traZODone HCL 50 MG TABLET (FP) PO SCH (21:53)
[2020-10-19] MEDS: LACTULOSE 20 GM/30 ML UDC (FOR ORAL USE ONLY) PO SCH ×3 (06:10→21:07)
[2020-10-19] MEDS: LIDOCAINE 5% TOPICAL PATCH TP SCH (10:30)
[2020-10-19] MEDS: FERROUS SO4 325 MG TABLET (FP) PO SCH ×2 (10:30→21:07)
[2020-10-19] MEDS: GABAPENTIN 100 MG CAPSULE PO SCH ×2 (10:30→21:07)
[2020-10-19] MEDS: NICOTINE 21 MG/24 HOURS TOPICAL PATCH TD SCH (10:31)
[2020-10-19] MEDS: PRENATAL VITAMINS W/ FOLIC ACID TABLET (FP) PO SCH (10:31)
[2020-10-19] MEDS: LISINOPRIL 10 MG TABLET PO SCH (10:32)
[2020-10-19] MEDS: SERTRALINE HCL 50 MG TABLET (FP) PO SCH (10:32)
[2020-10-19] MEDS: HYDROCHLOROTHIAZIDE 25 MG TABLET (FP) PO SCH (10:32)
[2020-10-19] MEDS: THIAMINE HCL 100 MG TABLET (FP) PO SCH (21:07)
[2020-10-19] MEDS: MELATONIN 5 MG TABLETS PO SCH (21:08)
[2020-10-19] MEDS: traZODone HCL 50 MG TABLET (FP) PO SCH (21:08)
[2020-10-19] MEDS: LIDOCAINE PATCH REMOVAL MC SCH (21:09)
[2020-10-20 00:08] LABS: HEP B CORE AB, TOT Positive (Negative)
[2020-10-20] MEDS: LACTULOSE 20 GM/30 ML UDC (FOR ORAL USE ONLY) PO SCH (06:11)
[2020-10-20] MEDS: FERROUS SO4 325 MG TABLET (FP) PO SCH (09:12)
[2020-10-20] MEDS: SERTRALINE HCL 50 MG TABLET (FP) PO SCH (09:12)
[2020-10-20] MEDS: LIDOCAINE 5% TOPICAL PATCH TP SCH (09:12)
[2020-10-20] MEDS: GABAPENTIN 100 MG CAPSULE PO SCH (09:12)
[2020-10-20] MEDS: PRENATAL VITAMINS W/ FOLIC ACID TABLET (FP) PO SCH (09:13)
[2020-10-20] MEDS: NICOTINE 21 MG/24 HOURS TOPICAL PATCH TD SCH (09:13)
[2020-10-20] MEDS: HYDROCHLOROTHIAZIDE 25 MG TABLET (FP) PO SCH (09:25)
[2020-10-20] MEDS: LISINOPRIL 10 MG TABLET PO SCH (09:26)
[2020-10-20 10:03] VITALS: BP 127/79; PULSE 84; TEMP 98.4
== END 2020-10-20 13:26 | disposition left against medical advice (07) | DRG 770 ==
LOC: YASAS 14:12 → Y5N 14:14
PROVIDERS: ADMIT Allergy & Immunology; ATTEND Allergy & Immunology
PROC: HZ42ZZZ Group Counseling for Substance Abuse Treatment, Cognitive-Behavioral (ICD-10-PCS; principal; 2020-10-16)
DX: F11.20 Opioid dependence, uncomplicated (principal); F10.20 Alcohol dependence, uncomplicated; F17.210 Nicotine dependence, cigarettes, uncomplicated; F19.282 Other psychoactive substance dependence with psychoactive substance-induced sleep disorder; F32.9 Major depressive disorder, single episode, unspecified; F43.10 Post-traumatic stress disorder, unspecified; D64.9 Anemia, unspecified; I10 Essential (primary) hypertension; K42.9 Umbilical hernia without obstruction or gangrene; M54.16 Radiculopathy, lumbar region; R60.0 Localized edema; W07.XXXA Fall from chair, initial encounter; Y92.231 Patient bathroom in hospital as the place of occurrence of the external cause; Y93.E1 Activity, personal bathing and showering; Y99.8 Other external cause status; Z91.018 Allergy to other foods
CPT/HCPCS: 36415; 72100-TC-FY; 82140; 82962; 83036; 86704; 86706; 86707; 86708; 86709; 86803; 87340

== ENCOUNTER 2021-04-19 15:36 | Inpatient (IN) | payer OTHER ==
[2021-04-19 17:14] VITALS: BMI 25.0
[2021-04-19] MEDS ORDERED: BISMUTH SUBSALICYLATE 524 MG/30 ML PO PRN (18:43)
[2021-04-19] MEDS ORDERED: MAGNESIUM CITRATE 300 ML BOTTLE PO PRN (18:43)
[2021-04-19] MEDS ORDERED: NICOTINE POLACRILEX 2 MG GUM BUC PRN (18:43)
[2021-04-19] MEDS ORDERED: MENTHOL/PHENOL 1 EACH UD MM PRN (18:43)
[2021-04-19] MEDS ORDERED: ACETAMINOPHEN 325 MG TABLET (FP) PO PRN ×2 (18:43)
[2021-04-19] MEDS ORDERED: METHADONE HCL 10 MG TABLET (FOR DETOX USE ONLY) PO ONE ×3 (18:43→20:30)
[2021-04-19] MEDS ORDERED: MAGNESIUM HYDROX 2400MG/30ML ORAL SUSPENSION 30 ML CUP PO PRN (18:43)
[2021-04-19] MEDS ORDERED: cloNIDine HCL 0.1 MG TABLET PO PRN (18:43)
[2021-04-19] MEDS: THIAMINE HCL 100 MG TABLET (FP) PO SCH (21:17)
[2021-04-19] MEDS: MELATONIN 5 MG TABLETS PO SCH (21:17)
[2021-04-19] MEDS: GABAPENTIN 100 MG CAPSULE PO SCH (21:17)
[2021-04-19] MEDS ORDERED: traZODone HCL 50 MG TABLET (FP) PO ONE (22:00)
[2021-04-19] MEDS: diazePAM 5 MG TABLET PO SCH (22:08)
[2021-04-20] MEDS: diazePAM 5 MG TABLET PO SCH ×4 (06:03→22:18)
[2021-04-20] MEDS ORDERED: METHADONE HCL 10 MG TABLET (FOR DETOX USE ONLY) ONE (09:04)
[2021-04-20] MEDS ORDERED: METHADONE HCL 5 MG TABLET (FOR DETOX USE ONLY) ONE (09:05)
[2021-04-20] MEDS ORDERED: METHADONE (DETOX) 20 MG, METHADONE (DETOX) 5 MG PO ONE (10:00)
[2021-04-20] MEDS: HYDROCHLOROTHIAZIDE 25 MG TABLET (FP) PO SCH (10:12)
[2021-04-20] MEDS: PRENATAL VITAMINS W/ FOLIC ACID TABLET (FP) PO SCH (10:13)
[2021-04-20] MEDS: GABAPENTIN 100 MG CAPSULE PO SCH ×2 (10:14→22:19)
[2021-04-20] MEDS: LISINOPRIL 10 MG TABLET PO SCH (10:15)
[2021-04-20] MEDS: NICOTINE 7 MG/24 HOURS TOPICAL PATCH TD SCH (10:16)
[2021-04-20 11:08] LABS: HEMATOCRIT 31.8 % (35.4-49); HEMOGLOBIN 11.3 GM/dL (11.7-16.9); MCH 40.8 pg (25.7-33.7); MCHC 35.5 g/dl (32.0-35.9); MEAN PLT VOLUME 9.5 fl (7.5-11.1); PLATELET COUNT 67 K/MM3 (134-434); RBC 2.76 M/mm3 (4.00-5.60); RDW 16.8 % (11.9-15.9)
[2021-04-20 11:30] LABS: ALBUMIN 3.2 g/dl (3.4-5.0); BLOOD UREA NITROGEN 7.3 mg/dL (7-18)
[2021-04-20 11:33] LABS: CREATININE 1.1 mg/dL (0.55-1.3)
[2021-04-20 11:35] LABS: BILIRUBIN,TOTAL 3.1 mg/dL (0.2-1)
[2021-04-20] MEDS: LACTULOSE 20 GM/30 ML UDC (FOR ORAL USE ONLY) PO SCH (13:58)
[2021-04-20] MEDS ORDERED: AMMONIUM LACTATE 12% LOTION 225 GM BOTTLE TP PRN (17:01)
[2021-04-20] MEDS: THIAMINE HCL 100 MG TABLET (FP) PO SCH (22:19)
[2021-04-20] MEDS: MELATONIN 5 MG TABLETS PO SCH (22:19)
[2021-04-20] MEDS: traZODone HCL 50 MG TABLET (FP) PO SCH (22:19)
[2021-04-21] MEDS: diazePAM 5 MG TABLET PO SCH ×3 (05:56→22:13)
[2021-04-21] MEDS: LACTULOSE 20 GM/30 ML UDC (FOR ORAL USE ONLY) PO SCH ×4 (07:10→22:53)
[2021-04-21] MEDS ORDERED: METHADONE HCL 10 MG TABLET (FOR DETOX USE ONLY) PO ONE (10:00)
[2021-04-21] MEDS: LISINOPRIL 10 MG TABLET PO SCH (10:22)
[2021-04-21] MEDS: PRENATAL VITAMINS W/ FOLIC ACID TABLET (FP) PO SCH (10:22)
[2021-04-21] MEDS: HYDROCHLOROTHIAZIDE 25 MG TABLET (FP) PO SCH (10:22)
[2021-04-21] MEDS: GABAPENTIN 100 MG CAPSULE PO SCH ×2 (10:22→22:12)
[2021-04-21] MEDS: METHOCARBAMOL 500 MG TABLET PO PRN ×2 (10:22→17:32)
[2021-04-21] MEDS: diazePAM 5 MG TABLET PO PRN ×2 (10:23→17:32)
[2021-04-21] MEDS: NICOTINE 7 MG/24 HOURS TOPICAL PATCH TD SCH (10:24)
[2021-04-21] MEDS: MAG HYDROX/AL HYDROX/SIMETH 30 ML UNIT-DOSE CUP PO PRN ×3 (10:27→23:35)
[2021-04-21] MEDS: NICOTINE 21 MG/24 HOURS TOPICAL PATCH TD SCH (11:34)
[2021-04-21] MEDS: traZODone HCL 50 MG TABLET (FP) PO SCH (22:12)
[2021-04-21] MEDS: MELATONIN 5 MG TABLETS PO SCH (22:12)
[2021-04-21] MEDS: THIAMINE HCL 100 MG TABLET (FP) PO SCH (22:13)
[2021-04-22] MEDS: diazePAM 5 MG TABLET PO SCH ×2 (05:26→17:15)
[2021-04-22] MEDS ORDERED: METHADONE HCL 10 MG TABLET (FOR DETOX USE ONLY) ONE (09:16)
[2021-04-22] MEDS ORDERED: METHADONE HCL 5 MG TABLET (FOR DETOX USE ONLY) ONE (09:17)
[2021-04-22] MEDS ORDERED: METHADONE (DETOX) 10 MG, METHADONE (DETOX) 5 MG PO ONE (10:00)
[2021-04-22] MEDS: LACTULOSE 20 GM/30 ML UDC (FOR ORAL USE ONLY) PO SCH ×2 (10:15→13:03)
[2021-04-22] MEDS: PRENATAL VITAMINS W/ FOLIC ACID TABLET (FP) PO SCH (10:16)
[2021-04-22] MEDS: NICOTINE 21 MG/24 HOURS TOPICAL PATCH TD SCH (10:16)
[2021-04-22] MEDS: HYDROCHLOROTHIAZIDE 25 MG TABLET (FP) PO SCH (10:16)
[2021-04-22] MEDS: GABAPENTIN 100 MG CAPSULE PO SCH ×2 (10:16→21:20)
[2021-04-22] MEDS: LISINOPRIL 10 MG TABLET PO SCH (10:16)
[2021-04-22] MEDS: METHOCARBAMOL 500 MG TABLET PO PRN (10:17)
[2021-04-22] MEDS: MAG HYDROX/AL HYDROX/SIMETH 30 ML UNIT-DOSE CUP PO PRN (10:18)
[2021-04-22] MEDS: IBUPROFEN 400 MG TABLET (FP) PO PRN ×2 (10:19→17:18)
[2021-04-22] MEDS: diazePAM 5 MG TABLET PO PRN (10:21)
[2021-04-22] MEDS: hydrOXYzine PAMOATE 25 MG CAPSULE (FP) PO PRN ×3 (12:56→21:22)
[2021-04-22] MEDS: THIAMINE HCL 100 MG TABLET (FP) PO SCH (21:20)
[2021-04-22] MEDS: traZODone HCL 50 MG TABLET (FP) PO SCH (21:20)
[2021-04-22] MEDS: MELATONIN 5 MG TABLETS PO SCH (21:22)
[2021-04-23] MEDS: IBUPROFEN 400 MG TABLET (FP) PO PRN (05:42)
[2021-04-23] MEDS: hydrOXYzine PAMOATE 25 MG CAPSULE (FP) PO PRN ×2 (05:43→09:49)
[2021-04-23] MEDS ORDERED: diazePAM 5 MG TABLET PO ONE (06:00)
[2021-04-23 06:09] LABS: SARS-CoV-2 NAA Not Detected (Not Detected)
[2021-04-23] MEDS: GABAPENTIN 100 MG CAPSULE PO SCH ×2 (09:49→22:16)
[2021-04-23] MEDS: PRENATAL VITAMINS W/ FOLIC ACID TABLET (FP) PO SCH (09:49)
[2021-04-23] MEDS: LISINOPRIL 10 MG TABLET PO SCH (09:49)
[2021-04-23] MEDS: HYDROCHLOROTHIAZIDE 25 MG TABLET (FP) PO SCH (09:50)
[2021-04-23] MEDS: NICOTINE 21 MG/24 HOURS TOPICAL PATCH TD SCH (09:50)
[2021-04-23] MEDS: METHOCARBAMOL 500 MG TABLET PO PRN (09:52)
[2021-04-23] MEDS ORDERED: METHADONE HCL 10 MG TABLET (FOR DETOX USE ONLY) PO ONE (10:00)
[2021-04-23] MEDS: traZODone HCL 50 MG TABLET (FP) PO SCH (22:15)
[2021-04-23] MEDS: THIAMINE HCL 100 MG TABLET (FP) PO SCH (22:16)
[2021-04-23] MEDS: MELATONIN 5 MG TABLETS PO SCH (22:16)
[2021-04-24] MEDS ORDERED: METHADONE HCL 5 MG TABLET (FOR DETOX USE ONLY) PO ONE (06:00)
[2021-04-24] MEDS: hydrOXYzine PAMOATE 25 MG CAPSULE (FP) PO PRN (06:49)
[2021-04-24] MEDS: IBUPROFEN 400 MG TABLET (FP) PO PRN (06:50)
[2021-04-24 06:54] VITALS: BP 127/83; PULSE 89; TEMP 97.1
[2021-04-24] MEDS: HYDROCHLOROTHIAZIDE 25 MG TABLET (FP) PO SCH (09:28)
[2021-04-24] MEDS: GABAPENTIN 100 MG CAPSULE PO SCH (09:28)
[2021-04-24] MEDS: NICOTINE 21 MG/24 HOURS TOPICAL PATCH TD SCH (09:29)
[2021-04-24] MEDS: LISINOPRIL 10 MG TABLET PO SCH (09:29)
[2021-04-24] MEDS: PRENATAL VITAMINS W/ FOLIC ACID TABLET (FP) PO SCH (09:29)
== END 2021-04-24 09:15 | disposition home or self-care (01) | DRG 773 ==
LOC: YASAS 15:36 → Y3N 19:42
PROVIDERS: ADMIT Allergy & Immunology; ATTEND Allergy & Immunology
PROC: HZ2ZZZZ Detoxification Services for Substance Abuse Treatment (ICD-10-PCS; principal; 2021-04-19)
DX: F11.23 Opioid dependence with withdrawal (principal); F10.230 Alcohol dependence with withdrawal, uncomplicated; F13.20 Sedative, hypnotic or anxiolytic dependence, uncomplicated; F17.210 Nicotine dependence, cigarettes, uncomplicated; F19.282 Other psychoactive substance dependence with psychoactive substance-induced sleep disorder; F19.24 Other psychoactive substance dependence with psychoactive substance-induced mood disorder; F43.10 Post-traumatic stress disorder, unspecified; F32.9 Major depressive disorder, single episode, unspecified; I10 Essential (primary) hypertension; D64.9 Anemia, unspecified; M54.5 Low back pain; R76.11 Nonspecific reaction to tuberculin skin test without active tuberculosis
CPT/HCPCS: 36415; 80053; 82140; 85027; 86780; C9803; J0735; U0003; U0005

== ENCOUNTER 2021-09-02 17:04 | Inpatient (IN) | payer OTHER ==
[2021-09-02 18:09] VITALS: BMI 25.0
[2021-09-02] MEDS ORDERED: MAGNESIUM HYDROX 2400MG/30ML ORAL SUSPENSION 30 ML CUP PO PRN (18:38)
[2021-09-02] MEDS ORDERED: BISMUTH SUBSALICYLATE 524 MG/30 ML PO PRN (18:38)
[2021-09-02] MEDS ORDERED: ACETAMINOPHEN 325 MG TABLET (FP) PO PRN (18:38)
[2021-09-02] MEDS ORDERED: NICOTINE POLACRILEX 2 MG GUM BUC PRN (18:38)
[2021-09-02] MEDS ORDERED: MAGNESIUM CITRATE 300 ML BOTTLE PO PRN (18:38)
[2021-09-02] MEDS ORDERED: MENTHOL/PHENOL 1 EACH UD MM PRN (18:38)
[2021-09-02] MEDS ORDERED: MELATONIN 5 MG TABLETS PO SCH (22:00)
[2021-09-03] MEDS: hydrOXYzine PAMOATE 25 MG CAPSULE (FP) PO SCH ×6 (00:34→22:11)
[2021-09-03] MEDS: THIAMINE HCL 100 MG TABLET (FP) PO SCH ×2 (00:34→22:10)
[2021-09-03] MEDS: ACETAMINOPHEN 325 MG TABLET (FP) PO PRN ×3 (00:35→22:11)
[2021-09-03] MEDS ORDERED: cloNIDine HCL 0.1 MG TABLET PO PRN (00:40)
[2021-09-03] MEDS ORDERED: methaDONE HCL 10 MG TABLET (FOR DETOX USE ONLY) PO ONE (00:40)
[2021-09-03] MEDS: ONDANSETRON *ODT* 4 MG TABLET SL PRN ×2 (00:44→10:37)
[2021-09-03] MEDS: PRENATAL VITAMINS W/ FOLIC ACID TABLET (FP) PO SCH ×2 (00:58→10:34)
[2021-09-03] MEDS: diazePAM 5 MG TABLET PO SCH ×4 (05:46→22:10)
[2021-09-03] MEDS: IBUPROFEN 400 MG TABLET (FP) PO PRN (06:05)
[2021-09-03] MEDS: METHOCARBAMOL 500 MG TABLET PO PRN (06:07)
[2021-09-03] MEDS: LISINOPRIL 10 MG TABLET PO SCH (10:34)
[2021-09-03] MEDS: HYDROCHLOROTHIAZIDE 25 MG TABLET (FP) PO SCH (10:35)
[2021-09-03] MEDS: NICOTINE 14 MG/24 HOURS TOPICAL PATCH TD PRN (10:40)
[2021-09-03 11:57] LABS: HEMATOCRIT 30.4 % (35.4-49); HEMOGLOBIN 10.5 GM/dL (11.7-16.9); MCH 36.8 pg (25.7-33.7); MCHC 34.6 g/dl (32.0-35.9); MEAN CELL VOLUME 106.3 fl (80-96); MEAN PLT VOLUME 8.6 fl (7.5-11.1); PLATELET COUNT 59 10^3/uL (134-434); RBC 2.86 M/mm3 (4.00-5.60); WHITE BLOOD COUNT 3.5 K/mm3 (4.0-10.0)
[2021-09-03 12:38] LABS: CALCIUM 8.2 mg/dL (8.5-10.1)
[2021-09-03 12:39] LABS: ALBUMIN 2.6 g/dl (3.4-5.0); BLOOD UREA NITROGEN 9.4 mg/dL (7-18)
[2021-09-03 12:42] LABS: CREATININE 1.1 mg/dL (0.55-1.3)
[2021-09-03 12:44] LABS: BILIRUBIN,TOTAL 3.2 mg/dL (0.2-1)
[2021-09-03 12:55] LABS: HIV INTERPRETATION NEGATIVE (NEGATIVE)
[2021-09-03] MEDS ORDERED: FLU VACC QS2021-22(6MOS UP)/PF 60 MCG/0.5 ML SYRINGE IM ONE (13:00)
[2021-09-03] MEDS: diazePAM 5 MG TABLET PO PRN (13:53)
[2021-09-03] MEDS: traZODone HCL 50 MG TABLET (FP) PO SCH (22:10)
[2021-09-03] MEDS ORDERED: methaDONE HCL 10 MG TABLET PO ONE (22:51)
[2021-09-04] MEDS: diazePAM 5 MG TABLET PO SCH ×3 (05:18→23:25)
[2021-09-04] MEDS: hydrOXYzine PAMOATE 25 MG CAPSULE (FP) PO SCH ×5 (05:18→23:25)
[2021-09-04] MEDS: IBUPROFEN 400 MG TABLET (FP) PO PRN (05:20)
[2021-09-04] MEDS ORDERED: methaDONE HCL 10 MG TABLET (FOR DETOX USE ONLY) ONE (08:46)
[2021-09-04] MEDS: PRENATAL VITAMINS W/ FOLIC ACID TABLET (FP) PO SCH (10:20)
[2021-09-04] MEDS: METHOCARBAMOL 500 MG TABLET PO PRN (10:20)
[2021-09-04] MEDS: HYDROCHLOROTHIAZIDE 25 MG TABLET (FP) PO SCH (10:21)
[2021-09-04] MEDS: SERTRALINE HCL 50 MG TABLET (FP) PO SCH (10:21)
[2021-09-04] MEDS: LISINOPRIL 10 MG TABLET PO SCH (10:21)
[2021-09-04] MEDS: NICOTINE 10 MG CARTRIDGE (INHALER) IH PRN ×2 (10:25→20:48)
[2021-09-04] MEDS: NICOTINE 14 MG/24 HOURS TOPICAL PATCH TD PRN (10:26)
[2021-09-04] MEDS: diazePAM 5 MG TABLET PO PRN ×2 (10:36→18:08)
[2021-09-04] MEDS ORDERED: POTASSIUM CHLORIDE ORAL LIQUID 20 MEQ/15 ML PO ONE ×2 (12:00→16:00)
[2021-09-04] MEDS: CLOTRIMAZOLE 1% CREAM TP SCH ×2 (13:12→23:25)
[2021-09-04] MEDS: MAG HYDROX/AL HYDROX/SIMETH 30 ML UNIT-DOSE CUP PO PRN (15:44)
[2021-09-04] MEDS: traZODone HCL 50 MG TABLET (FP) PO SCH (23:24)
[2021-09-04] MEDS: THIAMINE HCL 100 MG TABLET (FP) PO SCH (23:25)
[2021-09-05] MEDS: MAG HYDROX/AL HYDROX/SIMETH 30 ML UNIT-DOSE CUP PO PRN ×3 (01:04→17:53)
[2021-09-05] MEDS: hydrOXYzine PAMOATE 25 MG CAPSULE (FP) PO SCH ×5 (05:54→22:14)
[2021-09-05] MEDS: diazePAM 5 MG TABLET PO SCH ×2 (05:55→17:50)
[2021-09-05] MEDS: IBUPROFEN 400 MG TABLET (FP) PO PRN (05:58)
[2021-09-05] MEDS ORDERED: ASPIRIN 81 MG CHEWABLE TABLETS PO ONE (06:10)
[2021-09-05] MEDS ORDERED: methaDONE HCL 10 MG TABLET (FOR DETOX USE ONLY) PO ONE (10:00)
[2021-09-05] MEDS: LISINOPRIL 10 MG TABLET PO SCH (10:14)
[2021-09-05] MEDS: HYDROCHLOROTHIAZIDE 25 MG TABLET (FP) PO SCH (10:14)
[2021-09-05] MEDS: SERTRALINE HCL 50 MG TABLET (FP) PO SCH (10:14)
[2021-09-05] MEDS: PRENATAL VITAMINS W/ FOLIC ACID TABLET (FP) PO SCH (10:14)
[2021-09-05] MEDS: METHOCARBAMOL 500 MG TABLET PO PRN (10:14)
[2021-09-05] MEDS: diazePAM 5 MG TABLET PO PRN ×2 (10:15→15:45)
[2021-09-05] MEDS: CLOTRIMAZOLE 1% CREAM TP SCH ×2 (10:17→22:15)
[2021-09-05] MEDS: NICOTINE 10 MG CARTRIDGE (INHALER) IH PRN (10:18)
[2021-09-05] MEDS: THIAMINE HCL 100 MG TABLET (FP) PO SCH (22:14)
[2021-09-05] MEDS: traZODone HCL 50 MG TABLET (FP) PO SCH (22:14)
[2021-09-06] MEDS ORDERED: diazePAM 5 MG TABLET PO ONE (06:00)
[2021-09-06] MEDS: hydrOXYzine PAMOATE 25 MG CAPSULE (FP) PO SCH ×5 (06:04→22:28)
[2021-09-06] MEDS: ACETAMINOPHEN 325 MG TABLET (FP) PO PRN ×2 (06:37→22:30)
[2021-09-06] MEDS ORDERED: methaDONE HCL 10 MG TABLET (FOR DETOX USE ONLY) ONE (09:14)
[2021-09-06] MEDS: PRENATAL VITAMINS W/ FOLIC ACID TABLET (FP) PO SCH (10:21)
[2021-09-06] MEDS: LISINOPRIL 10 MG TABLET PO SCH (10:21)
[2021-09-06] MEDS: HYDROCHLOROTHIAZIDE 25 MG TABLET (FP) PO SCH (10:21)
[2021-09-06] MEDS: SERTRALINE HCL 50 MG TABLET (FP) PO SCH (10:22)
[2021-09-06] MEDS: METHOCARBAMOL 500 MG TABLET PO PRN (10:24)
[2021-09-06] MEDS: CLOTRIMAZOLE 1% CREAM TP SCH ×2 (10:25→22:29)
[2021-09-06] MEDS: NICOTINE 10 MG CARTRIDGE (INHALER) IH PRN (10:25)
[2021-09-06] MEDS: NICOTINE 14 MG/24 HOURS TOPICAL PATCH TD PRN (10:33)
[2021-09-06] MEDS: IBUPROFEN 400 MG TABLET (FP) PO PRN (15:04)
[2021-09-06] MEDS: THIAMINE HCL 100 MG TABLET (FP) PO SCH (22:28)
[2021-09-06] MEDS: traZODone HCL 50 MG TABLET (FP) PO SCH (22:28)
[2021-09-07] MEDS: hydrOXYzine PAMOATE 25 MG CAPSULE (FP) PO SCH ×5 (05:57→22:37)
[2021-09-07] MEDS: ACETAMINOPHEN 325 MG TABLET (FP) PO PRN (05:58)
[2021-09-07] MEDS: METHOCARBAMOL 500 MG TABLET PO PRN (06:00)
[2021-09-07] MEDS: NICOTINE 10 MG CARTRIDGE (INHALER) IH PRN (06:12)
[2021-09-07] MEDS ORDERED: methaDONE HCL 10 MG TABLET (FOR DETOX USE ONLY) PO ONE (10:00)
[2021-09-07] MEDS: LISINOPRIL 10 MG TABLET PO SCH (10:14)
[2021-09-07] MEDS: HYDROCHLOROTHIAZIDE 25 MG TABLET (FP) PO SCH (10:14)
[2021-09-07] MEDS: PRENATAL VITAMINS W/ FOLIC ACID TABLET (FP) PO SCH (10:14)
[2021-09-07] MEDS: SERTRALINE HCL 50 MG TABLET (FP) PO SCH (10:14)
[2021-09-07] MEDS: CLOTRIMAZOLE 1% CREAM TP SCH ×2 (10:16→22:37)
[2021-09-07] MEDS: IBUPROFEN 400 MG TABLET (FP) PO PRN (17:36)
[2021-09-07] MEDS: traZODone HCL 50 MG TABLET (FP) PO SCH (22:36)
[2021-09-07] MEDS: THIAMINE HCL 100 MG TABLET (FP) PO SCH (22:37)
[2021-09-08] MEDS: hydrOXYzine PAMOATE 25 MG CAPSULE (FP) PO SCH ×3 (06:06→13:25)
[2021-09-08] MEDS: IBUPROFEN 400 MG TABLET (FP) PO PRN (09:31)
[2021-09-08] MEDS: SERTRALINE HCL 50 MG TABLET (FP) PO SCH (09:31)
[2021-09-08] MEDS: METHOCARBAMOL 500 MG TABLET PO PRN (09:31)
[2021-09-08] MEDS: HYDROCHLOROTHIAZIDE 25 MG TABLET (FP) PO SCH (09:31)
[2021-09-08] MEDS: LISINOPRIL 10 MG TABLET PO SCH (09:32)
[2021-09-08] MEDS: PRENATAL VITAMINS W/ FOLIC ACID TABLET (FP) PO SCH (09:34)
[2021-09-08] MEDS: CLOTRIMAZOLE 1% CREAM TP SCH (09:34)
[2021-09-08] MEDS: ACETAMINOPHEN 325 MG TABLET (FP) PO PRN (13:23)
[2021-09-08] MEDS ORDERED: LIDOCAINE 5% TOPICAL PATCH TP SCH (13:30)
[2021-09-08 16:58] VITALS: BP 145/95; PULSE 74; TEMP 98
[2021-09-08] MEDS ORDERED: LIDOCAINE PATCH REMOVAL MC SCH (22:00)
== END 2021-09-08 17:20 | disposition other institution (70) | DRG 773 ==
LOC: YASAS 17:04 → Y6N 22:49
PROVIDERS: ADMIT Allergy & Immunology; ATTEND Allergy & Immunology
PROC: HZ2ZZZZ Detoxification Services for Substance Abuse Treatment (ICD-10-PCS; principal; 2021-09-02)
DX: F11.23 Opioid dependence with withdrawal (principal); F10.230 Alcohol dependence with withdrawal, uncomplicated; F10.24 Alcohol dependence with alcohol-induced mood disorder; F10.282 Alcohol dependence with alcohol-induced sleep disorder; F19.24 Other psychoactive substance dependence with psychoactive substance-induced mood disorder; I10 Essential (primary) hypertension; D64.9 Anemia, unspecified; R10.9 Unspecified abdominal pain; R07.9 Chest pain, unspecified; Z56.0 Unemployment, unspecified
CPT/HCPCS: 36415; 71046-TC-FY; 80053; 84132; 84484; 85027; 86780; 87389; 90686; 93005; 93010; C9803; G0008; J0735; Q0162; U0003; U0005

== ENCOUNTER 2021-09-08 17:51 | Inpatient (IN) | payer OTHER ==
[~2021-09-08 17:51] MED LIST changes: +IBUPROFEN 400 MG TABLET (FP) PO PRN; +LOPERAMIDE HCL 2 MG CAPSULE PO PRN; +MAG HYDROX/AL HYDROX/SIMETH 30 ML UNIT-DOSE CUP PO PRN; -MENTHOL/PHENOL 1 EACH UD MM PRN; +NICOTINE 10 MG CARTRIDGE (INHALER) IH PRN; +NICOTINE POLACRILEX 2 MG GUM BC PRN; -NICOTINE POLACRILEX 2 MG GUM BUC PRN; -P-EPHED 60MG/TRIPROLIDI 2.5MG TABLET PO PRN
[2021-09-08] MEDS: THIAMINE HCL 100 MG TABLET (FP) PO SCH (22:06)
[2021-09-08] MEDS: traZODone HCL 50 MG TABLET (FP) PO SCH (22:06)
[2021-09-08] MEDS: MELATONIN 5 MG TABLETS PO SCH (22:07)
[2021-09-08] MEDS: LIDOCAINE PATCH REMOVAL MC SCH (22:07)
[2021-09-08] MEDS: CLOTRIMAZOLE 1% CREAM TP SCH (22:07)
[2021-09-09] MEDS: HYDROCHLOROTHIAZIDE 25 MG TABLET (FP) PO SCH (09:12)
[2021-09-09] MEDS: LIDOCAINE 5% TOPICAL PATCH TP SCH (09:13)
[2021-09-09] MEDS: LISINOPRIL 10 MG TABLET PO SCH (09:13)
[2021-09-09] MEDS: NICOTINE 14 MG/24 HOURS TOPICAL PATCH TD SCH (09:14)
[2021-09-09] MEDS: PRENATAL VITAMINS W/ FOLIC ACID TABLET (FP) PO SCH (09:14)
[2021-09-09] MEDS: SERTRALINE HCL 50 MG TABLET (FP) PO SCH (09:15)
[2021-09-09] MEDS: CLOTRIMAZOLE 1% CREAM TP SCH ×2 (11:00→21:23)
[2021-09-09] MEDS ORDERED: cloNIDine HCL 0.1 MG TABLET PO PRN (15:59)
[2021-09-09] MEDS: traZODone HCL 50 MG TABLET (FP) PO SCH (21:22)
[2021-09-09] MEDS: MELATONIN 5 MG TABLETS PO SCH (21:22)
[2021-09-09] MEDS: THIAMINE HCL 100 MG TABLET (FP) PO SCH (21:22)
[2021-09-09] MEDS: LIDOCAINE PATCH REMOVAL MC SCH (21:23)
[2021-09-10] MEDS ORDERED: MINERAL OIL/PETROLAT/WATER TOPICAL CREAM 113 GM JAR TP PRN (08:43)
[2021-09-10] MEDS: NICOTINE 14 MG/24 HOURS TOPICAL PATCH TD SCH (09:49)
[2021-09-10] MEDS: LISINOPRIL 10 MG TABLET PO SCH (09:49)
[2021-09-10] MEDS: PRENATAL VITAMINS W/ FOLIC ACID TABLET (FP) PO SCH (09:49)
[2021-09-10] MEDS: HYDROCHLOROTHIAZIDE 25 MG TABLET (FP) PO SCH (09:49)
[2021-09-10] MEDS: SERTRALINE HCL 50 MG TABLET (FP) PO SCH (09:50)
[2021-09-10] MEDS: CLOTRIMAZOLE 1% CREAM TP SCH ×2 (09:50→21:28)
[2021-09-10] MEDS: LIDOCAINE 5% TOPICAL PATCH TP SCH (09:50)
[2021-09-10] MEDS: hydrOXYzine PAMOATE 25 MG CAPSULE (FP) PO PRN ×3 (10:19→21:28)
[2021-09-10] MEDS: METHOCARBAMOL 500 MG TABLET PO PRN ×2 (10:19→21:27)
[2021-09-10] MEDS: LACTULOSE 20 GM/30 ML UDC (FOR ORAL USE ONLY) PO SCH ×2 (15:06→21:26)
[2021-09-10] MEDS: THIAMINE HCL 100 MG TABLET (FP) PO SCH (21:25)
[2021-09-10] MEDS: MELATONIN 5 MG TABLETS PO SCH (21:25)
[2021-09-10] MEDS: traZODone HCL 50 MG TABLET (FP) PO SCH (21:25)
[2021-09-10] MEDS: LIDOCAINE PATCH REMOVAL MC SCH (21:27)
[2021-09-11] MEDS: hydrOXYzine PAMOATE 25 MG CAPSULE (FP) PO PRN ×3 (07:01→13:10)
[2021-09-11] MEDS: LACTULOSE 20 GM/30 ML UDC (FOR ORAL USE ONLY) PO SCH ×3 (07:01→21:11)
[2021-09-11] MEDS: CLOTRIMAZOLE 1% CREAM TP SCH ×2 (10:09→21:12)
[2021-09-11] MEDS: PRENATAL VITAMINS W/ FOLIC ACID TABLET (FP) PO SCH (10:10)
[2021-09-11] MEDS: SERTRALINE HCL 50 MG TABLET (FP) PO SCH (10:10)
[2021-09-11] MEDS: LISINOPRIL 10 MG TABLET PO SCH (10:10)
[2021-09-11] MEDS: HYDROCHLOROTHIAZIDE 25 MG TABLET (FP) PO SCH (10:10)
[2021-09-11] MEDS: METHOCARBAMOL 500 MG TABLET PO PRN (10:10)
[2021-09-11] MEDS: NICOTINE 14 MG/24 HOURS TOPICAL PATCH TD SCH (10:10)
[2021-09-11] MEDS: LIDOCAINE 5% TOPICAL PATCH TP SCH (10:10)
[2021-09-11 17:09] LABS: EPI CELLS 5 /uL (0-25.1); HYALINE CASTS 0 /uL (0-3.1); URINE APPEARANCE CLEAR; URINE BACTERIA 7 /uL (0-1359); URINE BILIRUBIN 1+ (NEGATIVE); URINE COLOR DK YELLOW; URINE GLUCOSE (UA) NEGATIVE (NEGATIVE); URINE KETONE NEGATIVE (NEGATIVE); URINE LEUK ESTERASE TRACE (NEGATIVE); URINE NITRITE NEGATIVE (NEGATIVE); URINE PROTEIN NEGATIVE (NEGATIVE); URINE RBC 2 /uL (0-23.9); URINE UROBILINOGEN >=8.0 E.U./dl mg/dL (0.2-1.0); URINE WBC 3 /uL (0-25.8)
[2021-09-11] MEDS: THIAMINE HCL 100 MG TABLET (FP) PO SCH (21:11)
[2021-09-11] MEDS: MELATONIN 5 MG TABLETS PO SCH (21:11)
[2021-09-11] MEDS: traZODone HCL 50 MG TABLET (FP) PO SCH (21:11)
[2021-09-11] MEDS: LIDOCAINE PATCH REMOVAL MC SCH (21:12)
[2021-09-12] MEDS: hydrOXYzine PAMOATE 25 MG CAPSULE (FP) PO PRN (06:14)
[2021-09-12] MEDS: LACTULOSE 20 GM/30 ML UDC (FOR ORAL USE ONLY) PO SCH ×3 (06:14→21:15)
[2021-09-12] MEDS: SERTRALINE HCL 50 MG TABLET (FP) PO SCH (09:52)
[2021-09-12] MEDS: HYDROCHLOROTHIAZIDE 25 MG TABLET (FP) PO SCH (09:53)
[2021-09-12] MEDS: NICOTINE 14 MG/24 HOURS TOPICAL PATCH TD SCH (09:53)
[2021-09-12] MEDS: PRENATAL VITAMINS W/ FOLIC ACID TABLET (FP) PO SCH (09:53)
[2021-09-12] MEDS: LISINOPRIL 10 MG TABLET PO SCH (09:53)
[2021-09-12] MEDS: CLOTRIMAZOLE 1% CREAM TP SCH ×2 (09:55→21:15)
[2021-09-12] MEDS: LIDOCAINE 5% TOPICAL PATCH TP SCH (09:55)
[2021-09-12 11:41] LABS: BASO % 0.6 % (0-2.0); EOS % 4.6 % (0-4.5); HEMATOCRIT 32.1 % (35.4-49); HEMOGLOBIN 10.9 GM/dL (11.7-16.9); LYMPH % 41.9 % (8-40); MCH 36.8 pg (25.7-33.7); MCHC 33.9 g/dl (32.0-35.9); MEAN CELL VOLUME 108.7 fl (80-96); MEAN PLT VOLUME 9.6 fl (7.5-11.1); MONO % 13.5 % (3.8-10.2); NEUT % 39.4 % (42.8-82.8); PLATELET COUNT 65 10^3/uL (134-434); RBC 2.95 M/mm3 (4.00-5.60); RDW 16.4 % (11.9-15.9)
[2021-09-12 13:49] LABS: ANISOCYTOSIS 1+; MACROCYTOSIS 1+; OVALOCYTE 1+; PLATELET ESTIMATE DECREASED
[2021-09-12] MEDS: MELATONIN 5 MG TABLETS PO SCH (21:14)
[2021-09-12] MEDS: LIDOCAINE PATCH REMOVAL MC SCH (21:14)
[2021-09-12] MEDS: traZODone HCL 50 MG TABLET (FP) PO SCH (21:14)
[2021-09-12] MEDS: METHOCARBAMOL 500 MG TABLET PO PRN (21:14)
[2021-09-12] MEDS: THIAMINE HCL 100 MG TABLET (FP) PO SCH (21:14)
[2021-09-13] MEDS: LACTULOSE 20 GM/30 ML UDC (FOR ORAL USE ONLY) PO SCH (06:36)
[2021-09-13] MEDS: PRENATAL VITAMINS W/ FOLIC ACID TABLET (FP) PO SCH (09:45)
[2021-09-13] MEDS: hydrOXYzine PAMOATE 25 MG CAPSULE (FP) PO PRN (09:45)
[2021-09-13] MEDS: LISINOPRIL 10 MG TABLET PO SCH (09:45)
[2021-09-13] MEDS: HYDROCHLOROTHIAZIDE 25 MG TABLET (FP) PO SCH (09:45)
[2021-09-13] MEDS: NICOTINE 14 MG/24 HOURS TOPICAL PATCH TD SCH (09:45)
[2021-09-13] MEDS: SERTRALINE HCL 50 MG TABLET (FP) PO SCH (09:45)
[2021-09-13] MEDS: CLOTRIMAZOLE 1% CREAM TP SCH (09:46)
[2021-09-13] MEDS: LIDOCAINE 5% TOPICAL PATCH TP SCH (09:46)
[2021-09-13 14:05] VITALS: BP 143/83; PULSE 80; TEMP 98.6
== END 2021-09-13 11:30 | disposition home or self-care (01) | DRG 772 ==
LOC: YASAS 17:51 → Y3W 17:52
PROVIDERS: ADMIT Allergy & Immunology; ATTEND Allergy & Immunology
PROC: HZ42ZZZ Group Counseling for Substance Abuse Treatment, Cognitive-Behavioral (ICD-10-PCS; principal; 2021-09-08)
DX: F11.20 Opioid dependence, uncomplicated (principal); F10.20 Alcohol dependence, uncomplicated; F14.20 Cocaine dependence, uncomplicated; F17.210 Nicotine dependence, cigarettes, uncomplicated; I10 Essential (primary) hypertension; R79.89 Other specified abnormal findings of blood chemistry; R74.8 Abnormal levels of other serum enzymes; R10.9 Unspecified abdominal pain; Z86.59 Personal history of other mental and behavioral disorders; Z99.89 Dependence on other enabling machines and devices
CPT/HCPCS: 36415; 81003; 82140; 85025; C9803; U0003; U0005

== ENCOUNTER 2021-10-17 12:56 | Inpatient (IN) | payer OTHER ==
[2021-10-17 13:43] VITALS: BMI 24.7
[2021-10-17] MEDS ORDERED: MAGNESIUM HYDROX 2400MG/30ML ORAL SUSPENSION 30 ML CUP PO PRN (14:48)
[2021-10-17] MEDS ORDERED: cloNIDine HCL 0.1 MG TABLET PO PRN (14:48)
[2021-10-17] MEDS ORDERED: BISMUTH SUBSALICYLATE 524 MG/30 ML PO PRN (14:48)
[2021-10-17] MEDS ORDERED: MAG HYDROX/AL HYDROX/SIMETH 30 ML UNIT-DOSE CUP PO PRN (14:48)
[2021-10-17] MEDS ORDERED: MAGNESIUM CITRATE 300 ML BOTTLE PO PRN (14:48)
[2021-10-17] MEDS ORDERED: ONDANSETRON *ODT* 4 MG TABLET SL PRN (14:48)
[2021-10-17] MEDS ORDERED: MENTHOL/PHENOL 1 EACH UD MM PRN (14:48)
[2021-10-17] MEDS ORDERED: IBUPROFEN 400 MG TABLET (FP) PO PRN (14:48)
[2021-10-17] MEDS ORDERED: ACETAMINOPHEN 325 MG TABLET (FP) PO PRN (14:48)
[2021-10-17] MEDS ORDERED: methaDONE HCL 10 MG TABLET (FOR DETOX USE ONLY) PO ONE ×2 (14:48→18:15)
[2021-10-17] MEDS ORDERED: MINERAL OIL/PETROLAT/WATER TOPICAL CREAM 113 GM JAR TP PRN (16:36)
[2021-10-17] MEDS: LISINOPRIL 20 MG TABLET PO SCH (17:28)
[2021-10-17] MEDS: NICOTINE 10 MG CARTRIDGE (INHALER) IH PRN (17:29)
[2021-10-17] MEDS: diazePAM 5 MG TABLET PO SCH ×2 (18:26→22:40)
[2021-10-17] MEDS: METHOCARBAMOL 500 MG TABLET PO PRN (18:29)
[2021-10-17] MEDS: hydrOXYzine PAMOATE 25 MG CAPSULE (FP) PO SCH ×2 (18:29→22:39)
[2021-10-17] MEDS: THIAMINE HCL 100 MG TABLET (FP) PO SCH (22:39)
[2021-10-17] MEDS: MELATONIN 5 MG TABLETS PO SCH (22:39)
[2021-10-18] MEDS: diazePAM 5 MG TABLET PO SCH ×4 (06:02→22:49)
[2021-10-18] MEDS: hydrOXYzine PAMOATE 25 MG CAPSULE (FP) PO SCH ×5 (06:02→22:48)
[2021-10-18] MEDS ORDERED: methaDONE HCL 10 MG TABLET (FOR DETOX USE ONLY) ONE (09:15)
[2021-10-18] MEDS: PRENATAL VITAMINS W/ FOLIC ACID TABLET (FP) PO SCH (10:11)
[2021-10-18] MEDS: HYDROCHLOROTHIAZIDE 25 MG TABLET (FP) PO SCH (10:12)
[2021-10-18] MEDS: LISINOPRIL 20 MG TABLET PO SCH (10:12)
[2021-10-18] MEDS: diazePAM 5 MG TABLET PO PRN (14:00)
[2021-10-18] MEDS: MELATONIN 5 MG TABLETS PO SCH (22:48)
[2021-10-18] MEDS: THIAMINE HCL 100 MG TABLET (FP) PO SCH (22:48)
[2021-10-18] MEDS: traZODone HCL 50 MG TABLET (FP) PO SCH (22:49)
[2021-10-19] MEDS: hydrOXYzine PAMOATE 25 MG CAPSULE (FP) PO SCH ×5 (05:24→22:27)
[2021-10-19] MEDS: diazePAM 5 MG TABLET PO SCH ×3 (05:24→22:27)
[2021-10-19] MEDS: METHOCARBAMOL 500 MG TABLET PO PRN (05:24)
[2021-10-19] MEDS ORDERED: methaDONE HCL 10 MG TABLET (FOR DETOX USE ONLY) PO ONE (10:00)
[2021-10-19] MEDS: PRENATAL VITAMINS W/ FOLIC ACID TABLET (FP) PO SCH (10:10)
[2021-10-19] MEDS: SERTRALINE HCL 50 MG TABLET (FP) PO SCH (10:10)
[2021-10-19] MEDS: HYDROCHLOROTHIAZIDE 25 MG TABLET (FP) PO SCH (10:11)
[2021-10-19] MEDS: LISINOPRIL 20 MG TABLET PO SCH (10:11)
[2021-10-19] MEDS ORDERED: COLLOIDAL OATMEAL 1 BAR EACH TP PRN (10:45)
[2021-10-19 10:54] LABS: HEMATOCRIT 33.2 % (35.4-49); HEMOGLOBIN 11.4 GM/dL (11.7-16.9); MCH 38.4 pg (25.7-33.7); MCHC 34.3 g/dl (32.0-35.9); MEAN CELL VOLUME 111.8 fl (80-96); MEAN PLT VOLUME 10.3 fl (7.5-11.1); PLATELET COUNT 55 10^3/uL (134-434); RBC 2.97 M/mm3 (4.00-5.60); RDW 17.1 % (11.9-15.9); WHITE BLOOD COUNT 3.8 K/mm3 (4.0-10.0)
[2021-10-19] MEDS ORDERED: PSEUDOEPHEDRINE HCL 60 MG TABLET PO PRN (11:07)
[2021-10-19 11:08] LABS: CALCIUM 8.8 mg/dL (8.5-10.1)
[2021-10-19 11:09] LABS: ALBUMIN 2.5 g/dl (3.4-5.0); BLOOD UREA NITROGEN 8.8 mg/dL (7-18)
[2021-10-19 11:13] LABS: BILIRUBIN,TOTAL 3.3 mg/dL (0.2-1); TOT PROT 8.1 g/dl (6.4-8.2)
[2021-10-19] MEDS ORDERED: P-EPHED 60MG/TRIPROLIDI 2.5MG TABLET PO PRN (13:17)
[2021-10-19] MEDS: diazePAM 5 MG TABLET PO PRN (17:28)
[2021-10-19] MEDS: THIAMINE HCL 100 MG TABLET (FP) PO SCH (22:27)
[2021-10-19] MEDS: MELATONIN 5 MG TABLETS PO SCH (22:27)
[2021-10-19] MEDS: traZODone HCL 50 MG TABLET (FP) PO SCH (22:27)
[2021-10-20] MEDS: hydrOXYzine PAMOATE 25 MG CAPSULE (FP) PO SCH ×5 (05:54→22:11)
[2021-10-20] MEDS: diazePAM 5 MG TABLET PO SCH ×2 (05:54→18:47)
[2021-10-20] MEDS ORDERED: methaDONE HCL 10 MG TABLET (FOR DETOX USE ONLY) ONE (10:03)
[2021-10-20] MEDS: HYDROCHLOROTHIAZIDE 25 MG TABLET (FP) PO SCH (10:45)
[2021-10-20] MEDS: FLUOCINONIDE 0.05% CREAM (15 GM TUBE) TP SCH ×2 (10:46→23:08)
[2021-10-20] MEDS: diazePAM 5 MG TABLET PO PRN (10:47)
[2021-10-20] MEDS: SERTRALINE HCL 50 MG TABLET (FP) PO SCH (10:48)
[2021-10-20] MEDS: PRENATAL VITAMINS W/ FOLIC ACID TABLET (FP) PO SCH (10:48)
[2021-10-20] MEDS: LISINOPRIL 20 MG TABLET PO SCH (10:48)
[2021-10-20] MEDS: METHOCARBAMOL 500 MG TABLET PO PRN (10:49)
[2021-10-20] MEDS: NICOTINE 10 MG CARTRIDGE (INHALER) IH PRN (10:49)
[2021-10-20] MEDS: traZODone HCL 50 MG TABLET (FP) PO SCH (22:11)
[2021-10-20] MEDS: THIAMINE HCL 100 MG TABLET (FP) PO SCH (22:11)
[2021-10-20] MEDS: MELATONIN 5 MG TABLETS PO SCH (23:08)
[2021-10-21] MEDS: hydrOXYzine PAMOATE 25 MG CAPSULE (FP) PO SCH ×5 (05:34→22:32)
[2021-10-21] MEDS ORDERED: diazePAM 5 MG TABLET PO ONE (06:00)
[2021-10-21] MEDS: LISINOPRIL 20 MG TABLET PO SCH (09:35)
[2021-10-21] MEDS: SERTRALINE HCL 50 MG TABLET (FP) PO SCH (09:35)
[2021-10-21] MEDS: METHOCARBAMOL 500 MG TABLET PO PRN ×2 (09:36→22:34)
[2021-10-21] MEDS: PRENATAL VITAMINS W/ FOLIC ACID TABLET (FP) PO SCH (09:36)
[2021-10-21] MEDS: HYDROCHLOROTHIAZIDE 25 MG TABLET (FP) PO SCH (09:36)
[2021-10-21] MEDS: FLUOCINONIDE 0.05% CREAM (15 GM TUBE) TP SCH ×2 (09:37→22:35)
[2021-10-21] MEDS ORDERED: methaDONE HCL 10 MG TABLET (FOR DETOX USE ONLY) PO ONE (10:00)
[2021-10-21] MEDS: ACETAMINOPHEN 325 MG TABLET (FP) PO PRN ×2 (12:31→22:32)
[2021-10-21 13:53] LABS: HEMATOCRIT 33.4 % (35.4-49); HEMOGLOBIN 11.3 GM/dL (11.7-16.9); MCH 37.9 pg (25.7-33.7); MCHC 33.9 g/dl (32.0-35.9); MEAN CELL VOLUME 112.1 fl (80-96); MEAN PLT VOLUME 9.2 fl (7.5-11.1); PLATELET COUNT 62 10^3/uL (134-434); RBC 2.98 M/mm3 (4.00-5.60); WHITE BLOOD COUNT 3.6 K/mm3 (4.0-10.0)
[2021-10-21 13:59] LABS: INR 1.94 (0.83-1.09); PROTHROMBIN TIME (PATIENT) 22.8 SEC (9.7-13.0)
[2021-10-21 14:19] LABS: CALCIUM 8.5 mg/dL (8.5-10.1)
[2021-10-21 14:20] LABS: ALBUMIN 2.5 g/dl (3.4-5.0); BLOOD UREA NITROGEN 9.5 mg/dL (7-18)
[2021-10-21 14:21] LABS: CREATININE 1.1 mg/dL (0.55-1.3)
[2021-10-21 14:22] LABS: BILIRUBIN,TOTAL 2.7 mg/dL (0.2-1); TOT PROT 8.2 g/dl (6.4-8.2)
[2021-10-21] MEDS: MELATONIN 5 MG TABLETS PO SCH (22:32)
[2021-10-21] MEDS: THIAMINE HCL 100 MG TABLET (FP) PO SCH (22:32)
[2021-10-21] MEDS: traZODone HCL 50 MG TABLET (FP) PO SCH (22:32)
[2021-10-22] MEDS: hydrOXYzine PAMOATE 25 MG CAPSULE (FP) PO SCH ×3 (06:18→13:06)
[2021-10-22 10:50] VITALS: BP 127/68; PULSE 83; TEMP 96.7
[2021-10-22] MEDS: LISINOPRIL 20 MG TABLET PO SCH (10:51)
[2021-10-22] MEDS: SERTRALINE HCL 50 MG TABLET (FP) PO SCH (10:51)
[2021-10-22] MEDS: HYDROCHLOROTHIAZIDE 25 MG TABLET (FP) PO SCH (10:52)
[2021-10-22] MEDS: PRENATAL VITAMINS W/ FOLIC ACID TABLET (FP) PO SCH (10:52)
[2021-10-22] MEDS: FLUOCINONIDE 0.05% CREAM (15 GM TUBE) TP SCH (10:52)
[2021-10-22] MEDS: NICOTINE 10 MG CARTRIDGE (INHALER) IH PRN (11:33)
== END 2021-10-22 15:14 | disposition other institution (70) | DRG 773 ==
LOC: YASAS 12:56 → Y3N 15:20
PROVIDERS: ADMIT Allergy & Immunology; ATTEND Allergy & Immunology
PROC: HZ2ZZZZ Detoxification Services for Substance Abuse Treatment (ICD-10-PCS; principal; 2021-10-17)
DX: F11.23 Opioid dependence with withdrawal (principal); F10.230 Alcohol dependence with withdrawal, uncomplicated; F10.220 Alcohol dependence with intoxication, uncomplicated; F14.20 Cocaine dependence, uncomplicated; F17.210 Nicotine dependence, cigarettes, uncomplicated; F43.10 Post-traumatic stress disorder, unspecified; F19.24 Other psychoactive substance dependence with psychoactive substance-induced mood disorder; I10 Essential (primary) hypertension; R94.5 Abnormal results of liver function studies; G47.00 Insomnia, unspecified; M54.59 Other low back pain; G89.29 Other chronic pain; L23.9 Allergic contact dermatitis, unspecified cause; D61.818 Other pancytopenia; Z63.4 Disappearance and death of family member; Z86.11 Personal history of tuberculosis; Z56.0 Unemployment, unspecified
CPT/HCPCS: 36415; 80053; 85027; 85610; 86780; C9803; U0003; U0005

== ENCOUNTER 2021-10-22 14:59 | Inpatient (IN) | payer OTHER ==
[2021-10-22] MEDS ORDERED: MAGNESIUM HYDROX 2400MG/30ML ORAL SUSPENSION 30 ML CUP PO PRN (15:46)
[2021-10-22] MEDS ORDERED: ACETAMINOPHEN 325 MG TABLET (FP) PO PRN (15:46)
[2021-10-22] MEDS ORDERED: IBUPROFEN 400 MG TABLET (FP) PO PRN (15:46)
[2021-10-22] MEDS ORDERED: MENTHOL/PHENOL 1 EACH UD MM PRN (15:46)
[2021-10-22] MEDS ORDERED: MAG HYDROX/AL HYDROX/SIMETH 30 ML UNIT-DOSE CUP PO PRN (15:46)
[2021-10-22] MEDS ORDERED: MAGNESIUM CITRATE 300 ML BOTTLE PO PRN (15:46)
[2021-10-22] MEDS ORDERED: NICOTINE 10 MG CARTRIDGE (INHALER) IH PRN (15:46)
[2021-10-22] MEDS ORDERED: P-EPHED 60MG/TRIPROLIDI 2.5MG TABLET PO PRN (15:46)
[2021-10-22] MEDS ORDERED: guaiFENesin 200 MG/10 ML 10 ML UNIT-DOSE CUPS PO PRN (15:46)
[2021-10-22] MEDS ORDERED: LOPERAMIDE HCL 2 MG CAPSULE PO PRN (15:46)
[2021-10-22] MEDS ORDERED: MINERAL OIL/PETROLAT/WATER TOPICAL CREAM 454 GM JAR TP PRN (15:48)
[2021-10-22] MEDS: hydrOXYzine PAMOATE 25 MG CAPSULE (FP) PO SCH ×2 (18:10→21:57)
[2021-10-22] MEDS: traZODone HCL 50 MG TABLET (FP) PO SCH (21:56)
[2021-10-22] MEDS: THIAMINE HCL 100 MG TABLET (FP) PO SCH (21:56)
[2021-10-22] MEDS: MELATONIN 5 MG TABLETS PO SCH (21:57)
[2021-10-22] MEDS: FLUOCINONIDE 0.05% TOP OINT (60 GM TUBE) TP SCH (21:58)
[2021-10-23] MEDS: hydrOXYzine PAMOATE 25 MG CAPSULE (FP) PO SCH (06:17)
[2021-10-23] MEDS ORDERED: hydrOXYzine PAMOATE 25 MG CAPSULE (FP) PO PRN (08:19)
[2021-10-23] MEDS: HYDROCHLOROTHIAZIDE 25 MG TABLET (FP) PO SCH (09:19)
[2021-10-23] MEDS: FLUOCINONIDE 0.05% TOP OINT (60 GM TUBE) TP SCH ×2 (09:19→21:46)
[2021-10-23] MEDS: NICOTINE 7 MG/24 HOURS TOPICAL PATCH TD SCH (09:19)
[2021-10-23] MEDS: LISINOPRIL 20 MG TABLET PO SCH (09:20)
[2021-10-23] MEDS: PRENATAL VITAMINS W/ FOLIC ACID TABLET (FP) PO SCH (09:20)
[2021-10-23] MEDS: SERTRALINE HCL 50 MG TABLET (FP) PO SCH (09:20)
[2021-10-23] MEDS: MELATONIN 5 MG TABLETS PO SCH (21:45)
[2021-10-23] MEDS: traZODone HCL 50 MG TABLET (FP) PO SCH (21:45)
[2021-10-23] MEDS: THIAMINE HCL 100 MG TABLET (FP) PO SCH (21:45)
[2021-10-24] MEDS: SERTRALINE HCL 50 MG TABLET (FP) PO SCH (09:15)
[2021-10-24] MEDS: HYDROCHLOROTHIAZIDE 25 MG TABLET (FP) PO SCH (09:15)
[2021-10-24] MEDS: LISINOPRIL 20 MG TABLET PO SCH (09:15)
[2021-10-24] MEDS: NICOTINE 7 MG/24 HOURS TOPICAL PATCH TD SCH (09:16)
[2021-10-24] MEDS: PRENATAL VITAMINS W/ FOLIC ACID TABLET (FP) PO SCH (09:16)
[2021-10-24] MEDS: FLUOCINONIDE 0.05% TOP OINT (60 GM TUBE) TP SCH ×2 (09:17→21:48)
[2021-10-24] MEDS: THIAMINE HCL 100 MG TABLET (FP) PO SCH (21:47)
[2021-10-24] MEDS: traZODone HCL 50 MG TABLET (FP) PO SCH (21:47)
[2021-10-24] MEDS: MELATONIN 5 MG TABLETS PO SCH (21:47)
[2021-10-25 07:05] VITALS: TEMP 97.5
[2021-10-25 09:27] VITALS: BP 126/76; PULSE 86
[2021-10-25] MEDS: HYDROCHLOROTHIAZIDE 25 MG TABLET (FP) PO SCH (10:10)
[2021-10-25] MEDS: SERTRALINE HCL 50 MG TABLET (FP) PO SCH (10:11)
[2021-10-25] MEDS: NICOTINE 7 MG/24 HOURS TOPICAL PATCH TD SCH (10:11)
[2021-10-25] MEDS: LISINOPRIL 20 MG TABLET PO SCH (10:11)
[2021-10-25] MEDS: PRENATAL VITAMINS W/ FOLIC ACID TABLET (FP) PO SCH (10:11)
[2021-10-25] MEDS: FLUOCINONIDE 0.05% TOP OINT (60 GM TUBE) TP SCH (10:12)
[2021-10-25] MEDS ORDERED: PT OWN MED DRAWER 7, Y5N ONE (10:12)
== END 2021-10-25 10:15 | disposition left against medical advice (07) | DRG 770 ==
LOC: YASAS 14:59 → Y3E 15:00
PROVIDERS: ADMIT Allergy & Immunology; ATTEND Allergy & Immunology
PROC: HZ42ZZZ Group Counseling for Substance Abuse Treatment, Cognitive-Behavioral (ICD-10-PCS; principal; 2021-10-22)
DX: F11.20 Opioid dependence, uncomplicated (principal); F10.20 Alcohol dependence, uncomplicated; F17.210 Nicotine dependence, cigarettes, uncomplicated; I10 Essential (primary) hypertension; M54.59 Other low back pain; G89.29 Other chronic pain; R94.5 Abnormal results of liver function studies; E72.20 Disorder of urea cycle metabolism, unspecified